=== PATIENT | female | born 1955 | race African-American/Black ===

== ENCOUNTER 2016-07-18 23:40 | Inpatient (IN) | payer MEDICAID, OTHER ==
[~2016-07-18] VITALS: Ht 154.9 cm; Wt 122.0 kg
[~2016-07-18 23:40] MED LIST: ADALAT CC90 MG PO; ALBUTEROL SULF8.5 GM INH; ASPIRIN EC81 MG PO; ATIVAN1 MG ORAL; AUGMENTIN 875-1 EAC1 ORAL; AZITHROMYCIN250 MG ORAL; AZITHROMYCIN250 MG PO; FLOVENT2 PUFF2 INH; FUROSEMIDE40 MG ORAL; GENTAMICIN SUL3.5 GM OP; IBUPROFEN600 MG ORAL; LASIX40 MG PO; LISINOPRIL20 MG ORAL; MECLIZINE HCL25 MG ORAL; METOPROLOL TART25 MG ORAL; NIFEDIPINE ER60 M2 ORAL; NORCO 5-325 TA1 EACH ORAL; OYSTER SHELL C500 MG PO; PERCOCET 5-3251 EACH ORAL; POTASSIUM CHLO20 ME1 PO; POTASSIUM99 M2 PO; PREDNISONE20 MG ORAL; PRILOSEC40 MG PO; ROBAXIN500 MG PO; SIMVASTATIN20 MG ORAL; SIMVASTATIN20 MG PO; SUCRALFATE1 GM ORAL; TYLENOL/CODEI12.5 ML PO; TYLENOL325 MG ORAL; UNKNOWN MEDS; VALIUM2 MG ORAL; VICODIN 5-5001 EACH PO; ZESTRIL20 MG PO
[2016-07-19] VITALS (8 sets, daily range): BP systolic 121–144; BP diastolic 65–78
[2016-07-19] MEDS ORDERED: Enoxaparin 120 mg inj SUBQ ONE (00:30)
[2016-07-19] MEDS ORDERED: Aspirin Baby 81mg ORAL ONE (00:30)
[2016-07-19 01:07] LABS: APPEARANCE,URINE CLEAR; BASOPHILS % (AUTO) 1.3 % (0.0-2.0); EOSINOPHILS % (AUTO) 3.4 % (0.0-3.0); KETONES,URINE NEGATIVE (NEGATIVE); LYMPHOCYTES % (AUTO) 49.6 % (20.0-45.0); MEAN CORPUSCULAR HGB CONC 31.6 G/DL (32.0-36.0); MEAN CORPUSCULAR VOLUME 92 FL (80-99); MEAN PLATELET VOLUME 12.9 FL (6.5-10.1); MONOCYTES % (AUTO) 7.9 % (1.0-10.0); NEUTROPHILS % (AUTO) 37.7 % (45.0-75.0); NITRITE,URINE NEGATIVE (NEGATIVE); PH,URINE 8 (4.5-8.0); PLATELET COUNT 154 K/UL (150-450); PROTEIN,URINE NEGATIVE (NEGATIVE); RED BLOOD COUNT 4.07 M/UL (4.20-5.40); RED CELL DISTRIBUTION WIDTH 13.2 % (11.6-14.8); UROBILINOGEN,URINE 4 MG/DL (0.0-1.0)
[2016-07-19 01:09] LABS: LEUKOCYTE ESTERASE ,URINE NEGATIVE (NEGATIVE)
[2016-07-19 01:22] LABS: TROPONIN I < 0.30 ng/mL (<=0.30)
[2016-07-19 01:35] LABS: CKMB < 1.5 ng/mL (< 3.8)
--- NOTE | 2016-07-19 02:07 | Emergency Room Report ---
History of Present Illness General Chief Complaint: Chest Pain Source: Patient Present Illness HPI Is a 60-year-old obese female with history hypertension, CHF, and psych history. She is occasionally noncompliant with her medication. She presents with chest pain. She said that she has chronic reflux problem. Reason she came in because her pain is radiating to her neck and arm. She has apheresis. Also exertional pain. Onset was 4-5 hours prior to arrival. Denies any other complaint. Has not take anything for this. Allergies: Coded Allergies: No Known Allergies (Unverified , 01/19/12) Patient History Past Medical History: see triage record, old chart reviewed, HTN, psych hx Past Surgical History: other Pertinent Family History: none Social History: Denies: drug use Now: No Immunizations: other Reviewed Nursing Documentation: PMH: Agreed, PSxH: Agreed Nursing Documentation-PMH Hx Hypertension: Yes - High cholesterol Hx COPD: Yes Hx Cancer: No Hx Neurological Problems: No Review of Systems Eye: Denies: blurred vision, eye pain ENT: Denies: ear pain, nose congestion, throat swelling Respiratory: Denies: cough, shortness of breath Cardiovascular: Reports: chest pain, Denies: palpitations Gastrointestinal: Denies: abdominal pain, diarrhea, nausea, vomiting Musculoskeletal: Denies: back pain, joint pain Skin: Denies: rash Neurological: Denies: headache, numbness Endocrine: Denies: increased thirst, increased urine Hematologic/Lymphatic: Denies: easy bruising All Other Systems: negative except mentioned in HPI Physical Exam Vital Signs Date Time Temp Pulse Resp B/P Pulse Ox O2 Delivery O2 Flow Rate FiO2 07/18/16 23:42 98.2 96 16 136/80 98 Room Air vitals normal Sp02 EP Interpretation: reviewed, normal General Appearance: well appearing, no apparent distress, alert, obese Head: normocephalic, atraumatic Eyes: bilateral eye EOMI, bilateral eye PERRL ENT: hearing grossly normal, normal pharynx Neck: full range of motion, supple, no meningismus Respiratory: chest non-tender, lungs clear, normal breath sounds Cardiovascular #1: regular rate, rhythm, no murmur Gastrointestinal: normal bowel sounds, non tender, no mass, no organomegaly, no bruit, non-distended Musculoskeletal: back normal, gait/station normal, normal range of motion Psychiatric: mood/affect normal Skin: warm/dry Medical Decision Making Diagnostic Impression: Primary Impression: Unstable angina Additional Impressions: Morbid obesity with BMI of 50.0-59.9, adult ACS (acute coronary syndrome) CHF exacerbation Qualified Codes: I50.9 - Heart failure, unspecified Anemia, chronic disease ER Course Patient presents with chest pain concerning for unstable angina. She is pain- free now. Aspirin and Lovenox given. Patient will be initiated versus transfer. insurance approved patient for admission here. She will be admitted to Dr. Boateng. Lab Results Impression labs unremarkable EKG Diagnostic Results Rate: normal Rhythm: NSR ST Segments: no acute changes Rhythm Strip Diag. Results EP Interpretation: yes Rate: 85 Rhythm: NSR, no PVC's, no ectopy Chest X-Ray Diagnostic Results EP Interpretation: Yes Findings: no consolidation, no effusion, no pneumothorax, no acute cardiopulmonary disease, other - CM Number of Views: 1 Last Vital Signs Date Time Temp Pulse Resp B/P Pulse Ox O2 Delivery O2 Flow Rate FiO2 07/18/16 23:42 98.2 96 16 136/80 98 Room Air Status: improved Disposition: ADMITTED INPATIENT Condition: Serious Referrals: EMPLOYEE [facility] MANE FERMIN (PCP) KEL ALFORD M.D. Jul 19, 2016 02:07
[2016-07-19 02:15] LABS: ALANINE AMINOTRANSFERASE 12 U/L (3-33); ANION GAP 12 (5-15); CALCIUM 8.9 mg/dL (8.6-10.2); CARBON DIOXIDE 27 mEQ/L (20-30); CHLORIDE 104 mEQ/L (98-107); CREATININE 0.8 mg/dL (0.5-0.9); GLOMERULAR FILTRATION RATE > 60 mL/min (>60); SODIUM 143 mEQ/L (135-145); TOTAL PROTEIN 6.5 g/dL (6.6-8.7)
[2016-07-19 02:17] LABS: POTASSIUM 3.9 mEQ/L (3.4-4.9)
[2016-07-19 02:35] LABS: ALBUMIN/GLOBULIN RATIO 1.2 (1.0-2.7); ASPARTATE AMINO TRANSFERASE 14 U/L (5-40)
[2016-07-19] MEDS ORDERED: NEURONTIN300 MG ORAL (05:11)
[2016-07-19] MEDS ORDERED: LORazepam Inj 2mg/ml 1ml IV ONE (05:45)
[2016-07-19] MEDS ORDERED: DuoNeb 0.5-3(2.5)mg/3ml neb HHN PRN (07:00)
[2016-07-19] MEDS ORDERED: Ketorolac 30mg Inj IV PRN (07:00)
[2016-07-19] MEDS ORDERED: Nitroglycerin Subl 0.4mg tab (Bottle Of 25) SL PRN (07:00)
[2016-07-19] MEDS ORDERED: Diltiazem 25mg/5ml IV PRN (07:00)
[2016-07-19] MEDS ORDERED: Enalaprilat 2.5mg/2ml Inj IV PRN (07:00)
[2016-07-19] MEDS ORDERED: Miralax 17gm pkt ORAL PRN (07:00)
[2016-07-19] MEDS ORDERED: Morphine Sulfate 2mg/ml Inj IVP PRN (07:00)
[2016-07-19] MEDS: Aspirin Baby 81mg ORAL SCH (09:00)
[2016-07-19] MEDS: Furosemide 40mg tab ORAL SCH (09:00)
[2016-07-19] MEDS: Lisinopril 20mg tab ORAL SCH (09:05)
[2016-07-19] MEDS: Metoprolol 25mg tab ORAL SCH ×2 (09:05→17:28)
[2016-07-19] MEDS: Heparin 5000 units/ml inj SUBQ SCH ×2 (09:07→20:30)
[2016-07-19 09:28] LABS: TROPONIN I < 0.30 ng/mL (<=0.30)
--- NOTE | 2016-07-19 11:36 | Diagnostic Imaging Report ---
Indication: Chest pain Technique: One view of the chest Comparison: 12/01/2015 Findings: The heart is borderline enlarged. The lungs and pleural spaces are clear. No significant change Impression: Borderline cardiomegaly. No acute process
--- NOTE | 2016-07-19 13:21 | Cardiology Progress Note ---
Assessment/Plan Assessment/Plan chest pain htn poor med compliance obesity "hear failrue" hx per pt neck and left amr pain trop neg awiat echo if no wll motion abn on echo woudl not prusuit her has had apparently severl astress test as out [facility] if no wall moption abn would recommned fu with her funeral attendant to see if she needs one if nto doen recently [id number] Objective Last 24 Hour Vital Signs Date Time Temp Pulse Resp B/P Pulse Ox O2 Delivery O2 Flow Rate FiO2 07/19/16 12:00 96.4 71 18 121/67 97 Room Air 07/19/16 09:05 74 135/65 07/19/16 09:05 74 135/65 07/19/16 09:05 135/65 07/19/16 08:00 97.3 80 18 130/77 99 Room Air 07/19/16 08:00 78 07/19/16 07:17 97.1 74 16 135/65 97 Room Air 07/19/16 07:09 92 16 Room Air 07/19/16 06:55 97.1 74 16 135/65 97 Room Air 07/19/16 04:41 73 20 143/70 99 Room Air 07/19/16 02:48 98.2 84 16 144/72 99 Room Air 07/19/16 00:30 98.2 87 19 143/69 98 Room Air 07/19/16 00:00 91 16 Room Air 07/18/16 23:42 98.2 96 16 136/80 98 Room Air Intake and Output 07/18/16 07/19/16 19:00 07:00 Output Total 1300 ml Balance -1300 ml Output Urine Total 1300 ml # Voids 4 Laboratory Tests Test 07/19/16 00:57 07/19/16 01:30 07/19/16 08:50 White Blood Count 6.0 K/UL (4.8-10.8) Red Blood Count 4.07 M/UL (4.20-5.40) L Hemoglobin 11.8 G/DL (12.0-16.0) L Hematocrit 37.3 % (37.0-47.0) Mean Corpuscular Volume 92 FL (80-99) Mean Corpuscular Hemoglobin 29.0 PG (27.0-31.0) Mean Corpuscular Hemoglobin Concent 31.6 G/DL (32.0-36.0) L Red Cell Distribution Width 13.2 % (11.6-14.8) Platelet Count 154 K/UL (150-450) Mean Platelet Volume 12.9 FL (6.5-10.1) H Neutrophils (%) (Auto) 37.7 % (45.0-75.0) L Lymphocytes (%) (Auto) 49.6 % (20.0-45.0) H Monocytes (%) (Auto) 7.9 % (1.0-10.0) Eosinophils (%) (Auto) 3.4 % (0.0-3.0) H Basophils (%) (Auto) 1.3 % (0.0-2.0) Urine Color Yellow Urine Appearance Clear Urine pH 8 (4.5-8.0) Urine Specific [place] 1.015 (1.005-1.035) Urine Protein Negative (NEGATIVE) Urine Glucose (UA) Negative (NEGATIVE) Urine Ketones Negative (NEGATIVE) Urine Occult Blood Negative (NEGATIVE) Urine Nitrite Negative (NEGATIVE) Urine Bilirubin Negative (NEGATIVE) Urine Urobilinogen 4 MG/DL (0.0-1.0) H Urine Leukocyte Esterase Negative (NEGATIVE) Troponin I < 0.30 ng/mL (<=0.30) < 0.30 ng/mL (<=0.30) Sodium Level 143 mEQ/L (135-145) Potassium Level 3.9 mEQ/L (3.4-4.9) Chloride Level 104 mEQ/L (98-107) Carbon Dioxide Level 27 mEQ/L (20-30) Anion Gap 12 (5-15) Blood Urea Nitrogen 17 mg/dL (7-23) Creatinine 0.8 mg/dL (0.5-0.9) Estimat Glomerular Filtration Rate > 60 mL/min (>60) Glucose Level 110 mg/dL (74-106) H Calcium Level 8.9 mg/dL (8.6-10.2) Total Bilirubin 0.6 mg/dL (0.0-1.2) Aspartate Amino Transf (AST/SGOT) 14 U/L (5-40) Alanine Aminotransferase (ALT/SGPT) 12 U/L (3-33) Alkaline Phosphatase 78 U/L (35-104) Total Creatine Kinase 97 U/L (26-140) Creatine Kinase MB < 1.5 ng/mL (< 3.8) Creatine Kinase MB Relative Index 1.5 Pro-B-Type Natriuretic Peptide 852 pg/mL (0-125) H Total Protein 6.5 g/dL (6.6-8.7) L Albumin 3.6 g/dL (3.5-5.2) Globulin 2.9 g/dL Albumin/Globulin Ratio 1.2 (1.0-2.7) NURIS PAULINO Jul 19, 2016 13:21
--- NOTE | 2016-07-19 14:58 | History and Physical ---
History of Present Illness General Date patient seen: Jul 19, 2016 Reason for Hospitalization: Chest Pain Present Illness HPI 60-year-old obese female with history hypertension, CHF, and COPD presented with chest pain. Reason she came in because her pain is radiating to her neck and arm. She has apheresis. Also exertional pain. Onset was 4-5 hours prior to arrival. Denies any other complaint. Has not take anything for this. she claims that she had some wheezing as well Allergies: Coded Allergies: No Known Allergies (Unverified , 01/19/12) Medication History Scheduled Amoxicillin/Potassium Clav 875-125* (Augmentin 875-125 Tablet*), 1 TAB ORAL TWICE A DAY Aspirin Ec* (Aspirin Ec*), 81 MG PO DAILY, (Reported) Fluticasone Propionate (Flovent Hfa), 2 PUFFS INH TWICE A DAY, (Reported) Furosemide* (Lasix*), 40 MG ORAL DAILY, (Reported) Gabapentin (Neurontin), 300 MG ORAL BEDTIME, (Reported) Gentamicin Sulfate* (Gentamicin Sulfate*), 3.5 GM OP TID Lisinopril (Lisinopril*), 40 MG ORAL DAILY, (Reported) Metoprolol Tartrate* (Metoprolol Tartrate*), 25 MG ORAL BID, (Reported) Nifedipine* (Nifedipine Er*), 90 MG ORAL DAILY, (Reported) Simvastatin (Zocor), 20 MG ORAL DAILY, (Reported) Sucralfate* (Carafate*), 1 GM ORAL FOUR TIMES A DAY, (Reported) Miscellaneous Medications Potassium (Potassium), 99 MG PO, (Reported) Patient History Healthcare decision maker Resuscitation status Advanced Directive on File Past Medical/Surgical History Past Medical/Surgical History: (1) CHF (congestive heart failure) (2) COPD (chronic obstructive pulmonary disease) (3) Morbid obesity with BMI of 50.0-59.9, adult Review of Systems All Other Systems: negative except mentioned in HPI Physical Exam General Appearance: WD/WN Lines, tubes and drains: peripheral, PICC Neck: non-tender, normal alignment Respiratory/Chest: chest wall non-tender, normal breath sounds Cardiovascular/Chest: normal peripheral pulses, normal rate Genitourinary/Rectal: normal genital exam Extremities: normal range of motion Last 24 Hour Vital Signs Date Time Temp Pulse Resp B/P Pulse Ox O2 Delivery O2 Flow Rate FiO2 2/9/17 12:00 96.4 71 18 121/67 97 Room Air 07/19/16 09:05 74 135/65 07/19/16 09:05 74 135/65 07/19/16 09:05 135/65 07/19/16 08:00 97.3 80 18 130/77 99 Room Air 07/19/16 08:00 78 07/19/16 07:17 97.1 74 16 135/65 97 Room Air 07/19/16 07:09 92 16 Room Air 07/19/16 06:55 97.1 74 16 135/65 97 Room Air 07/19/16 04:41 73 20 143/70 99 Room Air 07/19/16 02:48 98.2 84 16 144/72 99 Room Air 07/19/16 00:30 98.2 87 19 143/69 98 Room Air 07/19/16 00:00 91 16 Room Air 07/18/16 23:42 98.2 96 16 136/80 98 Room Air Intake and Output 07/18/16 07/19/16 19:00 07:00 Output Total 1300 ml Balance -1300 ml Output Urine Total 1300 ml # Voids 4 Laboratory Tests Test 07/19/16 00:57 07/19/16 01:30 07/19/16 08:50 White Blood Count 6.0 K/UL (4.8-10.8) Red Blood Count 4.07 M/UL (4.20-5.40) L Hemoglobin 11.8 G/DL (12.0-16.0) L Hematocrit 37.3 % (37.0-47.0) Mean Corpuscular Volume 92 FL (80-99) Mean Corpuscular Hemoglobin 29.0 PG (27.0-31.0) Mean Corpuscular Hemoglobin Concent 31.6 G/DL (32.0-36.0) L Red Cell Distribution Width 13.2 % (11.6-14.8) Platelet Count 154 K/UL (150-450) Mean Platelet Volume 12.9 FL (6.5-10.1) H Neutrophils (%) (Auto) 37.7 % (45.0-75.0) L Lymphocytes (%) (Auto) 49.6 % (20.0-45.0) H Monocytes (%) (Auto) 7.9 % (1.0-10.0) Eosinophils (%) (Auto) 3.4 % (0.0-3.0) H Basophils (%) (Auto) 1.3 % (0.0-2.0) Urine Color Yellow Urine Appearance Clear Urine pH 8 (4.5-8.0) Urine Specific [place] 1.015 (1.005-1.035) Urine Protein Negative (NEGATIVE) Urine Glucose (UA) Negative (NEGATIVE) Urine Ketones Negative (NEGATIVE) Urine Occult Blood Negative (NEGATIVE) Urine Nitrite Negative (NEGATIVE) Urine Bilirubin Negative (NEGATIVE) Urine Urobilinogen 4 MG/DL (0.0-1.0) H Urine Leukocyte Esterase Negative (NEGATIVE) Troponin I < 0.30 ng/mL (<=0.30) < 0.30 ng/mL (<=0.30) Sodium Level 143 mEQ/L (135-145) Potassium Level 3.9 mEQ/L (3.4-4.9) Chloride Level 104 mEQ/L (98-107) Carbon Dioxide Level 27 mEQ/L (20-30) Anion Gap 12 (5-15) Blood Urea Nitrogen 17 mg/dL (7-23) Creatinine 0.8 mg/dL (0.5-0.9) Estimat Glomerular Filtration Rate > 60 mL/min (>60) Glucose Level 110 mg/dL (74-106) H Calcium Level 8.9 mg/dL (8.6-10.2) Total Bilirubin 0.6 mg/dL (0.0-1.2) Aspartate Amino Transf (AST/SGOT) 14 U/L (5-40) Alanine Aminotransferase (ALT/SGPT) 12 U/L (3-33) Alkaline Phosphatase 78 U/L (35-104) Total Creatine Kinase 97 U/L (26-140) Creatine Kinase MB < 1.5 ng/mL (< 3.8) Creatine Kinase MB Relative Index 1.5 Pro-B-Type Natriuretic Peptide 852 pg/mL (0-125) H Total Protein 6.5 g/dL (6.6-8.7) L Albumin 3.6 g/dL (3.5-5.2) Globulin 2.9 g/dL Albumin/Globulin Ratio 1.2 (1.0-2.7) Height (Feet): 5 Height (Inches): 1.00 Weight (Pounds): 269 Medications Current Medications Medications (Trade) Dose Ordered Sig/Gus Route PRN Reason Start Time Stop Time Status Last Admin Dose Admin Acetaminophen (Tylenol) 650 mg Q4H PRN ORAL FEVER 07/19/16 07:00 08/18/16 06:59 Albuterol/ Ipratropium (DuoNeb 0.5-3(2.5)mg/3ml) 3 ml EVERY 4 HOURS PRN HHN Shortness of Breath 07/19/16 07:00 07/24/16 06:59 Aspirin (ASA) 162 mg DAILY ORAL 07/19/16 09:00 08/18/16 08:59 Diltiazem HCl (Cardizem) 10 mg EVERY HOUR PRN IV heart rate more than 120, 07/19/16 07:00 08/18/16 06:59 Enalaprilat (Vasotec) 2.5 mg EVERY 6 HOURS PRN IV sbp more than 160 07/19/16 07:00 08/18/16 06:59 Furosemide (Lasix) 40 mg DAILY ORAL 07/19/16 09:00 08/18/16 08:59 Gabapentin (Neurontin) 300 mg BEDTIME ORAL 07/19/16 21:00 08/18/16 20:59 Heparin Sodium (Porcine) (Heparin 5000 units/ml) 5,000 units EVERY 12 HOURS SUBQ 07/19/16 09:00 08/18/16 08:59 07/19/16 09:07 Ketorolac Tromethamine (Toradol 30mg) 30 mg Q6HR PRN IV moderate pain ( 4-6) 07/19/16 07:00 07/24/16 06:59 Lisinopril (Prinivil) 40 mg DAILY ORAL 07/19/16 09:00 08/18/16 08:59 07/19/16 09:05 Metoprolol Tartrate (Lopressor) 25 mg BID ORAL 07/19/16 09:00 08/18/16 08:59 07/19/16 09:05 Morphine Sulfate (Morphine Sulfate) 2 mg EVERY 4 HOURS PRN IVP severe Pain (Pain Scale 7-10) 07/19/16 07:00 07/26/16 06:59 Nifedipine (Procardia XL) 90 mg DAILY ORAL 07/19/16 09:00 08/18/16 08:59 07/19/16 09:05 Nitroglycerin (Ntg) 0.4 mg PRN PRN SL Prn Chest Pain 07/19/16 07:00 08/18/16 06:59 Ondansetron HCl (Zofran) 4 mg Q6H PRN IVP Nausea & Vomiting 07/19/16 07:00 08/18/16 06:59 Pantoprazole (Protonix) 40 mg DAILY ORAL 07/19/16 09:00 08/18/16 08:59 07/19/16 09:05 Polyethylene Glycol (Miralax) 17 gm DAILYPRN PRN ORAL Constipation 07/19/16 07:00 08/18/16 06:59 Temazepam (Restoril) 15 mg HSPRN PRN ORAL Insomnia 07/19/16 07:00 07/26/16 06:59 Assessment/Plan Problem List: (1) ACS (acute coronary syndrome) ICD Codes: I24.9 - Acute ischemic heart disease, unspecified SNOMED: 052754530 (2) CHF (congestive heart failure) ICD Codes: I50.9 - Heart failure, unspecified SNOMED: 30687403 (3) COPD (chronic obstructive pulmonary disease) ICD Codes: J44.9 - Chronic obstructive pulmonary disease, unspecified SNOMED: 31102358 (4) Morbid obesity with BMI of 50.0-59.9, adult ICD Codes: E66.01 - Morbid (severe) obesity due to excess calories; Z68.43 - Body mass index (BMI) 50-59.9 , adult SNOMED: 020588545, 772225255 Assessment/Plan serial ekg, troponing echo diuretics H2 blockers cardiology to see ERICA BEE Jul 19, 2016 14:58
--- NOTE | 2016-07-19 20:18 | Consultation ---
DATE OF CONSULTATION: 07/19/2016 CARDIOLOGY CONSULTATION CONSULTING PHYSICIAN: Christ Rosario M.D. REFERRING PHYSICIAN: Merari Boateng M.D. REASON FOR CONSULTATION: Chest pain and shortness of breath. HISTORY OF PRESENT ILLNESS: This is a middle-aged female, who has history of hypertension. Apparently, she has a history of congestive heart failure and previously is followed by a sports coordinator in addition to primary care physician. Apparently, she has been intermittently noncompliant with her medications for blood pressure, but has promised then and she seems to indicate that she has been taking her blood pressure medications on a regular basis for the past month or two. Nevertheless, she had started having some fluctuations in her blood pressure reading and has been having some pain in the left side of the neck and down the left arm and last night started having some pain in her chest as well. So, she finally presented to the emergency room at [facility]. She has had chest pains on prior occasions that has been related to her reflux she says, but the pain that she experienced last night was a bit different. She cannot really tell the difference and how this difference was. She is not able to describe it very well. It is in the center of the chest. She took some anti-acid she took some other remedies to help her pain last night was more extensive. The patient does have shortness of breath and certainly has dyspnea on exertion. She does get up at night because of shortness of breath. She has dizziness on standing. She has palpitations as well as dyspnea on exertion. She has had several prior stress testings, she does not recall when her stress tests have been performed. Just, she has been at [facility] before and the information that I have at [facility] indicate that her stress tests were negative, but this at [facility] was in 2008. She tells me she has had hospitalizations here at [facility] as well as at the [facility] and the rest of them, she does not remember. PAST MEDICAL HISTORY: Positive for history of hypertension, esophagitis, morbid obesity, and congestive heart failure. No heart attack. No cancer. No stroke. No hepatitis or tuberculosis. No asthma. She does indicate she has chronic obstructive pulmonary disease. No kidney problems, liver problems, or thyroid problems at this time, although she previously had utilized the Synthroid. No gynecological problems. No blood clots anywhere either. ALLERGIES: She is not allergic to any medications. SOCIAL HISTORY: She quit smoking 15 years ago. Does not drink alcoholic beverages. No drug history. REVIEW OF SYSTEMS: Gastrointestinal: She has had constipation and diarrhea. Genitourinary: Negative. Pulmonary: Occasional coughing. No wheezing. Constitutional: Negative. PHYSICAL EXAMINATION: GENERAL: Shows a morbidly obese middle-aged female, in no apparent respiratory distress. VITAL SIGNS: Her blood pressure is anywhere between 135/65 to 121/67. NECK: Supple. No jugular venous distention. No abdominojugular reflux noted. LUNGS: Appear to be clear to auscultation and percussion. CARDIAC: S1 is normal. S2 is normal. Regular rate and rhythm. There is a systolic ejection murmur. There is no heaves or thrills or gallops noted. ABDOMEN: Soft and nontender. Positive bowel sounds. EXTREMITIES: There is no clubbing or cyanosis. There is about 1+ to 2+ edema of the lower extremities. DIAGNOSTIC DATA: Her last echocardiogram here showed a hyperdynamic systolic function in November 2015 and there was LVOT obstruction related to cavity obliteration and mild diastolic relaxation abnormality. Her electrocardiogram at this time shows sinus rhythm and left ventricular hypertrophy with repolarization abnormalities, although direct comparison with old EKG, cannot be made. The interpretation of the older EKGs have indicated that repolarization abnormality as well. She had an x-ray of her chest performed that showed borderline cardiomegaly and no acute processes. LABORATORY DATA: Blood tests show white count 6, hemoglobin 11.8, and platelet count 154,000. Sodium 142, potassium 3.9, chloride 104, bicarbonate 27, BUN of 17, creatinine 0.8, and glucose of 110. Her proBNP is only 892. Liver function tests are otherwise normal. Coags, INR is 1.3 and a PTT of 29. Urinalysis is fairly unremarkable. ASSESSMENT: 1. Atypical chest pain. 2. Gastroesophageal reflux disease. 3. Hypertension. 4. Poor compliance with medications including antihypertensive medications with a reported history of diastolic heart failure. 5. Abnormal electrocardiogram secondary left ventricular hypertrophy with repolarization abnormalities. PLAN: Dr. Boateng, this patient was seen in cardiac consultation. The patient has no cardiac enzyme abnormalities. She has had apparently several stress tests before, some that I have been able to find at [facility] were negative. Her pain appears to be atypical in nature. Since she does not have any cardiac enzymes abnormality, we will be checking an echocardiogram to assure there is no wall motion abnormalities in which case, I would probably leave her to see her usual sports coordinator to see if she needs further testing in the future. Christ Rosario M.D. DR: CINDY JOB#: [id number] CC:
[2016-07-20] VITALS: BP 123/61
[2016-07-20 04:00] VITALS: BP 125/71
[2016-07-20 07:05] LABS: EOSINOPHILS % (AUTO) 4.6 % (0.0-3.0); LYMPHOCYTES % (AUTO) 49.4 % (20.0-45.0); MEAN CORPUSCULAR HEMOGLOBIN 28.7 PG (27.0-31.0); MEAN CORPUSCULAR HGB CONC 30.7 G/DL (32.0-36.0); MEAN CORPUSCULAR VOLUME 93 FL (80-99); MEAN PLATELET VOLUME 10.9 FL (6.5-10.1); MONOCYTES % (AUTO) 9.2 % (1.0-10.0); NEUTROPHILS % (AUTO) 35.7 % (45.0-75.0); PLATELET COUNT 160 K/UL (150-450); RED BLOOD COUNT 3.89 M/UL (4.20-5.40); RED CELL DISTRIBUTION WIDTH 13.3 % (11.6-14.8); WHITE BLOOD COUNT 5.9 K/UL (4.8-10.8)
[2016-07-20 07:47] LABS: TROPONIN I < 0.30 ng/mL (<=0.30)
[2016-07-20 07:54] LABS: CHOLESTEROL/HDL RATIO 3.5 (3.3-4.4); CRP QUANT 1.6 mg/dL (< 0.5)
[2016-07-20 07:55] LABS: THYROID STIMULATING HORMONE 1.95 uIU/mL (0.300-4.500)
[2016-07-20 08:00] VITALS: BP 118/71
[2016-07-20] MEDS: Aspirin Baby 81mg ORAL SCH (08:57)
[2016-07-20 08:58] VITALS: BP 118/71
[2016-07-20] MEDS: Metoprolol 25mg tab ORAL SCH (08:58)
[2016-07-20] MEDS: Lisinopril 20mg tab ORAL SCH (08:58)
[2016-07-20] MEDS: Furosemide 40mg tab ORAL SCH (08:58)
[2016-07-20] MEDS: Heparin 5000 units/ml inj SUBQ SCH (08:59)
--- NOTE | 2016-07-22 20:13 | Cardiology Report ---
APPROVED REPORT EXAM: Two-dimensional and M-mode echocardiogram with Doppler and color Doppler. INDICATION Left Ventricular Function M-Mode DIMENSIONS IVSd1.4 (0.7-1.1cm)Left Atrium (MM)4.3 (1.6-4.0cm) LVDd4.4 (3.5-5.6cm)Aortic Root2.9 (2.0-3.7cm) PWd1.3 (0.7-1.1cm)Aortic Cusp Exc.1.6 (1.5-2.0cm) LVDs2.4 (2.5-4.0cm) PWs1.9 cm Normal left ventricular chamber size, hypredynamic systolic function and wall motion. Left ventricular ejection fraction estimated to be 70-75 %. Mild left ventricular hypertrophy. Anterior Echo-free space, may be due to pericardial fat or effusion. No evidence of pericardial effusion. All other cardiac chamber sizes are within normal limits. Mild focal aortic valve sclerosis with adequate cusp excursion. Mildly thickened mitral valve leaflets with normal excursion. Mild mitral annulus and aortic root calcification. Pulmonic valve not well visualized. Normal tricuspid valve structure. IVC at normal size with physiologic collapse. A color flow and spectral Doppler study was performed and revealed: No aortic regurgitation. Moderate mitral regurgitation. Mitral diastolic velocities suggest reduced left ventricular relaxation (Grade I). Trace tricuspid regurgitation. Tricuspid systolic velocities suggests peak right ventricular systolic pressure of 16 mmHg. No pulmonic regurgitation present. Cavity obliteration with about 64 mmhg gtadient with in the LVcavity
--- NOTE | 2016-07-23 13:18 | Discharge Summary ---
Discharge Summary Hospital Course Date of Admission Jul 19, 2016 at 02:11 Date of Discharge Jul 20, 2016 at 10:20 Admitting Diagnosis acute coronary syndrome ALYSA Vallejo is a 60 year old female who was admitted on Jul 19, 2016 at 02: 11 for Acute Coronary Syndrome Hospital Course dc summary dictated # [id number] Discharge Medications Continued Medications: Aspirin Ec* (Aspirin Ec*) 81 Mg Tablet.dr 81 MG PO DAILY Fluticasone Propionate (Flovent Hfa) 12 Gm Aer.w.adap 2 PUFFS INH TWICE A DAY, #1 EA 0 Refills Furosemide* (Lasix*) 40 Mg Tablet 40 MG ORAL DAILY, TAB Gabapentin (Neurontin) 300 Mg Capsule 300 MG ORAL BEDTIME, #7 CAP 0 Refills Gentamicin Sulfate* (Gentamicin Sulfate*) 3.5 Gm Oint...g. 3.5 GM OP TID for 7 Days, GM Lisinopril (Lisinopril*) 20 Mg Tablet 40 MG ORAL DAILY, TAB Metoprolol Tartrate* (Metoprolol Tartrate*) 25 Mg Tablet 25 MG ORAL BID, TAB Nifedipine* (Nifedipine Er*) 60 Mg Tablet.er 90 MG ORAL DAILY, TAB Potassium (Potassium) 99 Mg Tablet 99 MG PO, TAB Simvastatin (Zocor) 20 Mg Tablet 20 MG ORAL DAILY, TAB Sucralfate* (Carafate*) 1 Gm Tablet 1 GM ORAL FOUR TIMES A DAY, TAB Discharge Condition Upon Discharge: stable Discharge Disposition Patient was discharged to Home (01) Discharge Diagnoses: Discharge Instructions Discharge Instructions Special Instructions I have been assigned to complete a D/C Summary on this account. I was not involved in the patient management Juhi Castañeda NP ([place]anchtein) Jul 23, 2016 13:18
--- NOTE | 2016-07-24 01:09 | Discharge Summary 2 SIG ---
DATE OF ADMISSION: 07/19/2016 DATE OF DISCHARGE: 07/20/2016 REASON FOR ADMISSION: 60-year-old morbidly obese female with history of hypertension, congestive heart failure, and psychiatric history, occasionally noncompliant with her medications, presented with chest pain. The pain was radiating to the neck and arm. Pain was exertional. Onset occurred four to five hours prior to arrival to the emergency room. She also complained of shortness of breath. No cough. No wheezing. Denied fever. Denied chills. The patient also admitted to chronic reflux problem. In the emergency department, the first troponin was negative. Chest x-ray revealed cardiomegaly, but otherwise no acute cardiopulmonary disease. EKG demonstrated normal sinus rhythm. No premature ventricular contraction. No ectopy. No ischemic changes. Pro BNP was elevated at 852. The patient was admitted for possible unstable angina. Aspirin and Lovenox given in ED. The patient was transferred to telemetry for further management. ADMITTING DIAGNOSES: 1. Chest pain, rule out acute coronary syndrome. 2. Possible unstable angina. 3. Hypertension. 4. Poor compliance. 5. Possible diastolic congestive heart failure exacerbation. 6. Morbid obesity. 7. Anemia of chronic disease. HOSPITAL STAY: The patient was admitted to telemetry floor. Troponin x3 were negative. Lipid panel revealed elevated LDL, otherwise stable. Continue statin. Cardiology consult was requested. Per special agent group insurance, the patient had few stress tests done. Discovery Manager reviewed the ones done in [facility] and found them all negative. Per Cardiology, pain appears to be atypical. He ordered echocardiogram to assess for any possible wall motion abnormality. Echocardiogram revealed preserved ejection fraction of 70% to 75%, mild LVH, right ventricular systolic pressure of 60, and no evidence of wall motion abnormality. Moderate mitral regurgitation noted as well. Supplemental oxygen and pulmonary toilet provided as needed. Pulse oximetry was stable on the room air. No evidence of congestive heart failure exacerbation. No evidence of COPD exacerbation. Hemoglobin and hematocrit at the baseline. No trend down. Blood pressure was managed with the current regimen of MARIA E inhibitor and beta-elba as well as a calcium channel elba, stable. Continue statin. Continue diuretic. Renal parameters and electrolytes were all stable. Due to the rapid and unexpected improvement in patient condition, the patient was discharged the following day. DISCHARGE DIAGNOSES: 1. Atypical chest pain, likely related to chronic reflux problem. 2. Gastroesophageal reflux disease. 3. Hypertension. 4. Hyperlipidemia 5. Diastolic congestive heart failure, no evidence of exacerbation. 6. Abnormal EKG (left ventricular hypertrophy with repolarization abnormality). 7. Moderate mitral regurgitation. 8. Morbid obesity. 9. Anemia of chronic disease. 10. COPD 11. Poor compliance DISCHARGE MEDICATIONS: See medication reconciliation list. DISCHARGE INSTRUCTIONS: The patient was discharged home. Follow up with the primary medical doctor as well as with the patient's own special agent group insurance for further workup as needed. Merari Boateng M.D. I have been assigned to dictate discharge summary on this account and I was not involved in the patient's management. Juhi SibleyNyu Langone Tisch HospitalMaynor N.PBang DR: JEAN-PAUL JOB#: [id number] CC: MERCEDES
--- NOTE | 2016-07-27 13:36 | Cardiology Report ---
APPROVED REPORT EKG Measurement Heart [id number] FL 150P45 [id number] Normal sinus rhythm Possible Left atrial enlargement Left ventricular hypertrophy with repolarization abnormality Abnormal ECG
== END 2016-07-20 10:20 | disposition home or self-care (01) | DRG 243 ==
LOC: EMR 23:58 → 2E 07-19 02:11 → EDBEDREQ 07-19 03:33
DX: K21.9 Gastro-esophageal reflux disease without esophagitis (principal); I50.30 Unspecified diastolic (congestive) heart failure; I10 Essential (primary) hypertension; Z91.14 Patient's other noncompliance with medication regimen; J44.9 Chronic obstructive pulmonary disease, unspecified; E66.01 Morbid (severe) obesity due to excess calories; Z68.43 Body mass index [BMI] 50.0-59.9, adult; R07.89 Other chest pain; D63.8 Anemia in other chronic diseases classified elsewhere; I34.0 Nonrheumatic mitral (valve) insufficiency; Z87.891 Personal history of nicotine dependence
CPT/HCPCS: 36415; 71010; 80053; 80061; 81003; 82550; 82553; 83880; 84443; 84484; 85025; 85610; 85730; 86140; 93005; 93306; 94664

== ENCOUNTER 2016-07-31 23:22 | Emergency (ER) | payer MEDICAID, OTHER ==
[~2016-07-31] VITALS: Ht 154.9 cm; Wt 122.0 kg
[~2016-07-31 23:22] MED LIST changes: +NEURONTIN300 MG ORAL
[2016-07-31 23:40] VITALS: BP 130/85
[2016-07-31] MEDS ORDERED: Mylanta II UD 30ml ORAL ONE (23:45)
[2016-07-31] MEDS ORDERED: Pantoprazole Inj IVP ONE (23:45)
[2016-07-31] MEDS ORDERED: Lidocaine 2% Visc 15ml soln ORAL ONE (23:45)
[2016-07-31] MEDS ORDERED: TUMS200 M1 PO (23:52)
[2016-07-31] MEDS ORDERED: VITAMIN D400 INTLU ORAL (23:52)
[2016-08-01 00:09] LABS: BASOPHILS % (AUTO) 1.3 % (0.0-2.0); EOSINOPHILS % (AUTO) 5.2 % (0.0-3.0); LYMPHOCYTES % (AUTO) 41.1 % (20.0-45.0); MEAN CORPUSCULAR HEMOGLOBIN 28.3 PG (27.0-31.0); MEAN CORPUSCULAR HGB CONC 30.8 G/DL (32.0-36.0); MEAN CORPUSCULAR VOLUME 92 FL (80-99); MEAN PLATELET VOLUME 9.3 FL (6.5-10.1); MONOCYTES % (AUTO) 10.4 % (1.0-10.0); PLATELET COUNT 194 K/UL (150-450); RED BLOOD COUNT 4.06 M/UL (4.20-5.40); RED CELL DISTRIBUTION WIDTH 13.3 % (11.6-14.8); WHITE BLOOD COUNT 6.3 K/UL (4.8-10.8)
[2016-08-01 00:21] LABS: TROPONIN I < 0.30 ng/mL (<=0.30)
[2016-08-01 00:22] LABS: ALANINE AMINOTRANSFERASE 12 U/L (3-33); ALBUMIN/GLOBULIN RATIO 1.2 (1.0-2.7); ANION GAP 15 (5-15); ASPARTATE AMINO TRANSFERASE 14 U/L (5-40); CALCIUM 9.3 mg/dL (8.6-10.2); CARBON DIOXIDE 27 mEQ/L (20-30); CHLORIDE 98 mEQ/L (98-107); CREATININE 0.9 mg/dL (0.5-0.9); GLOMERULAR FILTRATION RATE > 60 mL/min (>60); HEMOLYSIS 3; LIPASE 31 U/L (< 60); POTASSIUM 3.9 mEQ/L (3.4-4.9); SODIUM 140 mEQ/L (135-145); TOTAL PROTEIN 7.1 g/dL (6.6-8.7)
--- NOTE | 2016-08-01 00:48 | Emergency Room Report ---
History of Present Illness General Chief Complaint: Chest Pain Source: Patient Present Illness HPI Is a 60-year-old female with a history of severe esophagitis and gastritis. She is supposed to be on a proton pump inhibitor her. She's not taking one because of the cost. She presents with epigastric pain/chest pain. This occurred after eating. She did these episodes frequently. She's been admitted for chest pain complaint before. Most recently about a week and half ago. Workup is negative. She has an echo was normal. No wall abnormality. She has several stress tests at [facility] were negative. No radiation. No fever chills but no nausea no vomiting. No diarrhea. She already had a gallbladder removed. Allergies: Coded Allergies: No Known Allergies (Unverified , 07/31/16) Patient History Past Medical History: see triage record, old chart reviewed Past Surgical History: rudy, other Pertinent Family History: none Social History: Denies: smoking Last Menstrual Period: n/a Now: No Immunizations: other Reviewed Nursing Documentation: PMH: Agreed, PSxH: Agreed Nursing Documentation-PMH Hx Cardiac Problems: Yes - enlarged heart, CHF Hx Hypertension: Yes Hx COPD: Yes Hx Cancer: No Hx Gastrointestinal Problems: Yes - hx of cholecystectomy Hx Neurological Problems: No Review of Systems Eye: Denies: blurred vision, eye pain ENT: Denies: ear pain, nose congestion, throat swelling Respiratory: Denies: cough, shortness of breath Cardiovascular: Reports: chest pain, Denies: palpitations Gastrointestinal: Reports: abdominal pain, Denies: diarrhea, nausea, vomiting Musculoskeletal: Denies: back pain, joint pain Skin: Denies: rash Neurological: Denies: headache, numbness Endocrine: Denies: increased thirst, increased urine Hematologic/Lymphatic: Denies: easy bruising All Other Systems: limited Physical Exam Vital Signs Date Time Temp Pulse Resp B/P Pulse Ox O2 Delivery O2 Flow Rate FiO2 07/31/16 23:32 97.9 89 16 147/83 100 Room Air vitals normal Sp02 EP Interpretation: reviewed, normal General Appearance: well appearing, no apparent distress, alert, obese Head: normocephalic, atraumatic Eyes: bilateral eye EOMI, bilateral eye PERRL ENT: hearing grossly normal, normal pharynx Neck: full range of motion, supple, no meningismus Respiratory: chest non-tender, lungs clear, normal breath sounds Cardiovascular #1: regular rate, rhythm, no murmur Gastrointestinal: normal bowel sounds, non tender, no mass, no organomegaly, no bruit, non-distended Musculoskeletal: back normal, gait/station normal, normal range of motion Psychiatric: mood/affect normal Skin: warm/dry Medical Decision Making Diagnostic Impression: Primary Impression: Non-cardiac chest pain Additional Impressions: Esophagitis, acute Morbid obesity with BMI of 50.0-59.9, adult ER Course Patient presents with epigastric and chest pain. This is most likely gastritis and esophagitis. She felt better now. No evidence of ACS, PE, dissection. Lab Results Impression labs normal EKG Diagnostic Results Rate: normal Rhythm: NSR ST Segments: no acute changes Rhythm Strip Diag. Results EP Interpretation: yes Rate: 57 Rhythm: NSR, no PVC's, no ectopy Chest X-Ray Diagnostic Results EP Interpretation: Yes Findings: no consolidation, no effusion, no pneumothorax, no acute cardiopulmonary disease Number of Views: 1 Last Vital Signs Date Time Temp Pulse Resp B/P Pulse Ox O2 Delivery O2 Flow Rate FiO2 07/31/16 23:40 98.0 90 17 130/85 100 Room Air Status: improved Disposition: HOME, SELF-CARE Condition: Stable Scripts Omeprazole (OMEPRAZOLE) 40 Mg Capsule. 40 MG ORAL DAILY, #30 CAP Prov: KEL ALFORD M.D. 08/01/16 Referrals: EMPLOYEE [facility],REFERRIN (PCP) Patient Instructions: Heartburn Additional Instructions: Followup with your DrBang in 2-3 days. Return if symptom worsen. KEL ALFORD M.D. Aug 01, 2016 00:48
[2016-08-01] MEDS ORDERED: OMEPRAZOLE40 M1 ORAL (00:52)
[2016-08-01 01:10] VITALS: BP 132/82
--- NOTE | 2016-08-01 10:08 | Diagnostic Imaging Report ---
Indication: Chest Pain Comparison: 07/19/16 A single view chest radiograph was obtained. Findings: No definite infiltrate or pulmonary vascular congestion identified. The heart is enlarged. The aorta is mildly enlarged consistent with atherosclerotic vascular disease. The bones are osteopenic. Impression: No acute disease
--- NOTE | 2016-08-02 15:13 | Cardiology Report ---
APPROVED REPORT EKG Measurement Heart [id number] [place] 158P36 [id number] Normal sinus rhythm Possible Left atrial enlargement Left ventricular hypertrophy with repolarization abnormality Prolonged QT Abnormal ECG
== END 2016-08-01 01:10 | disposition home or self-care (01) ==
LOC: EMR 23:40
DX: R07.89 Other chest pain (principal); K20.9 Esophagitis, unspecified; E66.01 Morbid (severe) obesity due to excess calories; Z68.43 Body mass index [BMI] 50.0-59.9, adult; I10 Essential (primary) hypertension; I50.9 Heart failure, unspecified; J44.9 Chronic obstructive pulmonary disease, unspecified; Z90.49 Acquired absence of other specified parts of digestive tract
CPT/HCPCS: 36415; 71010; 80053; 83690; 84484; 85025; 93005; 96374; 99283; C9113

== ENCOUNTER 2016-10-29 22:04 | Inpatient (IN) | payer MEDICAID, OTHER ==
[~2016-10-29] VITALS: Ht 154.9 cm; Wt 120.7 kg
[~2016-10-29 22:04] MED LIST changes: +OMEPRAZOLE40 M1 ORAL; +TUMS200 M1 PO; +VITAMIN D400 INTLU ORAL
[2016-10-29] MEDS ORDERED: Levalbuterol Inh UD 1.25mg/0.5ml HHN ONE ×2 (22:45→23:30)
[2016-10-29] MEDS ORDERED: Solu-MEDROL 125mg Inj IVP ONE (22:45)
[2016-10-29] MEDS: Ipratropium 0.02% Inh Soln 2.5ml UD HHN SCH (22:51)
[2016-10-29 23:01] LABS: BASOPHILS % (AUTO) 2.2 % (0.0-2.0); EOSINOPHILS % (AUTO) 1.1 % (0.0-3.0); LYMPHOCYTES % (AUTO) 24.6 % (20.0-45.0); MEAN CORPUSCULAR HEMOGLOBIN 30.3 PG (27.0-31.0); MEAN CORPUSCULAR HGB CONC 32.1 G/DL (32.0-36.0); MEAN CORPUSCULAR VOLUME 94 FL (80-99); MEAN PLATELET VOLUME 9.8 FL (6.5-10.1); MONOCYTES % (AUTO) 12.7 % (1.0-10.0); NEUTROPHILS % (AUTO) 59.4 % (45.0-75.0); PLATELET COUNT 169 K/UL (150-450); RED BLOOD COUNT 4.41 M/UL (4.20-5.40); RED CELL DISTRIBUTION WIDTH 13.1 % (11.6-14.8); WHITE BLOOD COUNT 6.4 K/UL (4.8-10.8)
[2016-10-29 23:21] LABS: TROPONIN I < 0.30 ng/mL (<=0.30)
[2016-10-29 23:24] LABS: ALANINE AMINOTRANSFERASE 20 U/L (3-33); ALBUMIN/GLOBULIN RATIO 1.2 (1.0-2.7); ANION GAP 17 (5-15); ASPARTATE AMINO TRANSFERASE 34 U/L (5-40); CALCIUM 9.4 mg/dL (8.6-10.2); CARBON DIOXIDE 25 mEQ/L (20-30); CHLORIDE 96 mEQ/L (98-107); CREATININE 1.1 mg/dL (0.5-0.9); GLOMERULAR FILTRATION RATE > 60 mL/min (>60); HEMOLYSIS 3; POTASSIUM 4.2 mEQ/L (3.4-4.9); SODIUM 138 mEQ/L (135-145); TOTAL PROTEIN 7.9 g/dL (6.6-8.7)
[2016-10-29 23:36] LABS: CKMB 2.5 ng/mL (< 3.8)
[2016-10-30] VITALS (9 sets, daily range): BP systolic 108–136; BP diastolic 56–83
[2016-10-30] MEDS ORDERED: Ketorolac 30mg Inj IV PRN
[2016-10-30] MEDS ORDERED: Morphine Sulfate 2mg/ml Inj IVP PRN
[2016-10-30] MEDS ORDERED: Nitroglycerin Subl 0.4mg tab (Bottle Of 25) SL PRN
[2016-10-30] MEDS ORDERED: DuoNeb 0.5-3(2.5)mg/3ml neb HHN PRN
[2016-10-30] MEDS ORDERED: LORazepam Inj 2mg/ml 1ml IV PRN
[2016-10-30 00:28] LABS: APPEARANCE,URINE CLEAR; KETONES,URINE NEGATIVE (NEGATIVE); NITRITE,URINE NEGATIVE (NEGATIVE); PH,URINE 5 (4.5-8.0); PROTEIN,URINE NEGATIVE (NEGATIVE); UROBILINOGEN,URINE NORMAL MG/DL (0.0-1.0)
[2016-10-30 00:29] LABS: LEUKOCYTE ESTERASE ,URINE NEGATIVE (NEGATIVE)
[2016-10-30] MEDS ORDERED: LORazepam Inj 2mg/ml 1ml IV ONE (00:30)
[2016-10-30] MEDS ORDERED: Metoprolol 25mg tab ORAL ONE (01:15)
--- NOTE | 2016-10-30 05:30 | Emergency Room Report ---
History of Present Illness General Chief Complaint: Dyspnea/Respdistress Source: Patient Present Illness HPI 60-year-old female presents to ED of shortness of breath x2 days. Notes history of COPD and notes spasms when she coughs. Cough is dry. Denies chest pain. Denies fevers or chills. Denies sick contacts or recent travel. No other aggravating or relieving factors. Denies any other associated symptom Allergies: Coded Allergies: No Known Allergies (Unverified , 10/29/16) Patient History Past Medical History: HTN, CHF, COPD Past Surgical History: rudy Pertinent Family History: none Social History: Denies: alcohol use, drug use, smoking Last Menstrual Period: n/a Now: No Immunizations: UTD Reviewed Nursing Documentation: PMH: Agreed, PSxH: Agreed Nursing Documentation-PMH Hx Cardiac Problems: Yes - enlarged heart, CHF Hx Hypertension: Yes Hx COPD: Yes Hx Cancer: No Hx Gastrointestinal Problems: Yes - hx of cholecystectomy Hx Neurological Problems: No Review of Systems All Other Systems: negative except mentioned in HPI Physical Exam Vital Signs Date Time Temp Pulse Resp B/P Pulse Ox O2 Delivery O2 Flow Rate FiO2 10/29/16 22:18 102.0 117 22 138/81 98 Room Air Sp02 EP Interpretation: reviewed, normal General Appearance: no apparent distress, alert, GCS 15, non-toxic, obese Head: normocephalic Eyes: bilateral eye PERRL, bilateral eye normal inspection ENT: normal ENT inspection Neck: normal inspection Respiratory: decreased breath sounds, wheezing Cardiovascular #1: no edema, tachycardia Gastrointestinal: normal inspection Rectal: deferred Genitourinary: no CVA tenderness Musculoskeletal: normal inspection Neurologic: alert, oriented x3, responsive, motor strength/tone normal, sensory intact, speech normal Psychiatric: normal inspection Skin: normal inspection Lymphatic: normal inspection Medical Decision Making Diagnostic Impression: Primary Impression: COPD (chronic obstructive pulmonary disease) Qualified Codes: J44.9 - Chronic obstructive pulmonary disease, unspecified Additional Impression: CHF (congestive heart failure) Qualified Codes: I50.9 - Heart failure, unspecified ER Course Hospital Course 60-year-old F presenting to ED with SOB. h/o COPD Differential diagnoses include: Pneumonia, CHF exacerbation, pneumothorax, fluid overload Clinical course Patient placed on stretcher. On ekg monitor tech with stable vitals. After initial history and physical, I ordered nebulizer treatments. I ordered labs, IV fluids, EKG, chest x-ray, blood cultures, UA. Patient states she is very sensitive to breathing treatments becomes very tachycardic. I ordered Xopenex Labs - no leukocytosis noted, hemoglobi/hematocrit stable, electrolytes okay, lactate okay, troponins negative, BNP > 2000 CXR - cardiomegaly. atelectasis. effusion EKG - sinus tachycardia Patient became tachycardic after receiving breathing treatments. Patient feels very anxious and in distress. Patient has not received her evening dose of metoprolol. Patient was given by PO metoprolol. Patient feels anxious given Ativan and gabapentin for anxiety. Patient is also febrile. Given Tylenol On reassessment tachycardia has improved. Given antibiotics. Case discussed with Dr. Boateng and he agreed to the patient to his service for further care and support I feel this is a highly complex case requiring extensive working including EKG/ Rhythm strip, Xray/CT/US, Blood/urine lab work, repeat exams while in ED, and administration of strong opiates/narcotics for pain control, admission to hospital or close patient follow up. Diagnosis - COPD exacerbation, CHF Patient admitted to telemetry in serious condition Labs Test 10/29/16 22:35 10/30/16 00:07 White Blood Count 6.4 K/UL (4.8-10.8) Red Blood Count 4.41 M/UL (4.20-5.40) Hemoglobin 13.4 G/DL (12.0-16.0) Hematocrit 41.6 % (37.0-47.0) Mean Corpuscular Volume 94 FL (80-99) Mean Corpuscular Hemoglobin 30.3 PG (27.0-31.0) Mean Corpuscular Hemoglobin Concent 32.1 G/DL (32.0-36.0) Red Cell Distribution Width 13.1 % (11.6-14.8) Platelet Count 169 K/UL (150-450) Mean Platelet Volume 9.8 FL (6.5-10.1) Neutrophils (%) (Auto) 59.4 % (45.0-75.0) Lymphocytes (%) (Auto) 24.6 % (20.0-45.0) Monocytes (%) (Auto) 12.7 % (1.0-10.0) Eosinophils (%) (Auto) 1.1 % (0.0-3.0) Basophils (%) (Auto) 2.2 % (0.0-2.0) Sodium Level 138 mEQ/L (135-145) Potassium Level 4.2 mEQ/L (3.4-4.9) Chloride Level 96 mEQ/L (98-107) Carbon Dioxide Level 25 mEQ/L (20-30) Anion Gap 17 (5-15) Blood Urea Nitrogen 15 mg/dL (7-23) Creatinine 1.1 mg/dL (0.5-0.9) Estimat Glomerular Filtration Rate > 60 mL/min (>60) Glucose Level 102 mg/dL (74-106) Lactic Acid Level 0.80 mmol/L (0.66-2.22) Calcium Level 9.4 mg/dL (8.6-10.2) Total Bilirubin 1.0 mg/dL (0.0-1.2) Aspartate Amino Transf (AST/SGOT) 34 U/L (5-40) Alanine Aminotransferase (ALT/SGPT) 20 U/L (3-33) Alkaline Phosphatase 78 U/L (35-104) Total Creatine Kinase 1063 U/L (26-140) Creatine Kinase MB 2.5 ng/mL (< 3.8) Creatine Kinase MB Relative Index 0.2 Troponin I < 0.30 ng/mL (<=0.30) Pro-B-Type Natriuretic Peptide 2401 pg/mL (0-125) Total Protein 7.9 g/dL (6.6-8.7) Albumin 4.4 g/dL (3.5-5.2) Globulin 3.5 g/dL Albumin/Globulin Ratio 1.2 (1.0-2.7) Urine Color Yellow Urine Appearance Clear Urine pH 5 (4.5-8.0) Urine Specific [place] 1.010 (1.005-1.035) Urine Protein Negative (NEGATIVE) Urine Glucose (UA) Negative (NEGATIVE) Urine Ketones Negative (NEGATIVE) Urine Occult Blood Negative (NEGATIVE) Urine Nitrite Negative (NEGATIVE) Urine Bilirubin Negative (NEGATIVE) Urine Urobilinogen Normal MG/DL (0.0-1.0) Urine Leukocyte Esterase Negative (NEGATIVE) EKG Diagnostic Results Rate: tachycardiac Rhythm: NSR ST Segments: no acute changes ASA given to the pt in ED: No Rhythm Strip Diag. Results EP Interpretation: yes Rhythm: NSR, no PVC's, no ectopy Chest X-Ray Diagnostic Results EP Interpretation: Yes Findings: no pneumothorax, no acute cardiopulmonary disease, other - cardiomegaly. ? atelectasis. effusion Number of Views: 1 Last Vital Signs Date Time Temp Pulse Resp B/P Pulse Ox O2 Delivery O2 Flow Rate FiO2 10/30/16 05:16 100.6 75 25 111/65 94 Room Air Status: improved Disposition: ADMITTED INPATIENT Condition: Serious Referrals: EMPLOYEE [facility],REFERMARISSA (PCP) RUBY GARCÍA M.D. October 30, 2016 05:29
[2016-10-30] MEDS ORDERED: Piperacillin/Tazobactam 2.25 GM in D5W 55 ML IV SCH (06:00)
[2016-10-30] MEDS ORDERED: Zoysn 3.37gm in D5W 110ml IVPB SCH (06:00)
[2016-10-30] MEDS: Solu-MEDROL 125mg Inj IV SCH ×3 (08:19→17:18)
[2016-10-30] MEDS: Sucralfate 1gm tab ORAL SCH ×4 (09:26→20:21)
[2016-10-30] MEDS: Furosemide 40mg tab ORAL SCH (09:27)
[2016-10-30] MEDS: Theophylline ER 100mg ORAL SCH ×2 (09:27→20:21)
[2016-10-30] MEDS: Metoprolol 25mg tab ORAL SCH ×2 (09:28→20:27)
[2016-10-30] MEDS: Lisinopril 20mg tab ORAL SCH (09:28)
[2016-10-30] MEDS: Heparin 5000 units/ml inj SUBQ SCH ×2 (09:30→20:24)
[2016-10-30] MEDS: Zoysn 3.37gm in D5W 110ml IVPB SCH ×2 (09:57→17:21)
[2016-10-30] MEDS: Promethazine/Codeine 5ml UD ORAL PRN (10:09)
[2016-10-30] MEDS ORDERED: Norco 10mg/325mg tab ORAL PRN (10:45)
--- NOTE | 2016-10-30 12:14 | History and Physical ---
History of Present Illness General Date patient seen: October 30, 2016 Reason for Hospitalization: Dyspnea/Respdistress Present Illness HPI 60-year-old female with hx of COPD, CHF, obesity presents to ED of shortness of breath x2 days. Denies chest pain. Denies fevers or chills. Denies sick contacts or recent travel. No other aggravating or relieving factors. Denies any other associated symptom. she was admitted to have acute exacerbation of COPD and admitted for further evaluation. Allergies: Coded Allergies: No Known Allergies (Unverified , 10/29/16) Medication History Scheduled Aspirin Ec* (Aspirin Ec*), 81 MG PO DAILY, (Reported) Fluticasone Propionate (Flovent Hfa), 2 PUFFS INH TWICE A DAY, (Reported) Furosemide* (Lasix*), 40 MG ORAL DAILY, (Reported) Gabapentin (Neurontin), 300 MG ORAL BEDTIME, (Reported) Gentamicin Sulfate* (Gentamicin Sulfate*), 3.5 GM OP TID Lisinopril (Lisinopril*), 40 MG ORAL DAILY, (Reported) Metoprolol Tartrate* (Metoprolol Tartrate*), 25 MG ORAL BID, (Reported) Nifedipine* (Nifedipine Er*), 90 MG ORAL DAILY, (Reported) Omeprazole (Omeprazole), 40 MG ORAL DAILY Simvastatin (Zocor), 20 MG ORAL DAILY, (Reported) Sucralfate* (Carafate*), 1 GM ORAL FOUR TIMES A DAY, (Reported) Vitamin D (Vitamin D3), 400 UNITS ORAL DAILY, (Reported) Miscellaneous Medications Calcium Carbonate (Tums), 200 MG PO, (Reported) Potassium (Potassium), 99 MG PO, (Reported) Patient History Healthcare decision maker Resuscitation status Full Code Advanced Directive on File No Past Medical/Surgical History Past Medical/Surgical History: (1) CHF (congestive heart failure) (2) COPD (chronic obstructive pulmonary disease) Review of Systems All Other Systems: negative except mentioned in HPI Physical Exam General Appearance: WD/WN Lines, tubes and drains: peripheral HEENT: normocephalic Neck: non-tender, normal alignment Respiratory/Chest: chest wall non-tender, lungs clear Cardiovascular/Chest: normal peripheral pulses, normal rate Abdomen: normal bowel sounds Genitourinary/Rectal: normal genital exam Skin Exam: normal pigmentation Last 24 Hour Vital Signs Date Time Temp Pulse Resp B/P Pulse Ox O2 Delivery O2 Flow Rate FiO2 10/30/16 11:45 98.0 79 20 135/75 92 Room Air 10/30/16 09:28 74 124/61 10/30/16 09:28 124/61 10/30/16 09:27 74 124/61 10/30/16 07:56 97.6 74 20 124/61 92 Room Air 10/30/16 06:15 97.7 79 22 120/62 98 Room Air 10/30/16 05:43 98.1 25 111/65 94 Room Air 10/30/16 05:40 98.1 10/30/16 05:16 100.6 75 25 111/65 94 Room Air 10/30/16 03:07 100.6 83 31 118/59 94 Room Air 10/30/16 01:58 101.5 105 35 136/70 95 Room Air 10/30/16 01:23 125 120/83 10/30/16 00:00 102.0 125 27 120/83 97 Room Air 10/29/16 23:30 85 18 Nasal Cannula 10/29/16 22:52 85 18 94 Nasal Cannula 10/29/16 22:52 85 18 Room Air 10/29/16 22:18 102.0 117 22 138/81 98 Room Air Laboratory Tests Test 10/29/16 22:35 10/30/16 00:07 White Blood Count 6.4 K/UL (4.8-10.8) Red Blood Count 4.41 M/UL (4.20-5.40) Hemoglobin 13.4 G/DL (12.0-16.0) Hematocrit 41.6 % (37.0-47.0) Mean Corpuscular Volume 94 FL (80-99) Mean Corpuscular Hemoglobin 30.3 PG (27.0-31.0) Mean Corpuscular Hemoglobin Concent 32.1 G/DL (32.0-36.0) Red Cell Distribution Width 13.1 % (11.6-14.8) Platelet Count 169 K/UL (150-450) Mean Platelet Volume 9.8 FL (6.5-10.1) Neutrophils (%) (Auto) 59.4 % (45.0-75.0) Lymphocytes (%) (Auto) 24.6 % (20.0-45.0) Monocytes (%) (Auto) 12.7 % (1.0-10.0) H Eosinophils (%) (Auto) 1.1 % (0.0-3.0) Basophils (%) (Auto) 2.2 % (0.0-2.0) H Sodium Level 138 mEQ/L (135-145) Potassium Level 4.2 mEQ/L (3.4-4.9) Chloride Level 96 mEQ/L (98-107) L Carbon Dioxide Level 25 mEQ/L (20-30) Anion Gap 17 (5-15) H Blood Urea Nitrogen 15 mg/dL (7-23) Creatinine 1.1 mg/dL (0.5-0.9) H Estimat Glomerular Filtration Rate > 60 mL/min (>60) Glucose Level 102 mg/dL (74-106) Lactic Acid Level 0.80 mmol/L (0.66-2.22) Calcium Level 9.4 mg/dL (8.6-10.2) Total Bilirubin 1.0 mg/dL (0.0-1.2) Aspartate Amino Transf (AST/SGOT) 34 U/L (5-40) Alanine Aminotransferase (ALT/SGPT) 20 U/L (3-33) Alkaline Phosphatase 78 U/L (35-104) Total Creatine Kinase 1063 U/L (26-140) H Creatine Kinase MB 2.5 ng/mL (< 3.8) Creatine Kinase MB Relative Index 0.2 Troponin I < 0.30 ng/mL (<=0.30) Pro-B-Type Natriuretic Peptide 2401 pg/mL (0-125) H Total Protein 7.9 g/dL (6.6-8.7) Albumin 4.4 g/dL (3.5-5.2) Globulin 3.5 g/dL Albumin/Globulin Ratio 1.2 (1.0-2.7) Urine Color Yellow Urine Appearance Clear Urine pH 5 (4.5-8.0) Urine Specific [place] 1.010 (1.005-1.035) Urine Protein Negative (NEGATIVE) Urine Glucose (UA) Negative (NEGATIVE) Urine Ketones Negative (NEGATIVE) Urine Occult Blood Negative (NEGATIVE) Urine Nitrite Negative (NEGATIVE) Urine Bilirubin Negative (NEGATIVE) Urine Urobilinogen Normal MG/DL (0.0-1.0) Urine Leukocyte Esterase Negative (NEGATIVE) Height (Feet): 5 Height (Inches): 1.00 Weight (Pounds): 266 Medications Current Medications Medications (Trade) Dose Ordered Sig/Gus Route PRN Reason Start Time Stop Time Status Last Admin Dose Admin Acetaminophen/ Hydrocodone Bitart (Hansen 10/325) 1 ea Q4H PRN ORAL Moderate Pain (Pain Scale 4-6) 10/30/16 10:45 11/06/16 10:44 Albuterol/ Ipratropium (DuoNeb 0.5-3(2.5)mg/3ml) 3 ml Q4H PRN HHN dyspnea 10/30/16 00:00 11/04/16 00:00 Dextrose STAT PRN IV Hypoglycemia 10/30/16 00:00 11/29/16 00:00 Furosemide (Lasix) 40 mg DAILY ORAL 10/30/16 09:00 11/29/16 08:59 10/30/16 09:27 Gabapentin (Neurontin) 300 mg BEDTIME ORAL 10/30/16 21:00 11/29/16 20:59 Heparin Sodium (Porcine) (Heparin 5000 units/ml) 5,000 units EVERY 12 HOURS SUBQ 10/30/16 09:00 11/29/16 08:59 10/30/16 09:30 Ketorolac Tromethamine (Toradol 30mg) 30 mg Q8H PRN IV moderate pain 4-6 10/30/16 00:00 11/04/16 00:00 Lisinopril (Prinivil) 40 mg DAILY ORAL 10/30/16 09:00 11/29/16 08:59 10/30/16 09:28 Lorazepam (Ativan 2mg/ml 1ml) 0.5 mg Q4H PRN IV For Anxiety 10/30/16 00:00 11/06/16 00:00 Methylprednisolone Sodium Succinate (Solu-MEDROL) 60 mg EVERY 6 HOURS IV 10/30/16 06:00 11/29/16 05:59 10/30/16 08:19 Metoprolol Tartrate (Lopressor) 25 mg BID@0900,2100 ORAL 10/30/16 09:00 11/29/16 08:59 10/30/16 09:28 Morphine Sulfate (Morphine Sulfate) 2 mg Q4H PRN IVP Severe Pain (Pain Scale 7-10) 10/30/16 11:09 11/06/16 00:00 Nifedipine (Procardia XL) 90 mg DAILY ORAL 10/30/16 09:00 11/29/16 08:59 10/30/16 09:27 Nitroglycerin (Ntg) 0.4 mg Q5M X 3 DOSES PRN SL Prn Chest Pain 10/30/16 00:00 11/29/16 00:00 Ondansetron HCl (Zofran) 4 mg Q6H PRN IVP Nausea & Vomiting 10/30/16 00:00 11/29/16 00:00 Piperacillin Sod/ Tazobactam Sod/ Dextrose (Zosyn/D5W) 110 ml @ 27.5 mls/hr Q8H IVPB 10/30/16 09:00 11/06/16 08:59 10/30/16 09:57 Promethazine HCl/ Codeine (Phenergan with Codeine) 5 ml Q6H PRN ORAL cough 10/30/16 00:00 11/29/16 00:00 10/30/16 10:09 Sucralfate (Carafate) 1 gm FOUR TIMES A DAY ORAL 10/30/16 09:00 11/29/16 08:59 10/30/16 09:26 Temazepam (Restoril) 15 mg HSPRN PRN ORAL Insomnia 10/30/16 00:00 11/06/16 00:00 Theophylline (Magno-Dur) 100 mg EVERY 12 HOURS ORAL 10/30/16 09:00 11/29/16 08:59 10/30/16 09:27 Assessment/Plan Problem List: (1) COPD exacerbation ICD Codes: J44.1 - Chronic obstructive pulmonary disease with (acute) exacerbation SNOMED: 229258060, [id number] (2) CHF (congestive heart failure) ICD Codes: I50.9 - Heart failure, unspecified SNOMED: 48460642 Qualifiers: Qualified Codes: I50.9 - Heart failure, unspecified (3) Morbid obesity ICD Codes: E66.01 - Morbid (severe) obesity due to excess calories SNOMED: 725542070, [id number] Assessment/Plan check sputum IV steroids iv antibioitcs respiratory treatment cardio evaluation, ERICA BEE October 30, 2016 12:14
--- NOTE | 2016-10-30 12:14 | Diagnostic Imaging Report ---
Indication: SOB Technique: One view of the chest Comparison: 2 31/07/16 Findings: Body habitus limits evaluation. Lungs and pleural spaces are clear. Heart size is normal. No significant change Impression: No acute process
[2016-10-30] MEDS: Morphine Sulfate 2mg/ml Inj IVP PRN ×2 (15:14→20:27)
--- NOTE | 2016-10-30 18:34 | Cardiology Report ---
APPROVED REPORT EKG Measurement Heart [id number] [place] 138P52 [id number] [id number] Sinus tachycardia Possible Left atrial enlargement Abnormal ECG
--- NOTE | 2016-10-30 19:11 | Cardiology Progress Note ---
Assessment/Plan Assessment/Plan full note dictated [id number] Objective Last 24 Hour Vital Signs Date Time Temp Pulse Resp B/P Pulse Ox O2 Delivery O2 Flow Rate FiO2 10/30/16 15:48 97.8 66 20 108/62 96 Room Air 10/30/16 15:47 63 10/30/16 11:58 75 10/30/16 11:45 98.0 79 20 135/75 92 Room Air 10/30/16 09:28 74 124/61 10/30/16 09:28 124/61 10/30/16 09:27 74 124/61 10/30/16 07:57 70 10/30/16 07:56 97.6 74 20 124/61 92 Room Air 10/30/16 06:15 97.7 79 22 120/62 98 Room Air 10/30/16 05:43 98.1 25 111/65 94 Room Air 10/30/16 05:40 98.1 10/30/16 05:16 100.6 75 25 111/65 94 Room Air 10/30/16 03:07 100.6 83 31 118/59 94 Room Air 10/30/16 01:58 101.5 105 35 136/70 95 Room Air 10/30/16 01:23 125 120/83 10/30/16 00:00 102.0 125 27 120/83 97 Room Air 10/29/16 23:30 85 18 Nasal Cannula 10/29/16 22:52 85 18 94 Nasal Cannula 10/29/16 22:52 85 18 Room Air 10/29/16 22:18 102.0 117 22 138/81 98 Room Air Intake and Output 10/29/16 10/30/16 19:00 07:00 # Voids 2 Laboratory Tests Test 10/29/16 22:35 10/30/16 00:07 White Blood Count 6.4 K/UL (4.8-10.8) Red Blood Count 4.41 M/UL (4.20-5.40) Hemoglobin 13.4 G/DL (12.0-16.0) Hematocrit 41.6 % (37.0-47.0) Mean Corpuscular Volume 94 FL (80-99) Mean Corpuscular Hemoglobin 30.3 PG (27.0-31.0) Mean Corpuscular Hemoglobin Concent 32.1 G/DL (32.0-36.0) Red Cell Distribution Width 13.1 % (11.6-14.8) Platelet Count 169 K/UL (150-450) Mean Platelet Volume 9.8 FL (6.5-10.1) Neutrophils (%) (Auto) 59.4 % (45.0-75.0) Lymphocytes (%) (Auto) 24.6 % (20.0-45.0) Monocytes (%) (Auto) 12.7 % (1.0-10.0) H Eosinophils (%) (Auto) 1.1 % (0.0-3.0) Basophils (%) (Auto) 2.2 % (0.0-2.0) H Sodium Level 138 mEQ/L (135-145) Potassium Level 4.2 mEQ/L (3.4-4.9) Chloride Level 96 mEQ/L (98-107) L Carbon Dioxide Level 25 mEQ/L (20-30) Anion Gap 17 (5-15) H Blood Urea Nitrogen 15 mg/dL (7-23) Creatinine 1.1 mg/dL (0.5-0.9) H Estimat Glomerular Filtration Rate > 60 mL/min (>60) Glucose Level 102 mg/dL (74-106) Lactic Acid Level 0.80 mmol/L (0.66-2.22) Calcium Level 9.4 mg/dL (8.6-10.2) Total Bilirubin 1.0 mg/dL (0.0-1.2) Aspartate Amino Transf (AST/SGOT) 34 U/L (5-40) Alanine Aminotransferase (ALT/SGPT) 20 U/L (3-33) Alkaline Phosphatase 78 U/L (35-104) Total Creatine Kinase 1063 U/L (26-140) H Creatine Kinase MB 2.5 ng/mL (< 3.8) Creatine Kinase MB Relative Index 0.2 Troponin I < 0.30 ng/mL (<=0.30) Pro-B-Type Natriuretic Peptide 2401 pg/mL (0-125) H Total Protein 7.9 g/dL (6.6-8.7) Albumin 4.4 g/dL (3.5-5.2) Globulin 3.5 g/dL Albumin/Globulin Ratio 1.2 (1.0-2.7) Urine Color Yellow Urine Appearance Clear Urine pH 5 (4.5-8.0) Urine Specific [place] 1.010 (1.005-1.035) Urine Protein Negative (NEGATIVE) Urine Glucose (UA) Negative (NEGATIVE) Urine Ketones Negative (NEGATIVE) Urine Occult Blood Negative (NEGATIVE) Urine Nitrite Negative (NEGATIVE) Urine Bilirubin Negative (NEGATIVE) Urine Urobilinogen Normal MG/DL (0.0-1.0) Urine Leukocyte Esterase Negative (NEGATIVE) NURIS PAULINO October 30, 2016 19:11
--- NOTE | 2016-10-30 22:32 | Consultation ---
DATE OF CONSULTATION: 10/30/2016 CARDIOLOGY CONSULTATION REASON FOR REFERRAL: Tachycardia and shortness of breath. HISTORY OF PRESENT ILLNESS: This is a 60-year-old female with history of bronchospasm and asthma, who presented to the hospital because of shortness of breath for two days, coughing, wheezing, sputum production, initially white and now yellow, and fever of 102 degrees, comes into the hospital. She does receive albuterol treatment. She does indicate that she has a history of having rapid heart rate and had the same thing happened at this time when she came in to the hospital. Eventually, got some steroids and she had responded to the steroids and she is now much better. She has not had a bronchospastic episode for approximately three to five years she says. She has pain now in her chest because of all the coughing and deep breathing that she had to do. She has no dizziness or lightheadedness on standing. She has very difficulty doing her activities because of the shortness of breath and because of osteoarthritis and obesity. PAST MEDICAL HISTORY: Positive for history of congestive heart failure and chronic obstructive pulmonary disease/asthma. No diabetes. No high blood pressure. No heart attack. No cancer. No stroke. No hepatitis or tuberculosis. She does have a history of gastroesophageal reflux disease. No kidney problems or liver problems. She does have thyroid problems as well. MEDICATIONS: Her medications at home includes aspirin, Lasix, lisinopril, metoprolol, nifedipine, omeprazole, simvastatin, Carafate, vitamin D, and calcium. SOCIAL HISTORY: She used to smoke, but she quit that 15 years ago. She does not drink alcoholic beverages. She lives at home. REVIEW OF SYSTEMS: Gastrointestinal: She had bouts of diarrhea and some nausea and vomiting. Genitourinary: Negative. Pulmonary: Positive for as mentioned in the history of present illness. Constitutional: Negative. Neurologic: Negative. PHYSICAL EXAMINATION: GENERAL: Shows to be obese, middle aged female, in no apparent respiratory distress. NECK: Supple. No jugular venous distention. She has expiratory and inspiratory wheezes. CARDIAC: Regular rate and rhythm. No heaves, thrills, gallops, or rubs are noted. ABDOMEN: Soft and nontender. Positive bowel sounds. Obese. EXTREMITIES: There is no clubbing, cyanosis, or edema. NEUROLOGIC: She is awake, alert, responsive, and in no apparent distress. LABORATORY VALUES: White count of 6.4, hemoglobin 13.4, and platelet count of 169,000. Sodium is 138, potassium 4.2, chloride 96, bicarbonate of 25, BUN of 15, creatinine 1.1, and glucose of 102. Troponin is negative. ProBNP 2400. Total CK of 1063. Troponin less than 0.03. Urinalysis is fairly unremarkable. Chest x-ray performed in the emergency room shows no acute processes. EKG shows sinus tachycardia, rates up 122, and nonspecific T-wave changes are noted on the EKGs. ASSESSMENT: 1. Bronchospasm. 2. Chronic obstructive pulmonary disease. 3. Hypertension. 4. Obesity. 5. Tachycardia secondary to beta-agonist inhalers. PLAN: Dr. Boateng, this patient was seen in cardiac consultation. A set of cardiac enzymes will be ordered. EKG will be repeated. Echocardiogram will be ordered. She appears quite comfortable, although she still has some wheezes, but they are not severe. I will follow the patient along with you. She got some nonspecific ST-segment changes and her pains are atypical, therefore warrants further evaluation. Christ Rosario M.D. DR: CINDY JOB#: [id number] CC:
[2016-10-31] VITALS: BP 115/71
[2016-10-31] MEDS: Solu-MEDROL 125mg Inj IV SCH ×3 (00:26→11:58)
[2016-10-31] MEDS: Zoysn 3.37gm in D5W 110ml IVPB SCH ×3 (00:27→17:27)
[2016-10-31 04:00] VITALS: BP 133/72
[2016-10-31] MEDS: Metoprolol 25mg tab ORAL SCH ×2 (07:56→20:24)
[2016-10-31] MEDS: Theophylline ER 100mg ORAL SCH ×2 (07:56→20:24)
[2016-10-31] MEDS: Sucralfate 1gm tab ORAL SCH ×4 (07:56→20:24)
[2016-10-31] MEDS: Furosemide 40mg tab ORAL SCH (07:56)
[2016-10-31] MEDS: Heparin 5000 units/ml inj SUBQ SCH ×2 (08:01→20:24)
[2016-10-31 08:22] VITALS: BP 114/67
[2016-10-31] MEDS: Lisinopril 20mg tab ORAL SCH (08:58)
[2016-10-31] MEDS: Promethazine/Codeine 5ml UD ORAL PRN (10:02)
[2016-10-31] MEDS ORDERED: NS 275ml ONE (10:49)
[2016-10-31] MEDS ORDERED: Tubing IV Secondary IV ONE (10:49)
[2016-10-31 11:47] VITALS: BP 117/84
[2016-10-31] MEDS: Morphine Sulfate 2mg/ml Inj IVP PRN (11:57)
[2016-10-31 16:00] VITALS: BP 111/57
[2016-10-31 20:22] VITALS: BP 102/60
--- NOTE | 2016-10-31 20:29 | Cardiology Progress Note ---
Assessment/Plan Assessment/Plan 1. Bronchospasm. 2. Chronic obstructive pulmonary disease. 3. Hypertension. 4. Obesity. 5. Tachycardia secondary to beta-agonist inhalers. 6. hypotension bp low will decrease acei in light of bronchospasm will dc metoprolol (explained to pt ) on Procardia xl echo orthostatic Vital d/w enamel burner sinus Objective Last 24 Hour Vital Signs Date Time Temp Pulse Resp B/P Pulse Ox O2 Delivery O2 Flow Rate FiO2 10/31/16 20:24 76 102/60 10/31/16 20:22 97.5 76 18 102/60 94 Nasal Cannula 10/31/16 16:00 97.7 71 20 111/57 95 Nasal Cannula 2.0 10/31/16 16:00 76 10/31/16 12:00 72 10/31/16 11:47 97.5 68 20 117/84 95 Nasal Cannula 2.0 10/31/16 08:58 114/67 10/31/16 08:22 97.5 79 22 114/67 96 Nasal Cannula 2.0 10/31/16 08:03 79 114/67 10/31/16 08:00 75 10/31/16 07:56 79 114/67 10/31/16 04:00 97.7 68 20 133/72 65 Room Air 10/31/16 04:00 65 10/31/16 00:00 97.7 72 20 115/71 65 Room Air 10/31/16 00:00 84 10/30/16 20:57 97.8 Intake and Output 10/30/16 10/31/16 19:00 07:00 Intake Total 720.0 ml Balance 720.0 ml Intake Oral 600 ml IV Total 120.0 ml # Voids 3 2 Microbiology Date/Time Source Procedure Growth Status 10/29/16 22:35 Blood Blood Culture - Preliminary NO GROWTH AFTER 24 HOURS Resulted 10/29/16 22:10 Blood Blood Culture - Preliminary NO GROWTH AFTER 24 HOURS Resulted 10/30/16 10:15 Sputum Gram Stain - Final Resulted 10/30/16 10:15 Sputum Sputum Culture Pending Resulted NURIS PAULINO October 31, 2016 20:29
[2016-11-01 00:07] VITALS: BP 115/70
[2016-11-01] MEDS: Zoysn 3.37gm in D5W 110ml IVPB SCH ×2 (00:30→09:51)
[2016-11-01 03:52] VITALS: BP 117/69
[2016-11-01 08:00] VITALS: BP 140/72
[2016-11-01 08:33] LABS: BASOPHILS % (AUTO) 0.4 % (0.0-2.0); LYMPHOCYTES % (AUTO) 20.2 % (20.0-45.0); MEAN CORPUSCULAR HGB CONC 31.6 G/DL (32.0-36.0); MEAN CORPUSCULAR VOLUME 92 FL (80-99); MEAN PLATELET VOLUME 10.8 FL (6.5-10.1); MONOCYTES % (AUTO) 6.1 % (1.0-10.0); NEUTROPHILS % (AUTO) 73.2 % (45.0-75.0); PLATELET COUNT 174 K/UL (150-450); RED BLOOD COUNT 4.17 M/UL (4.20-5.40); RED CELL DISTRIBUTION WIDTH 12.6 % (11.6-14.8); WHITE BLOOD COUNT 13.9 K/UL (4.8-10.8)
[2016-11-01 08:52] LABS: ALANINE AMINOTRANSFERASE 40 U/L (3-33); ANION GAP 12 (5-15); ASPARTATE AMINO TRANSFERASE 74 U/L (5-40); CALCIUM 9.1 mg/dL (8.6-10.2); CARBON DIOXIDE 28 mEQ/L (20-30); CHLORIDE 102 mEQ/L (98-107); GLOMERULAR FILTRATION RATE > 60 mL/min (>60); HEMOLYSIS 2; POTASSIUM 3.9 mEQ/L (3.4-4.9); SODIUM 142 mEQ/L (135-145); TOTAL PROTEIN 6.8 g/dL (6.6-8.7)
[2016-11-01] MEDS ORDERED: Solu-MEDROL 125mg Inj IV SCH (09:00)
[2016-11-01] MEDS ORDERED: Lisinopril 20mg tab ORAL SCH (09:00)
[2016-11-01] MEDS: Theophylline ER 100mg ORAL SCH ×2 (09:41→20:41)
[2016-11-01] MEDS: Heparin 5000 units/ml inj SUBQ SCH ×2 (09:48→20:42)
[2016-11-01] MEDS: Sucralfate 1gm tab ORAL SCH ×4 (09:51→20:41)
[2016-11-01 12:01] VITALS: BP 128/69
--- NOTE | 2016-11-01 12:16 | Pulmonology Progress Note ---
Assessment/Plan Problems: (1) COPD exacerbation (2) CHF (congestive heart failure) (3) Morbid obesity Assessment/Plan improving slowly continue steroids continue abx cardiology evaluation Subjective ROS Limited/Unobtainable: No Interval Events: 10/31 late note, still short of breath Allergies: Coded Allergies: No Known Allergies (Unverified , 10/29/16) Objective Last 24 Hour Vital Signs Date Time Temp Pulse Resp B/P Pulse Ox O2 Delivery O2 Flow Rate FiO2 11/01/16 12:01 97.2 74 20 128/69 98 Nasal Cannula 2.0 11/01/16 09:43 60 140/72 11/01/16 09:42 140/72 11/01/16 09:10 100 11/01/16 09:05 83 11/01/16 09:00 77 11/01/16 08:00 97.7 60 20 140/72 96 Nasal Cannula 2.0 11/01/16 04:00 69 11/01/16 03:52 97.5 60 24 117/69 93 Room Air 11/01/16 03:50 60 78 87 11/01/16 00:07 97.6 61 19 115/70 95 Nasal Cannula 11/01/16 00:00 61 10/31/16 20:24 76 102/60 10/31/16 20:22 97.5 76 18 102/60 94 Nasal Cannula 10/31/16 20:00 86 10/31/16 16:00 97.7 71 20 111/57 95 Nasal Cannula 2.0 10/31/16 16:00 76 Intake and Output 10/31/16 11/01/16 19:00 07:00 Intake Total 497.5 ml 322.5 ml Balance 497.5 ml 322.5 ml Intake Oral 360 ml 240 ml IV Total 137.5 ml 82.5 ml # Voids 3 1 General Appearance: WD/WN HEENT: normocephalic, atraumatic Respiratory/Chest: chest wall non-tender, lungs clear Cardiovascular: normal peripheral pulses, normal rate Abdomen: normal bowel sounds, soft, non tender Extremities: no cyanosis, no clubbing 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, no motor/sensory deficits Microbiology Date/Time Source Procedure Growth Status 10/29/16 22:35 Blood Blood Culture - Preliminary NO GROWTH AFTER 48 HOURS Resulted 10/29/16 22:10 Blood Blood Culture - Preliminary NO GROWTH AFTER 48 HOURS Resulted 10/30/16 10:15 Sputum Gram Stain - Final Complete 10/30/16 10:15 Sputum Sputum Culture - Final NORMAL UPPER RESPIRATORY RUSSELL PRESENT Complete Laboratory Tests 11/01/16 08:10: White Blood Count 13.9H, Red Blood Count 4.17L, Hemoglobin 12.1, Hematocrit 38.3 , Mean Corpuscular Volume 92, Mean Corpuscular Hemoglobin 29.0, Mean Corpuscular Hemoglobin Concent 31.6L, Red Cell Distribution Width 12.6, Platelet Count 174, Mean Platelet Volume 10.8H, Neutrophils (%) (Auto) 73.2, Lymphocytes (%) (Auto) 20.2, Monocytes (%) (Auto) 6.1, Eosinophils (%) (Auto) 0.0, Basophils (%) (Auto) 0.4, Sodium Level 142, Potassium Level 3.9, Chloride Level 102, Carbon Dioxide Level 28, Anion Gap 12, Blood Urea Nitrogen 23, Creatinine 1.0H, Estimat Glomerular Filtration Rate > 60, Glucose Level 105, Calcium Level 9.1, Total Bilirubin 0.5, Aspartate Amino Transf (AST/SGOT) 74H, Alanine Aminotransferase (ALT/SGPT) 40H, Alkaline Phosphatase 60, Pro-B-Type Natriuretic Peptide 1235H, Total Protein 6.8, Albumin 3.5, Globulin 3.3, Albumin /Globulin Ratio 1.0 Current Medications Medications (Trade) Dose Ordered Sig/Gus Route PRN Reason Start Time Stop Time Status Last Admin Dose Admin Acetaminophen/ Hydrocodone Bitart ([place] 10/325) 1 ea Q4H PRN ORAL Moderate Pain (Pain Scale 4-6) 10/30/16 10:45 11/06/16 10:44 10/30/16 12:28 Albuterol/ Ipratropium (DuoNeb 0.5-3(2.5)mg/3ml) 3 ml Q4H PRN HHN dyspnea 10/30/16 00:00 11/04/16 00:00 Dextrose STAT PRN IV Hypoglycemia 10/30/16 00:00 11/29/16 00:00 Gabapentin (Neurontin) 300 mg BEDTIME ORAL 10/30/16 21:00 11/29/16 20:59 10/31/16 20:24 Heparin Sodium (Porcine) (Heparin 5000 units/ml) 5,000 units EVERY 12 HOURS SUBQ 10/30/16 09:00 11/29/16 08:59 11/01/16 09:48 Ketorolac Tromethamine (Toradol 30mg) 30 mg Q8H PRN IV moderate pain 4-6 10/30/16 00:00 11/04/16 00:00 Lisinopril (Prinivil) 20 mg DAILY ORAL 11/01/16 09:00 12/01/16 08:59 11/01/16 09:42 Lorazepam (Ativan 2mg/ml 1ml) 0.5 mg Q4H PRN IV For Anxiety 10/30/16 00:00 11/06/16 00:00 Methylprednisolone Sodium Succinate (Solu-MEDROL) 60 mg DAILY IV 11/01/16 09:00 12/01/16 08:59 11/01/16 09:41 Morphine Sulfate (Morphine Sulfate) 2 mg Q4H PRN IVP Severe Pain (Pain Scale 7-10) 10/30/16 11:09 11/06/16 00:00 10/31/16 11:57 Nifedipine (Procardia XL) 90 mg DAILY ORAL 10/30/16 09:00 11/29/16 08:59 11/01/16 09:43 Nitroglycerin (Ntg) 0.4 mg Q5M X 3 DOSES PRN SL Prn Chest Pain 10/30/16 00:00 11/29/16 00:00 Ondansetron HCl (Zofran) 4 mg Q6H PRN IVP Nausea & Vomiting 10/30/16 00:00 11/29/16 00:00 Piperacillin Sod/ Tazobactam Sod/ Dextrose (Zosyn/D5W) 110 ml @ 27.5 mls/hr Q8H IVPB 10/30/16 09:00 11/06/16 08:59 11/01/16 09:51 Promethazine HCl/ Codeine (Phenergan with Codeine) 5 ml Q6H PRN ORAL cough 10/30/16 00:00 11/29/16 00:00 10/31/16 10:02 Sucralfate (Carafate) 1 gm FOUR TIMES A DAY ORAL 10/30/16 09:00 11/29/16 08:59 11/01/16 09:51 Temazepam (Restoril) 15 mg HSPRN PRN ORAL Insomnia 10/30/16 00:00 11/06/16 00:00 Theophylline (Magno-Dur) 100 mg EVERY 12 HOURS ORAL 10/30/16 09:00 11/29/16 08:59 11/01/16 09:41 ERICA BEE November 01, 2016 12:16
--- NOTE | 2016-11-01 12:17 | Pulmonology Progress Note ---
Assessment/Plan Problems: (1) COPD exacerbation (2) CHF (congestive heart failure) (3) Morbid obesity Assessment/Plan improving slowly continue steroids continue abx cardiology evaluation appreciated no sputum yet dc home in am Subjective ROS Limited/Unobtainable: No Interval Events: still coughing Constitutional: Reports: no symptoms HEENT: Repors: no symptoms Respiratory: Reports: no symptoms Allergies: Coded Allergies: No Known Allergies (Unverified , 10/29/16) Objective Last 24 Hour Vital Signs Date Time Temp Pulse Resp B/P Pulse Ox O2 Delivery O2 Flow Rate FiO2 11/01/16 12:01 97.2 74 20 128/69 98 Nasal Cannula 2.0 11/01/16 09:43 60 140/72 11/01/16 09:42 140/72 11/01/16 09:10 100 11/01/16 09:05 83 11/01/16 09:00 77 11/01/16 08:00 97.7 60 20 140/72 96 Nasal Cannula 2.0 11/01/16 04:00 69 11/01/16 03:52 97.5 60 24 117/69 93 Room Air 11/01/16 03:50 60 78 87 11/01/16 00:07 97.6 61 19 115/70 95 Nasal Cannula 11/01/16 00:00 61 10/31/16 20:24 76 102/60 10/31/16 20:22 97.5 76 18 102/60 94 Nasal Cannula 10/31/16 20:00 86 10/31/16 16:00 97.7 71 20 111/57 95 Nasal Cannula 2.0 10/31/16 16:00 76 Intake and Output 10/31/16 11/01/16 19:00 07:00 Intake Total 497.5 ml 322.5 ml Balance 497.5 ml 322.5 ml Intake Oral 360 ml 240 ml IV Total 137.5 ml 82.5 ml # Voids 3 1 HEENT: normocephalic, atraumatic Respiratory/Chest: lungs clear Cardiovascular: normal peripheral pulses Abdomen: normal bowel sounds, soft, non tender Microbiology Date/Time Source Procedure Growth Status 10/29/16 22:35 Blood Blood Culture - Preliminary NO GROWTH AFTER 48 HOURS Resulted 10/29/16 22:10 Blood Blood Culture - Preliminary NO GROWTH AFTER 48 HOURS Resulted 10/30/16 10:15 Sputum Gram Stain - Final Complete 10/30/16 10:15 Sputum Sputum Culture - Final NORMAL UPPER RESPIRATORY RUSSELL PRESENT Complete Laboratory Tests 11/01/16 08:10: White Blood Count 13.9H, Red Blood Count 4.17L, Hemoglobin 12.1, Hematocrit 38.3 , Mean Corpuscular Volume 92, Mean Corpuscular Hemoglobin 29.0, Mean Corpuscular Hemoglobin Concent 31.6L, Red Cell Distribution Width 12.6, Platelet Count 174, Mean Platelet Volume 10.8H, Neutrophils (%) (Auto) 73.2, Lymphocytes (%) (Auto) 20.2, Monocytes (%) (Auto) 6.1, Eosinophils (%) (Auto) 0.0, Basophils (%) (Auto) 0.4, Sodium Level 142, Potassium Level 3.9, Chloride Level 102, Carbon Dioxide Level 28, Anion Gap 12, Blood Urea Nitrogen 23, Creatinine 1.0H, Estimat Glomerular Filtration Rate > 60, Glucose Level 105, Calcium Level 9.1, Total Bilirubin 0.5, Aspartate Amino Transf (AST/SGOT) 74H, Alanine Aminotransferase (ALT/SGPT) 40H, Alkaline Phosphatase 60, Pro-B-Type Natriuretic Peptide 1235H, Total Protein 6.8, Albumin 3.5, Globulin 3.3, Albumin /Globulin Ratio 1.0 Current Medications Medications (Trade) Dose Ordered Sig/Gus Route PRN Reason Start Time Stop Time Status Last Admin Dose Admin Acetaminophen/ Hydrocodone Bitart ([place] 10/325) 1 ea Q4H PRN ORAL Moderate Pain (Pain Scale 4-6) 10/30/16 10:45 11/06/16 10:44 10/30/16 12:28 Albuterol/ Ipratropium (DuoNeb 0.5-3(2.5)mg/3ml) 3 ml Q4H PRN HHN dyspnea 10/30/16 00:00 11/04/16 00:00 Dextrose STAT PRN IV Hypoglycemia 10/30/16 00:00 11/29/16 00:00 Gabapentin (Neurontin) 300 mg BEDTIME ORAL 10/30/16 21:00 11/29/16 20:59 10/31/16 20:24 Heparin Sodium (Porcine) (Heparin 5000 units/ml) 5,000 units EVERY 12 HOURS SUBQ 10/30/16 09:00 11/29/16 08:59 11/01/16 09:48 Ketorolac Tromethamine (Toradol 30mg) 30 mg Q8H PRN IV moderate pain 4-6 10/30/16 00:00 11/04/16 00:00 Lisinopril (Prinivil) 20 mg DAILY ORAL 11/01/16 09:00 12/01/16 08:59 11/01/16 09:42 Lorazepam (Ativan 2mg/ml 1ml) 0.5 mg Q4H PRN IV For Anxiety 10/30/16 00:00 11/06/16 00:00 Methylprednisolone Sodium Succinate (Solu-MEDROL) 60 mg DAILY IV 11/01/16 09:00 12/01/16 08:59 11/01/16 09:41 Morphine Sulfate (Morphine Sulfate) 2 mg Q4H PRN IVP Severe Pain (Pain Scale 7-10) 10/30/16 11:09 11/06/16 00:00 10/31/16 11:57 Nifedipine (Procardia XL) 90 mg DAILY ORAL 10/30/16 09:00 11/29/16 08:59 11/01/16 09:43 Nitroglycerin (Ntg) 0.4 mg Q5M X 3 DOSES PRN SL Prn Chest Pain 10/30/16 00:00 11/29/16 00:00 Ondansetron HCl (Zofran) 4 mg Q6H PRN IVP Nausea & Vomiting 10/30/16 00:00 11/29/16 00:00 Piperacillin Sod/ Tazobactam Sod/ Dextrose (Zosyn/D5W) 110 ml @ 27.5 mls/hr Q8H IVPB 10/30/16 09:00 11/06/16 08:59 11/01/16 09:51 Promethazine HCl/ Codeine (Phenergan with Codeine) 5 ml Q6H PRN ORAL cough 10/30/16 00:00 11/29/16 00:00 10/31/16 10:02 Sucralfate (Carafate) 1 gm FOUR TIMES A DAY ORAL 10/30/16 09:00 11/29/16 08:59 11/01/16 09:51 Temazepam (Restoril) 15 mg HSPRN PRN ORAL Insomnia 10/30/16 00:00 11/06/16 00:00 Theophylline (Magno-Dur) 100 mg EVERY 12 HOURS ORAL 10/30/16 09:00 11/29/16 08:59 11/01/16 09:41 ERICA BEE November 01, 2016 12:17
[2016-11-01] MEDS ORDERED: LORazepam Inj 2mg/ml 1ml IV PRN (16:00)
[2016-11-01] MEDS ORDERED: Norco 10mg/325mg tab ORAL PRN (16:00)
[2016-11-01] MEDS ORDERED: Morphine Sulfate 2mg/ml Inj IVP PRN (16:00)
[2016-11-01] MEDS ORDERED: DuoNeb 0.5-3(2.5)mg/3ml neb HHN PRN (16:00)
[2016-11-01] MEDS ORDERED: Nitroglycerin Subl 0.4mg tab (Bottle Of 25) SL PRN (16:00)
[2016-11-01] MEDS ORDERED: Ketorolac 30mg Inj IV PRN (16:00)
[2016-11-01 16:15] VITALS: BP 124/65
[2016-11-01] MEDS: Piperacillin/Tazobactam 3.375 GM in D5W 110 ML IVPB SCH (17:04)
[2016-11-01 19:44] VITALS: BP 109/45
[2016-11-02] VITALS: BP 138/79
[2016-11-02] MEDS: Piperacillin/Tazobactam 3.375 GM in D5W 110 ML IVPB SCH ×3 (00:03→17:23)
[2016-11-02 04:00] VITALS: BP 122/57
[2016-11-02] MEDS: Promethazine/Codeine 5ml UD ORAL PRN ×2 (06:32→14:39)
[2016-11-02 07:35] VITALS: BP 123/77
[2016-11-02] MEDS: Lisinopril 20mg tab ORAL SCH (08:02)
[2016-11-02] MEDS: Sucralfate 1gm tab ORAL SCH ×4 (08:02→21:18)
[2016-11-02] MEDS: Theophylline ER 100mg ORAL SCH ×2 (08:02→21:18)
[2016-11-02] MEDS: Solu-MEDROL 125mg Inj IV SCH (08:03)
[2016-11-02] MEDS: Heparin 5000 units/ml inj SUBQ SCH ×2 (08:04→21:22)
[2016-11-02 11:55] VITALS: BP 135/82
[2016-11-02] MEDS ORDERED: AUGMENTIN 875-1 EAC1 ORAL (15:59)
[2016-11-02] MEDS ORDERED: PREDNISONE20 M1 PO (15:59)
[2016-11-02 16:06] VITALS: BP 111/67
[2016-11-02] MEDS ORDERED: Levalbuterol Inh UD 1.25mg/0.5ml HHN PRN (16:30)
[2016-11-02 20:00] VITALS: BP 110/69
--- NOTE | 2016-11-02 22:30 | Pulmonology Progress Note ---
Assessment/Plan Problems: (1) COPD exacerbation (2) CHF (congestive heart failure) (3) Morbid obesity Assessment/Plan improving slowly continue steroids continue abx cardiology evaluation appreciated no sputum yet wants to go to a short term rehab Subjective ROS Limited/Unobtainable: No Allergies: Coded Allergies: No Known Allergies (Unverified , 10/29/16) Objective Last 24 Hour Vital Signs Date Time Temp Pulse Resp B/P Pulse Ox O2 Delivery O2 Flow Rate FiO2 11/02/16 20:00 97.9 75 18 110/69 93 Room Air 11/02/16 16:06 97.7 94 20 111/67 97 Room Air 11/02/16 11:55 97.7 93 19 135/82 92 Room Air 11/02/16 08:02 84 123/77 11/02/16 08:02 123/77 11/02/16 07:35 97.3 84 15 123/77 99 Room Air 11/02/16 04:00 98.2 62 19 122/57 97 Nasal Cannula 2.0 11/02/16 00:00 97.7 76 20 138/79 97 Nasal Cannula 2.0 11/01/16 22:43 97.7 Intake and Output 11/01/16 11/02/16 19:00 07:00 Intake Total 777.5 ml 192.5 ml Balance 777.5 ml 192.5 ml Intake Oral 640 ml IV Total 137.5 ml 192.5 ml # Voids 3 2 # Bowel Movements 1 Objective General Appearance: WD/WN HEENT: normocephalic, atraumatic Respiratory/Chest: lungs clear Breasts: no masses Cardiovascular: normal peripheral pulses, normal rate, regular rhythm Abdomen: normal bowel sounds, soft, non tender Extremities: no cyanosis, no clubbing Skin: no lesions 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, abnormal gait Lymphatic: no neck adenopathy, no groin adenopathy Musculoskeletal: normal muscle bulk Current Medications Medications (Trade) Dose Ordered Sig/Gus Route PRN Reason Start Time Stop Time Status Last Admin Dose Admin Acetaminophen/ Hydrocodone Bitart ([place] 10/325) 1 ea Q4H PRN ORAL Moderate Pain (Pain Scale 4-6) 11/01/16 16:00 11/08/16 15:59 Dextrose (Dextrose 50%) STAT PRN IV Hypoglycemia 11/01/16 16:00 12/01/16 15:59 Gabapentin (Neurontin) 300 mg BEDTIME ORAL 11/01/16 21:00 12/01/16 20:59 11/02/16 21:18 Heparin Sodium (Porcine) (Heparin 5000 units/ml) 5,000 units EVERY 12 HOURS SUBQ 11/01/16 21:00 12/01/16 20:59 11/02/16 21:22 Ketorolac Tromethamine (Toradol 30mg) 30 mg Q8H PRN IV BREAKTHROUGH PAIN 11/01/16 16:00 11/06/16 15:59 Levalbuterol HCl (Xopenex) 1.25 mg TIDPRN PRN HHN Shortness of breath 11/02/16 16:30 11/07/16 16:29 Lisinopril (Prinivil) 20 mg DAILY ORAL 11/02/16 09:00 12/02/16 08:59 11/02/16 08:02 Lorazepam (Ativan 2mg/ml 1ml) 0.5 mg Q4H PRN IV For Anxiety 11/01/16 16:00 11/08/16 15:59 Methylprednisolone Sodium Succinate (Solu-MEDROL) 60 mg DAILY IV 11/02/16 09:00 12/02/16 08:59 11/02/16 08:03 Morphine Sulfate (Morphine Sulfate) 2 mg Q4H PRN IVP Severe Pain (Pain Scale 7-10) 11/01/16 16:00 11/08/16 15:59 11/01/16 22:13 Nifedipine (Procardia XL) 90 mg DAILY ORAL 11/02/16 09:00 12/02/16 08:59 11/02/16 08:02 Nitroglycerin (Ntg) 0.4 mg Q5M X 3 DOSES PRN SL Prn Chest Pain 11/01/16 16:00 12/01/16 15:59 Ondansetron HCl (Zofran) 4 mg Q6H PRN IVP Nausea & Vomiting 11/01/16 16:00 12/01/16 15:59 Piperacillin Sod/ Tazobactam Sod/ Dextrose (Zosyn/D5W) 110 ml @ 27.5 mls/hr Q8H IVPB 11/01/16 17:00 11/08/16 16:59 11/02/16 17:23 Promethazine HCl/ Codeine (Phenergan with Codeine) 5 ml Q6H PRN ORAL cough 11/01/16 16:00 12/01/16 15:59 11/02/16 14:39 Sucralfate (Carafate) 1 gm FOUR TIMES A DAY ORAL 11/01/16 18:00 12/01/16 17:59 11/02/16 21:18 Temazepam (Restoril) 15 mg HSPRN PRN ORAL Insomnia 11/01/16 21:00 11/08/16 20:59 Theophylline (Magno-Dur) 100 mg EVERY 12 HOURS ORAL 11/01/16 21:00 12/01/16 20:59 11/02/16 21:18 ERICA BEE November 02, 2016 22:30
[2016-11-03] VITALS: BP 122/68
[2016-11-03] MEDS: Piperacillin/Tazobactam 3.375 GM in D5W 110 ML IVPB SCH ×3 (00:30→17:18)
[2016-11-03 04:00] VITALS: BP 127/78
[2016-11-03 08:20] VITALS: BP 110/65
[2016-11-03] MEDS: Theophylline ER 100mg ORAL SCH ×2 (08:25→21:06)
[2016-11-03] MEDS: Sucralfate 1gm tab ORAL SCH ×4 (08:25→21:06)
[2016-11-03] MEDS: Solu-MEDROL 125mg Inj IV SCH (08:25)
[2016-11-03] MEDS: Heparin 5000 units/ml inj SUBQ SCH ×2 (08:26→21:08)
[2016-11-03] MEDS: Lisinopril 20mg tab ORAL SCH (09:00)
--- NOTE | 2016-11-03 11:57 | Pulmonology Progress Note ---
Assessment/Plan Problems: (1) COPD exacerbation (2) CHF (congestive heart failure) (3) Morbid obesity Assessment/Plan improving slowly continue steroids continue abx cardiology evaluation appreciated she wants to home tomorrow will dc with oral abx and steroids Subjective ROS Limited/Unobtainable: No Constitutional: Reports: no symptoms HEENT: Repors: no symptoms Respiratory: Reports: no symptoms Allergies: Coded Allergies: No Known Allergies (Unverified , 10/29/16) Objective Last 24 Hour Vital Signs Date Time Temp Pulse Resp B/P Pulse Ox O2 Delivery O2 Flow Rate FiO2 11/03/16 09:00 93 110/65 11/03/16 09:00 110/65 11/03/16 08:20 97.3 93 15 110/65 95 Room Air 11/03/16 04:00 97.5 74 20 127/78 100 Nasal Cannula 20.2 11/03/16 00:00 97.5 58 18 122/68 98 Room Air 11/02/16 20:00 97.9 75 18 110/69 93 Room Air 11/02/16 16:06 97.7 94 20 111/67 97 Room Air Intake and Output 11/02/16 11/03/16 19:00 07:00 Intake Total 982.5 ml 420.0 ml Balance 982.5 ml 420.0 ml Intake Oral 900 ml 200 ml IV Total 82.5 ml 220.0 ml # Voids 3 3 # Bowel Movements 1 Objective General Appearance: WD/WN HEENT: normocephalic, atraumatic Respiratory/Chest: lungs clear Breasts: no masses Cardiovascular: normal peripheral pulses, normal rate, regular rhythm Abdomen: normal bowel sounds, soft, non tender Extremities: no cyanosis, no clubbing Skin: no lesions Neurologic/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: 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 grossly normal, abnormal gait Lymphatic: no neck adenopathy, no groin adenopathy Musculoskeletal: normal muscle bulk Current Medications Medications (Trade) Dose Ordered Sig/Gus Route PRN Reason Start Time Stop Time Status Last Admin Dose Admin Acetaminophen/ Hydrocodone Bitart ([place] 10/325) 1 ea Q4H PRN ORAL Moderate Pain (Pain Scale 4-6) 11/01/16 16:00 11/08/16 15:59 Dextrose (Dextrose 50%) STAT PRN IV Hypoglycemia 11/01/16 16:00 12/01/16 15:59 Gabapentin (Neurontin) 300 mg BEDTIME ORAL 11/01/16 21:00 12/01/16 20:59 11/02/16 21:18 Heparin Sodium (Porcine) (Heparin 5000 units/ml) 5,000 units EVERY 12 HOURS SUBQ 11/01/16 21:00 12/01/16 20:59 11/03/16 08:26 Ketorolac Tromethamine (Toradol 30mg) 30 mg Q8H PRN IV BREAKTHROUGH PAIN 11/01/16 16:00 11/06/16 15:59 Levalbuterol HCl (Xopenex) 1.25 mg TIDPRN PRN HHN Shortness of breath 11/02/16 16:30 11/07/16 16:29 Lisinopril (Prinivil) 20 mg DAILY ORAL 11/02/16 09:00 12/02/16 08:59 11/02/16 08:02 Lorazepam (Ativan 2mg/ml 1ml) 0.5 mg Q4H PRN IV For Anxiety 11/01/16 16:00 11/08/16 15:59 Methylprednisolone Sodium Succinate (Solu-MEDROL) 60 mg DAILY IV 11/02/16 09:00 12/02/16 08:59 11/03/16 08:25 Morphine Sulfate (Morphine Sulfate) 2 mg Q4H PRN IVP Severe Pain (Pain Scale 7-10) 11/01/16 16:00 11/08/16 15:59 11/01/16 22:13 Nifedipine (Procardia XL) 90 mg DAILY ORAL 11/02/16 09:00 12/02/16 08:59 11/02/16 08:02 Nitroglycerin (Ntg) 0.4 mg Q5M X 3 DOSES PRN SL Prn Chest Pain 11/01/16 16:00 12/01/16 15:59 Ondansetron HCl (Zofran) 4 mg Q6H PRN IVP Nausea & Vomiting 11/01/16 16:00 12/01/16 15:59 Piperacillin Sod/ Tazobactam Sod/ Dextrose (Zosyn/D5W) 110 ml @ 27.5 mls/hr Q8H IVPB 11/01/16 17:00 11/08/16 16:59 11/03/16 08:24 Promethazine HCl/ Codeine (Phenergan with Codeine) 5 ml Q6H PRN ORAL cough 11/01/16 16:00 12/01/16 15:59 11/02/16 14:39 Sucralfate (Carafate) 1 gm FOUR TIMES A DAY ORAL 11/01/16 18:00 12/01/16 17:59 11/03/16 08:25 Temazepam (Restoril) 15 mg HSPRN PRN ORAL Insomnia 11/01/16 21:00 11/08/16 20:59 Theophylline (Magno-Dur) 100 mg EVERY 12 HOURS ORAL 11/01/16 21:00 12/01/16 20:59 11/03/16 08:25 ERICA BEE November 03, 2016 11:57
[2016-11-03 12:19] VITALS: BP 118/63
[2016-11-03] MEDS ORDERED: NS 550ML IV ONE (14:16)
[2016-11-03] MEDS ORDERED: Tubing IV Secondary IV ONE (14:16)
[2016-11-03 16:13] VITALS: BP 108/69
[2016-11-03 20:00] VITALS: BP 134/66
[2016-11-04] VITALS: BP 122/62
[2016-11-04] MEDS: Piperacillin/Tazobactam 3.375 GM in D5W 110 ML IVPB SCH ×2 (01:54→09:08)
[2016-11-04 04:00] VITALS: BP 106/66
[2016-11-04 07:46] LABS: BASOPHILS % (AUTO) 0.7 % (0.0-2.0); LYMPHOCYTES % (AUTO) 41.9 % (20.0-45.0); MEAN CORPUSCULAR HEMOGLOBIN 29.5 PG (27.0-31.0); MEAN CORPUSCULAR HGB CONC 31.8 G/DL (32.0-36.0); MEAN CORPUSCULAR VOLUME 93 FL (80-99); MEAN PLATELET VOLUME 10.3 FL (6.5-10.1); MONOCYTES % (AUTO) 8.2 % (1.0-10.0); NEUTROPHILS % (AUTO) 48.3 % (45.0-75.0); PLATELET COUNT 170 K/UL (150-450); PROTHROMBIN TIME 10.5 SEC (9.30-11.50); RED BLOOD COUNT 3.99 M/UL (4.20-5.40); RED CELL DISTRIBUTION WIDTH 12.9 % (11.6-14.8); WHITE BLOOD COUNT 10.9 K/UL (4.8-10.8)
[2016-11-04 07:51] LABS: ALANINE AMINOTRANSFERASE 36 U/L (3-33); ANION GAP 10 (5-15); ASPARTATE AMINO TRANSFERASE 35 U/L (5-40); CALCIUM 9.2 mg/dL (8.6-10.2); CARBON DIOXIDE 32 mEQ/L (20-30); CHLORIDE 100 mEQ/L (98-107); CREATININE 1.1 mg/dL (0.5-0.9); GLOMERULAR FILTRATION RATE > 60 mL/min (>60); HEMOLYSIS 4; PHOSPHORUS 3.7 mg/dL (2.5-4.8); POTASSIUM 4.5 mEQ/L (3.4-4.9); SODIUM 142 mEQ/L (135-145); TOTAL PROTEIN 6.2 g/dL (6.6-8.7)
[2016-11-04] MEDS: Sucralfate 1gm tab ORAL SCH ×2 (08:01→13:35)
[2016-11-04 08:15] VITALS: BP 118/72
[2016-11-04] MEDS ORDERED: Solu-MEDROL 40mg Inj IVP SCH (09:00)
[2016-11-04] MEDS: Lisinopril 20mg tab ORAL SCH (09:00)
[2016-11-04] MEDS: Theophylline ER 100mg ORAL SCH (09:08)
[2016-11-04] MEDS: Heparin 5000 units/ml inj SUBQ SCH (09:10)
--- NOTE | 2016-11-04 10:38 | Diagnostic Imaging Report ---
Indication: Dyspnea Comparison: 10/29/16 A single view chest radiograph was obtained. Findings: Mild interstitial edema may be present. The heart is enlarged. Mild platelike atelectasis noted at the left lung base. Impression: No significant change. Mild platelike atelectasis left lung base. Possible mild interstitial edema. Please correlate clinically
[2016-11-04 12:15] VITALS: BP 107/67
--- NOTE | 2016-11-04 18:46 | Pulmonology Progress Note ---
Assessment/Plan Problems: (1) COPD exacerbation (2) CHF (congestive heart failure) (3) Morbid obesity Assessment/Plan improving slowly taper steroids continue abx cardiology evaluation appreciated she wants to home tomorrow will dc with oral abx and steroids today Subjective ROS Limited/Unobtainable: No Constitutional: Reports: no symptoms HEENT: Repors: no symptoms Respiratory: Reports: no symptoms Allergies: Coded Allergies: No Known Allergies (Unverified , 10/29/16) Objective Last 24 Hour Vital Signs Date Time Temp Pulse Resp B/P Pulse Ox O2 Delivery O2 Flow Rate FiO2 11/04/16 12:15 97.6 87 24 107/67 96 Room Air 11/04/16 09:00 62 118/72 11/04/16 09:00 118/72 11/04/16 08:15 97.7 62 22 118/72 96 Room Air 11/04/16 07:41 63 18 Room Air 11/04/16 07:41 Nasal Cannula 2.0 28 11/04/16 07:41 97 Nasal Cannula 2.0 28 11/04/16 04:00 97.2 65 20 106/66 97 Nasal Cannula 2.0 11/04/16 00:00 98.4 72 20 122/62 96 Nasal Cannula 11/03/16 20:00 97.3 95 20 134/66 99 Nasal Cannula 11/03/16 19:15 76 11/03/16 19:10 77 Intake and Output 11/03/16 11/04/16 19:00 07:00 Intake Total 1937.5 ml 192.5 ml Output Total 1000 ml Balance 937.5 ml 192.5 ml Intake Oral 1800 ml IV Total 137.5 ml 192.5 ml Output Urine Total 1000 ml # Voids 3 # Bowel Movements 1 Objective General Appearance: WD/WN HEENT: normocephalic, atraumatic Respiratory/Chest: lungs clear Breasts: no masses Cardiovascular: normal peripheral pulses, normal rate, regular rhythm Abdomen: normal bowel sounds, soft, non tender Extremities: no cyanosis, no clubbing Skin: no lesions 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/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 grossly normal, abnormal gait Lymphatic: no neck adenopathy, no groin adenopathy Musculoskeletal: normal muscle bulk Laboratory Tests 11/04/16 06:45: White Blood Count 10.9H, Red Blood Count 3.99L, Hemoglobin 11.8L, Hematocrit 36.9L, Mean Corpuscular Volume 93, Mean Corpuscular Hemoglobin 29.5, Mean Corpuscular Hemoglobin Concent 31.8L, Red Cell Distribution Width 12.9, Platelet Count 170, Mean Platelet Volume 10.3H, Neutrophils (%) (Auto) 48.3, Lymphocytes (%) (Auto) 41.9, Monocytes (%) (Auto) 8.2, Eosinophils (%) (Auto) 1.0, Basophils (%) (Auto) 0.7, Prothrombin Time 10.5, Prothromb Time International Ratio 1.0, Activated Partial Thromboplast Time 29, Sodium Level 142, Potassium Level 4.5, Chloride Level 100, Carbon Dioxide Level 32H, Anion Gap 10, Blood Urea Nitrogen 18, Creatinine 1.1H, Estimat Glomerular Filtration Rate > 60, Glucose Level 93, Calcium Level 9.2, Phosphorus Level 3.7, Magnesium Level 2.0, Total Bilirubin 0.5, Aspartate Amino Transf (AST/SGOT) 35, Alanine Aminotransferase (ALT/SGPT) 36H, Alkaline Phosphatase 52, Total Protein 6.2L, Albumin 3.2L, Globulin 3.0, Albumin/Globulin Ratio 1.0 ERICA BEE November 04, 2016 18:46
== END 2016-11-04 14:30 | disposition home or self-care (01) | DRG 140 ==
LOC: EMR 22:15 → 2E 10-30 03:58 → EDBEDREQ 10-30 05:07 → 4E 11-01 15:58
DX: J44.1 Chronic obstructive pulmonary disease with (acute) exacerbation (principal); I50.9 Heart failure, unspecified; E66.01 Morbid (severe) obesity due to excess calories; Z68.43 Body mass index [BMI] 50.0-59.9, adult; Z87.891 Personal history of nicotine dependence; Z79.82 Long term (current) use of aspirin; I10 Essential (primary) hypertension; R00.0 Tachycardia, unspecified; T50.995A Adverse effect of other drugs, medicaments and biological substances, initial encounter; Y92.89 Other specified places as the place of occurrence of the external cause
CPT/HCPCS: 36415; 71010; 80053; 81003; 82550; 82553; 83605; 83735; 83880; 84100; 84484; 85025; 85610; 85730; 87040; 87070; 87205; 93005; 93306; 94640; 94664; 94760; J2405; J7620

== ENCOUNTER 2017-06-16 23:51 | Inpatient (IN) | payer MEDICAID ==
[~2017-06-16] VITALS: Ht 154.9 cm; Wt 118.8 kg
[~2017-06-16 23:51] MED LIST changes: +PREDNISONE20 M1 PO
[2017-06-17] VITALS (14 sets, daily range): BP systolic 115–176; BP diastolic 59–82
[2017-06-17] MEDS ORDERED: Nitroglycerin Subl 0.4mg tab SL PRN ×2 (00:30→06:15)
[2017-06-17 00:51] LABS: BASOPHILS % (AUTO) 0.8 % (0.0-2.0); EOSINOPHILS % (AUTO) 2.5 % (0.0-3.0); HEMATOCRIT 34.7 % (37.0-47.0); HEMOGLOBIN 10.8 G/DL (12.0-16.0); LYMPHOCYTES % (AUTO) 31.1 % (20.0-45.0); MEAN CORPUSCULAR VOLUME 94 FL (80-99); MONOCYTES % (AUTO) 8.8 % (1.0-10.0); NEUTROPHILS % (AUTO) 56.7 % (45.0-75.0); PLATELET COUNT 183 K/UL (150-450); RED BLOOD COUNT 3.68 M/UL (4.20-5.40); RED CELL DISTRIBUTION WIDTH 12.8 % (11.6-14.8)
[2017-06-17 01:02] LABS: INR 0.9 (0.9-1.1)
[2017-06-17 01:14] LABS: ANION GAP 5 mmol/L (5-15); BLOOD UREA NITROGEN 18 mg/dL (7-18); CALCIUM 7.6 MG/DL (8.5-10.1); CARBON DIOXIDE 31 MMOL/L (21-32); CHLORIDE 106 MMOL/L (98-107); POTASSIUM 3.2 MMOL/L (3.5-5.1); SODIUM 142 MMOL/L (136-145)
[2017-06-17 01:25] LABS: ALANINE AMINOTRANSFERASE 16 U/L (12-78); ALBUMIN 3.2 G/DL (3.4-5.0); ALBUMIN/GLOBULIN RATIO 0.9 (1.0-2.7); ALKALINE PHOSPHATASE 85 U/L (46-116); ASPARTATE AMINO TRANSFERASE 13 U/L (15-37); BILIRUBIN,TOTAL 0.6 MG/DL (0.2-1.0); CKMB 0.7 NG/ML (0.0-3.6); CREATINE KINASE 91 U/L (26-308)
[2017-06-17] MEDS ORDERED: Aspirin Baby 81mg ORAL ONE (01:30)
--- NOTE | 2017-06-17 03:30 | Emergency Room Report ---
History of Present Illness General Chief Complaint: Abdominal Pain Source: Patient Present Illness HPI Patient is a 61-year-old female presented after increased chest pain. The patient was noted to have prior history of cardiac disease. She had prior history of GERD. She stated that she been having increased numbness to her left arm associated with the chest pain. She denied any fever. She denied cough. Pain was worsened by supine position but was unrelieved by her medication Allergies: Coded Allergies: No Known Allergies (Unverified , 10/29/16) Patient History Now: No Reviewed Nursing Documentation: PMH: Agreed, PSxH: Agreed Nursing Documentation-PMH Past Medical History: No History, Except For Hx Cardiac Problems: Yes - Enlarged heart, CHF, High Chlosterol Hx Hypertension: Yes Hx COPD: Yes Hx Cancer: No Hx Gastrointestinal Problems: Yes - Cholecystectomy, GERD Hx Neurological Problems: No Review of Systems All Other Systems: negative except mentioned in HPI Physical Exam Vital Signs Date Time Temp Pulse Resp B/P (MAP) Pulse Ox O2 Delivery O2 Flow Rate FiO2 06/16/17 23:59 98.1 101 16 139/82 98 Room Air Sp02 EP Interpretation: reviewed, normal General Appearance: normal inspection, well appearing, no apparent distress, alert, GCS 15, obese Head: atraumatic ENT: normal ENT inspection, hearing grossly normal, normal voice Neck: normal inspection, full range of motion, supple, no bony tend Respiratory: normal inspection, no respiratory distress, no retraction, no wheezing Cardiovascular #1: regular rate, rhythm, no edema, edema Gastrointestinal: normal inspection, normal bowel sounds, non tender, soft, no guarding, no hernia Genitourinary: no CVA tenderness Musculoskeletal: normal inspection, back normal, normal range of motion Neurologic: normal inspection, alert, oriented x3, responsive, speech normal Psychiatric: normal inspection, judgement/insight normal, mood/affect normal Skin: normal inspection, normal color, no rash Medical Decision Making Diagnostic Impression: Primary Impression: CHF (congestive heart failure) Additional Impression: Morbid obesity ER Course Patient presented for chest pain. Differential diagnosis included but was not limited to acute coronary syndrome, pulmonary embolism, pneumonia, aortic dissection, shingles, pneumothorax, aortic dissection, esophageal rupture, pericarditis. Because of complexity of patient's case laboratory testing and imaging studies were ordered. I EKG interpreted by me showed normal sinus rhythm with a rate of 78 with nonspecific T wave changes in left ventricular hypertrophy. The patient was given aspirin as well as Lasix . The patient pain free after nitroglycerin x1 . Dr. Boateng was contacted for inpatient management due to complexity of medical condition. Labs Test 06/17/17 00:30 White Blood Count 8.0 K/UL (4.8-10.8) Red Blood Count 3.68 M/UL (4.20-5.40) Hemoglobin 10.8 G/DL (12.0-16.0) Hematocrit 34.7 % (37.0-47.0) Mean Corpuscular Volume 94 FL (80-99) Mean Corpuscular Hemoglobin 29.3 PG (27.0-31.0) Mean Corpuscular Hemoglobin Concent 31.1 G/DL (32.0-36.0) Red Cell Distribution Width 12.8 % (11.6-14.8) Platelet Count 183 K/UL (150-450) Mean Platelet Volume 8.9 FL (6.5-10.1) Neutrophils (%) (Auto) 56.7 % (45.0-75.0) Lymphocytes (%) (Auto) 31.1 % (20.0-45.0) Monocytes (%) (Auto) 8.8 % (1.0-10.0) Eosinophils (%) (Auto) 2.5 % (0.0-3.0) Basophils (%) (Auto) 0.8 % (0.0-2.0) Prothrombin Time 9.9 SEC (9.30-11.50) Prothromb Time International Ratio 0.9 (0.9-1.1) Activated Partial Thromboplast Time 30 SEC (23-33) Sodium Level 142 MMOL/L (136-145) Potassium Level 3.2 MMOL/L (3.5-5.1) Chloride Level 106 MMOL/L (98-107) Carbon Dioxide Level 31 MMOL/L (21-32) Anion Gap 5 mmol/L (5-15) Blood Urea Nitrogen 18 mg/dL (7-18) Creatinine 1.0 MG/DL (0.55-1.30) Estimat Glomerular Filtration Rate > 60 mL/min (>60) Glucose Level 118 MG/DL (74-106) Calcium Level 7.6 MG/DL (8.5-10.1) Total Bilirubin 0.6 MG/DL (0.2-1.0) Aspartate Amino Transf (AST/SGOT) 13 U/L (15-37) Alanine Aminotransferase (ALT/SGPT) 16 U/L (12-78) Alkaline Phosphatase 85 U/L (46-116) Total Creatine Kinase 91 U/L (26-308) Creatine Kinase MB 0.7 NG/ML (0.0-3.6) Creatine Kinase MB Relative Index 0.7 Troponin I 0.025 ng/mL (0.000-0.056) Pro-B-Type Natriuretic Peptide 2544 pg/mL (0-125) Total Protein 6.7 G/DL (6.4-8.2) Albumin 3.2 G/DL (3.4-5.0) Globulin 3.5 g/dL Albumin/Globulin Ratio 0.9 (1.0-2.7) Lipase 97 U/L (73-393) EKG Diagnostic Results Rate: normal Rhythm: NSR ST Segments: no acute changes Rhythm Strip Diag. Results EP Interpretation: yes Rhythm: NSR, no PVC's, no ectopy Last Vital Signs Date Time Temp Pulse Resp B/P (MAP) Pulse Ox O2 Delivery O2 Flow Rate FiO2 06/17/17 01:20 147/82 06/17/17 01:15 98.2 62 16 97 Room Air Status: unchanged Disposition: ADMITTED INPATIENT Condition: Serious Referrals: [employer] [facility],REFERRIN (PCP) Aroldo Moreland Jun 17, 2017 03:30
[2017-06-17] MEDS ORDERED: Enalaprilat 2.5mg/2ml Inj IV PRN (06:15)
[2017-06-17] MEDS ORDERED: Ketorolac 30mg Inj IV PRN (06:15)
[2017-06-17] MEDS ORDERED: Albuterol/Ipratropium 3ml neb HHN PRN (06:15)
[2017-06-17] MEDS ORDERED: dilTIAZem HCl 25mg/5ml Inj IV PRN (06:15)
[2017-06-17] MEDS ORDERED: Miralax 17gm pkt ORAL PRN (06:15)
[2017-06-17 09:39] LABS: BASOPHILS % (AUTO) 1.4 % (0.0-2.0); EOSINOPHILS % (AUTO) 3.6 % (0.0-3.0); HEMATOCRIT 35.5 % (37.0-47.0); HEMOGLOBIN 10.9 G/DL (12.0-16.0); LYMPHOCYTES % (AUTO) 40.5 % (20.0-45.0); MEAN CORPUSCULAR VOLUME 96 FL (80-99); NEUTROPHILS % (AUTO) 47.5 % (45.0-75.0); PLATELET COUNT 139 K/UL (150-450); RED BLOOD COUNT 3.72 M/UL (4.20-5.40); RED CELL DISTRIBUTION WIDTH 13.1 % (11.6-14.8); WHITE BLOOD COUNT 6.1 K/UL (4.8-10.8)
[2017-06-17 10:00] LABS: CHOLESTEROL 177 MG/DL (< 200); HDL CHOLESTEROL 57 MG/DL (40-60); TRIGLYCERIDES 94 MG/DL (30-150)
[2017-06-17] MEDS: Aspirin Baby 81mg ORAL SCH (10:45)
[2017-06-17] MEDS: Sucralfate 1gm tab ORAL SCH ×4 (10:47→21:40)
[2017-06-17] MEDS: Lisinopril 20mg tab ORAL SCH (10:47)
[2017-06-17] MEDS: Heparin 5000 units/ml inj SUBQ SCH ×2 (10:49→21:00)
[2017-06-17] MEDS: Metoprolol 25mg tab ORAL SCH ×2 (11:06→17:59)
--- NOTE | 2017-06-17 15:54 | History and Physical ---
History of Present Illness General Date patient seen: Jun 17, 2017 Reason for Hospitalization: Abdominal Pain Present Illness HPI 61-year-old females with prior history of cardiac disease, GERD presented after increased chest pain. She stated that she been having increased numbness to her left arm associated with the chest pain. She denied any fever. She denied cough. Pain was worsened by supine position but was unrelieved by her medication. Pt is admitted to telemetry for further evaluation. Allergies: Coded Allergies: No Known Allergies (Unverified , 10/29/16) Medication History Scheduled Amoxicillin/Potassium Clav 875-125* (Augmentin 875-125 Tablet*), 1 TAB ORAL TWICE A DAY Aspirin Ec* (Aspirin Ec*), 81 MG PO DAILY, (Reported) Fluticasone Propionate (Flovent Hfa), 2 PUFFS INH TWICE A DAY, (Reported) Furosemide* (Lasix*), 40 MG ORAL DAILY, (Reported) Gabapentin (Neurontin), 300 MG ORAL BEDTIME, (Reported) Gentamicin Sulfate* (Gentamicin Sulfate*), 3.5 GM OP TID Lisinopril (Lisinopril*), 40 MG ORAL DAILY, (Reported) Metoprolol Tartrate* (Metoprolol Tartrate*), 25 MG ORAL BID, (Reported) Nifedipine* (Nifedipine Er*), 90 MG ORAL DAILY, (Reported) Omeprazole (Omeprazole), 40 MG ORAL DAILY Prednisone (Prednisone), 20 MG PO EVERY 12 HOURS Simvastatin (Zocor), 20 MG ORAL DAILY, (Reported) Sucralfate* (Carafate*), 1 GM ORAL FOUR TIMES A DAY, (Reported) Vitamin D (Vitamin D3), 400 UNITS ORAL DAILY, (Reported) Miscellaneous Medications Calcium Carbonate (Tums), 200 MG PO, (Reported) Potassium (Potassium), 99 MG PO, (Reported) Patient History Healthcare decision maker Resuscitation status Advanced Directive on File Past Medical/Surgical History Past Medical/Surgical History: (1) Morbid obesity (2) COPD (chronic obstructive pulmonary disease) Review of Systems Cardiovascular: Reports: chest pain All Other Systems: negative except mentioned in HPI Physical Exam General Appearance: WD/WN, no apparent distress Lines, tubes and drains: peripheral, central line HEENT: normocephalic, atraumatic Neck: non-tender, normal alignment Respiratory/Chest: chest wall non-tender, lungs clear Breasts: no masses Cardiovascular/Chest: normal peripheral pulses Abdomen: normal bowel sounds Genitourinary/Rectal: normal genital exam Extremities: normal range of motion 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: 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 grossly normal Last 24 Hour Vital Signs Date Time Temp Pulse Resp B/P (MAP) Pulse Ox O2 Delivery O2 Flow Rate FiO2 06/17/17 14:35 72 20 129/48 94 Bi-pap 06/17/17 11:06 64 164/74 06/17/17 11:05 66 164/74 06/17/17 10:47 144/74 06/17/17 08:54 97.5 19 Room Air 06/17/17 06:30 98.0 60 17 176/62 98 Room Air 06/17/17 04:15 98.2 63 20 161/77 97 Room Air 06/17/17 03:00 98.7 64 16 162/82 96 Room Air 06/17/17 01:20 147/82 06/17/17 01:15 98.2 62 16 142/80 97 Room Air 06/17/17 00:15 98.1 68 16 133/82 98 Room Air 06/16/17 23:59 98.1 101 16 139/82 98 Room Air Intake and Output 06/16/17 06/17/17 19:00 07:00 # Voids 2 Laboratory Tests Test 06/17/17 00:30 06/17/17 09:20 White Blood Count 8.0 K/UL (4.8-10.8) 6.1 K/UL (4.8-10.8) Red Blood Count 3.68 M/UL (4.20-5.40) L 3.72 M/UL (4.20-5.40) L Hemoglobin 10.8 G/DL (12.0-16.0) L 10.9 G/DL (12.0-16.0) L Hematocrit 34.7 % (37.0-47.0) L 35.5 % (37.0-47.0) L Mean Corpuscular Volume 94 FL (80-99) 96 FL (80-99) Mean Corpuscular Hemoglobin 29.3 PG (27.0-31.0) 29.3 PG (27.0-31.0) Mean Corpuscular Hemoglobin Concent 31.1 G/DL (32.0-36.0) L 30.7 G/DL (32.0-36.0) L Red Cell Distribution Width 12.8 % (11.6-14.8) 13.1 % (11.6-14.8) Platelet Count 183 K/UL (150-450) 139 K/UL (150-450) L Mean Platelet Volume 8.9 FL (6.5-10.1) 8.9 FL (6.5-10.1) Neutrophils (%) (Auto) 56.7 % (45.0-75.0) 47.5 % (45.0-75.0) Lymphocytes (%) (Auto) 31.1 % (20.0-45.0) 40.5 % (20.0-45.0) Monocytes (%) (Auto) 8.8 % (1.0-10.0) 7.0 % (1.0-10.0) Eosinophils (%) (Auto) 2.5 % (0.0-3.0) 3.6 % (0.0-3.0) H Basophils (%) (Auto) 0.8 % (0.0-2.0) 1.4 % (0.0-2.0) Prothrombin Time 9.9 SEC (9.30-11.50) 10.0 SEC (9.30-11.50) Prothromb Time International Ratio 0.9 (0.9-1.1) 1.0 (0.9-1.1) Activated Partial Thromboplast Time 30 SEC (23-33) 28 SEC (23-33) Sodium Level 142 MMOL/L (136-145) Potassium Level 3.2 MMOL/L (3.5-5.1) L Chloride Level 106 MMOL/L (98-107) Carbon Dioxide Level 31 MMOL/L (21-32) Anion Gap 5 mmol/L (5-15) Blood Urea Nitrogen 18 mg/dL (7-18) Creatinine 1.0 MG/DL (0.55-1.30) Estimat Glomerular Filtration Rate > 60 mL/min (>60) Glucose Level 118 MG/DL (74-106) H Calcium Level 7.6 MG/DL (8.5-10.1) L Total Bilirubin 0.6 MG/DL (0.2-1.0) Aspartate Amino Transf (AST/SGOT) 13 U/L (15-37) L Alanine Aminotransferase (ALT/SGPT) 16 U/L (12-78) Alkaline Phosphatase 85 U/L (46-116) Total Creatine Kinase 91 U/L (26-308) Creatine Kinase MB 0.7 NG/ML (0.0-3.6) Creatine Kinase MB Relative Index 0.7 Troponin I 0.025 ng/mL (0.000-0.056) 0.009 ng/mL (0.000-0.056) Pro-B-Type Natriuretic Peptide 2544 pg/mL (0-125) H Total Protein 6.7 G/DL (6.4-8.2) Albumin 3.2 G/DL (3.4-5.0) L Globulin 3.5 g/dL Albumin/Globulin Ratio 0.9 (1.0-2.7) L Lipase 97 U/L (73-393) C-Reactive Protein, Quantitative 5.7 mg/dL (0.00-0.90) H Triglycerides Level 94 MG/DL (30-150) Cholesterol Level 177 MG/DL (< 200) LDL Cholesterol 106 mg/dL (<100) H HDL Cholesterol 57 MG/DL (40-60) Cholesterol/HDL Ratio 3.1 (3.3-4.4) L Thyroid Stimulating Hormone (TSH) 2.182 uiU/mL (0.358-3.740) Height (Feet): 5 Height (Inches): 1.00 Weight (Pounds): 262 Medications Current Medications Medications (Trade) Dose Ordered Sig/Gus Route PRN Reason Start Time Stop Time Status Last Admin Dose Admin Acetaminophen (Tylenol) 650 mg Q4H PRN ORAL FEVER 06/17/17 06:15 07/17/17 06:14 Albuterol/ Ipratropium (Albuterol/ Ipratropium) 3 ml EVERY 4 HOURS PRN HHN Shortness of Breath 06/17/17 06:15 06/22/17 06:14 Aspirin (ASA) 162 mg DAILY ORAL 06/17/17 09:00 07/17/17 08:59 06/17/17 10:45 Diltiazem HCl (Cardizem) 10 mg EVERY HOUR PRN IV heart rate more than 120, 06/17/17 06:15 07/17/17 06:14 Enalaprilat (Vasotec) 2.5 mg EVERY 6 HOURS PRN IV sbp more than 160 06/17/17 06:15 07/17/17 06:14 Gabapentin (Neurontin) 300 mg BEDTIME ORAL 06/17/17 21:00 07/17/17 20:59 Heparin Sodium (Porcine) (Heparin 5000 units/ml) 5,000 units EVERY 12 HOURS SUBQ 06/17/17 09:00 07/17/17 08:59 06/17/17 10:49 Ketorolac Tromethamine (Toradol 30mg) 30 mg Q6H PRN IV moderate pain ( 4-6) 06/17/17 06:15 06/22/17 06:14 Lisinopril (Prinivil) 40 mg DAILY ORAL 06/17/17 09:00 07/17/17 08:59 06/17/17 10:47 Metoprolol Tartrate (Lopressor) 25 mg BID ORAL 06/17/17 09:00 07/17/17 08:59 06/17/17 11:06 Morphine Sulfate (Morphine Sulfate) 2 mg EVERY 4 HOURS PRN IVP severe Pain (Pain Scale 7-10) 06/17/17 06:15 06/24/17 06:14 Nifedipine (Procardia XL) 90 mg DAILY ORAL 06/17/17 09:00 07/17/17 08:59 06/17/17 11:05 Nitroglycerin (Ntg) 0.4 mg Every 5 Minutes PRN SL Prn Chest Pain 06/17/17 06:15 07/17/17 06:14 Nitroglycerin (Ntg) 0.4 mg Q5M PRN SL Prn Chest Pain 06/17/17 00:30 07/17/17 00:29 06/17/17 01:20 Ondansetron HCl (Zofran) 4 mg Q6H PRN IVP Nausea & Vomiting 06/17/17 06:15 07/17/17 06:14 Polyethylene Glycol (Miralax) 17 gm DAILYPRN PRN ORAL Constipation 06/17/17 06:15 07/17/17 06:14 Sucralfate (Carafate) 1 gm FOUR TIMES A DAY ORAL 06/17/17 09:00 07/17/17 08:59 06/17/17 10:47 Temazepam (Restoril) 15 mg HSPRN PRN ORAL Insomnia 06/17/17 06:15 06/24/17 06:14 Assessment/Plan Problem List: (1) ACS (acute coronary syndrome) ICD Codes: I24.9 - Acute ischemic heart disease, unspecified SNOMED: 778254997 (2) COPD (chronic obstructive pulmonary disease) ICD Codes: J44.9 - Chronic obstructive pulmonary disease, unspecified SNOMED: 39467771 (3) Morbid obesity ICD Codes: E66.01 - Morbid (severe) obesity due to excess calories SNOMED: 077716809, [id number] Assessment/Plan telemetry monitoring serial ekg, troponin symptomatic treatment echo cardiology to see respiratory treatment ERICA BEE Jun 17, 2017 15:54
--- NOTE | 2017-06-17 20:03 | Cardiology Progress Note ---
Assessment/Plan Assessment/Plan [id number] atypic cp trop neg sig MR sig pulm htn may be related to progressive mr gerd sx all trop neg dirutic may need ischemia evalution seh feel better pos diuretics venoud duplex Objective Last 24 Hour Vital Signs Date Time Temp Pulse Resp B/P (MAP) Pulse Ox O2 Delivery O2 Flow Rate FiO2 06/17/17 18:54 97.5 84 18 130/82 99 06/17/17 18:24 72 16 150/76 97 Room Air 06/17/17 17:59 79 136/63 06/17/17 17:00 73 19 138/71 98 Room Air 06/17/17 16:00 72 16 150/76 98 Room Air 06/17/17 14:35 72 20 129/48 94 Bi-pap 06/17/17 14:00 68 21 154/74 97 Room Air 06/17/17 12:00 71 20 164/74 97 Room Air 06/17/17 11:06 64 164/74 06/17/17 11:05 66 164/74 06/17/17 10:47 144/74 06/17/17 10:00 65 21 144/74 97 Room Air 06/17/17 09:00 64 21 156/76 95 Room Air 06/17/17 08:54 97.5 19 Room Air 06/17/17 07:00 69 21 141/81 95 Room Air 06/17/17 06:30 98.0 60 17 176/62 98 Room Air 06/17/17 04:15 98.2 63 20 161/77 97 Room Air 06/17/17 03:00 98.7 64 16 162/82 96 Room Air 06/17/17 01:20 147/82 06/17/17 01:15 98.2 62 16 142/80 97 Room Air 06/17/17 00:15 98.1 68 16 133/82 98 Room Air 06/16/17 23:59 98.1 101 16 139/82 98 Room Air Intake and Output 06/16/17 06/17/17 19:00 07:00 # Voids 2 Laboratory Tests Test 06/17/17 00:30 06/17/17 09:20 06/17/17 16:50 White Blood Count 8.0 K/UL (4.8-10.8) 6.1 K/UL (4.8-10.8) Red Blood Count 3.68 M/UL (4.20-5.40) L 3.72 M/UL (4.20-5.40) L Hemoglobin 10.8 G/DL (12.0-16.0) L 10.9 G/DL (12.0-16.0) L Hematocrit 34.7 % (37.0-47.0) L 35.5 % (37.0-47.0) L Mean Corpuscular Volume 94 FL (80-99) 96 FL (80-99) Mean Corpuscular Hemoglobin 29.3 PG (27.0-31.0) 29.3 PG (27.0-31.0) Mean Corpuscular Hemoglobin Concent 31.1 G/DL (32.0-36.0) L 30.7 G/DL (32.0-36.0) L Red Cell Distribution Width 12.8 % (11.6-14.8) 13.1 % (11.6-14.8) Platelet Count 183 K/UL (150-450) 139 K/UL (150-450) L Mean Platelet Volume 8.9 FL (6.5-10.1) 8.9 FL (6.5-10.1) Neutrophils (%) (Auto) 56.7 % (45.0-75.0) 47.5 % (45.0-75.0) Lymphocytes (%) (Auto) 31.1 % (20.0-45.0) 40.5 % (20.0-45.0) Monocytes (%) (Auto) 8.8 % (1.0-10.0) 7.0 % (1.0-10.0) Eosinophils (%) (Auto) 2.5 % (0.0-3.0) 3.6 % (0.0-3.0) H Basophils (%) (Auto) 0.8 % (0.0-2.0) 1.4 % (0.0-2.0) Prothrombin Time 9.9 SEC (9.30-11.50) 10.0 SEC (9.30-11.50) Prothromb Time International Ratio 0.9 (0.9-1.1) 1.0 (0.9-1.1) Activated Partial Thromboplast Time 30 SEC (23-33) 28 SEC (23-33) Sodium Level 142 MMOL/L (136-145) Potassium Level 3.2 MMOL/L (3.5-5.1) L Chloride Level 106 MMOL/L (98-107) Carbon Dioxide Level 31 MMOL/L (21-32) Anion Gap 5 mmol/L (5-15) Blood Urea Nitrogen 18 mg/dL (7-18) Creatinine 1.0 MG/DL (0.55-1.30) Estimat Glomerular Filtration Rate > 60 mL/min (>60) Glucose Level 118 MG/DL (74-106) H Calcium Level 7.6 MG/DL (8.5-10.1) L Total Bilirubin 0.6 MG/DL (0.2-1.0) Aspartate Amino Transf (AST/SGOT) 13 U/L (15-37) L Alanine Aminotransferase (ALT/SGPT) 16 U/L (12-78) Alkaline Phosphatase 85 U/L (46-116) Total Creatine Kinase 91 U/L (26-308) Creatine Kinase MB 0.7 NG/ML (0.0-3.6) Creatine Kinase MB Relative Index 0.7 Troponin I 0.025 ng/mL (0.000-0.056) 0.009 ng/mL (0.000-0.056) 0.008 ng/mL (0.000-0.056) Pro-B-Type Natriuretic Peptide 2544 pg/mL (0-125) H Total Protein 6.7 G/DL (6.4-8.2) Albumin 3.2 G/DL (3.4-5.0) L Globulin 3.5 g/dL Albumin/Globulin Ratio 0.9 (1.0-2.7) L Lipase 97 U/L (73-393) C-Reactive Protein, Quantitative 5.7 mg/dL (0.00-0.90) H Triglycerides Level 94 MG/DL (30-150) Cholesterol Level 177 MG/DL (< 200) LDL Cholesterol 106 mg/dL (<100) H HDL Cholesterol 57 MG/DL (40-60) Cholesterol/HDL Ratio 3.1 (3.3-4.4) L Thyroid Stimulating Hormone (TSH) 2.182 uiU/mL (0.358-3.740) NURIS PAULINO Jun 17, 2017 20:03
[2017-06-17] MEDS: Morphine Sulfate 2mg/ml Inj IVP PRN (20:15)
--- NOTE | 2017-06-17 21:47 | Diagnostic Imaging Report ---
Indication: Dyspnea Comparison: 11/04/2016 A single view chest radiograph was obtained. Findings: Cardiomediastinal appearance is within normal limits for age. Pulmonary vascularity is appropriate. The diaphragmatic contour is smooth and costophrenic angles are sharp. No pleural effusions are identified. The bones are unremarkable. Impression: No acute findings
--- NOTE | 2017-06-17 21:49 | Cardiology Report ---
APPROVED REPORT EKG Measurement Heart [id number] Normal sinus rhythm Left ventricular hypertrophy with repolarization abnormality Cannot rule out Septal infarct, age undetermined Abnormal ECG
--- NOTE | 2017-06-17 21:49 | Cardiology Report ---
APPROVED REPORT EXAM: Two-dimensional and M-mode echocardiogram with Doppler and color Doppler. INDICATION [id number] M-Mode DIMENSIONS IVSd1.8 (0.7-1.1cm)Left Atrium (MM)5.2 (1.6-4.0cm) LVDd4.2 (3.5-5.6cm)Aortic Root2.6 (2.0-3.7cm) PWd1.2 (0.7-1.1cm)Aortic Cusp Exc.1.5 (1.5-2.0cm) LVDs1.0 (2.5-4.0cm) PWs2.5 cm Normal left ventricular chamber size, systolic function and wall motion. Left ventricular ejection fraction estimated to be 60-65 %. Moderate left ventricular hypertrophy. Anterior Echo-free space, may be due to pericardial fat or effusion. All other cardiac chamber sizes are within normal limits. Focal aortic valve sclerosis with adequate cusp excursion. Thickened mitral valve leaflets with normal excursion. Mild mitral annulus and aortic root calcification. Normal pulmonic valve structure. Normal tricuspid valve structure. IVC dilated at 2.3 cm with physiologic collapse suggestive of increased RA pressure. A color flow and spectral Doppler study was performed and revealed: Mild aortic regurgitation. Mild mitral regurgitation. Mitral diastolic velocities suggest mild left ventricular dysfunction (Grade I ). Mild tricuspid regurgitation. Tricuspid systolic velocities suggests peak right ventricular systolic pressure of 72 mmHg, consistent with severe pulmonary hypertension. No pulmonic regurgitation present.
[2017-06-18] VITALS (7 sets, daily range): BP systolic 84–122; BP diastolic 41–73
[2017-06-18] MEDS: Aspirin Baby 81mg ORAL SCH (08:20)
[2017-06-18] MEDS: Metoprolol 25mg tab ORAL SCH ×2 (08:22→18:15)
[2017-06-18] MEDS: Lisinopril 20mg tab ORAL SCH (08:22)
[2017-06-18] MEDS: Sucralfate 1gm tab ORAL SCH ×4 (08:22→21:25)
[2017-06-18 08:25] LABS: BASOPHILS % (AUTO) 1.7 % (0.0-2.0); EOSINOPHILS % (AUTO) 4.9 % (0.0-3.0); HEMATOCRIT 36.7 % (37.0-47.0); HEMOGLOBIN 11.5 G/DL (12.0-16.0); LYMPHOCYTES % (AUTO) 43.7 % (20.0-45.0); MEAN CORPUSCULAR VOLUME 96 FL (80-99); MONOCYTES % (AUTO) 7.4 % (1.0-10.0); NEUTROPHILS % (AUTO) 42.4 % (45.0-75.0); PLATELET COUNT 206 K/UL (150-450); RED BLOOD COUNT 3.84 M/UL (4.20-5.40); RED CELL DISTRIBUTION WIDTH 12.9 % (11.6-14.8); WHITE BLOOD COUNT 6.8 K/UL (4.8-10.8)
[2017-06-18] MEDS: Heparin 5000 units/ml inj SUBQ SCH ×2 (08:28→21:27)
[2017-06-18 08:45] LABS: CHOLESTEROL 169 MG/DL (< 200); HDL CHOLESTEROL 51 MG/DL (40-60); TRIGLYCERIDES 129 MG/DL (30-150)
--- NOTE | 2017-06-18 12:14 | Pulmonology Progress Note ---
Assessment/Plan Problems: (1) ACS (acute coronary syndrome) (2) COPD (chronic obstructive pulmonary disease) (3) Morbid obesity Assessment/Plan improving echo noted cardio note appreciated awaiting further cardio recommendation respiratory treatment. Subjective ROS Limited/Unobtainable: No Constitutional: Reports: no symptoms HEENT: Repors: no symptoms Allergies: Coded Allergies: No Known Allergies (Unverified , 10/29/16) Objective Last 24 Hour Vital Signs Date Time Temp Pulse Resp B/P (MAP) Pulse Ox O2 Delivery O2 Flow Rate FiO2 06/18/17 08:22 69 111/68 06/18/17 08:22 111/68 06/18/17 08:20 69 111/68 06/18/17 08:00 97.9 69 18 111/68 95 Room Air 06/18/17 08:00 69 06/18/17 07:22 69 20 Room Air 21 06/18/17 04:48 97.5 63 20 113/63 95 Room Air 06/18/17 04:00 63 06/18/17 00:00 97.9 64 20 122/73 94 Room Air 06/18/17 00:00 61 06/17/17 20:00 71 06/17/17 20:00 97.9 67 21 115/59 96 Room Air 67 06/17/17 19:30 68 20 Room Air 21 06/17/17 18:54 97.5 84 18 130/82 99 06/17/17 18:24 72 16 150/76 97 Room Air 06/17/17 17:59 79 136/63 06/17/17 17:00 73 19 138/71 98 Room Air 06/17/17 16:00 72 16 150/76 98 Room Air 06/17/17 14:35 72 20 129/48 94 Bi-pap 06/17/17 14:00 68 21 154/74 97 Room Air Intake and Output 06/17/17 06/18/17 19:00 07:00 Output Total 500 ml Balance -500 ml Output Urine Total 500 ml # Voids 2 General Appearance: WD/WN HEENT: normocephalic Respiratory/Chest: chest wall non-tender, lungs clear Cardiovascular: normal peripheral pulses Abdomen: normal bowel sounds, soft, non tender Genitourinary: normal external genitalia Skin: no rash Lymphatic: no neck adenopathy Laboratory Tests 06/17/17 16:50: Troponin I 0.008 06/18/17 08:15: Troponin I 0.012, White Blood Count 6.8, Red Blood Count 3.84L, Hemoglobin 11.5L , Hematocrit 36.7L, Mean Corpuscular Volume 96, Mean Corpuscular Hemoglobin 29.9 , Mean Corpuscular Hemoglobin Concent 31.3L, Red Cell Distribution Width 12.9, Platelet Count 206, Mean Platelet Volume 9.5, Neutrophils (%) (Auto) 42.4L, Lymphocytes (%) (Auto) 43.7, Monocytes (%) (Auto) 7.4, Eosinophils (%) (Auto) 4.9H, Basophils (%) (Auto) 1.7, Prothrombin Time 10.1, Prothromb Time International Ratio 1.0, Activated Partial Thromboplast Time 27, C-Reactive Protein, Quantitative 4.6H, Triglycerides Level 129, Cholesterol Level 169, LDL Cholesterol 105H, HDL Cholesterol 51, Cholesterol/HDL Ratio 3.3, Thyroid Stimulating Hormone (TSH) 3.072 Current Medications Medications (Trade) Dose Ordered Sig/Gus Route PRN Reason Start Time Stop Time Status Last Admin Dose Admin Acetaminophen (Tylenol) 650 mg Q4H PRN ORAL FEVER 06/17/17 06:15 07/17/17 06:14 06/17/17 21:40 Albuterol/ Ipratropium (Albuterol/ Ipratropium) 3 ml EVERY 4 HOURS PRN HHN Shortness of Breath 06/17/17 06:15 06/22/17 06:14 Aspirin (ASA) 162 mg DAILY ORAL 06/17/17 09:00 07/17/17 08:59 06/18/17 08:20 Diltiazem HCl (Cardizem) 10 mg EVERY HOUR PRN IV heart rate more than 120, 06/17/17 06:15 07/17/17 06:14 Enalaprilat (Vasotec) 2.5 mg EVERY 6 HOURS PRN IV sbp more than 160 06/17/17 06:15 07/17/17 06:14 Gabapentin (Neurontin) 300 mg BEDTIME ORAL 06/17/17 21:00 07/17/17 20:59 06/17/17 21:41 Heparin Sodium (Porcine) (Heparin 5000 units/ml) 5,000 units EVERY 12 HOURS SUBQ 06/17/17 09:00 07/17/17 08:59 06/18/17 08:28 Influenza Virus Vaccine Quadrival (Flu Vaccine Quadrivalent) 0.5 ml ONCE ONCE IM 06/18/17 09:00 06/18/17 09:01 UNV Ketorolac Tromethamine (Toradol 30mg) 30 mg Q6H PRN IV moderate pain ( 4-6) 06/17/17 06:15 06/22/17 06:14 Lisinopril (Prinivil) 40 mg DAILY ORAL 06/17/17 09:00 07/17/17 08:59 06/18/17 08:22 Metoprolol Tartrate (Lopressor) 25 mg BID ORAL 06/17/17 09:00 07/17/17 08:59 06/18/17 08:22 Morphine Sulfate (Morphine Sulfate) 2 mg EVERY 4 HOURS PRN IVP severe Pain (Pain Scale 7-10) 06/17/17 06:15 06/24/17 06:14 06/17/17 20:15 Nifedipine (Procardia XL) 90 mg DAILY ORAL 06/17/17 09:00 07/17/17 08:59 06/18/17 08:20 Nitroglycerin (Ntg) 0.4 mg Every 5 Minutes PRN SL Prn Chest Pain 06/17/17 06:15 07/17/17 06:14 Nitroglycerin (Ntg) 0.4 mg Q5M PRN SL Prn Chest Pain 06/17/17 00:30 07/17/17 00:29 06/17/17 01:20 Ondansetron HCl (Zofran) 4 mg Q6H PRN IVP Nausea & Vomiting 06/17/17 06:15 07/17/17 06:14 Pneumococcal Polyvalent Vaccine (Pneumovax) 0.5 ml ONCE ONCE IM 06/18/17 09:00 06/18/17 09:01 UNV Polyethylene Glycol (Miralax) 17 gm DAILYPRN PRN ORAL Constipation 06/17/17 06:15 07/17/17 06:14 Sucralfate (Carafate) 1 gm FOUR TIMES A DAY ORAL 06/17/17 09:00 07/17/17 08:59 06/18/17 08:22 Temazepam (Restoril) 15 mg HSPRN PRN ORAL Insomnia 06/17/17 06:15 06/24/17 06:14 ERICA BEE Jun 18, 2017 12:14
--- NOTE | 2017-06-18 15:53 | Cardiology Progress Note ---
Assessment/Plan Assessment/Plan [id number] atypical cp related to gerd improved with gerd med mild MR pulm htn gerd all trop neg diuretic trop are neg no sx on walkign after starting ofn antireflux meds will not pursuit at this time her echo did not show sig mr apparently venous duplex pedning as par to higuera for pulm htn Subjective Cardiovascular: Denies: chest pain, lightheadedness, palpitations Respiratory: Denies: shortness of breath Gastrointestinal/Abdominal: Reports: other - gerd sx improved on new gerd med , Denies: abdominal pain Genitourinary: Denies: burning Subjective walked inhalls after starting carafate not had any probles with cp any more Objective Last 24 Hour Vital Signs Date Time Temp Pulse Resp B/P (MAP) Pulse Ox O2 Delivery O2 Flow Rate FiO2 06/18/17 12:00 68 06/18/17 12:00 97.5 65 18 106/59 96 Room Air 06/18/17 08:22 69 111/68 06/18/17 08:22 111/68 06/18/17 08:20 69 111/68 06/18/17 08:00 97.9 69 18 111/68 95 Room Air 06/18/17 08:00 69 06/18/17 07:22 69 20 Room Air 21 06/18/17 04:48 97.5 63 20 113/63 95 Room Air 06/18/17 04:00 63 06/18/17 00:00 97.9 64 20 122/73 94 Room Air 06/18/17 00:00 61 06/17/17 20:00 71 06/17/17 20:00 97.9 67 21 115/59 96 Room Air 67 06/17/17 19:30 68 20 Room Air 21 06/17/17 18:54 97.5 84 18 130/82 99 06/17/17 18:24 72 16 150/76 97 Room Air 06/17/17 17:59 79 136/63 06/17/17 17:00 73 19 138/71 98 Room Air 06/17/17 16:00 72 16 150/76 98 Room Air General Appearance: alert Neck: supple Cardiovascular: normal rate, regular rhythm Respiratory/Chest: lungs clear, normal breath sounds Abdomen: normal bowel sounds, non tender, soft Extremities: no swelling Intake and Output 06/17/17 06/18/17 19:00 07:00 Output Total 500 ml Balance -500 ml Output Urine Total 500 ml # Voids 2 Laboratory Tests Test 06/17/17 16:50 06/18/17 08:15 Troponin I 0.008 ng/mL (0.000-0.056) 0.012 ng/mL (0.000-0.056) White Blood Count 6.8 K/UL (4.8-10.8) Red Blood Count 3.84 M/UL (4.20-5.40) L Hemoglobin 11.5 G/DL (12.0-16.0) L Hematocrit 36.7 % (37.0-47.0) L Mean Corpuscular Volume 96 FL (80-99) Mean Corpuscular Hemoglobin 29.9 PG (27.0-31.0) Mean Corpuscular Hemoglobin Concent 31.3 G/DL (32.0-36.0) L Red Cell Distribution Width 12.9 % (11.6-14.8) Platelet Count 206 K/UL (150-450) Mean Platelet Volume 9.5 FL (6.5-10.1) Neutrophils (%) (Auto) 42.4 % (45.0-75.0) L Lymphocytes (%) (Auto) 43.7 % (20.0-45.0) Monocytes (%) (Auto) 7.4 % (1.0-10.0) Eosinophils (%) (Auto) 4.9 % (0.0-3.0) H Basophils (%) (Auto) 1.7 % (0.0-2.0) Prothrombin Time 10.1 SEC (9.30-11.50) Prothromb Time International Ratio 1.0 (0.9-1.1) Activated Partial Thromboplast Time 27 SEC (23-33) C-Reactive Protein, Quantitative 4.6 mg/dL (0.00-0.90) H Triglycerides Level 129 MG/DL (30-150) Cholesterol Level 169 MG/DL (< 200) LDL Cholesterol 105 mg/dL (<100) H HDL Cholesterol 51 MG/DL (40-60) Cholesterol/HDL Ratio 3.3 (3.3-4.4) Thyroid Stimulating Hormone (TSH) 3.072 uiU/mL (0.358-3.740) NURIS PAULINO Jun 18, 2017 15:53
[2017-06-18] MEDS ORDERED: Flu Vaccine Quadrivalent 0.5ml IM ONE (17:00)
[2017-06-18] MEDS: Morphine Sulfate 2mg/ml Inj IVP PRN ×2 (17:09→21:37)
[2017-06-18] MEDS ORDERED: Pneumococcal Vaccine 25mcg/0.5ml IM ONE (18:30)
[2017-06-19 00:51] VITALS: BP 101/55
[2017-06-19 04:29] VITALS: BP 97/59
[2017-06-19 08:00] VITALS: BP 117/63
[2017-06-19] MEDS: Lisinopril 20mg tab ORAL SCH (08:42)
[2017-06-19] MEDS: Sucralfate 1gm tab ORAL SCH ×2 (08:42→12:27)
[2017-06-19] MEDS: Metoprolol 25mg tab ORAL SCH (08:44)
[2017-06-19] MEDS: Aspirin Baby 81mg ORAL SCH (08:44)
[2017-06-19] MEDS: Heparin 5000 units/ml inj SUBQ SCH (08:46)
--- NOTE | 2017-06-19 09:42 | Consultation ---
DATE OF CONSULTATION: 06/17/2017 CARDIOLOGY CONSULTATION REQUESTING PHYSICIAN: Merari Boateng M.D. REASON FOR REFERRAL: Chest pain. HISTORY OF PRESENT ILLNESS: This is a middle-aged female, 61-year-old, who presented to the hospital because of several years of having reflux symptoms, burning sensation in the chest. Apparently, she has had an endoscopy and colonoscopy one month or two ago, but she is not sure what they showed. She indicates that if she eats something and she walks around, she has so much discomfort and she gets short of breath and palpitations. If she eats without walking, she does not have any shortness of breath; only with the combination of the two, in fact that is what limits her activity. There are episodes of shortness of breath lying down. She has had her head of the bed up with two pillows, although she used to use a higher number of pillows for her reflux that improved, so she decreased the number of pillows. She does have palpitations. She does have dizziness on standing position. PAST MEDICAL HISTORY: Positive for history of congestive heart failure, chronic obstructive pulmonary disease, systemic hypertension, and hypercholesterolemia. No heart attack. No cancer. No stroke. No hepatitis or tuberculosis. No ulcers, although she has gastroesophageal reflux disease. No kidney problems or liver problems. She used to have thyroid problems. No anemia, arthritis, HIV, or AIDS. ALLERGIES: She denies any allergies to any medication. SOCIAL HISTORY: She is a smoker, she does not anymore. She used to drink alcoholic beverages, she does not anymore, because when she drinks alcoholic beverages, she has discomfort in her chest and food pipe again. She does have a history of obesity. She quit smoking 15 years ago. REVIEW OF SYSTEMS: GASTROINTESTINAL: She has nausea. No vomiting. No bloody stools or black tarry stools. GENITOURINARY: Negative. PULMONARY: Positive for coughing and wheezing. CONSTITUTIONAL: Negative. NEUROLOGICAL: Negative. PHYSICAL EXAMINATION: GENERAL: Obese and middle-aged female, in no respiratory distress. NECK: Supple. No jugular venous distention. LUNGS: Completely clear to auscultation and percussion. CARDIAC: S1 is normal. S2 is normal. Regular rate and rhythm. There is systolic ejection murmur noted. No RV lifts, heaves, or thrills noted. ABDOMEN: Soft. Positive bowel sounds. Nontender. EXTREMITIES: There is no clubbing, cyanosis, or edema. NEUROLOGIC: She is awake, alert, responsive, in no apparent distress. LABORATORY AND DIAGNOSTIC DATA: White count 6.1, hemoglobin 10.9, and platelet count of 139. Sodium is 142, potassium 3.2, chloride 106, bicarbonate 31, BUN of 18, creatinine 1.0, glucose of 118. Calcium . Three sets of cardiac enzymes are all negative since this admission. ProBNP is 2500. Total cholesterol 177 with a LDL of 106 and HDL of 57. TSH of 2.18. INR is 1.0. The patient's electrocardiogram shows normal sinus rhythm, some voltage criteria for left ventricular hypertrophy with T-wave inversions in I, aVL, and biphasic T-waves in V2 and in direct comparison with her prior EKGs, all of those electrocardiographic changes are old. ASSESSMENT AND PLAN: 1. Atypical chest pain. 2. Gastroesophageal reflux disease. 3. Chronic obstructive pulmonary disease. 4. Hypertension. 5. Hyperlipidemia history. Dr. Boateng, this patient was seen in cardiac consultation. All cardiac enzymes are negative. The patient's electrocardiogram is abnormal, but chronically showed no new changes. She has moderate to severe mitral regurgitation on echocardiogram and ejection fraction is well maintained. She has pulmonary artery systolic pressures in 70s consistent with significant pulmonary hypertension. Prior echocardiography back in July 2016 showed moderate regurgitation and also back in October of 2016 and in 2016, she had cavity obliteration secondary to hyperdynamic left ventricle with only a mild degree of mitral regurgitation. She does certainly have a significant murmur, may be mitral regurgitation has progressed and of course this has led to the pulmonary hypertension, there is no evidence on her echocardiogram. Her prior echocardiography does not mention any significant pulmonary hypertension at all and prior to that she had pulmonary pressures in the 60s. Therefore, this significant increase in regurgitation of mitral valve may contribute to her symptoms at this time. Her cardiac enzymes are negative. She will receive some diuretics as her blood pressure does allow for treatment of possible underlying congestive heart failure. She has never had an ischemia evaluation, she may need to do so, although I do not see her walking, and with her chronic obstructive pulmonary disease, I would be concerned about administering any Lexiscan at least at this time. We will follow along. Christ Rosario M.D. DR: BILLY JOB#: [id number] CC:
[2017-06-19] MEDS: Morphine Sulfate 2mg/ml Inj IVP PRN (10:35)
[2017-06-19 12:00] VITALS: BP 107/60
--- NOTE | 2017-06-19 12:35 | Pulmonology Progress Note ---
Assessment/Plan Problems: (1) ACS (acute coronary syndrome) (2) COPD (chronic obstructive pulmonary disease) (3) Morbid obesity Assessment/Plan improving echo noted cardio note appreciated dc home with outpatient f/u respiratory treatment. Subjective ROS Limited/Unobtainable: No Constitutional: Reports: no symptoms HEENT: Repors: no symptoms Respiratory: Reports: no symptoms Allergies: Coded Allergies: No Known Allergies (Unverified , 10/29/16) Objective Last 24 Hour Vital Signs Date Time Temp Pulse Resp B/P (MAP) Pulse Ox O2 Delivery O2 Flow Rate FiO2 06/19/17 08:45 72 117/68 06/19/17 08:44 72 117/68 06/19/17 08:42 117/68 06/19/17 08:00 98.0 72 18 117/63 99 Room Air 06/19/17 06:33 72 18 Room Air 06/19/17 04:29 97.7 70 20 97/59 97 Room Air 06/19/17 04:00 65 06/19/17 00:51 98.1 69 21 101/55 97 06/19/17 00:00 71 06/18/17 20:47 98.2 76 22 84/41 86 Room Air 06/18/17 20:00 71 06/18/17 19:30 72 20 Room Air 21 06/18/17 18:21 71 120/66 06/18/17 18:15 80 95/64 06/18/17 17:39 97.5 06/18/17 16:00 97.7 80 18 95/64 95 Room Air 06/18/17 16:00 64 Intake and Output 06/18/17 06/19/17 19:00 07:00 Intake Total 730 ml Balance 730 ml Intake Oral 730 ml # Voids 3 3 General Appearance: WD/WN HEENT: normocephalic, atraumatic Respiratory/Chest: chest wall non-tender, lungs clear, normal breath sounds Breasts: no masses Cardiovascular: normal peripheral pulses Abdomen: normal bowel sounds, soft, non tender Genitourinary: normal external genitalia Skin: no rash Neurologic/Psychiatric: no motor/sensory deficits Lymphatic: no neck adenopathy Laboratory Tests 06/19/17 05:25: Troponin I 0.003 Current Medications Medications (Trade) Dose Ordered Sig/Gus Route PRN Reason Start Time Stop Time Status Last Admin Dose Admin Acetaminophen (Tylenol) 650 mg Q4H PRN ORAL FEVER 06/17/17 06:15 07/17/17 06:14 06/17/17 21:40 Albuterol/ Ipratropium (Albuterol/ Ipratropium) 3 ml EVERY 4 HOURS PRN HHN Shortness of Breath 06/17/17 06:15 06/22/17 06:14 Aspirin (ASA) 162 mg DAILY ORAL 06/17/17 09:00 07/17/17 08:59 06/19/17 08:44 Diltiazem HCl (Cardizem) 10 mg EVERY HOUR PRN IV heart rate more than 120, 06/17/17 06:15 07/17/17 06:14 Enalaprilat (Vasotec) 2.5 mg EVERY 6 HOURS PRN IV sbp more than 160 06/17/17 06:15 07/17/17 06:14 Gabapentin (Neurontin) 300 mg BEDTIME ORAL 06/17/17 21:00 07/17/17 20:59 06/18/17 21:25 Heparin Sodium (Porcine) (Heparin 5000 units/ml) 5,000 units EVERY 12 HOURS SUBQ 06/17/17 09:00 07/17/17 08:59 06/19/17 08:46 Ketorolac Tromethamine (Toradol 30mg) 30 mg Q6H PRN IV moderate pain ( 4-6) 06/17/17 06:15 06/22/17 06:14 Lisinopril (Prinivil) 40 mg DAILY ORAL 06/17/17 09:00 07/17/17 08:59 06/19/17 08:42 Metoprolol Tartrate (Lopressor) 25 mg BID ORAL 06/17/17 09:00 07/17/17 08:59 06/19/17 08:44 Morphine Sulfate (Morphine Sulfate) 2 mg EVERY 4 HOURS PRN IVP severe Pain (Pain Scale 7-10) 06/17/17 06:15 06/24/17 06:14 06/19/17 10:35 Nifedipine (Procardia XL) 90 mg DAILY ORAL 06/17/17 09:00 07/17/17 08:59 06/19/17 08:45 Nitroglycerin (Ntg) 0.4 mg Every 5 Minutes PRN SL Prn Chest Pain 06/17/17 06:15 07/17/17 06:14 Nitroglycerin (Ntg) 0.4 mg Q5M PRN SL Prn Chest Pain 06/17/17 00:30 07/17/17 00:29 06/17/17 01:20 Ondansetron HCl (Zofran) 4 mg Q6H PRN IVP Nausea & Vomiting 06/17/17 06:15 07/17/17 06:14 Polyethylene Glycol (Miralax) 17 gm DAILYPRN PRN ORAL Constipation 06/17/17 06:15 07/17/17 06:14 Sucralfate (Carafate) 1 gm FOUR TIMES A DAY ORAL 06/17/17 09:00 07/17/17 08:59 06/19/17 12:27 Temazepam (Restoril) 15 mg HSPRN PRN ORAL Insomnia 06/17/17 06:15 06/24/17 06:14 ERICA BEE Jun 19, 2017 12:35
--- NOTE | 2017-06-20 12:07 | Discharge Summary ---
Discharge Summary Hospital Course Date of Admission Jun 17, 2017 at 02:30 Date of Discharge Jun 19, 2017 at 15:30 Admitting Diagnosis ACUTE CORONARY SYNDROME ALYSA Vallejo is a 61 year old female who was admitted on Jun 17, 2017 at 02: 30 for Acute Coronary Syndrome Hospital Course [id number] Discharge Discharge Disposition Patient was discharged to Home (01) Discharge Diagnoses: Joy Gaines NP Jun 20, 2017 12:07
--- NOTE | 2017-06-21 01:15 | Discharge Summary 2 SIG ---
DATE OF ADMISSION: 06/17/2017 DATE OF DISCHARGE: 06/19/2017 CLINICAL STAFF EDUCATOR: Christ Rosario M.D. BRIEF HOSPITAL COURSE: The patient is a 61-year-old female with prior history of cardiac disease and GERD presented after increased chest pain. She was complaining of numbness to the left arm. Denied fever and cough. Pain was worsened by supine position. On evaluation at ED, EKG showed normal sinus rhythm with nonspecific T-wave changes. She was given aspirin and nitroglycerin. Initial troponin was negative. She was admitted to telemetry for cardiac evaluation. She was seen by Dr. Rosario. Cardiac troponins were monitored and was negative. TSH was 2.18. ProBNP was 2500. She was given one dose of Lasix. Cholesterol panel was checked. All cardiac enzymes have been negative. Echocardiogram done showed moderate to severe mitral regurgitation, ejection fraction was well maintained. She has pulmonary artery systolic pressure of 70 consistent with significant pulmonary hypertension. She has significant murmur may be secondary to mitral regurgitation that has progressed and has led to pulmonary hypertension. She was continued on lisinopril and metoprolol and nifedipine. She had improvement of chest pain after starting anti-reflux medications. She had venous duplex of lower extremity that was negative for DVT. No further workup needed at this time. She was advised to follow up with PMD. FINAL DIAGNOSES: 1. Chest pain related to gastroesophageal reflux disease improved with gastroesophageal reflux disease medications. 2. Mild mitral regurgitation. 3. Pulmonary hypertension. 4. Morbid obesity. 5. Chronic obstructive pulmonary disease. DISPOSITION: The patient was discharged home. DISCHARGE MEDICATIONS: Refer to medication list. DISCHARGE INSTRUCTIONS: Follow up with PMD in a week. Merari Boateng M.D. I have been assigned to dictate discharge summary on this account and I was not involved in the patient's management. Joy Gaines N.P. DR: FELICIA JOB#: [id number] CC:
--- NOTE | 2017-07-05 11:42 | Diagnostic Imaging Report ---
APPROVED REPORT CPT Code: 74437 Present Symptoms Shortness of breath BILATERAL LOWER EXTREMITY VENOUS DUPLEX: Imaging reveals a patent deep venous system bilaterally. There is no evidence of thrombus within the femoral, popliteal or tibial segments. The greater saphenous veins are also within normal limits. Doppler indicates normal spontaneous flow within these segments.
== END 2017-06-19 15:30 | disposition home or self-care (01) | DRG 243 ==
LOC: EMR 06-17 00:10 → 2E 06-17 02:30 → EDBEDREQ 06-17 15:00 → 2E 06-17 18:54
DX: K21.9 Gastro-esophageal reflux disease without esophagitis (principal); I50.9 Heart failure, unspecified; I27.20 Pulmonary hypertension, unspecified; Z68.42 Body mass index [BMI] 45.0-49.9, adult; E66.01 Morbid (severe) obesity due to excess calories; I34.0 Nonrheumatic mitral (valve) insufficiency; J44.9 Chronic obstructive pulmonary disease, unspecified; E78.00 Pure hypercholesterolemia, unspecified; Z87.891 Personal history of nicotine dependence; Z23 Encounter for immunization
CPT/HCPCS: 36415; 71045; 80053; 80061; 82550; 82553; 83690; 83880; 84443; 84484; 85025; 85610; 85730; 86140; 90630; 90732; 93005; 93306; 93970; 94664; 99285; J8499

== ENCOUNTER 2017-08-03 19:21 | Inpatient (IN) | payer MEDICAID ==
[~2017-08-03] VITALS: Ht 154.9 cm; Wt 118.8 kg
[2017-08-03] MEDS ORDERED: DiphenhydrAMINE 50mg/ml Inj IVP ONE (20:15)
[2017-08-03 20:34] LABS: BASOPHILS % (AUTO) 0.7 % (0.0-2.0); EOSINOPHILS % (AUTO) 1.3 % (0.0-3.0); HEMATOCRIT 40.6 % (37.0-47.0); HEMOGLOBIN 12.8 G/DL (12.0-16.0); LYMPHOCYTES % (AUTO) 14.1 % (20.0-45.0); MEAN CORPUSCULAR VOLUME 91 FL (80-99); MONOCYTES % (AUTO) 7.6 % (1.0-10.0); NEUTROPHILS % (AUTO) 76.4 % (45.0-75.0); PLATELET COUNT 190 K/UL (150-450); RED BLOOD COUNT 4.44 M/UL (4.20-5.40); RED CELL DISTRIBUTION WIDTH 12.8 % (11.6-14.8); WHITE BLOOD COUNT 6.1 K/UL (4.8-10.8)
[2017-08-03 20:43] LABS: ANION GAP 7 mmol/L (5-15); BLOOD UREA NITROGEN 14 mg/dL (7-18); CALCIUM 9.1 MG/DL (8.5-10.1); CARBON DIOXIDE 30 MMOL/L (21-32); CHLORIDE 103 MMOL/L (98-107); CREATININE 1.1 MG/DL (0.55-1.30); POTASSIUM 3.6 MMOL/L (3.5-5.1); SODIUM 139 MMOL/L (136-145)
[2017-08-03] MEDS ORDERED: Albuterol/Ipratropium 3ml neb HHN ONE (20:45)
[2017-08-03 20:56] LABS: ALANINE AMINOTRANSFERASE 29 U/L (12-78); ALBUMIN 3.5 G/DL (3.4-5.0); ALBUMIN/GLOBULIN RATIO 0.9 (1.0-2.7); ALKALINE PHOSPHATASE 91 U/L (46-116); ASPARTATE AMINO TRANSFERASE 20 U/L (15-37); BILIRUBIN,TOTAL 1.1 MG/DL (0.2-1.0)
[2017-08-03 20:58] LABS: BILIRUBIN,DIRECT 0.2 MG/DL (0.0-0.3)
[2017-08-03 21:43] VITALS: BP 187/82
--- NOTE | 2017-08-03 22:56 | Emergency Room Report ---
History of Present Illness General Chief Complaint: Generalized Weakness Source: Patient Present Illness HPI Patient is a 61-year-old female who presented after increased generalized weakness headache and shortness of breath. Patient prior history of COPD. She states that she's had previous diagnosis of CHF however one of her loan service officer had said previously she did not have CHF. Patient was noted to have increased difficulty breathing. She reports having generalized weakness. She denies any productive cough however she been having some increased nonproductive cough. The patient normally takes inhalers. Allergies: Coded Allergies: No Known Allergies (Unverified , 10/29/16) Patient History Past Medical History: see triage record Reviewed Nursing Documentation: PMH: Agreed, PSxH: Agreed Nursing Documentation-PMH Hx Cardiac Problems: Yes - Enlarged heart, CHF, High Chlosterol Hx Hypertension: Yes Hx Asthma: Yes Hx COPD: Yes Hx Cancer: No Hx Gastrointestinal Problems: Yes - Cholecystectomy, GERD Hx Neurological Problems: No Hx Peripheral Neuropathy: Yes Review of Systems All Other Systems: negative except mentioned in HPI Physical Exam Vital Signs Date Time Temp Pulse Resp B/P (MAP) Pulse Ox O2 Delivery O2 Flow Rate FiO2 08/03/17 19:31 99.8 100 20 147/78 95 Room Air 99.9 08/03/17 20:46 21 Sp02 EP Interpretation: reviewed, normal General Appearance: normal inspection, no apparent distress, alert, GCS 15, obese, Chronically Ill Head: atraumatic ENT: normal ENT inspection, hearing grossly normal, normal voice Neck: normal inspection, full range of motion, supple, no bony tend Respiratory: normal inspection, no respiratory distress, no retraction, wheezing Cardiovascular #1: regular rate, rhythm, edema Gastrointestinal: normal inspection, normal bowel sounds, non tender, soft, no guarding, no hernia Genitourinary: no CVA tenderness Musculoskeletal: normal inspection, back normal, normal range of motion Neurologic: normal inspection, alert, oriented x3, responsive, butter melter III-XII nml as tested, speech normal Psychiatric: normal inspection, judgement/insight normal, mood/affect normal Skin: normal inspection, normal color, no rash Medical Decision Making Diagnostic Impression: Primary Impression: COPD exacerbation Additional Impression: Morbid obesity ER Course Patient presented for shortness of breath. Differential included but was not limited to anemia, pneumonia, pneumothorax, myocardial infarction, pericardial effusion, congestive heart failure, acidosis. Because of complexity of patient' s case laboratory testing and imaging studies were ordered. Patient noted have normal laboratory testing. Patient was given Compazine with improvement in her headache. Patient was given breathing treatment she was noted to have a concerning chest discomfort. Dr. Boateng was contacted for inpatient management due to complexity of medical condition. [facility]. Labs Test 08/03/17 20:10 White Blood Count 6.1 K/UL (4.8-10.8) Red Blood Count 4.44 M/UL (4.20-5.40) Hemoglobin 12.8 G/DL (12.0-16.0) Hematocrit 40.6 % (37.0-47.0) Mean Corpuscular Volume 91 FL (80-99) Mean Corpuscular Hemoglobin 28.8 PG (27.0-31.0) Mean Corpuscular Hemoglobin Concent 31.4 G/DL (32.0-36.0) Red Cell Distribution Width 12.8 % (11.6-14.8) Platelet Count 190 K/UL (150-450) Mean Platelet Volume 9.1 FL (6.5-10.1) Neutrophils (%) (Auto) 76.4 % (45.0-75.0) Lymphocytes (%) (Auto) 14.1 % (20.0-45.0) Monocytes (%) (Auto) 7.6 % (1.0-10.0) Eosinophils (%) (Auto) 1.3 % (0.0-3.0) Basophils (%) (Auto) 0.7 % (0.0-2.0) Sodium Level 139 MMOL/L (136-145) Potassium Level 3.6 MMOL/L (3.5-5.1) Chloride Level 103 MMOL/L (98-107) Carbon Dioxide Level 30 MMOL/L (21-32) Anion Gap 7 mmol/L (5-15) Blood Urea Nitrogen 14 mg/dL (7-18) Creatinine 1.1 MG/DL (0.55-1.30) Estimat Glomerular Filtration Rate > 60 mL/min (>60) Glucose Level 101 MG/DL (74-106) Calcium Level 9.1 MG/DL (8.5-10.1) Total Bilirubin 1.1 MG/DL (0.2-1.0) Direct Bilirubin 0.2 MG/DL (0.0-0.3) Aspartate Amino Transf (AST/SGOT) 20 U/L (15-37) Alanine Aminotransferase (ALT/SGPT) 29 U/L (12-78) Alkaline Phosphatase 91 U/L (46-116) Troponin I 0.008 ng/mL (0.000-0.056) Total Protein 7.6 G/DL (6.4-8.2) Albumin 3.5 G/DL (3.4-5.0) Globulin 4.1 g/dL Albumin/Globulin Ratio 0.9 (1.0-2.7) Lipase 59 U/L (73-393) Last Vital Signs Date Time Temp Pulse Resp B/P (MAP) Pulse Ox O2 Delivery O2 Flow Rate FiO2 08/03/17 21:43 99.9 94 22 187/82 100 Room Air 21 99.9 Status: improved Disposition: ADMITTED INPATIENT Condition: Serious Referrals: [facility],REFERRING (PCP) Aroldo Moreland Aug 03, 2017 22:56
[2017-08-03] MEDS ORDERED: Nitroglycerin Subl 0.4mg tab SL PRN (23:45)
[2017-08-03] MEDS ORDERED: Morphine Sulfate 2mg/ml Inj IVP PRN (23:45)
[2017-08-03] MEDS ORDERED: Ketorolac 30mg Inj IV PRN (23:45)
[2017-08-03] MEDS ORDERED: LORazepam Inj 2mg/ml 1ml IV PRN (23:45)
[2017-08-03] MEDS ORDERED: Promethazine/Codeine 5ml UD ORAL PRN (23:45)
[2017-08-03] MEDS ORDERED: Albuterol/Ipratropium 3ml neb HHN PRN (23:45)
[2017-08-04] VITALS (8 sets, daily range): BP systolic 99–162; BP diastolic 63–90
[2017-08-04] MEDS ORDERED: Zosyn 3.375gm inj ONE (05:13)
[2017-08-04] MEDS: Zoysn 3.37gm in NS 100ML IVPB SCH ×2 (05:18→09:54)
[2017-08-04] MEDS: Solu-MEDROL 125mg Inj IV SCH ×2 (05:29)
[2017-08-04] MEDS ORDERED: Piperacillin/Tazobactam 2.25 GM in D5W 55 ML IV SCH (06:00)
[2017-08-04] MEDS ORDERED: Metoprolol 25mg tab ORAL SCH (09:00)
[2017-08-04] MEDS ORDERED: Theophylline ER 100mg ORAL SCH (09:00)
[2017-08-04] MEDS ORDERED: Lisinopril 20mg tab ORAL SCH (09:00)
[2017-08-04] MEDS ORDERED: Furosemide 40mg tab ORAL SCH (09:00)
[2017-08-04] MEDS ORDERED: Heparin 5000 units/ml inj SUBQ SCH (09:00)
--- NOTE | 2017-08-04 09:31 | Diagnostic Imaging Report ---
Indication: Reason For Exam: SOB Technique: XRAY Chest 1v Comparison:06/17/2017 Findings: The heart is enlarged. Pulmonary vascular distribution is present. No pleural fluid. Osseous structures are unremarkable. There are no alveolar infiltrates. Impression: Cardiomegaly with mild congestive heart failure.
[2017-08-04] MEDS ORDERED: Morphine Sulfate 4mg/ml Inj IVP PRN ×3 (09:45→18:00)
--- NOTE | 2017-08-04 13:14 | History and Physical ---
History of Present Illness General Date patient seen: Aug 04, 2017 Reason for Hospitalization: Generalized Weakness Present Illness HPI 61-year-old female with history of COPD, morbid obesity, CHF presented to Er with increased generalized weakness headache and shortness of breath. Patient was noted to have increased difficulty breathing. She reports having generalized weakness and productive cough. She was febrile and admitted to telemetry for possible pneumonia and exacerbation of COPD. Allergies: Coded Allergies: NO KNOWN ALLERGIES (Verified Allergy, Unknown, 08/04/17) Medication History Scheduled Amoxicillin/Potassium Clav 875-125* (Augmentin 875-125 Tablet*), 1 TAB ORAL TWICE A DAY Aspirin Ec* (Aspirin Ec*), 81 MG PO DAILY, (Reported) Fluticasone Propionate (Flovent Hfa), 2 PUFFS INH TWICE A DAY, (Reported) Furosemide* (Lasix*), 40 MG ORAL DAILY, (Reported) Gabapentin (Neurontin), 300 MG ORAL BEDTIME, (Reported) Gentamicin Sulfate* (Gentamicin Sulfate*), 3.5 GM OP TID Lisinopril (Lisinopril*), 40 MG ORAL DAILY, (Reported) Metoprolol Tartrate* (Metoprolol Tartrate*), 25 MG ORAL BID, (Reported) Nifedipine* (Nifedipine Er*), 90 MG ORAL DAILY, (Reported) Omeprazole (Omeprazole), 40 MG ORAL DAILY Prednisone (Prednisone), 20 MG PO EVERY 12 HOURS Simvastatin (Zocor), 20 MG ORAL DAILY, (Reported) Sucralfate* (Carafate*), 1 GM ORAL FOUR TIMES A DAY, (Reported) Vitamin D (Vitamin D3), 400 UNITS ORAL DAILY, (Reported) Miscellaneous Medications Calcium Carbonate (Tums), 200 MG PO, (Reported) Potassium (Potassium), 99 MG PO, (Reported) Patient History Healthcare decision maker Resuscitation status Full Code Advanced Directive on File Past Medical/Surgical History Past Medical/Surgical History: (1) COPD (chronic obstructive pulmonary disease) (2) Morbid obesity (3) CHF (congestive heart failure) Review of Systems All Other Systems: negative except mentioned in HPI Physical Exam General Appearance: WD/WN Lines, tubes and drains: peripheral HEENT: normocephalic Neck: non-tender, normal alignment Respiratory/Chest: chest wall non-tender, rhonchi - left, rhonchi - right Breasts: no masses Cardiovascular/Chest: normal peripheral pulses, normal rate Abdomen: normal bowel sounds, soft Genitourinary/Rectal: normal genital exam, normal rectal exam Extremities: normal range of motion, non-tender 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 Lymphatic: anterior cervical Last 24 Hour Vital Signs Date Time Temp Pulse Resp B/P (MAP) Pulse Ox O2 Delivery O2 Flow Rate FiO2 08/04/17 09:56 92 158/88 08/04/17 09:55 158/88 08/04/17 08:00 99.7 99.7 08/04/17 07:37 92 20 Room Air 21 08/04/17 04:00 100.0 100.0 08/04/17 04:00 97.5 62 19 111/73 92 Room Air 21 97.5 08/04/17 04:00 96 08/04/17 03:10 100 08/04/17 03:10 101.8 103 20 133/85 95 Room Air 21 101.8 08/04/17 03:00 98.9 96 18 157/90 100 Room Air 21 98.9 08/04/17 02:37 98.9 96 18 157/90 100 Room Air 21 98.9 08/04/17 02:24 98.9 94 22 162/82 100 Room Air 21 98.9 08/03/17 21:43 99.9 94 22 187/82 100 Room Air 21 99.9 08/03/17 21:02 86 22 100 Room Air 21 08/03/17 20:47 21 08/03/17 20:46 100 20 97 Room Air 21 08/03/17 20:46 100 20 Room Air 21 08/03/17 19:31 99.8 100 20 147/78 95 Room Air 99.9 Intake and Output 08/03/17 08/04/17 19:00 07:00 Intake Total 367.5 ml Output Total 200 ml Balance 167.5 ml Intake Oral 340 ml IV Total 27.5 ml Output Urine Total 200 ml # Voids 1 Laboratory Tests Test 08/03/17 20:10 White Blood Count 6.1 K/UL (4.8-10.8) Red Blood Count 4.44 M/UL (4.20-5.40) Hemoglobin 12.8 G/DL (12.0-16.0) Hematocrit 40.6 % (37.0-47.0) Mean Corpuscular Volume 91 FL (80-99) Mean Corpuscular Hemoglobin 28.8 PG (27.0-31.0) Mean Corpuscular Hemoglobin Concent 31.4 G/DL (32.0-36.0) L Red Cell Distribution Width 12.8 % (11.6-14.8) Platelet Count 190 K/UL (150-450) Mean Platelet Volume 9.1 FL (6.5-10.1) Neutrophils (%) (Auto) 76.4 % (45.0-75.0) H Lymphocytes (%) (Auto) 14.1 % (20.0-45.0) L Monocytes (%) (Auto) 7.6 % (1.0-10.0) Eosinophils (%) (Auto) 1.3 % (0.0-3.0) Basophils (%) (Auto) 0.7 % (0.0-2.0) Sodium Level 139 MMOL/L (136-145) Potassium Level 3.6 MMOL/L (3.5-5.1) Chloride Level 103 MMOL/L (98-107) Carbon Dioxide Level 30 MMOL/L (21-32) Anion Gap 7 mmol/L (5-15) Blood Urea Nitrogen 14 mg/dL (7-18) Creatinine 1.1 MG/DL (0.55-1.30) Estimat Glomerular Filtration Rate > 60 mL/min (>60) Glucose Level 101 MG/DL (74-106) Calcium Level 9.1 MG/DL (8.5-10.1) Total Bilirubin 1.1 MG/DL (0.2-1.0) H Direct Bilirubin 0.2 MG/DL (0.0-0.3) Aspartate Amino Transf (AST/SGOT) 20 U/L (15-37) Alanine Aminotransferase (ALT/SGPT) 29 U/L (12-78) Alkaline Phosphatase 91 U/L (46-116) Troponin I 0.008 ng/mL (0.000-0.056) Total Protein 7.6 G/DL (6.4-8.2) Albumin 3.5 G/DL (3.4-5.0) Globulin 4.1 g/dL Albumin/Globulin Ratio 0.9 (1.0-2.7) L Lipase 59 U/L (73-393) L Microbiology Date/Time Source Procedure Growth Status 08/04/17 04:00 Sputum Gram Stain - Final Resulted 08/04/17 04:00 Sputum Sputum Culture Pending Resulted Height (Feet): 5 Height (Inches): 1.00 Weight (Pounds): 262 Medications Current Medications Medications (Trade) Dose Ordered Sig/Gus Route PRN Reason Start Time Stop Time Status Last Admin Dose Admin Albuterol/ Ipratropium (Albuterol/ Ipratropium) 3 ml Q4H PRN HHN dyspnea 08/03/17 23:45 08/08/17 23:44 Dextrose (Dextrose 50%) STAT PRN IV Hypoglycemia 08/03/17 23:45 09/02/17 23:44 Furosemide (Lasix) 40 mg DAILY ORAL 08/04/17 09:00 09/03/17 08:59 08/04/17 09:55 Gabapentin (Neurontin) 300 mg BEDTIME ORAL 08/04/17 21:00 09/03/17 20:59 Heparin Sodium (Porcine) (Heparin 5000 units/ml) 5,000 units EVERY 12 HOURS SUBQ 08/04/17 09:00 09/03/17 08:59 08/04/17 10:15 Ketorolac Tromethamine (Toradol 30mg) 30 mg Q8H PRN IV moderate pain 4-6 08/03/17 23:45 08/08/17 23:44 Lisinopril (Prinivil) 40 mg DAILY ORAL 08/04/17 09:00 09/03/17 08:59 08/04/17 09:55 Lorazepam (Ativan 2mg/ml 1ml) 0.5 mg Q4H PRN IV For Anxiety 08/03/17 23:45 08/10/17 23:44 Methylprednisolone Sodium Succinate (Solu-MEDROL) 60 mg EVERY 6 HOURS IV 08/04/17 00:00 09/03/17 00:00 08/04/17 05:29 Metoprolol Tartrate (Lopressor) 25 mg BID ORAL 08/04/17 09:00 09/03/17 08:59 08/04/17 09:56 Morphine Sulfate (Morphine Sulfate) 2 mg Q4H PRN IVP Severe Pain (Pain Scale 7-10) 08/04/17 10:00 08/11/17 09:59 08/04/17 09:57 Nitroglycerin (Ntg) 0.4 mg Q5M X 3 DOSES PRN SL Prn Chest Pain 08/03/17 23:45 09/02/17 23:44 Ondansetron HCl (Zofran) 4 mg Q6H PRN IVP Nausea & Vomiting 08/03/17 23:45 09/02/17 23:44 Piperacillin Sod/ Tazobactam Sod 3.375 gm/Sodium Chloride 110 ml @ 27.5 mls/hr Q8H IVPB 08/04/17 01:00 08/11/17 00:59 08/04/17 09:54 Promethazine HCl/ Codeine (Phenergan with Codeine) 5 ml Q6H PRN ORAL cough 08/03/17 23:45 09/02/17 23:44 Temazepam (Restoril) 15 mg HSPRN PRN ORAL Insomnia 08/03/17 23:45 08/10/17 23:44 Theophylline (Magno-Dur) 100 mg EVERY 12 HOURS ORAL 08/04/17 09:00 09/03/17 08:59 08/04/17 09:54 Assessment/Plan Problem List: (1) Acute respiratory failure ICD Codes: J96.00 - Acute respiratory failure, unspecified whether with hypoxia or hypercapnia SNOMED: 12303931 (2) COPD exacerbation ICD Codes: J44.1 - Chronic obstructive pulmonary disease with (acute) exacerbation SNOMED: 150701413, 586629226 (3) CHF (congestive heart failure) ICD Codes: I50.9 - Heart failure, unspecified SNOMED: 83304917 (4) Morbid obesity ICD Codes: E66.01 - Morbid (severe) obesity due to excess calories SNOMED: 803935438, [id number] Assessment/Plan respiratory treatment iv abx check cultures titrate fio2 to sat of 92% dvt prophylaxis cardio to see naylor cultures. ERICA BEE Aug 04, 2017 13:14
[2017-08-04] MEDS ORDERED: Nitroglycerin Subl 0.4mg tab SL PRN (15:45)
[2017-08-04] MEDS ORDERED: Albuterol/Ipratropium 3ml neb HHN PRN (15:45)
--- NOTE | 2017-08-04 16:11 | Cardiology Report ---
APPROVED REPORT EKG Measurement Heart [id number] Normal sinus rhythm Left ventricular hypertrophy with repolarization abnormality Prolonged QT Abnormal ECG
[2017-08-04] MEDS ORDERED: Tubing IV Secondary IV ONE (16:33)
[2017-08-04] MEDS ORDERED: NS 275ml ONE (16:33)
[2017-08-04] MEDS: Metoprolol 25mg tab ORAL SCH (17:32)
[2017-08-04] MEDS: Piperacillin/Tazobactam 3.375 GM in NS 110 ML IVPB SCH (17:33)
[2017-08-04] MEDS ORDERED: Promethazine/Codeine 5ml UD ORAL PRN (17:45)
[2017-08-04] MEDS: Theophylline ER 100mg ORAL SCH (20:15)
[2017-08-04] MEDS: Heparin 5000 units/ml inj SUBQ SCH (20:27)
[2017-08-05] VITALS: BP 140/70
[2017-08-05] MEDS: Piperacillin/Tazobactam 3.375 GM in NS 110 ML IVPB SCH ×2 (01:17→09:09)
[2017-08-05 04:00] VITALS: BP 131/66
[2017-08-05] MEDS: LORazepam Inj 2mg/ml 1ml IV PRN ×2 (06:57→07:24)
[2017-08-05 08:00] VITALS: BP 108/63
[2017-08-05] MEDS ORDERED: Furosemide 40mg tab ORAL SCH (09:00)
[2017-08-05] MEDS ORDERED: Solu-MEDROL 125mg Inj IV SCH ×2 (09:00)
[2017-08-05] MEDS: Metoprolol 25mg tab ORAL SCH (09:00)
[2017-08-05] MEDS ORDERED: Lisinopril 20mg tab ORAL SCH (09:00)
[2017-08-05] MEDS: Theophylline ER 100mg ORAL SCH (09:10)
[2017-08-05] MEDS: Heparin 5000 units/ml inj SUBQ SCH (09:12)
--- NOTE | 2017-08-05 11:22 | Consultation ---
Consult Note Consult Note ID DIC # [id number] MADHURI CHRISTIAN M.D. Aug 05, 2017 11:22
[2017-08-05 12:00] VITALS: BP 135/80
[2017-08-05] MEDS ORDERED: Azithromycin 500 MG in D5W 275 ML IV SCH (12:00)
[2017-08-05] MEDS ORDERED: ZITHROMAX1 GM ORAL (15:33)
--- NOTE | 2017-08-05 15:38 | Pulmonology Progress Note ---
Assessment/Plan Problems: (1) Acute respiratory failure (2) COPD exacerbation (3) CHF (congestive heart failure) (4) Morbid obesity Assessment/Plan improving respiratory treatment check sputum check cultures Subjective ROS Limited/Unobtainable: No Constitutional: Reports: no symptoms HEENT: Repors: no symptoms Respiratory: Reports: no symptoms Cardiovascular: Reports: no symptoms Gastrointestinal/Abdominal: Reports: no symptoms Allergies: Coded Allergies: NO KNOWN ALLERGIES (Verified Allergy, Unknown, 08/04/17) Objective Last 24 Hour Vital Signs Date Time Temp Pulse Resp B/P (MAP) Pulse Ox O2 Delivery O2 Flow Rate FiO2 08/05/17 12:00 97.6 72 20 135/80 98 Room Air 97.6 08/05/17 09:00 71 108/63 08/05/17 09:00 108/63 08/05/17 08:50 71 20 Room Air 21 08/05/17 08:00 97.8 80 20 108/63 96 Room Air 97.8 08/05/17 07:04 98.0 08/05/17 04:00 98.0 60 18 131/66 96 Room Air 98.0 08/05/17 00:00 98.5 72 20 140/70 97 Room Air 98.5 08/04/17 20:00 98.8 72 18 134/70 98 Room Air 98.8 08/04/17 19:20 87 20 Room Air 21 08/04/17 17:32 95 117/63 08/04/17 16:00 98.4 77 20 117/63 95 Room Air 98.4 95 Intake and Output 08/04/17 08/05/17 19:00 07:00 Intake Total 480 ml 240 ml Balance 480 ml 240 ml Intake Oral 480 ml 240 ml # Voids 4 3 General Appearance: WD/WN HEENT: normocephalic, atraumatic Respiratory/Chest: chest wall non-tender, lungs clear Breasts: no masses Cardiovascular: normal rate Abdomen: normal bowel sounds Genitourinary: normal external genitalia Skin: no lesions, no ulcers 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 Resulted Current Medications Medications (Trade) Dose Ordered Sig/Gus Route PRN Reason Start Time Stop Time Status Last Admin Dose Admin Albuterol/ Ipratropium (Albuterol/ Ipratropium) 3 ml Q4H PRN HHN dyspnea 08/04/17 15:45 08/08/17 23:44 Azithromycin 500 mg/Dextrose 275 ml @ 275 mls/hr Q24HRS IV 08/05/17 12:00 08/11/17 12:59 08/05/17 13:19 Dextrose (Dextrose 50%) STAT PRN IV Hypoglycemia 08/04/17 23:45 09/02/17 23:44 Furosemide (Lasix) 40 mg DAILY ORAL 08/05/17 09:00 09/03/17 08:59 08/05/17 09:09 Gabapentin (Neurontin) 300 mg BEDTIME ORAL 08/04/17 21:00 09/03/17 20:59 08/04/17 20:16 Heparin Sodium (Porcine) (Heparin 5000 units/ml) 5,000 units EVERY 12 HOURS SUBQ 08/04/17 21:00 09/03/17 08:59 08/05/17 09:12 Lisinopril (Prinivil) 40 mg DAILY ORAL 08/05/17 09:00 09/03/17 08:59 Lorazepam (Ativan 2mg/ml 1ml) 0.5 mg Q4H PRN IV For Anxiety 08/04/17 15:45 08/10/17 23:44 08/05/17 07:24 Methylprednisolone Sodium Succinate (Solu-MEDROL) 60 mg DAILY IV 08/05/17 09:00 09/03/17 00:00 08/05/17 09:09 Metoprolol Tartrate (Lopressor) 25 mg BID ORAL 08/04/17 18:00 09/03/17 08:59 08/04/17 17:32 Morphine Sulfate (Morphine Sulfate) 2 mg Q4H PRN IVP Severe Pain (Pain Scale 7-10) 08/04/17 18:00 08/11/17 09:59 08/05/17 06:16 Nitroglycerin (Ntg) 0.4 mg Q5M X 3 DOSES PRN SL Prn Chest Pain 08/04/17 15:45 09/02/17 23:44 Ondansetron HCl (Zofran) 4 mg Q6H PRN IVP Nausea & Vomiting 08/04/17 17:45 09/02/17 23:44 Piperacillin Sod/ Tazobactam Sod 3.375 gm/Sodium Chloride 110 ml @ 27.5 mls/hr Q8H IVPB 08/04/17 17:00 08/11/17 00:59 08/05/17 09:09 Promethazine HCl/ Codeine (Phenergan with Codeine) 5 ml Q6H PRN ORAL cough 08/04/17 17:45 09/02/17 23:44 Temazepam (Restoril) 15 mg HSPRN PRN ORAL Insomnia 08/04/17 23:45 08/10/17 23:44 Theophylline (Magno-Dur) 100 mg EVERY 12 HOURS ORAL 08/04/17 21:00 09/03/17 08:59 08/05/17 09:10 ERICA BEE Aug 05, 2017 15:38
[2017-08-05] MEDS ORDERED: Tubing IV Secondary IV ONE (15:59)
--- NOTE | 2017-08-05 16:15 | Consultation ---
DATE OF CONSULTATION: 08/05/2017 INFECTIOUS DISEASES CONSULTATION CONSULTING PHYSICIAN: Axel Stanford M.D. REQUESTING PHYSICIAN: Merari Boateng M.D. REASON FOR CONSULTATION: Evaluation of the of the patient for pneumonia, bronchitis, antibiotic management. HISTORY OF PRESENT ILLNESS: The patient is a 61-year-old female with multiple medical problems as listed below, who came to the hospital with chief complaint of shortness of breath, cough and wheezing. The patient has sputum production, started on IV antibiotics, and Infectious Disease consultation has been requested for further evaluation of the patient and antibiotic management. PAST MEDICAL HISTORY: 1. CHF. 2. Hyperlipidemia. 3. Hypertension. 4. COPD/asthma. 5. History of hysterectomy. 6. History of cholecystectomy. 7. Obesity. 8. GERD. 9. Osteoarthritis. 10. Hypothyroidism. MEDICATIONS: Solu-Medrol and Zosyn. ALLERGIES: No known drug allergies. SOCIAL HISTORY: The patient is a smoker. FAMILY HISTORY: Noncontributory. REVIEW OF SYSTEMS: HEENT: No recent change in vision or hearing. PULMONARY: As mentioned above. CARDIOVASCULAR: No chest pain at the time of my exam. GENITOURINARY: No dysuria. GASTROINTESTINAL/ABDOMEN: The patient has mild discomfort in the lower abdomen. NEUROLOGIC: No seizure. PHYSICAL EXAMINATION: VITAL SIGNS: Temperature 97.8 degrees, blood pressure 108/63, pulse 86, respiratory rate 18, and T-max 101.8 degrees. HEENT: No pale conjunctivae. No icterus. NECK: No lymphadenopathy. CHEST: Bilateral wheezes at bases of both lungs. HEART: S1 and S2. ABDOMEN: Soft and nontender. EXTREMITIES: No cyanosis at this time. NEUROLOGIC: Awake. LABORATORY AND DIAGNOSTIC DATA: WBC 6, hemoglobin 12, and platelets 190. UA unremarkable. BUN 14 and creatinine 1.1. ALT, AST, and alkaline phosphatase unremarkable. CRP 4.6. Sputum culture is pending. Chest x-ray, cardiomegaly with mild congestive heart failure. ASSESSMENT: The patient is a 61-year-old female with 1. Fever, improving. 2. Rule out influenza. 3. Community-acquired pneumonia/bronchitis. 4. Rule out bacteremia. PLAN: 1. We will continue the patient on IV Zosyn, add Zithromax for atypical coverage. 2. Monitor CBC. 3. Monitor BMP. 4. Monitor cultures (blood, sputum). 5. Influenza screening test. 6. May switch to antibiotics in a day or so to Levaquin. Thank you, Dr. Boateng, for allowing me to participate in the care of this patient. I will follow the patient with you during this hospitalization. Axel Stanford M.D. DR: ANDRES JOB#: [id number] CC:
--- NOTE | 2017-08-06 12:15 | Discharge Summary ---
Discharge Summary Hospital Course Date of Admission Aug 03, 2017 at 22:27 Date of Discharge Aug 05, 2017 at 16:00 Admitting Diagnosis COPD exacerbation HPI Carolina Vallejo is a 61 year old female who was admitted on Aug 03, 2017 at 22: 27 for Chronic Obstructive Pulmonary Disease Exacerbation Hospital Course dc summary #[id number] Discharge Medications New Medications: Azithromycin (Zithromax) 1 Gm Packet 1 GM ORAL DAILY for 5 Days, PACKET Continued Medications: Fluticasone Propionate (Flovent Hfa) 12 Gm Aer.w.adap 2 PUFFS INH TWICE A DAY, #1 EA 0 Refills Furosemide* (Lasix*) 40 Mg Tablet 40 MG ORAL DAILY, TAB Gabapentin (Neurontin) 300 Mg Capsule 300 MG ORAL BEDTIME, #7 CAP 0 Refills Lisinopril (Lisinopril*) 20 Mg Tablet 40 MG ORAL DAILY, TAB Metoprolol Tartrate* (Metoprolol Tartrate*) 25 Mg Tablet 25 MG ORAL BID, TAB Prednisone (Prednisone) 20 Mg Tablet 20 MG PO EVERY 12 HOURS for 5 Days, TAB Discharge Condition Upon Discharge: stable Discharge Disposition Patient was discharged to Home (01) Discharge Diagnoses: Discharge Instructions Discharge Instructions Special Instructions I have been assigned to complete a D/C Summary on this account. I was not involved in the patient management Juhi Castañeda NP (Vanchtein) Aug 06, 2017 12:15
--- NOTE | 2017-08-07 02:45 | Discharge Summary ---
DATE OF ADMISSION: 08/03/2017 DATE OF DISCHARGE: 08/05/2017 REASON FOR ADMISSION: 61-year-old female with past medical history significant for COPD, asthma, hypertension, CHF, high cholesterol, morbid obesity, and gastroesophageal reflux disease, presented with shortness of breath and generalized weakness. Chest x-ray revealed no acute cardiopulmonary pathology. Vital signs were stable. No leukocytosis. The patient was admitted for further management with diagnoses of chronic obstructive pulmonary disease exacerbation, congestive heart failure, morbid obesity, and possible bronchitis. HOSPITAL COURSE: The patient was admitted. Supplemental oxygen provided and titrated as needed to keep pulse oximetry above 92%. Prior to discharge, pulse oximetry was stable on room air. Pulmonary toilet provided via handheld nebulizer with bronchodilators around the clock and as needed. The patient was started on empiric antibiotics. Sputum culture negative. Blood culture negative. ID followed. Chest x-ray negative. Pneumonia was ruled out. DVT prophylaxis provided. Antitussives provided as needed. The patient probably had acute bronchitis in addition to chronic obstructive pulmonary disease exacerbation. The patient to complete the course of antibiotics as recommended by ID upon discharge. Chest x-ray also revealed cardiomegaly and evidence of congestive heart failure. No evidence of congestive heart failure exacerbation. Blood pressure was managed with beta-elba and MARIA E inhibitor. Lasix was continued. Cardiorenal parameters and volumes were closely monitored. Electrolytes were corrected as needed. The patient was on DVT and GI prophylaxis. The patient had an echocardiogram done last month, which revealed preserved ejection fraction of 60% to 65% and right ventricular systolic pressure of 72 consistent with severe pulmonary hypertension likely due to the chronic obstructive pulmonary disease. The patient was clinically improving. The patient was stable for discharge on oral antibiotics and oral steroids to taper. FINAL DIAGNOSES: 1. Acute chronic obstructive pulmonary disease exacerbation. 2. Congestive heart failure. 3. Morbid obesity. 4. Possible bronchitis. 5. Hypertension. DISCHARGE MEDICATIONS: See medication reconciliation list. DISCHARGE INSTRUCTIONS: The patient was discharged home. Follow up with the primary care provider next week. Merari Boateng M.D. I have been assigned to dictate discharge summary on this account and I was not involved in the patient's management. Juhi ParkerJair alberto DR: JEAN-PAUL JOB#: [id number] CC: MERCEDES
== END 2017-08-05 16:00 | disposition home or self-care (01) | DRG 140 ==
LOC: EMR 19:50 → 2E 22:27 → EDBEDREQ 23:28 → 3E 08-04 15:15
DX: J44.1 Chronic obstructive pulmonary disease with (acute) exacerbation (principal); J96.00 Acute respiratory failure, unspecified whether with hypoxia or hypercapnia; I27.20 Pulmonary hypertension, unspecified; Z68.42 Body mass index [BMI] 45.0-49.9, adult; I50.9 Heart failure, unspecified; E66.01 Morbid (severe) obesity due to excess calories; I11.0 Hypertensive heart disease with heart failure; J20.9 Acute bronchitis, unspecified; J44.0 Chronic obstructive pulmonary disease with (acute) lower respiratory infection; E78.5 Hyperlipidemia, unspecified; E03.9 Hypothyroidism, unspecified; F17.200 Nicotine dependence, unspecified, uncomplicated
CPT/HCPCS: 36415; 71045; 80053; 82248; 83690; 84484; 85025; 87040; 87070; 87205; 93005; 94640; 94664; 99285; J7620

== ENCOUNTER 2017-09-24 21:18 | Inpatient (IN) | payer MEDICAID ==
[~2017-09-24] VITALS: Ht 154.9 cm; Wt 122.9 kg
[~2017-09-24 21:18] MED LIST changes: +ZITHROMAX1 GM ORAL
--- NOTE | 2017-09-24 21:40 | Emergency Room Report ---
History of Present Illness General Chief Complaint: Dyspnea/Respdistress Source: Patient Present Illness HPI This is a morbidly obese female with history hypertension, COPD and CHF. She also has a history of noncompliance. She has not been taking her blood pressure medication for the last week or so. Also complaining of blood pressure being high and now being short of breath. Worse with exertion. Worse with laying flat. [place] tightness in her chest because of breathing problem. Did take her blood pressure medication tonight. Denies any fever or chills. Denies any chest pain. Allergies: Coded Allergies: NO KNOWN ALLERGIES (Verified Allergy, Unknown, 08/04/17) Patient History Past Medical History: see triage record, old chart reviewed, HTN, CHF, COPD Past Surgical History: other Pertinent Family History: none Social History: Denies: smoking Now: No Immunizations: other Reviewed Nursing Documentation: PMH: Agreed; PSxH: Agreed Nursing Documentation-PMH Hx Cardiac Problems: Yes - Enlarged heart, CHF, High Chlosterol Hx Hypertension: Yes Hx Asthma: Yes Hx COPD: Yes Hx Cancer: No Hx Gastrointestinal Problems: Yes - Cholecystectomy, GERD History Of Psychiatric Problem: Yes - depression Hx Neurological Problems: No Hx Peripheral Neuropathy: Yes Hx Headaches: Yes Hx Weakness: Yes Review of Systems Eye: Denies: eye pain, blurred vision ENT: Denies: ear pain, nose congestion, throat swelling Respiratory: Reports: shortness of breath, MALIK; Denies: cough Cardiovascular: Denies: chest pain, palpitations Gastrointestinal: Denies: abdominal pain, diarrhea, nausea, vomiting Musculoskeletal: Denies: back pain, joint pain Skin: Denies: rash Neurological: Denies: headache, numbness Endocrine: Denies: increased thirst, increased urine Hematologic/Lymphatic: Denies: easy bruising All Other Systems: negative except mentioned in HPI Physical Exam Vital Signs Date Time Temp Pulse Resp B/P (MAP) Pulse Ox O2 Delivery O2 Flow Rate FiO2 09/24/17 21:20 98.2 73 20 136/83 95 Room Air 98.2 vitals unremarkable Sp02 EP Interpretation: reviewed, normal General Appearance: well appearing, alert, mild distress, obese Head: normocephalic, atraumatic Eyes: bilateral eye PERRL, bilateral eye EOMI ENT: hearing grossly normal, normal pharynx Neck: full range of motion, supple, no meningismus Respiratory: chest non-tender, decreased breath sounds, accessory muscle use, rales Cardiovascular #1: regular rate, rhythm, no murmur Gastrointestinal: normal bowel sounds, non tender, no mass, no organomegaly, no bruit, non-distended Musculoskeletal: back normal, gait/station normal, normal range of motion Neurologic: alert, oriented x3 Psychiatric: mood/affect normal Skin: warm/dry Medical Decision Making Diagnostic Impression: Primary Impression: COPD exacerbation Additional Impressions: Acute exacerbation of CHF (congestive heart failure) Qualified Codes: I50.9 - Heart failure, unspecified Noncompliance Morbid obesity ER Course Patient presents with shortness of breath. This is probably a combination of COPD exacerbation and CHF exacerbation. She does have pulmonary hypertension from her COPD and probably obstructive sleep apnea. Patient's blood pressure have been normal here. She gave me a sheet of paper of the blood pressures at home for the last week. It were ranging from systolic 180-220. This is because she was not taking her blood pressure medication. She did take them today. Initially no Jean was placed because patient wanted to use the commode. Because of her size, she had a hard time and urinated in the bed. After this, she said she wanted a Jean. Patient will be admitted here or transfer based on her insurance. patient will be admitted here. Because of insurance, patient will be admitted to Dr. Boateng. Lab Results Impression labs with elevated bnp EKG Diagnostic Results Rate: normal Rhythm: NSR ST Segments: other - LVH. NSST changes Rhythm Strip Diag. Results Rhythm Strip Time: 21:41 EP Interpretation: yes Rate: 70 Rhythm: NSR, no PVC's, no ectopy Chest X-Ray Diagnostic Results Chest X-Ray Diagnostic Results : Chest X-Ray Ordered: Yes # of Views/Limited/Complete: 1 View Indication: Shortness of Breath EP Interpretation: Yes Interpretation: no consolidation, no effusion, no pneumothorax, other - CM Impression: No acute disease Electronically Signed by: Morales Alford MD Last Vital Signs Date Time Temp Pulse Resp B/P (MAP) Pulse Ox O2 Delivery O2 Flow Rate FiO2 09/24/17 21:20 98.2 73 20 136/83 95 Room Air 98.2 Status: improved Disposition: ADMITTED INPATIENT Condition: Serious MORALES ALFORD M.D. Sep 24, 2017 21:40
[2017-09-24] MEDS ORDERED: Albuterol ud Inhalation HHN ONE (21:45)
[2017-09-24] MEDS ORDERED: Ipratropium 0.02% Inh Soln 2.5ml UD HHN ONE (21:45)
[2017-09-24] MEDS ORDERED: Solu-MEDROL 125mg Inj IVP ONE (21:45)
[2017-09-24 22:14] LABS: BASOPHILS % (AUTO) 1.2 % (0.0-2.0); EOSINOPHILS % (AUTO) 0.2 % (0.0-3.0); HEMATOCRIT 43.1 % (37.0-47.0); HEMOGLOBIN 13.4 G/DL (12.0-16.0); LYMPHOCYTES % (AUTO) 24.4 % (20.0-45.0); MEAN CORPUSCULAR VOLUME 90 FL (80-99); MONOCYTES % (AUTO) 12.3 % (1.0-10.0); NEUTROPHILS % (AUTO) 61.9 % (45.0-75.0); PLATELET COUNT 228 K/UL (150-450); RED CELL DISTRIBUTION WIDTH 12.9 % (11.6-14.8); WHITE BLOOD COUNT 10.8 K/UL (4.8-10.8)
[2017-09-24 22:15] LABS: ANION GAP 5 mmol/L (5-15); BLOOD UREA NITROGEN 20 mg/dL (7-18); CALCIUM 9.2 MG/DL (8.5-10.1); CARBON DIOXIDE 32 MMOL/L (21-32); CHLORIDE 102 MMOL/L (98-107); CREATININE 0.9 MG/DL (0.55-1.30); POTASSIUM 4.1 MMOL/L (3.5-5.1); SODIUM 139 MMOL/L (136-145)
[2017-09-24 22:25] LABS: APPEARANCE,URINE CLEAR; BILIRUBIN, URINE NEGATIVE (NEGATIVE); COLOR,URINE PALE YELLOW; GLUCOSE, URINE (UA) NEGATIVE (NEGATIVE); KETONES,URINE NEGATIVE (NEGATIVE); LEUKOCYTE ESTERASE ,URINE NEGATIVE (NEGATIVE); NITRITE,URINE NEGATIVE (NEGATIVE); PH,URINE 7 (4.5-8.0); PROTEIN,URINE NEGATIVE (NEGATIVE); UROBILINOGEN,URINE NORMAL MG/DL (0.0-1.0)
[2017-09-24 22:30] LABS: ALANINE AMINOTRANSFERASE 20 U/L (12-78); ALBUMIN 3.7 G/DL (3.4-5.0); ALBUMIN/GLOBULIN RATIO 0.9 (1.0-2.7); ALKALINE PHOSPHATASE 97 U/L (46-116); ASPARTATE AMINO TRANSFERASE 13 U/L (15-37); BILIRUBIN,TOTAL 0.6 MG/DL (0.2-1.0); CREATINE KINASE 107 U/L (26-308)
[2017-09-24 23:15] VITALS: BP 125/69
[2017-09-25 00:38] VITALS: BP 122/64
[2017-09-25 04:00] VITALS: BP 117/60
[2017-09-25] MEDS ORDERED: Albuterol/Ipratropium 3ml neb HHN PRN (06:00)
[2017-09-25] MEDS ORDERED: Promethazine/Codeine 5ml UD ORAL PRN (06:00)
[2017-09-25] MEDS ORDERED: Nitroglycerin Subl 0.4mg tab SL PRN (06:00)
[2017-09-25] MEDS ORDERED: LORazepam Inj 2mg/ml 1ml IV PRN (06:00)
[2017-09-25] MEDS: Solu-MEDROL 125mg Inj IV SCH ×3 (06:34→18:20)
[2017-09-25 08:00] VITALS: BP 112/60
[2017-09-25] MEDS: Heparin 5000 units/ml inj SUBQ SCH ×2 (08:54→20:11)
[2017-09-25] MEDS: Furosemide 40mg tab ORAL SCH (08:55)
[2017-09-25] MEDS: Aspirin EC 81mg tab ORAL SCH (08:55)
[2017-09-25] MEDS: Theophylline ER 100mg ORAL SCH ×2 (08:55→20:10)
[2017-09-25] MEDS: Lisinopril 20mg tab ORAL SCH (08:55)
[2017-09-25] MEDS: Piperacillin/Tazobactam 3.375 GM in NS 110 ML IVPB SCH ×2 (08:56→15:52)
--- NOTE | 2017-09-25 09:05 | Diagnostic Imaging Report ---
Indication: Shortness of breath Technique: One view of the chest Comparison: 08/03/2017 Findings: Atelectatic changes are seen at both lung bases. The heart is borderline enlarged. Previously demonstrated interstitial congestion is no longer evident. The pleural spaces are clear Impression: Borderline cardiomegaly No acute process
[2017-09-25] MEDS ORDERED: HYDROcodone/Acetamin 10/325 tab ORAL PRN (09:15)
--- NOTE | 2017-09-25 11:30 | History and Physical ---
History of Present Illness General Date patient seen: Sep 25, 2017 Reason for Hospitalization: Dyspnea/Respdistress Present Illness HPI 61 year old female with hx of morbid obesity, hypertension, COPD and CHF, noncompliance. not been taking her blood pressure medication for the last week or so. Also complaining of blood pressure being high and now being short of breath. Worse with exertion. Worse with laying flat. She took her BP meds prior coming to ER. Her BP was 130 in ER. she is admitted to telemetry for ACS , acute dyspnea and possibly acute exacerbation of asthma ans bronchitis. Allergies: Coded Allergies: NO KNOWN ALLERGIES (Verified Allergy, Unknown, 08/04/17) Medication History Scheduled Amoxicillin/Potassium Clav 875-125* (Augmentin 875-125 Tablet*), 1 TAB ORAL TWICE A DAY Aspirin Ec* (Aspirin Ec*), 81 MG PO DAILY, (Reported) Azithromycin (Zithromax), 1 GM ORAL DAILY Fluticasone Propionate (Flovent Hfa), 2 PUFFS INH TWICE A DAY, (Reported) Furosemide* (Lasix*), 40 MG ORAL DAILY, (Reported) Gabapentin (Neurontin), 300 MG ORAL BEDTIME, (Reported) Gentamicin Sulfate* (Gentamicin Sulfate*), 3.5 GM OP TID Lisinopril (Lisinopril*), 40 MG ORAL DAILY, (Reported) Metoprolol Tartrate* (Metoprolol Tartrate*), 25 MG ORAL BID, (Reported) Nifedipine* (Nifedipine Er*), 90 MG ORAL DAILY, (Reported) Omeprazole (Omeprazole), 40 MG ORAL DAILY Prednisone (Prednisone), 20 MG PO EVERY 12 HOURS Simvastatin (Zocor), 20 MG ORAL DAILY, (Reported) Sucralfate* (Carafate*), 1 GM ORAL FOUR TIMES A DAY, (Reported) Vitamin D (Vitamin D3), 400 UNITS ORAL DAILY, (Reported) Miscellaneous Medications Calcium Carbonate (Tums), 200 MG PO, (Reported) Potassium (Potassium), 99 MG PO, (Reported) Patient History Healthcare decision maker Resuscitation status Full Code Advanced Directive on File Review of Systems Psychiatric: Reports: no symptoms Neurological: Reports: no symptoms All Other Systems: negative except mentioned in HPI Physical Exam General Appearance: WD/WN, alert Lines, tubes and drains: peripheral HEENT: normocephalic, atraumatic Neck: non-tender, normal alignment Respiratory/Chest: chest wall non-tender, lungs clear Breasts: no masses Cardiovascular/Chest: normal peripheral pulses, normal rate Abdomen: normal bowel sounds, non tender, soft Genitourinary/Rectal: normal genital exam Extremities: normal range of motion Skin Exam: normal pigmentation Lymphatic: anterior cervical Last 24 Hour Vital Signs Date Time Temp Pulse Resp B/P (MAP) Pulse Ox O2 Delivery O2 Flow Rate FiO2 09/25/17 08:55 112/60 09/25/17 08:00 97.0 73 18 112/60 95 Room Air 97.0 09/25/17 08:00 78 09/25/17 04:00 97.7 66 18 117/60 95 Room Air 97.7 09/25/17 04:00 71 09/25/17 01:25 98.2 72 18 122/64 95 Room Air 21 98.2 09/25/17 00:38 72 18 122/64 95 Room Air 09/24/17 23:15 98.2 72 19 125/69 97 Room Air 98.2 09/24/17 21:59 73 22 98 Room Air 21 09/24/17 21:59 21 09/24/17 21:49 70 22 96 Room Air 21 09/24/17 21:25 73 20 Room Air 09/24/17 21:20 98.2 73 20 136/83 95 Room Air 98.2 Intake and Output 09/24/17 09/25/17 19:00 07:00 Intake Total 120 ml Output Total 240 ml Balance -120 ml Intake Oral 120 ml Output Urine Total 240 ml # Voids 5 # Bowel Movements 2 Laboratory Tests Test 09/24/17 21:45 09/24/17 22:10 White Blood Count 10.8 K/UL (4.8-10.8) Red Blood Count 4.80 M/UL (4.20-5.40) Hemoglobin 13.4 G/DL (12.0-16.0) Hematocrit 43.1 % (37.0-47.0) Mean Corpuscular Volume 90 FL (80-99) Mean Corpuscular Hemoglobin 27.9 PG (27.0-31.0) Mean Corpuscular Hemoglobin Concent 31.1 G/DL (32.0-36.0) L Red Cell Distribution Width 12.9 % (11.6-14.8) Platelet Count 228 K/UL (150-450) Mean Platelet Volume 9.5 FL (6.5-10.1) Neutrophils (%) (Auto) 61.9 % (45.0-75.0) Lymphocytes (%) (Auto) 24.4 % (20.0-45.0) Monocytes (%) (Auto) 12.3 % (1.0-10.0) H Eosinophils (%) (Auto) 0.2 % (0.0-3.0) Basophils (%) (Auto) 1.2 % (0.0-2.0) Sodium Level 139 MMOL/L (136-145) Potassium Level 4.1 MMOL/L (3.5-5.1) Chloride Level 102 MMOL/L (98-107) Carbon Dioxide Level 32 MMOL/L (21-32) Anion Gap 5 mmol/L (5-15) Blood Urea Nitrogen 20 mg/dL (7-18) H Creatinine 0.9 MG/DL (0.55-1.30) Estimat Glomerular Filtration Rate > 60 mL/min (>60) Glucose Level 99 MG/DL (74-106) Calcium Level 9.2 MG/DL (8.5-10.1) Total Bilirubin 0.6 MG/DL (0.2-1.0) Aspartate Amino Transf (AST/SGOT) 13 U/L (15-37) L Alanine Aminotransferase (ALT/SGPT) 20 U/L (12-78) Alkaline Phosphatase 97 U/L (46-116) Total Creatine Kinase 107 U/L (26-308) Creatine Kinase MB 2.0 NG/ML (0.0-3.6) Creatine Kinase MB Relative Index 1.8 Troponin I 0.020 ng/mL (0.000-0.056) Pro-B-Type Natriuretic Peptide 2432 pg/mL (0-125) H Total Protein 7.9 G/DL (6.4-8.2) Albumin 3.7 G/DL (3.4-5.0) Globulin 4.2 g/dL Albumin/Globulin Ratio 0.9 (1.0-2.7) L Urine Color Pale yellow Urine Appearance Clear Urine pH 7 (4.5-8.0) Urine Specific [place] 1.005 (1.005-1.035) Urine Protein Negative (NEGATIVE) Urine Glucose (UA) Negative (NEGATIVE) Urine Ketones Negative (NEGATIVE) Urine Occult Blood Negative (NEGATIVE) Urine Nitrite Negative (NEGATIVE) Urine Bilirubin Negative (NEGATIVE) Urine Urobilinogen Normal MG/DL (0.0-1.0) Urine Leukocyte Esterase Negative (NEGATIVE) Urine Opiates Screen Negative (NEGATIVE) Urine Barbiturates Screen Negative (NEGATIVE) Phencyclidine (PCP) Screen Negative (NEGATIVE) Urine Amphetamines Screen Negative (NEGATIVE) Urine Benzodiazepines Screen Negative (NEGATIVE) Urine Cocaine Screen Negative (NEGATIVE) Urine Marijuana (THC) Screen Negative (NEGATIVE) Height (Feet): 5 Height (Inches): 1.00 Weight (Pounds): 271 Medications Current Medications Medications (Trade) Dose Ordered Sig/Gus Route PRN Reason Start Time Stop Time Status Last Admin Dose Admin Acetaminophen/ Hydrocodone Bitart ([place] 10/325) 1 tab Q6HR PRN ORAL For Severe Osteoarthritis Pain 09/25/17 09:15 10/02/17 09:14 Albuterol/ Ipratropium (Albuterol/ Ipratropium) 3 ml Q4H PRN HHN dyspnea 09/25/17 06:00 09/30/17 05:59 Aspirin (Ecotrin) 81 mg DAILY ORAL 09/25/17 09:00 10/25/17 08:59 09/25/17 08:55 Dextrose (Dextrose 50%) 25 ml STAT PRN IV Hypoglycemia 09/25/17 09:30 10/25/17 05:59 Dextrose (Dextrose 50%) 50 ml STAT PRN IV Hypoglycemia 09/25/17 09:30 10/25/17 09:29 Furosemide (Lasix) 40 mg DAILY ORAL 09/25/17 09:00 10/25/17 08:59 09/25/17 08:55 Gabapentin (Neurontin) 300 mg BEDTIME ORAL 09/25/17 21:00 10/25/17 20:59 Heparin Sodium (Porcine) (Heparin 5000 units/ml) 5,000 units EVERY 12 HOURS SUBQ 09/25/17 09:00 10/25/17 08:59 09/25/17 08:54 Lisinopril (Prinivil) 40 mg DAILY ORAL 09/25/17 09:00 10/25/17 08:59 09/25/17 08:55 Lorazepam (Ativan 2mg/ml 1ml) 0.5 mg Q4H PRN IV For Anxiety 09/25/17 06:00 10/02/17 05:59 Methylprednisolone Sodium Succinate (Solu-MEDROL) 60 mg EVERY 6 HOURS IV 09/25/17 06:30 10/25/17 06:29 09/25/17 06:34 Morphine Sulfate (Morphine Sulfate) 2 mg Q4H PRN IVP severe pain 7-10 09/25/17 06:00 10/02/17 05:59 Nitroglycerin (Ntg) 0.4 mg Q5M X 3 DOSES PRN SL Prn Chest Pain 09/25/17 06:00 10/25/17 05:59 Ondansetron HCl (Zofran) 4 mg Q6H PRN IVP Nausea & Vomiting 09/25/17 06:00 10/25/17 05:59 Piperacillin Sod/ Tazobactam Sod 3.375 gm/Sodium Chloride 110 ml @ 27.5 mls/hr Q8H IVPB 09/25/17 08:00 10/02/17 07:59 09/25/17 08:56 Promethazine HCl/ Codeine (Phenergan with Codeine) 5 ml Q6H PRN ORAL cough 09/25/17 06:00 10/25/17 05:59 Temazepam (Restoril) 15 mg HSPRN PRN ORAL Insomnia 09/25/17 06:00 10/02/17 05:59 Theophylline (Magno-Dur) 100 mg EVERY 12 HOURS ORAL 09/25/17 09:00 10/25/17 08:59 09/25/17 08:55 Assessment/Plan Problem List: (1) Acute respiratory failure ICD Codes: J96.00 - Acute respiratory failure, unspecified whether with hypoxia or hypercapnia SNOMED: 80203813 (2) COPD exacerbation ICD Codes: J44.1 - Chronic obstructive pulmonary disease with (acute) exacerbation SNOMED: 026943412, 207583097 (3) ACS (acute coronary syndrome) ICD Codes: I24.9 - Acute ischemic heart disease, unspecified SNOMED: 280139413 (4) Noncompliance ICD Codes: Z91.19 - Patient's noncompliance with other medical treatment and regimen SNOMED: 8688276 (5) Morbid obesity ICD Codes: E66.01 - Morbid (severe) obesity due to excess calories SNOMED: 074517261, [id number] Assessment/Plan respiratory treatment titrate fio2 IV steroids check sputum check troponin cardiology evaluation monitor BP Merari Boateng MD Sep 25, 2017 11:30
[2017-09-25 11:40] VITALS: BP 100/62
[2017-09-25] MEDS ORDERED: Sucralfate 1gm tab ORAL ONE (13:55)
[2017-09-25 16:00] VITALS: BP 105/62
--- NOTE | 2017-09-25 16:46 | Cardiology Report ---
APPROVED REPORT EKG Measurement Heart [id number] Normal sinus rhythm Possible Left atrial enlargement Left ventricular hypertrophy with repolarization abnormality Abnormal ECG
[2017-09-25] MEDS: Sucralfate 1gm tab ORAL SCH (18:20)
[2017-09-25 19:56] VITALS: BP 117/71
[2017-09-26] VITALS: BP 100/58
[2017-09-26] MEDS: Piperacillin/Tazobactam 3.375 GM in NS 110 ML IVPB SCH ×4 (00:13→23:47)
[2017-09-26] MEDS: Solu-MEDROL 125mg Inj IV SCH ×5 (00:13→23:46)
[2017-09-26] MEDS: Morphine Sulfate 4mg/ml Inj IVP PRN ×4 (00:48→23:48)
[2017-09-26 08:00] VITALS: BP 121/68
[2017-09-26] MEDS: Sucralfate 1gm tab ORAL SCH ×3 (08:14→17:27)
[2017-09-26] MEDS: Theophylline ER 100mg ORAL SCH ×2 (08:19→20:35)
[2017-09-26] MEDS: Lisinopril 20mg tab ORAL SCH (08:19)
[2017-09-26] MEDS: Aspirin EC 81mg tab ORAL SCH (08:19)
[2017-09-26] MEDS: Furosemide 40mg tab ORAL SCH (08:20)
[2017-09-26] MEDS: Heparin 5000 units/ml inj SUBQ SCH ×2 (08:22→20:37)
--- NOTE | 2017-09-26 11:15 | Consultation ---
Consult Note Consult Note ID DIC # [id number] Axel Stanford MD Sep 26, 2017 11:15
[2017-09-26 12:00] VITALS: BP 120/67
--- NOTE | 2017-09-26 13:30 | Pulmonology Progress Note ---
Assessment/Plan Problems: (1) Acute respiratory failure (2) COPD exacerbation (3) ACS (acute coronary syndrome) (4) Noncompliance (5) Morbid obesity Assessment/Plan still short of breath respiratory treatment check sputum check echo cardiology consult dvt prophylaxis. Subjective ROS Limited/Unobtainable: No Constitutional: Reports: no symptoms HEENT: Repors: no symptoms Respiratory: Reports: no symptoms Allergies: Coded Allergies: NO KNOWN ALLERGIES (Verified Allergy, Unknown, 08/04/17) Objective Last 24 Hour Vital Signs Date Time Temp Pulse Resp B/P (MAP) Pulse Ox O2 Delivery O2 Flow Rate FiO2 09/26/17 08:44 96.8 09/26/17 08:19 123/72 09/26/17 08:14 96.8 09/26/17 08:00 97.7 94 20 121/68 95 Nasal Cannula 2.0 97.7 09/26/17 08:00 80 09/26/17 07:52 Room Air 09/26/17 07:50 Room Air 09/26/17 04:00 76 09/26/17 00:48 96.8 09/26/17 00:33 90 20 98 Room Air 09/26/17 00:18 88 20 96 Room Air 09/26/17 00:00 97.9 80 20 100/58 96 Room Air 97.9 09/26/17 00:00 81 09/25/17 23:58 88 20 97 Room Air 21 09/25/17 23:50 88 20 97 Room Air 21 09/25/17 20:00 91 09/25/17 19:56 96.8 86 18 117/71 98 Room Air 96.8 09/25/17 16:00 77 09/25/17 16:00 97.7 74 18 105/62 96 Room Air 97.7 09/25/17 15:19 97.7 09/25/17 14:20 97.7 Intake and Output 09/25/17 09/26/17 19:00 07:00 Intake Total 415.0 ml Output Total 700 ml 200 ml Balance -285.0 ml -200 ml Intake Oral 360 ml IV Total 55.0 ml Output Urine Total 700 ml 200 ml General Appearance: WD/WN HEENT: normocephalic, atraumatic Respiratory/Chest: chest wall non-tender, lungs clear Breasts: no masses Cardiovascular: normal peripheral pulses Abdomen: normal bowel sounds, soft, non tender Genitourinary: normal external genitalia Skin: no rash 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 Lymphatic: no neck adenopathy Current Medications Medications (Trade) Dose Ordered Sig/Gus Route PRN Reason Start Time Stop Time Status Last Admin Dose Admin Acetaminophen/ Hydrocodone Bitart ([place] 10/325) 1 tab Q6HR PRN ORAL For Severe Osteoarthritis Pain 09/25/17 09:15 10/02/17 09:14 09/25/17 14:20 Albuterol/ Ipratropium (Albuterol/ Ipratropium) 3 ml Q4H PRN HHN dyspnea 09/25/17 06:00 09/30/17 05:59 09/26/17 00:18 Aspirin (Ecotrin) 81 mg DAILY ORAL 09/25/17 09:00 10/25/17 08:59 09/26/17 08:19 Dextrose (Dextrose 50%) 25 ml STAT PRN IV Hypoglycemia 09/25/17 09:30 10/25/17 05:59 Dextrose (Dextrose 50%) 50 ml STAT PRN IV Hypoglycemia 09/25/17 09:30 10/25/17 09:29 Furosemide (Lasix) 40 mg DAILY ORAL 09/25/17 09:00 10/25/17 08:59 09/26/17 08:20 Gabapentin (Neurontin) 300 mg BEDTIME ORAL 09/25/17 21:00 10/25/17 20:59 09/25/17 20:10 Heparin Sodium (Porcine) (Heparin 5000 units/ml) 5,000 units EVERY 12 HOURS SUBQ 09/25/17 09:00 10/25/17 08:59 09/26/17 08:22 Lisinopril (Prinivil) 40 mg DAILY ORAL 09/25/17 09:00 10/25/17 08:59 09/26/17 08:19 Lorazepam (Ativan 2mg/ml 1ml) 0.5 mg Q4H PRN IV For Anxiety 09/25/17 06:00 10/02/17 05:59 Methylprednisolone Sodium Succinate (Solu-MEDROL) 60 mg EVERY 6 HOURS IV 09/25/17 06:30 10/25/17 06:29 09/26/17 12:19 Morphine Sulfate (Morphine Sulfate) 2 mg Q4H PRN IVP severe pain 7-10 09/25/17 06:00 10/02/17 05:59 09/26/17 08:14 Nitroglycerin (Ntg) 0.4 mg Q5M X 3 DOSES PRN SL Prn Chest Pain 09/25/17 06:00 10/25/17 05:59 Ondansetron HCl (Zofran) 4 mg Q6H PRN IVP Nausea & Vomiting 09/25/17 06:00 10/25/17 05:59 09/26/17 08:24 Pantoprazole (Protonix) 40 mg DAILY@0630 ORAL 09/27/17 06:30 10/27/17 06:29 Piperacillin Sod/ Tazobactam Sod 3.375 gm/Sodium Chloride 110 ml @ 27.5 mls/hr Q8H IVPB 09/25/17 08:00 10/02/17 07:59 09/26/17 08:19 Promethazine HCl/ Codeine (Phenergan with Codeine) 5 ml Q6H PRN ORAL cough 09/25/17 06:00 10/25/17 05:59 Sucralfate (Carafate) 1 gm TID ORAL 09/25/17 18:00 10/25/17 17:59 09/26/17 12:19 Temazepam (Restoril) 15 mg HSPRN PRN ORAL Insomnia 09/25/17 06:00 10/02/17 05:59 Theophylline (Magno-Dur) 100 mg EVERY 12 HOURS ORAL 09/25/17 09:00 10/25/17 08:59 09/26/17 08:19 Merari Boateng MD Sep 26, 2017 13:30
[2017-09-26 16:00] VITALS: BP 150/75
--- NOTE | 2017-09-26 18:30 | Consultation ---
DATE OF CONSULTATION: 09/26/2017 INFECTIOUS DISEASE CONSULTATION CONSULTING PHYSICIAN: Axel Stanford M.D. REQUESTING PHYSICIAN: Merari Boateng M.D. REASON FOR CONSULTATION: Evaluation of the patient for pneumonia and antibiotic management. HISTORY OF PRESENT ILLNESS: The patient is a 61-year-old female with multiple medical problems, who was admitted to this facility because of chest congestion and cough. The patient took few days of oral antibiotics prior to admission, however, did not note significant relief. The patient overall feels still short of breath and has dry cough. Infectious Disease consultation has been requested for further evaluation of the patient and antibiotic management. PAST MEDICAL HISTORY: 1. CHF. 2. Hyperlipidemia. 3. Hypertension. 4. COPD. 5. Hysterectomy. 6. Cholecystectomy. 7. Obesity. 8. GERD. 9. Osteoarthritis. 10. Hypothyroidism. MEDICATIONS: IV Zosyn and Solu-Medrol. ALLERGIES: No known drug allergies. SOCIAL HISTORY: The patient is an ex-smoker. FAMILY HISTORY: Not contributing. REVIEW OF SYSTEMS: HEENT: No recent change in vision or hearing. PULMONARY: As mentioned above. CARDIOVASCULAR: No chest pain. GENITOURINARY: No dysuria, however, the patient has increase of urinary frequency. GASTROINTESTINAL: No tenderness. NEUROLOGIC: No seizure. PHYSICAL EXAMINATION: VITAL SIGNS: Temperature 96.8, pulse 86, respiratory rate 18, and blood pressure 121/68. HEENT: No pale conjunctivae. No icterus. NECK: No lymphadenopathy. CHEST: bl wheezes HEART: S1 and S2. ABDOMEN: Soft and nontender. EXTREMITIES: No cyanosis. NEUROLOGIC: Awake. LABORATORY DATA: White blood cells 10, hemoglobin 13, and platelets 228,000. UA unremarkable. BUN 20 and creatinine 0.9. ALT, AST, and alkaline phosphatase are unremarkable. Chest x-ray, no acute process, borderline cardiomegaly. ASSESSMENT: The patient a 61-year-old female with, 1. Chronic obstructive pulmonary disease exacerbation. 2. ? pneumonia (less likely), chest x-ray, no acute pulmonary disease. 3. The patient has dry cough. 4. Ex-smoker. PLAN: 1. We will continue the patient on IV Zosyn, add Zithromax for atypical coverage. 2. Monitor CBC. 3. Monitor BMP. 4. Monitor sputum culture. 5. Check a CRP. 6. Based on the patient's clinical course and labs, we will do further recommendation. Thank you, Dr. Boateng, for allowing me to participate in the care of this patient. I will follow the patient with you during this hospitalization. Axel Stanford M.D. DR: ANDREW JOB#: [id number] CC: MERCEDES
[2017-09-26 20:00] VITALS: BP 116/66
--- NOTE | 2017-09-26 20:23 | Cardiology Progress Note ---
Assessment/Plan Assessment/Plan [id number] decrease acei to allo room for diuretic diuressis echo to see if mr any change Objective Last 24 Hour Vital Signs Date Time Temp Pulse Resp B/P (MAP) Pulse Ox O2 Delivery O2 Flow Rate FiO2 09/26/17 20:00 96.4 22 116/66 93 Nasal Cannula 2.0 96.4 09/26/17 16:00 93 09/26/17 16:00 97.5 86 18 150/75 98 Nasal Cannula 2.0 97.5 09/26/17 15:34 Room Air 09/26/17 15:34 Room Air 09/26/17 14:24 96.8 09/26/17 13:54 96.8 09/26/17 12:00 81 09/26/17 12:00 97.7 94 18 120/67 98 Room Air 97.7 09/26/17 08:19 123/72 09/26/17 08:14 96.8 09/26/17 08:00 97.7 94 20 121/68 95 Nasal Cannula 2.0 97.7 09/26/17 08:00 80 09/26/17 07:52 Room Air 09/26/17 07:50 Room Air 09/26/17 04:00 76 09/26/17 00:48 96.8 09/26/17 00:33 90 20 98 Room Air 09/26/17 00:18 88 20 96 Room Air 09/26/17 00:00 97.9 80 20 100/58 96 Room Air 97.9 09/26/17 00:00 81 09/25/17 23:58 88 20 97 Room Air 21 09/25/17 23:50 88 20 97 Room Air 21 Intake and Output 09/25/17 09/26/17 19:00 07:00 Intake Total 415.0 ml Output Total 700 ml 200 ml Balance -285.0 ml -200 ml Intake Oral 360 ml IV Total 55.0 ml Output Urine Total 700 ml 200 ml Laboratory Tests Test 09/26/17 15:20 C-Reactive Protein, Quantitative < 0.4 mg/dL (0.00-0.90) NURIS PAULINO Sep 26, 2017 20:23
[2017-09-27] VITALS: BP 118/62
--- NOTE | 2017-09-27 01:15 | Consultation ---
DATE OF CONSULTATION: 09/26/2017 CARDIOLOGY CONSULTATION REFERRING PHYSICIAN: Merari Boateng M.D. REASON FOR REFERRAL: Shortness of breath. HISTORY OF PRESENT ILLNESS: This is a middle-aged female who is known to me from prior evaluation and hospitalization. The patient was last seen by me in June 2017. She has not seen a doctor apparently since then. She has had some hospitalizations subsequent to that and tells me that she has been at home and has been concerned about her blood pressure. She has stopped taking her medications and trying to get a hold get to see a doctor of business and was having hard time getting to the doctor and finally because of the increasing shortness of breath, presented to the hospital emergency room. She had blood pressure significantly elevated apparently at home according to herself. At some point, she had a blood pressure of 200s. Anyway, she presented to the hospital. She has not taken her medication for some time. She is not able to lay down because of shortness of breath. She is a three pillow user, sometimes had to sit up to be able to breath. 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 Apparently, she has had some stress test previously. It has been negative according to herself. She has occasional palpitation and occasional dizziness. PAST MEDICAL HISTORY: Positive for history of congestive heart failure, chronic obstructive pulmonary disease, systemic hypertension, and hyperlipidemia. She has had atypical chest pain and gastroesophageal reflux disease. She has had significant pulmonary hypertension and significant mitral regurgitation on her prior echocardiograms that were performed back in June 2016. Also, has significant morbid obesity. ALLERGIES: None. SOCIAL HISTORY: She used to be a smoker. She is not smoking at this time. No alcoholic beverages anymore. REVIEW OF SYSTEMS: GASTROINTESTINAL: She has been doing relatively well, although she had a lot of heartburn symptoms. GENITOURINARY: Negative. PULMONARY: Positive for coughing and some wheezing. CONSTITUTIONAL: Negative. PHYSICAL EXAMINATION: GENERAL: Shows a morbidly obese female, in no respiratory distress. NECK: Supple. No jugular venous distention. LUNGS: Appear to show some crackles bilaterally. CARDIAC: Examination regular rate and rhythm. Holosystolic regurgitant murmur is noted. ABDOMEN: Soft and obese. Positive bowel sounds. EXTREMITIES: 1+ edema. NEUROLOGICAL: She is awake, alert, and responsive, no apparent distress. LABORATORY AND DIAGNOSTIC DATA: A chest x-ray shows borderline cardiomegaly. Her blood tests show a white count of 10.8, hemoglobin 13.4, and platelet count of 228,000. Sodium 139, potassium 4.1, chloride 102, bicarbonate 32, BUN 20, creatinine 0.9, and glucose of 99. AST of 13. Troponin 0.020. ProBNP of 2400. She has had levels as high as 2500 previously and as low as 510 back in 2009. Urine drug screen was negative. Urinalysis was unremarkable. Her last echocardiogram again was done in June 2015, showed ejection fraction of 60% to 65%. Mild mitral regurgitation, mild aortic regurgitation, and pulmonary artery systolic pressure in the 70s. Previously, she has had significant mitral regurgitation on her last echocardiography reports. In fact, in July 2016, she had moderate regurgitation of the mitral valve at that time. ASSESSMENT AND PLAN: 1. Congestive heart failure. 2. Mitral regurgitation. 3. Pulmonary hypertension. 4. Morbid obesity. 5. Chronic obstructive pulmonary disease. 6. History of gastroesophageal reflux disease. Dr. Boateng, this patient was seen in cardiac consultation. The patient should be continued on her diuretics to which she appears to have responded. Her MARIA E inhibitors will be lowered to allow room for diureses and an echocardiogram should be repeated to see if truly there are any other causes for the pulmonary hypertension that she had experienced previously, although that may be because of underlying chronic obstructive pulmonary disease. Pulmonary treatment as per yourself. The patient indicates initially when she went home last time, her blood pressure was low and she was dizzy and that is the reason why she discontinued the medication, although not sure how much of that is accurate. Nevertheless, I will follow the patient along with you. Christ Rosario M.D. DR: Bon JOB#: [id number] CC:
[2017-09-27 04:00] VITALS: BP 109/65
[2017-09-27] MEDS: Solu-MEDROL 125mg Inj IV SCH ×2 (06:17→12:33)
[2017-09-27 08:00] VITALS: BP 121/61
[2017-09-27] MEDS: Morphine Sulfate 4mg/ml Inj IVP PRN (08:49)
[2017-09-27] MEDS: Piperacillin/Tazobactam 3.375 GM in NS 110 ML IVPB SCH (08:50)
[2017-09-27] MEDS: Aspirin EC 81mg tab ORAL SCH (08:51)
[2017-09-27] MEDS: Furosemide 40mg tab ORAL SCH (08:52)
[2017-09-27] MEDS: Theophylline ER 100mg ORAL SCH ×2 (08:52→20:30)
[2017-09-27] MEDS: Sucralfate 1gm tab ORAL SCH ×3 (08:52→17:09)
[2017-09-27] MEDS: Heparin 5000 units/ml inj SUBQ SCH ×2 (08:53→20:32)
[2017-09-27] MEDS ORDERED: Lisinopril 10mg tab ORAL SCH (09:00)
[2017-09-27 09:32] LABS: HEMATOCRIT 42.4 % (37.0-47.0); HEMOGLOBIN 13.5 G/DL (12.0-16.0); MEAN CORPUSCULAR VOLUME 91 FL (80-99); PLATELET COUNT 259 K/UL (150-450); RED BLOOD COUNT 4.66 M/UL (4.20-5.40); RED CELL DISTRIBUTION WIDTH 13.1 % (11.6-14.8); WHITE BLOOD COUNT 14.5 K/UL (4.8-10.8)
[2017-09-27 10:22] LABS: ALANINE AMINOTRANSFERASE 38 U/L (12-78); ALBUMIN 2.8 G/DL (3.4-5.0); ALBUMIN/GLOBULIN RATIO 0.7 (1.0-2.7); ALKALINE PHOSPHATASE 86 U/L (46-116); ANION GAP 3 mmol/L (5-15); ASPARTATE AMINO TRANSFERASE 19 U/L (15-37); BILIRUBIN,TOTAL 0.6 MG/DL (0.2-1.0); BLOOD UREA NITROGEN 41 mg/dL (7-18); CALCIUM 8.7 MG/DL (8.5-10.1); CARBON DIOXIDE 30 MMOL/L (21-32); CHLORIDE 100 MMOL/L (98-107); CREATININE 1.5 MG/DL (0.55-1.30); POTASSIUM 3.9 MMOL/L (3.5-5.1); SODIUM 133 MMOL/L (136-145)
--- NOTE | 2017-09-27 11:44 | Infectious Diseases Prog Note ---
Assessment/Plan Assessment/Plan ASSESSMENT: The patient a 61-year-old female with, Chronic obstructive pulmonary disease exacerbation. ? pneumonia (less likely), chest x-ray, no acute pulmonary disease. Ex-smoker CRP: 0.4 ( => doubt sig bacterial infection ) Leukocytosis ( on steroids ) CHF. Hyperlipidemia. Hypertension. COPD. Hysterectomy. Cholecystectomy. Obesity. GERD. Osteoarthritis. Hypothyroidism. PLAN: DC IV Zosyn d # 2 and , add Zithromax d# 1/ 5 for atypical coverage. Monitor CBC. Monitor BMP. Monitor sputum culture. Subjective Allergies: Coded Allergies: NO KNOWN ALLERGIES (Verified Allergy, Unknown, 08/04/17) Subjective cough is better Objective Vital Signs Last 24 Hour Vital Signs Date Time Temp Pulse Resp B/P (MAP) Pulse Ox O2 Delivery O2 Flow Rate FiO2 09/27/17 09:15 97.3 09/27/17 08:52 121/61 09/27/17 08:49 97.3 09/27/17 08:38 86 18 96 Nasal Cannula 2.0 28 09/27/17 08:29 85 18 97 Nasal Cannula 2.0 28 09/27/17 08:00 97.3 80 19 121/61 97 Nasal Cannula 2.0 97.3 09/27/17 08:00 79 09/27/17 04:00 66 09/27/17 04:00 97.0 62 19 109/65 95 Nasal Cannula 2.0 97.0 09/27/17 00:00 97.7 74 18 118/62 94 Nasal Cannula 2.0 97.7 09/27/17 00:00 72 09/26/17 23:38 84 18 97 Nasal Cannula 2.0 28 09/26/17 23:28 81 18 96 Nasal Cannula 2.0 28 09/26/17 20:00 96.4 22 116/66 93 Nasal Cannula 2.0 96.4 09/26/17 20:00 82 09/26/17 16:00 93 09/26/17 16:00 97.5 86 18 150/75 98 Nasal Cannula 2.0 97.5 09/26/17 15:34 Room Air 09/26/17 15:34 Room Air 09/26/17 13:54 96.8 09/26/17 12:00 81 09/26/17 12:00 97.7 94 18 120/67 98 Room Air 97.7 Height (Feet): 5 Height (Inches): 1.00 Weight (Pounds): 276 HEENT: anicteric Respiratory/Chest: no respiratory distress Cardiovascular: no gallop/murmur Abdomen: no organomegaly Microbiology Date/Time Source Procedure Growth Status 09/25/17 18:00 Sputum Gram Stain - Final Resulted 09/25/17 18:00 Sputum Sputum Culture - Preliminary Resulted Laboratory Tests Test 09/26/17 15:20 09/27/17 08:45 C-Reactive Protein, Quantitative < 0.4 mg/dL (0.00-0.90) White Blood Count 14.5 K/UL (4.8-10.8) H Red Blood Count 4.66 M/UL (4.20-5.40) Hemoglobin 13.5 G/DL (12.0-16.0) Hematocrit 42.4 % (37.0-47.0) Mean Corpuscular Volume 91 FL (80-99) Mean Corpuscular Hemoglobin 28.9 PG (27.0-31.0) Mean Corpuscular Hemoglobin Concent 31.8 G/DL (32.0-36.0) L Red Cell Distribution Width 13.1 % (11.6-14.8) Platelet Count 259 K/UL (150-450) Mean Platelet Volume 10.0 FL (6.5-10.1) Neutrophils (%) (Auto) % (45.0-75.0) Lymphocytes (%) (Auto) % (20.0-45.0) Monocytes (%) (Auto) % (1.0-10.0) Eosinophils (%) (Auto) % (0.0-3.0) Basophils (%) (Auto) % (0.0-2.0) Differential Total Cells Counted 100 Neutrophils % (Manual) 90 % (45-75) H Lymphocytes % (Manual) 6 % (20-45) L Monocytes % (Manual) 4 % (1-10) Eosinophils % (Manual) 0 % (0-3) Basophils % (Manual) 0 % (0-2) Band Neutrophils 0 % (0-8) Platelet Estimate Adequate Platelet Morphology Normal Red Blood Cell Morphology Normal Sodium Level 133 MMOL/L (136-145) L Potassium Level 3.9 MMOL/L (3.5-5.1) Chloride Level 100 MMOL/L (98-107) Carbon Dioxide Level 30 MMOL/L (21-32) Anion Gap 3 mmol/L (5-15) L Blood Urea Nitrogen 41 mg/dL (7-18) H Creatinine 1.5 MG/DL (0.55-1.30) H Estimat Glomerular Filtration Rate 42.8 mL/min (>60) Glucose Level 188 MG/DL (74-106) H Calcium Level 8.7 MG/DL (8.5-10.1) Total Bilirubin 0.6 MG/DL (0.2-1.0) Aspartate Amino Transf (AST/SGOT) 19 U/L (15-37) Alanine Aminotransferase (ALT/SGPT) 38 U/L (12-78) Alkaline Phosphatase 86 U/L (46-116) Pro-B-Type Natriuretic Peptide 4118 pg/mL (0-125) H Total Protein 6.8 G/DL (6.4-8.2) Albumin 2.8 G/DL (3.4-5.0) L Globulin 4.0 g/dL Albumin/Globulin Ratio 0.7 (1.0-2.7) L Current Medications Medications (Trade) Dose Ordered Sig/Gus Route PRN Reason Start Time Stop Time Status Last Admin Dose Admin Acetaminophen/ Hydrocodone Bitart ([place] 10/325) 1 tab Q6HR PRN ORAL For Severe Osteoarthritis Pain 09/25/17 09:15 10/02/17 09:14 09/25/17 14:20 Albuterol/ Ipratropium (Albuterol/ Ipratropium) 3 ml Q4H PRN HHN dyspnea 09/25/17 06:00 09/30/17 05:59 09/26/17 00:18 Aspirin (Ecotrin) 81 mg DAILY ORAL 09/25/17 09:00 10/25/17 08:59 09/27/17 08:51 Dextrose (Dextrose 50%) 25 ml STAT PRN IV Hypoglycemia 09/25/17 09:30 10/25/17 05:59 Dextrose (Dextrose 50%) 50 ml STAT PRN IV Hypoglycemia 09/25/17 09:30 10/25/17 09:29 Furosemide (Lasix) 40 mg DAILY ORAL 09/25/17 09:00 10/25/17 08:59 09/27/17 08:52 Gabapentin (Neurontin) 300 mg BEDTIME ORAL 09/25/17 21:00 10/25/17 20:59 09/26/17 20:35 Heparin Sodium (Porcine) (Heparin 5000 units/ml) 5,000 units EVERY 12 HOURS SUBQ 09/25/17 09:00 10/25/17 08:59 09/27/17 08:53 Lisinopril (Zestril) 10 mg DAILY ORAL 09/27/17 09:00 10/27/17 08:59 09/27/17 08:52 Lorazepam (Ativan 2mg/ml 1ml) 0.5 mg Q4H PRN IV For Anxiety 09/25/17 06:00 10/02/17 05:59 Methylprednisolone Sodium Succinate (Solu-MEDROL) 60 mg EVERY 6 HOURS IV 09/25/17 06:30 10/25/17 06:29 09/27/17 06:17 Morphine Sulfate (Morphine Sulfate) 2 mg Q4H PRN IVP severe pain 7-10 09/25/17 06:00 10/02/17 05:59 09/27/17 08:49 Nitroglycerin (Ntg) 0.4 mg Q5M X 3 DOSES PRN SL Prn Chest Pain 09/25/17 06:00 10/25/17 05:59 Ondansetron HCl (Zofran) 4 mg Q6H PRN IVP Nausea & Vomiting 09/25/17 06:00 10/25/17 05:59 09/26/17 13:54 Pantoprazole (Protonix) 40 mg DAILY@0630 ORAL 09/27/17 06:30 10/27/17 06:29 09/27/17 06:17 Piperacillin Sod/ Tazobactam Sod 3.375 gm/Sodium Chloride 110 ml @ 27.5 mls/hr Q8H IVPB 09/25/17 08:00 10/02/17 07:59 09/27/17 08:50 Promethazine HCl/ Codeine (Phenergan with Codeine) 5 ml Q6H PRN ORAL cough 09/25/17 06:00 10/25/17 05:59 Sucralfate (Carafate) 1 gm TID ORAL 09/25/17 18:00 10/25/17 17:59 09/27/17 08:52 Temazepam (Restoril) 15 mg HSPRN PRN ORAL Insomnia 4/18/18 06:00 10/02/17 05:59 Theophylline (Magno-Dur) 100 mg EVERY 12 HOURS ORAL 09/25/17 09:00 10/25/17 08:59 09/27/17 08:52 Axel Stanford MD Sep 27, 2017 11:44
[2017-09-27 12:00] VITALS: BP 107/58
--- NOTE | 2017-09-27 12:45 | Pulmonology Progress Note ---
Assessment/Plan Problems: (1) Acute respiratory failure (2) COPD exacerbation (3) ACS (acute coronary syndrome) (4) Noncompliance (5) Morbid obesity Assessment/Plan getting better taper steroids respiratory treatment check sputum hold lasix ( bun/creatinine rising) dvt prophylaxis. Subjective ROS Limited/Unobtainable: No Constitutional: Reports: no symptoms HEENT: Repors: no symptoms Respiratory: Reports: no symptoms Allergies: Coded Allergies: NO KNOWN ALLERGIES (Verified Allergy, Unknown, 08/04/17) Objective Last 24 Hour Vital Signs Date Time Temp Pulse Resp B/P (MAP) Pulse Ox O2 Delivery O2 Flow Rate FiO2 09/27/17 12:00 97.7 81 20 107/58 97 Nasal Cannula 2.0 97.7 09/27/17 09:15 97.3 09/27/17 08:52 121/61 09/27/17 08:49 97.3 09/27/17 08:38 86 18 96 Nasal Cannula 2.0 28 09/27/17 08:29 85 18 97 Nasal Cannula 2.0 28 09/27/17 08:00 97.3 80 19 121/61 97 Nasal Cannula 2.0 97.3 09/27/17 08:00 79 09/27/17 04:00 66 09/27/17 04:00 97.0 62 19 109/65 95 Nasal Cannula 2.0 97.0 09/27/17 00:00 97.7 74 18 118/62 94 Nasal Cannula 2.0 97.7 09/27/17 00:00 72 09/26/17 23:38 84 18 97 Nasal Cannula 2.0 28 09/26/17 23:28 81 18 96 Nasal Cannula 2.0 28 09/26/17 20:00 96.4 22 116/66 93 Nasal Cannula 2.0 96.4 09/26/17 20:00 82 09/26/17 16:00 93 09/26/17 16:00 97.5 86 18 150/75 98 Nasal Cannula 2.0 97.5 09/26/17 15:34 Room Air 09/26/17 15:34 Room Air 09/26/17 13:54 96.8 Intake and Output 09/26/17 09/27/17 19:00 07:00 Intake Total 800 ml Output Total 800 ml 700 ml Balance 0 ml -700 ml Other 800 ml Output Urine Total 800 ml 700 ml Stool Total 0 ml General Appearance: WD/WN HEENT: normocephalic Respiratory/Chest: chest wall non-tender, lungs clear Breasts: no masses Cardiovascular: normal peripheral pulses Abdomen: normal bowel sounds, soft, non tender Genitourinary: normal external genitalia Skin: no rash Microbiology Date/Time Source Procedure Growth Status 09/25/17 18:00 Sputum Gram Stain - Final Resulted 09/25/17 18:00 Sputum Sputum Culture - Preliminary Resulted Laboratory Tests 09/26/17 15:20: C-Reactive Protein, Quantitative < 0.4 09/27/17 08:45: White Blood Count 14.5H, Red Blood Count 4.66, Hemoglobin 13.5, Hematocrit 42.4 , Mean Corpuscular Volume 91, Mean Corpuscular Hemoglobin 28.9, Mean Corpuscular Hemoglobin Concent 31.8L, Red Cell Distribution Width 13.1, Platelet Count 259, Mean Platelet Volume 10.0, Neutrophils (%) (Auto) , Lymphocytes (%) (Auto) , Monocytes (%) (Auto) , Eosinophils (%) (Auto) , Basophils (%) (Auto) , Differential Total Cells Counted 100, Neutrophils % ( Manual) 90H, Lymphocytes % (Manual) 6L, Monocytes % (Manual) 4, Eosinophils % ( Manual) 0, Basophils % (Manual) 0, Band Neutrophils 0, Platelet Estimate Adequate, Platelet Morphology Normal, Red Blood Cell Morphology Normal, Sodium Level 133L, Potassium Level 3.9, Chloride Level 100, Carbon Dioxide Level 30, Anion Gap 3L, Blood Urea Nitrogen 41H, Creatinine 1.5H, Estimat Glomerular Filtration Rate 42.8, Glucose Level 188H, Calcium Level 8.7, Total Bilirubin 0.6 , Aspartate Amino Transf (AST/SGOT) 19, Alanine Aminotransferase (ALT/SGPT) 38, Alkaline Phosphatase 86, Pro-B-Type Natriuretic Peptide 4118H, Total Protein 6.8 , Albumin 2.8L, Globulin 4.0, Albumin/Globulin Ratio 0.7L Current Medications Medications (Trade) Dose Ordered Sig/Gus Route PRN Reason Start Time Stop Time Status Last Admin Dose Admin Acetaminophen/ Hydrocodone Bitart ([place] 10/325) 1 tab Q6HR PRN ORAL For Severe Osteoarthritis Pain 09/25/17 09:15 10/02/17 09:14 09/25/17 14:20 Albuterol/ Ipratropium (Albuterol/ Ipratropium) 3 ml Q4H PRN HHN dyspnea 09/25/17 06:00 09/30/17 05:59 09/26/17 00:18 Aspirin (Ecotrin) 81 mg DAILY ORAL 09/25/17 09:00 10/25/17 08:59 09/27/17 08:51 Azithromycin 500 mg/Dextrose 275 ml @ 275 mls/hr Q24HRS IV 09/27/17 13:00 10/03/17 13:59 09/27/17 12:34 Dextrose (Dextrose 50%) 25 ml STAT PRN IV Hypoglycemia 09/25/17 09:30 10/25/17 05:59 Dextrose (Dextrose 50%) 50 ml STAT PRN IV Hypoglycemia 09/25/17 09:30 10/25/17 09:29 Furosemide (Lasix) 40 mg DAILY ORAL 09/25/17 09:00 10/25/17 08:59 09/27/17 08:52 Gabapentin (Neurontin) 300 mg BEDTIME ORAL 09/25/17 21:00 10/25/17 20:59 09/26/17 20:35 Heparin Sodium (Porcine) (Heparin 5000 units/ml) 5,000 units EVERY 12 HOURS SUBQ 09/25/17 09:00 10/25/17 08:59 09/27/17 08:53 Lisinopril (Zestril) 10 mg DAILY ORAL 09/27/17 09:00 10/27/17 08:59 09/27/17 08:52 Lorazepam (Ativan 2mg/ml 1ml) 0.5 mg Q4H PRN IV For Anxiety 09/25/17 06:00 10/02/17 05:59 Methylprednisolone Sodium Succinate (Solu-MEDROL) 60 mg EVERY 6 HOURS IV 09/25/17 06:30 10/25/17 06:29 09/27/17 12:33 Morphine Sulfate (Morphine Sulfate) 2 mg Q4H PRN IVP severe pain 7-10 09/25/17 06:00 10/02/17 05:59 09/27/17 08:49 Nitroglycerin (Ntg) 0.4 mg Q5M X 3 DOSES PRN SL Prn Chest Pain 09/25/17 06:00 10/25/17 05:59 Ondansetron HCl (Zofran) 4 mg Q6H PRN IVP Nausea & Vomiting 09/25/17 06:00 10/25/17 05:59 09/26/17 13:54 Pantoprazole (Protonix) 40 mg DAILY@0630 ORAL 09/27/17 06:30 10/27/17 06:29 09/27/17 06:17 Promethazine HCl/ Codeine (Phenergan with Codeine) 5 ml Q6H PRN ORAL cough 09/25/17 06:00 10/25/17 05:59 Sucralfate (Carafate) 1 gm TID ORAL 09/25/17 18:00 10/25/17 17:59 09/27/17 12:33 Temazepam (Restoril) 15 mg HSPRN PRN ORAL Insomnia 09/25/17 06:00 10/02/17 05:59 Theophylline (Magno-Dur) 100 mg EVERY 12 HOURS ORAL 09/25/17 09:00 10/25/17 08:59 09/27/17 08:52 Merari Boateng MD Sep 27, 2017 12:45
[2017-09-27] MEDS ORDERED: Azithromycin 500 MG in D5W 275 ML IV SCH (13:00)
[2017-09-27] MEDS ORDERED: Nitroglycerin Subl 0.4mg tab SL PRN (14:30)
[2017-09-27 16:00] VITALS: BP 106/61
[2017-09-27] MEDS ORDERED: Albuterol/Ipratropium 3ml neb HHN PRN (16:00)
[2017-09-27] MEDS ORDERED: Promethazine/Codeine 5ml UD ORAL PRN (18:00)
[2017-09-27] MEDS ORDERED: Morphine Sulfate 4mg/ml Inj IVP PRN (18:00)
[2017-09-27] MEDS ORDERED: LORazepam Inj 2mg/ml 1ml IV PRN (18:00)
--- NOTE | 2017-09-27 18:43 | Diagnostic Imaging Report ---
Indication: Dyspnea Technique: XRAY Chest 1v Comparison: 09/24/2017 Findings: Heart size and mediastinal contours are stable. There is increasing linear atelectasis at the left base. Otherwise, focal consolidation. There is mild central pulmonary vascular congestion. No pleural effusion. No pneumothorax. IMPRESSION: Increased linear atelectasis at the left base. Cardiomegaly with very mild central pulmonary vascular congestion.
[2017-09-27 20:00] VITALS: BP 100/62
[2017-09-28] VITALS (7 sets, daily range): BP systolic 100–135; BP diastolic 63–80
[2017-09-28 08:29] LABS: BASOPHILS % (AUTO) 0.4 % (0.0-2.0); HEMATOCRIT 40.1 % (37.0-47.0); HEMOGLOBIN 13.4 G/DL (12.0-16.0); LYMPHOCYTES % (AUTO) 11.8 % (20.0-45.0); MEAN CORPUSCULAR VOLUME 90 FL (80-99); MONOCYTES % (AUTO) 8.1 % (1.0-10.0); NEUTROPHILS % (AUTO) 79.7 % (45.0-75.0); PLATELET COUNT 211 K/UL (150-450); RED BLOOD COUNT 4.44 M/UL (4.20-5.40); RED CELL DISTRIBUTION WIDTH 13.3 % (11.6-14.8); WHITE BLOOD COUNT 12.2 K/UL (4.8-10.8)
[2017-09-28] MEDS: Theophylline ER 100mg ORAL SCH ×2 (08:59→21:58)
[2017-09-28] MEDS: Sucralfate 1gm tab ORAL SCH ×3 (08:59→17:44)
[2017-09-28] MEDS: Aspirin EC 81mg tab ORAL SCH (08:59)
[2017-09-28] MEDS: Lisinopril 10mg tab ORAL SCH (09:00)
[2017-09-28] MEDS ORDERED: Solu-MEDROL 125mg Inj IV SCH ×2 (09:00)
[2017-09-28] MEDS: Heparin 5000 units/ml inj SUBQ SCH ×2 (09:04→21:59)
[2017-09-28 09:08] LABS: ALANINE AMINOTRANSFERASE 28 U/L (12-78); ALBUMIN 2.5 G/DL (3.4-5.0); ALBUMIN/GLOBULIN RATIO 0.7 (1.0-2.7); ALKALINE PHOSPHATASE 65 U/L (46-116); ANION GAP 8 mmol/L (5-15); ASPARTATE AMINO TRANSFERASE 15 U/L (15-37); BILIRUBIN,TOTAL 0.5 MG/DL (0.2-1.0); BLOOD UREA NITROGEN 43 mg/dL (7-18); CALCIUM 8.3 MG/DL (8.5-10.1); CARBON DIOXIDE 29 MMOL/L (21-32); CHLORIDE 101 MMOL/L (98-107); CREATININE 1.1 MG/DL (0.55-1.30); POTASSIUM 3.8 MMOL/L (3.5-5.1); SODIUM 138 MMOL/L (136-145)
[2017-09-28] MEDS ORDERED: Docusate 100mg cap ORAL SCH (09:30)
[2017-09-28] MEDS ORDERED: Tubing IV Secondary IV ONE (09:45)
--- NOTE | 2017-09-28 11:04 | Pulmonology Progress Note ---
Assessment/Plan Problems: (1) Acute respiratory failure (2) COPD exacerbation (3) ACS (acute coronary syndrome) (4) Noncompliance (5) Morbid obesity Assessment/Plan coughing up yellow phlegm now getting better taper steroids to 20 mg qd respiratory treatment check sputum hold lasix ( bun/creatinine rising) dvt prophylaxis. Subjective ROS Limited/Unobtainable: No HEENT: Repors: no symptoms Respiratory: Reports: no symptoms Allergies: Coded Allergies: NO KNOWN ALLERGIES (Verified Allergy, Unknown, 08/04/17) Objective Last 24 Hour Vital Signs Date Time Temp Pulse Resp B/P (MAP) Pulse Ox O2 Delivery O2 Flow Rate FiO2 09/28/17 08:00 Nasal Cannula 2.0 09/28/17 08:00 96.3 78 19 100/70 98 96.3 09/28/17 07:24 80 18 96 Nasal Cannula 2.0 28 09/28/17 07:24 80 18 96 Nasal Cannula 2.0 28 09/28/17 04:00 97.5 75 19 118/69 95 Room Air 97.5 09/28/17 00:00 97.5 66 18 103/63 97 Room Air 97.5 09/27/17 23:15 85 18 97 Nasal Cannula 2.0 28 09/27/17 23:15 82 18 96 Nasal Cannula 2.0 28 09/27/17 20:00 97.3 74 20 100/62 96 97.3 09/27/17 16:00 97.7 79 20 106/61 97 Nasal Cannula 2.0 97.7 09/27/17 15:52 Nasal Cannula 09/27/17 15:51 Nasal Cannula 09/27/17 12:00 97.7 81 20 107/58 97 Nasal Cannula 2.0 97.7 09/27/17 12:00 70 Intake and Output 09/27/17 09/28/17 19:00 07:00 Intake Total 625.0 ml 420 ml Output Total 1400 ml 1100 ml Balance -775.0 ml -680 ml Intake Oral 240 ml 420 ml IV Total 385.0 ml Output Urine Total 1400 ml 1100 ml General Appearance: WD/WN HEENT: normocephalic, atraumatic Respiratory/Chest: chest wall non-tender, lungs clear Breasts: no masses Cardiovascular: normal peripheral pulses Abdomen: normal bowel sounds, soft, non tender Genitourinary: normal external genitalia Extremities: no cyanosis Skin: no lesions Neurologic/Psychiatric: communication center coordinator II-XII grossly normal, no motor/sensory deficits Microbiology Date/Time Source Procedure Growth Status 09/25/17 18:00 Sputum Gram Stain - Final Resulted 09/25/17 18:00 Sputum Culture - Preliminary Staphylococcus Aureus Usual Respiratory Ashli Resulted Laboratory Tests 09/28/17 06:37: White Blood Count 12.2H, Red Blood Count 4.44, Hemoglobin 13.4, Hematocrit 40.1 , Mean Corpuscular Volume 90, Mean Corpuscular Hemoglobin 30.2, Mean Corpuscular Hemoglobin Concent 33.4, Red Cell Distribution Width 13.3, Platelet Count 211, Mean Platelet Volume 9.8, Neutrophils (%) (Auto) 79.7H, Lymphocytes ( %) (Auto) 11.8L, Monocytes (%) (Auto) 8.1, Eosinophils (%) (Auto) 0.0, Basophils (%) (Auto) 0.4, Sodium Level 138, Potassium Level 3.8, Chloride Level 101, Carbon Dioxide Level 29, Anion Gap 8, Blood Urea Nitrogen 43H, Creatinine 1.1, Estimat Glomerular Filtration Rate > 60, Glucose Level 125H, Calcium Level 8.3L, Total Bilirubin 0.5, Aspartate Amino Transf (AST/SGOT) 15, Alanine Aminotransferase (ALT/SGPT) 28, Alkaline Phosphatase 65, Pro-B-Type Natriuretic Peptide 3410H, Total Protein 6.1L, Albumin 2.5L, Globulin 3.6, Albumin/Globulin Ratio 0.7L Current Medications Medications (Trade) Dose Ordered Sig/Gus Route PRN Reason Start Time Stop Time Status Last Admin Dose Admin Acetaminophen/ Hydrocodone Bitart ([place] 10/325) 1 tab Q6H PRN ORAL For Severe Osteoarthritis Pain 09/27/17 18:00 10/04/17 17:59 Albuterol/ Ipratropium (Albuterol/ Ipratropium) 3 ml Q4H PRN HHN dyspnea 09/27/17 16:00 09/30/17 15:59 Aspirin (Ecotrin) 81 mg DAILY ORAL 09/28/17 09:00 10/25/17 08:59 09/28/17 08:59 Azithromycin 500 mg/Dextrose 275 ml @ 275 mls/hr Q24HRS IV 09/28/17 13:00 10/03/17 13:59 Dextrose (Dextrose 50%) 25 ml STAT PRN IV Hypoglycemia 09/27/17 15:00 10/27/17 14:59 Dextrose (Dextrose 50%) 50 ml STAT PRN IV Hypoglycemia 09/27/17 15:00 10/27/17 14:59 Docusate Sodium (Colace) 100 mg THREE TIMES A DAY ORAL 09/28/17 13:00 10/28/17 12:59 Gabapentin (Neurontin) 300 mg BEDTIME ORAL 09/27/17 21:00 10/25/17 20:59 09/27/17 20:30 Heparin Sodium (Porcine) (Heparin 5000 units/ml) 5,000 units EVERY 12 HOURS SUBQ 09/27/17 21:00 10/25/17 08:59 09/28/17 09:04 Lisinopril (Zestril) 10 mg DAILY ORAL 09/28/17 09:00 10/27/17 08:59 Lorazepam (Ativan 2mg/ml 1ml) 0.5 mg Q4H PRN IV For Anxiety 09/27/17 18:00 10/02/17 05:59 Methylprednisolone Sodium Succinate (Solu-MEDROL) 60 mg DAILY IV 09/28/17 09:00 10/25/17 06:29 09/28/17 08:26 Morphine Sulfate (Morphine Sulfate) 2 mg Q4H PRN IVP severe pain 7-10 09/27/17 18:00 10/02/17 05:59 Nitroglycerin (Ntg) 0.4 mg Q5M X 3 DOSES PRN SL Prn Chest Pain 09/27/17 14:30 10/25/17 05:59 Ondansetron HCl (Zofran) 4 mg Q6H PRN IVP Nausea & Vomiting 09/27/17 18:00 10/25/17 05:59 Pantoprazole (Protonix) 40 mg DAILY@0630 ORAL 09/28/17 06:30 10/27/17 06:29 09/28/17 06:16 Promethazine HCl/ Codeine (Phenergan with Codeine) 5 ml Q6H PRN ORAL cough 09/27/17 18:00 10/25/17 05:59 Sucralfate (Carafate) 1 gm TID ORAL 09/27/17 18:00 10/25/17 17:59 09/28/17 08:59 Temazepam (Restoril) 15 mg HSPRN PRN ORAL Insomnia 09/27/17 16:00 10/04/17 15:59 Theophylline (Magno-Dur) 100 mg EVERY 12 HOURS ORAL 09/27/17 21:00 10/25/17 08:59 09/28/17 08:59 Merari Boateng MD Sep 28, 2017 11:04
[2017-09-28] MEDS: Azithromycin 500 MG in D5W 275 ML IV SCH (12:42)
[2017-09-28] MEDS: Docusate 100mg cap ORAL SCH ×2 (13:00→17:45)
--- NOTE | 2017-09-28 13:10 | Infectious Diseases Prog Note ---
Assessment/Plan Assessment/Plan ASSESSMENT: The patient a 61-year-old female with, Chronic obstructive pulmonary disease exacerbation. improving ? pneumonia (less likely), Scx: NL fl and Staph A ( Colonizer at this time ) CXR: 09/27 Increased linear atelectasis at the left base. Cardiomegaly with very mild central pulmonary vascular congestion CXR: chest x-ray, no acute pulmonary disease Ex-smoker CRP: 0.4 ( => doubt sig bacterial infection ) Leukocytosis ( on steroids ) improving CHF. Hyperlipidemia. Hypertension. COPD. Hysterectomy. Cholecystectomy. Obesity. GERD. Osteoarthritis. Hypothyroidism. PLAN: Zithromax d# 2 / 5 for atypical coverage. 09/27 SP DC IV Zosyn d # 2 Monitor CBC. Monitor BMP. Monitor sputum culture. Subjective Allergies: Coded Allergies: NO KNOWN ALLERGIES (Verified Allergy, Unknown, 08/04/17) Subjective cough is better Objective Vital Signs Last 24 Hour Vital Signs Date Time Temp Pulse Resp B/P (MAP) Pulse Ox O2 Delivery O2 Flow Rate FiO2 09/28/17 12:00 98.1 75 18 116/68 95 98.1 09/28/17 08:00 Nasal Cannula 2.0 09/28/17 08:00 96.3 78 19 100/70 98 96.3 09/28/17 07:24 80 18 96 Nasal Cannula 2.0 28 09/28/17 07:24 80 18 96 Nasal Cannula 2.0 28 09/28/17 04:00 97.5 75 19 118/69 95 Room Air 97.5 09/28/17 00:00 97.5 66 18 103/63 97 Room Air 97.5 09/27/17 23:15 85 18 97 Nasal Cannula 2.0 28 09/27/17 23:15 82 18 96 Nasal Cannula 2.0 28 09/27/17 20:00 97.3 74 20 100/62 96 97.3 09/27/17 16:00 97.7 79 20 106/61 97 Nasal Cannula 2.0 97.7 09/27/17 15:52 Nasal Cannula 09/27/17 15:51 Nasal Cannula Height (Feet): 5 Height (Inches): 1.00 Weight (Pounds): 277 HEENT: anicteric Respiratory/Chest: no respiratory distress Cardiovascular: regularly irregular Abdomen: no organomegaly Microbiology Date/Time Source Procedure Growth Status 09/25/17 18:00 Sputum Gram Stain - Final Resulted 09/25/17 18:00 Sputum Culture - Preliminary Staphylococcus Aureus Usual Respiratory Ashli Resulted Laboratory Tests Test 09/28/17 06:37 White Blood Count 12.2 K/UL (4.8-10.8) H Red Blood Count 4.44 M/UL (4.20-5.40) Hemoglobin 13.4 G/DL (12.0-16.0) Hematocrit 40.1 % (37.0-47.0) Mean Corpuscular Volume 90 FL (80-99) Mean Corpuscular Hemoglobin 30.2 PG (27.0-31.0) Mean Corpuscular Hemoglobin Concent 33.4 G/DL (32.0-36.0) Red Cell Distribution Width 13.3 % (11.6-14.8) Platelet Count 211 K/UL (150-450) Mean Platelet Volume 9.8 FL (6.5-10.1) Neutrophils (%) (Auto) 79.7 % (45.0-75.0) H Lymphocytes (%) (Auto) 11.8 % (20.0-45.0) L Monocytes (%) (Auto) 8.1 % (1.0-10.0) Eosinophils (%) (Auto) 0.0 % (0.0-3.0) Basophils (%) (Auto) 0.4 % (0.0-2.0) Sodium Level 138 MMOL/L (136-145) Potassium Level 3.8 MMOL/L (3.5-5.1) Chloride Level 101 MMOL/L (98-107) Carbon Dioxide Level 29 MMOL/L (21-32) Anion Gap 8 mmol/L (5-15) Blood Urea Nitrogen 43 mg/dL (7-18) H Creatinine 1.1 MG/DL (0.55-1.30) Estimat Glomerular Filtration Rate > 60 mL/min (>60) Glucose Level 125 MG/DL (74-106) H Calcium Level 8.3 MG/DL (8.5-10.1) L Total Bilirubin 0.5 MG/DL (0.2-1.0) Aspartate Amino Transf (AST/SGOT) 15 U/L (15-37) Alanine Aminotransferase (ALT/SGPT) 28 U/L (12-78) Alkaline Phosphatase 65 U/L (46-116) Pro-B-Type Natriuretic Peptide 3410 pg/mL (0-125) H Total Protein 6.1 G/DL (6.4-8.2) L Albumin 2.5 G/DL (3.4-5.0) L Globulin 3.6 g/dL Albumin/Globulin Ratio 0.7 (1.0-2.7) L Current Medications Medications (Trade) Dose Ordered Sig/Gus Route PRN Reason Start Time Stop Time Status Last Admin Dose Admin Acetaminophen/ Hydrocodone Bitart ([place] 10/325) 1 tab Q6H PRN ORAL For Severe Osteoarthritis Pain 09/27/17 18:00 10/04/17 17:59 Albuterol/ Ipratropium (Albuterol/ Ipratropium) 3 ml Q4H PRN HHN dyspnea 09/27/17 16:00 09/30/17 15:59 Aspirin (Ecotrin) 81 mg DAILY ORAL 09/28/17 09:00 10/25/17 08:59 09/28/17 08:59 Azithromycin 500 mg/Dextrose 275 ml @ 275 mls/hr Q24HRS IV 09/28/17 13:00 10/03/17 13:59 09/28/17 12:42 Dextrose (Dextrose 50%) 25 ml STAT PRN IV Hypoglycemia 09/27/17 15:00 10/27/17 14:59 Dextrose (Dextrose 50%) 50 ml STAT PRN IV Hypoglycemia 09/27/17 15:00 10/27/17 14:59 Docusate Sodium (Colace) 100 mg THREE TIMES A DAY ORAL 09/28/17 13:00 10/28/17 12:59 Gabapentin (Neurontin) 300 mg BEDTIME ORAL 09/27/17 21:00 10/25/17 20:59 09/27/17 20:30 Heparin Sodium (Porcine) (Heparin 5000 units/ml) 5,000 units EVERY 12 HOURS SUBQ 09/27/17 21:00 10/25/17 08:59 09/28/17 09:04 Lisinopril (Zestril) 10 mg DAILY ORAL 09/28/17 09:00 10/27/17 08:59 Lorazepam (Ativan 2mg/ml 1ml) 0.5 mg Q4H PRN IV For Anxiety 09/27/17 18:00 10/02/17 05:59 Methylprednisolone Sodium Succinate (Solu-MEDROL) 20 mg DAILY IVP 09/29/17 09:00 10/25/17 06:29 Morphine Sulfate (Morphine Sulfate) 2 mg Q4H PRN IVP severe pain 7-10 09/27/17 18:00 10/02/17 05:59 Nitroglycerin (Ntg) 0.4 mg Q5M X 3 DOSES PRN SL Prn Chest Pain 09/27/17 14:30 10/25/17 05:59 Ondansetron HCl (Zofran) 4 mg Q6H PRN IVP Nausea & Vomiting 09/27/17 18:00 10/25/17 05:59 Pantoprazole (Protonix) 40 mg DAILY@0630 ORAL 09/28/17 06:30 10/27/17 06:29 09/28/17 06:16 Promethazine HCl/ Codeine (Phenergan with Codeine) 5 ml Q6H PRN ORAL cough 09/27/17 18:00 10/25/17 05:59 Sucralfate (Carafate) 1 gm TID ORAL 09/27/17 18:00 10/25/17 17:59 09/28/17 08:59 Temazepam (Restoril) 15 mg HSPRN PRN ORAL Insomnia 09/27/17 16:00 10/04/17 15:59 Theophylline (Magno-Dur) 100 mg EVERY 12 HOURS ORAL 09/27/17 21:00 10/25/17 08:59 09/28/17 08:59 Axel Stanford MD Sep 28, 2017 13:10
[2017-09-28] MEDS: HYDROcodone/Acetamin 10/325 tab ORAL PRN (18:57)
[2017-09-29 04:00] VITALS: BP 126/81
[2017-09-29] MEDS: HYDROcodone/Acetamin 10/325 tab ORAL PRN ×2 (06:40→16:20)
[2017-09-29 08:00] VITALS: BP 123/72
[2017-09-29] MEDS: Solu-MEDROL 40mg Inj IVP SCH (08:52)
[2017-09-29] MEDS: Theophylline ER 100mg ORAL SCH ×2 (08:56→21:10)
[2017-09-29] MEDS: Sucralfate 1gm tab ORAL SCH ×3 (08:57→17:26)
[2017-09-29] MEDS: Aspirin EC 81mg tab ORAL SCH (08:57)
[2017-09-29] MEDS: Lisinopril 10mg tab ORAL SCH (08:57)
[2017-09-29] MEDS: Docusate 100mg cap ORAL SCH ×3 (09:00→17:26)
[2017-09-29] MEDS: Heparin 5000 units/ml inj SUBQ SCH ×2 (09:00→21:14)
--- NOTE | 2017-09-29 10:57 | Cardiology Progress Note ---
Assessment/Plan Assessment/Plan 1. Congestive heart failure. 2. Mitral regurgitation. 3. Pulmonary hypertension. 4. Morbid obesity. 5. Chronic obstructive pulmonary disease. 6. History of gastroesophageal reflux disease. on aci start coreg 3.125 mg bid will star po lasix cr ok today ambualte Subjective Cardiovascular: Denies: chest pain, lightheadedness, palpitations Respiratory: Denies: shortness of breath Gastrointestinal/Abdominal: Reports: abdominal pain Genitourinary: Denies: burning Objective Last 24 Hour Vital Signs Date Time Temp Pulse Resp B/P (MAP) Pulse Ox O2 Delivery O2 Flow Rate FiO2 09/29/17 08:57 123/72 09/29/17 08:00 96.8 72 18 123/72 97 Room Air 96.8 09/29/17 07:39 96.8 09/29/17 04:00 96.8 62 18 126/81 97 96.8 09/28/17 23:50 97.5 70 18 125/74 98 97.5 09/28/17 23:33 82 18 96 Nasal Cannula 2.0 28 09/28/17 23:33 81 18 97 Nasal Cannula 2.0 28 09/28/17 20:00 97.0 73 18 135/80 99 97.0 09/28/17 18:57 97.9 09/28/17 16:09 97 18 96 Nasal Cannula 2.0 28 09/28/17 16:00 Nasal Cannula 2.0 09/28/17 16:00 73 20 96 Nasal Cannula 2.0 28 09/28/17 15:48 97.9 77 19 109/79 98 97.9 09/28/17 12:00 98.1 75 18 116/68 95 98.1 09/28/17 12:00 Nasal Cannula 2.0 General Appearance: no apparent distress, alert, obese Neck: supple Cardiovascular: regular rhythm Respiratory/Chest: lungs clear Abdomen: normal bowel sounds, non tender, soft Extremities: no swelling Intake and Output 09/28/17 09/29/17 19:00 07:00 Intake Total 635 ml 600 ml Output Total 800 ml Balance -165 ml 600 ml Intake Oral 360 ml 600 ml IV Total 275 ml Output Urine Total 800 ml # Voids 1 3 # Bowel Movements 1 NURIS PAULINO Sep 29, 2017 10:57
[2017-09-29 12:00] VITALS: BP 117/67
[2017-09-29] MEDS: Azithromycin 500 MG in D5W 275 ML IV SCH (13:33)
[2017-09-29] MEDS: Furosemide 40mg tab ORAL SCH (13:36)
[2017-09-29 16:00] VITALS: BP 117/73
[2017-09-29 20:00] VITALS: BP 110/65
--- NOTE | 2017-09-29 21:43 | Pulmonology Progress Note ---
Assessment/Plan Problems: (1) Acute respiratory failure (2) COPD exacerbation (3) ACS (acute coronary syndrome) (4) Noncompliance (5) Morbid obesity Assessment/Plan getting better taper steroids to 20 mg qd respiratory treatment check sputum dvt prophylaxis. Subjective ROS Limited/Unobtainable: No Constitutional: Reports: no symptoms HEENT: Repors: no symptoms Respiratory: Reports: no symptoms Allergies: Coded Allergies: NO KNOWN ALLERGIES (Verified Allergy, Unknown, 08/04/17) Objective Last 24 Hour Vital Signs Date Time Temp Pulse Resp B/P (MAP) Pulse Ox O2 Delivery O2 Flow Rate FiO2 09/29/17 21:10 79 110/65 09/29/17 20:00 97.2 79 20 110/65 100 97.2 09/29/17 17:19 96.6 09/29/17 16:20 96.6 09/29/17 16:00 98.1 73 18 117/73 98 Room Air 98.1 09/29/17 13:37 65 117/67 09/29/17 12:00 96.6 65 18 117/67 93 Room Air 96.6 09/29/17 08:57 123/72 09/29/17 08:00 96.8 72 18 123/72 97 Room Air 96.8 09/29/17 04:00 96.8 62 18 126/81 97 96.8 09/28/17 23:50 97.5 70 18 125/74 98 97.5 09/28/17 23:33 82 18 96 Nasal Cannula 2.0 28 09/28/17 23:33 81 18 97 Nasal Cannula 2.0 28 Intake and Output 09/28/17 09/29/17 19:00 07:00 Intake Total 635 ml 600 ml Output Total 800 ml Balance -165 ml 600 ml Intake Oral 360 ml 600 ml IV Total 275 ml Output Urine Total 800 ml # Voids 1 3 # Bowel Movements 1 General Appearance: WD/WN HEENT: normocephalic, atraumatic Respiratory/Chest: chest wall non-tender, lungs clear Breasts: no masses Cardiovascular: normal peripheral pulses Abdomen: normal bowel sounds, soft, non tender Genitourinary: normal external genitalia Skin: no ulcers Neurologic/Psychiatric: no motor/sensory deficits Lymphatic: no neck adenopathy Current Medications Medications (Trade) Dose Ordered Sig/Gus Route PRN Reason Start Time Stop Time Status Last Admin Dose Admin Acetaminophen/ Hydrocodone Bitart ([place] 10/325) 1 tab Q6H PRN ORAL For Severe Osteoarthritis Pain 09/27/17 18:00 10/04/17 17:59 09/29/17 16:20 Albuterol/ Ipratropium (Albuterol/ Ipratropium) 3 ml Q4H PRN HHN dyspnea 09/27/17 16:00 09/30/17 15:59 Aspirin (Ecotrin) 81 mg DAILY ORAL 09/28/17 09:00 10/25/17 08:59 09/29/17 08:57 Azithromycin (Zithromax) 250 mg DAILY ORAL 09/30/17 09:00 10/02/17 09:01 Carvedilol (Coreg) 3.125 mg EVERY 12 HOURS ORAL 09/29/17 12:00 10/29/17 11:59 09/29/17 21:10 Dextrose (Dextrose 50%) 25 ml STAT PRN IV Hypoglycemia 09/27/17 15:00 10/27/17 14:59 Dextrose (Dextrose 50%) 50 ml STAT PRN IV Hypoglycemia 09/27/17 15:00 10/27/17 14:59 Docusate Sodium (Colace) 100 mg THREE TIMES A DAY ORAL 09/29/17 13:00 10/29/17 12:59 09/29/17 17:26 Furosemide (Lasix) 40 mg DAILY ORAL 09/29/17 12:00 10/29/17 11:59 09/29/17 13:36 Gabapentin (Neurontin) 300 mg BEDTIME ORAL 09/27/17 21:00 10/25/17 20:59 09/29/17 21:10 Heparin Sodium (Porcine) (Heparin 5000 units/ml) 5,000 units EVERY 12 HOURS SUBQ 09/27/17 21:00 10/25/17 08:59 09/29/17 21:14 Lisinopril (Zestril) 10 mg DAILY ORAL 09/28/17 09:00 10/27/17 08:59 09/29/17 08:57 Lorazepam (Ativan 2mg/ml 1ml) 0.5 mg Q4H PRN IV For Anxiety 09/27/17 18:00 10/02/17 05:59 Methylprednisolone Sodium Succinate (Solu-MEDROL) 20 mg DAILY IVP 09/29/17 09:00 10/25/17 06:29 09/29/17 08:52 Morphine Sulfate (Morphine Sulfate) 2 mg Q4H PRN IVP severe pain 7-10 09/27/17 18:00 10/02/17 05:59 Nitroglycerin (Ntg) 0.4 mg Q5M X 3 DOSES PRN SL Prn Chest Pain 09/27/17 14:30 10/25/17 05:59 Ondansetron HCl (Zofran) 4 mg Q6H PRN IVP Nausea & Vomiting 09/27/17 18:00 10/25/17 05:59 09/29/17 06:38 Pantoprazole (Protonix) 40 mg DAILY@0630 ORAL 09/28/17 06:30 10/27/17 06:29 09/29/17 05:47 Promethazine HCl/ Codeine (Phenergan with Codeine) 5 ml Q6H PRN ORAL cough 09/27/17 18:00 10/25/17 05:59 Sucralfate (Carafate) 1 gm TID ORAL 09/27/17 18:00 10/25/17 17:59 09/29/17 17:26 Temazepam (Restoril) 15 mg HSPRN PRN ORAL Insomnia 09/27/17 16:00 10/04/17 15:59 Theophylline (Magno-Dur) 100 mg EVERY 12 HOURS ORAL 09/27/17 21:00 10/25/17 08:59 09/29/17 21:10 Merari Boateng MD Sep 29, 2017 21:43
[2017-09-30] VITALS: BP 117/69
[2017-09-30] MEDS: HYDROcodone/Acetamin 10/325 tab ORAL PRN (02:52)
[2017-09-30 04:00] VITALS: BP 107/65
[2017-09-30 08:00] VITALS: BP 115/64
[2017-09-30] MEDS ORDERED: Azithromycin 250mg tab ORAL SCH (09:00)
[2017-09-30] MEDS: Aspirin EC 81mg tab ORAL SCH (09:47)
[2017-09-30] MEDS: Theophylline ER 100mg ORAL SCH (09:48)
[2017-09-30] MEDS: Docusate 100mg cap ORAL SCH ×2 (09:48→13:14)
[2017-09-30] MEDS: Sucralfate 1gm tab ORAL SCH ×2 (09:49→13:14)
[2017-09-30] MEDS: Furosemide 40mg tab ORAL SCH (09:49)
[2017-09-30] MEDS: Lisinopril 10mg tab ORAL SCH (09:49)
[2017-09-30] MEDS: Solu-MEDROL 40mg Inj IVP SCH (09:50)
[2017-09-30] MEDS: Heparin 5000 units/ml inj SUBQ SCH (09:51)
--- NOTE | 2017-09-30 10:49 | Infectious Diseases Prog Note ---
Assessment/Plan Assessment/Plan ASSESSMENT: The patient a 61-year-old female with, Chronic obstructive pulmonary disease exacerbation. improving ? pneumonia (less likely), Scx: NL fl and MSSA ( Colonizer at this time ) CXR: 09/27 Increased linear atelectasis at the left base. Cardiomegaly with very mild central pulmonary vascular congestion CXR: chest x-ray, no acute pulmonary disease Ex-smoker CRP: 0.4 ( => doubt sig bacterial infection ) Leukocytosis ( on steroids ) improving CHF. Hyperlipidemia. Hypertension. COPD. Hysterectomy. Cholecystectomy. Obesity. GERD. Osteoarthritis. Hypothyroidism. PLAN: Zithromax d# 4 / 5 for atypical coverage. 09/27 SP IV Zosyn d # 2 Monitor CBC. Monitor BMP. Monitor sputum culture. CBC, CXR am Subjective Allergies: Coded Allergies: NO KNOWN ALLERGIES (Verified Allergy, Unknown, 08/04/17) Subjective afebrile leukocytosis improvng, no cbc today at Objective Vital Signs Last 24 Hour Vital Signs Date Time Temp Pulse Resp B/P (MAP) Pulse Ox O2 Delivery O2 Flow Rate FiO2 09/30/17 09:49 115/64 09/30/17 09:48 66 129/59 09/30/17 04:00 97.5 61 19 107/65 98 97.5 09/30/17 03:51 97.3 09/30/17 02:52 97.3 09/30/17 00:00 Nasal Cannula 2.0 09/30/17 00:00 97.3 62 18 117/69 100 97.3 09/29/17 21:10 79 110/65 09/29/17 20:00 Nasal Cannula 2.0 09/29/17 20:00 97.2 79 20 110/65 100 97.2 09/29/17 16:20 96.6 09/29/17 16:00 98.1 73 18 117/73 98 Room Air 98.1 09/29/17 13:37 65 117/67 09/29/17 12:00 96.6 65 18 117/67 93 Room Air 96.6 Height (Feet): 5 Height (Inches): 1.00 Weight (Pounds): 271 Objective HEENT: anicteric Respiratory/Chest: no respiratory distress Cardiovascular: regularly irregular Abdomen: no organomegaly Current Medications Medications (Trade) Dose Ordered Sig/Gus Route PRN Reason Start Time Stop Time Status Last Admin Dose Admin Acetaminophen/ Hydrocodone Bitart ([place] 10/325) 1 tab Q6H PRN ORAL For Severe Osteoarthritis Pain 09/27/17 18:00 10/04/17 17:59 09/30/17 02:52 Albuterol/ Ipratropium (Albuterol/ Ipratropium) 3 ml Q4H PRN HHN dyspnea 09/27/17 16:00 09/30/17 15:59 Aspirin (Ecotrin) 81 mg DAILY ORAL 09/28/17 09:00 10/25/17 08:59 09/30/17 09:47 Azithromycin (Zithromax) 250 mg DAILY ORAL 09/30/17 09:00 10/02/17 09:01 09/30/17 09:48 Carvedilol (Coreg) 3.125 mg EVERY 12 HOURS ORAL 09/29/17 12:00 10/29/17 11:59 09/30/17 09:48 Dextrose (Dextrose 50%) 25 ml STAT PRN IV Hypoglycemia 09/27/17 15:00 10/27/17 14:59 Dextrose (Dextrose 50%) 50 ml STAT PRN IV Hypoglycemia 09/27/17 15:00 10/27/17 14:59 Docusate Sodium (Colace) 100 mg THREE TIMES A DAY ORAL 09/29/17 13:00 10/29/17 12:59 09/30/17 09:48 Furosemide (Lasix) 40 mg DAILY ORAL 09/29/17 12:00 10/29/17 11:59 09/30/17 09:49 Gabapentin (Neurontin) 300 mg BEDTIME ORAL 09/27/17 21:00 10/25/17 20:59 09/29/17 21:10 Heparin Sodium (Porcine) (Heparin 5000 units/ml) 5,000 units EVERY 12 HOURS SUBQ 09/27/17 21:00 10/25/17 08:59 09/30/17 09:51 Lisinopril (Zestril) 10 mg DAILY ORAL 09/28/17 09:00 10/27/17 08:59 09/30/17 09:49 Lorazepam (Ativan 2mg/ml 1ml) 0.5 mg Q4H PRN IV For Anxiety 09/27/17 18:00 10/02/17 05:59 Methylprednisolone Sodium Succinate (Solu-MEDROL) 20 mg DAILY IVP 09/29/17 09:00 10/25/17 06:29 09/30/17 09:50 Morphine Sulfate (Morphine Sulfate) 2 mg Q4H PRN IVP severe pain 7-10 09/27/17 18:00 10/02/17 05:59 Nitroglycerin (Ntg) 0.4 mg Q5M X 3 DOSES PRN SL Prn Chest Pain 09/27/17 14:30 10/25/17 05:59 Ondansetron HCl (Zofran) 4 mg Q6H PRN IVP Nausea & Vomiting 09/27/17 18:00 10/25/17 05:59 09/30/17 10:10 Pantoprazole (Protonix) 40 mg DAILY@0630 ORAL 09/28/17 06:30 10/27/17 06:29 09/30/17 06:36 Promethazine HCl/ Codeine (Phenergan with Codeine) 5 ml Q6H PRN ORAL cough 09/27/17 18:00 10/25/17 05:59 Sucralfate (Carafate) 1 gm TID ORAL 09/27/17 18:00 10/25/17 17:59 09/30/17 09:49 Temazepam (Restoril) 15 mg HSPRN PRN ORAL Insomnia 09/27/17 16:00 10/04/17 15:59 Theophylline (Magno-Dur) 100 mg EVERY 12 HOURS ORAL 09/27/17 21:00 10/25/17 08:59 09/30/17 09:48 Vidya Land M.D. Sep 30, 2017 10:49
[2017-09-30 12:00] VITALS: BP 104/67
[2017-09-30] MEDS ORDERED: LISINOPRIL10 MG ORAL (14:18)
--- NOTE | 2017-09-30 14:21 | Pulmonology Progress Note ---
Assessment/Plan Problems: (1) Acute respiratory failure (2) COPD exacerbation (3) ACS (acute coronary syndrome) (4) Noncompliance (5) Morbid obesity Assessment/Plan less cough getting better respiratory treatment check sputum dvt prophylaxis. Subjective ROS Limited/Unobtainable: No Constitutional: Reports: no symptoms Respiratory: Reports: no symptoms Allergies: Coded Allergies: NO KNOWN ALLERGIES (Verified Allergy, Unknown, 08/04/17) Objective Last 24 Hour Vital Signs Date Time Temp Pulse Resp B/P (MAP) Pulse Ox O2 Delivery O2 Flow Rate FiO2 09/30/17 09:49 115/64 09/30/17 09:48 66 129/59 09/30/17 04:00 97.5 61 19 107/65 98 97.5 09/30/17 03:51 97.3 09/30/17 02:52 97.3 09/30/17 00:00 Nasal Cannula 2.0 09/30/17 00:00 97.3 62 18 117/69 100 97.3 09/29/17 21:10 79 110/65 09/29/17 20:00 Nasal Cannula 2.0 09/29/17 20:00 97.2 79 20 110/65 100 97.2 09/29/17 16:20 96.6 09/29/17 16:00 98.1 73 18 117/73 98 Room Air 98.1 Intake and Output 09/29/17 09/30/17 19:00 07:00 Intake Total 840 ml 180 ml Balance 840 ml 180 ml Intake Oral 840 ml 180 ml # Voids 3 4 General Appearance: WD/WN HEENT: normocephalic, atraumatic Respiratory/Chest: chest wall non-tender Cardiovascular: normal peripheral pulses, normal rate Abdomen: normal bowel sounds, soft, non tender Extremities: no cyanosis Neurologic/Psychiatric: manager insurance II-XII grossly normal Current Medications Medications (Trade) Dose Ordered Sig/Gus Route PRN Reason Start Time Stop Time Status Last Admin Dose Admin Acetaminophen/ Hydrocodone Bitart ([place] 10/325) 1 tab Q6H PRN ORAL For Severe Osteoarthritis Pain 09/27/17 18:00 10/04/17 17:59 09/30/17 02:52 Albuterol/ Ipratropium (Albuterol/ Ipratropium) 3 ml Q4H PRN HHN dyspnea 09/27/17 16:00 4/23/18 15:59 Aspirin (Ecotrin) 81 mg DAILY ORAL 09/28/17 09:00 10/25/17 08:59 09/30/17 09:47 Azithromycin (Zithromax) 250 mg DAILY ORAL 09/30/17 09:00 10/02/17 09:01 09/30/17 09:48 Carvedilol (Coreg) 3.125 mg EVERY 12 HOURS ORAL 09/29/17 12:00 10/29/17 11:59 09/30/17 09:48 Dextrose (Dextrose 50%) 25 ml STAT PRN IV Hypoglycemia 09/27/17 15:00 10/27/17 14:59 Dextrose (Dextrose 50%) 50 ml STAT PRN IV Hypoglycemia 09/27/17 15:00 10/27/17 14:59 Docusate Sodium (Colace) 100 mg THREE TIMES A DAY ORAL 09/29/17 13:00 10/29/17 12:59 09/30/17 13:14 Furosemide (Lasix) 40 mg DAILY ORAL 09/29/17 12:00 10/29/17 11:59 09/30/17 09:49 Gabapentin (Neurontin) 300 mg BEDTIME ORAL 09/27/17 21:00 10/25/17 20:59 09/29/17 21:10 Heparin Sodium (Porcine) (Heparin 5000 units/ml) 5,000 units EVERY 12 HOURS SUBQ 09/27/17 21:00 10/25/17 08:59 09/30/17 09:51 Lisinopril (Zestril) 10 mg DAILY ORAL 09/28/17 09:00 10/27/17 08:59 09/30/17 09:49 Lorazepam (Ativan 2mg/ml 1ml) 0.5 mg Q4H PRN IV For Anxiety 09/27/17 18:00 10/02/17 05:59 Methylprednisolone Sodium Succinate (Solu-MEDROL) 20 mg DAILY IVP 09/29/17 09:00 10/25/17 06:29 09/30/17 09:50 Morphine Sulfate (Morphine Sulfate) 2 mg Q4H PRN IVP severe pain 7-10 09/27/17 18:00 10/02/17 05:59 Nitroglycerin (Ntg) 0.4 mg Q5M X 3 DOSES PRN SL Prn Chest Pain 4/20/18 14:30 10/25/17 05:59 Ondansetron HCl (Zofran) 4 mg Q6H PRN IVP Nausea & Vomiting 09/27/17 18:00 10/25/17 05:59 09/30/17 10:10 Pantoprazole (Protonix) 40 mg DAILY@0630 ORAL 09/28/17 06:30 10/27/17 06:29 09/30/17 06:36 Promethazine HCl/ Codeine (Phenergan with Codeine) 5 ml Q6H PRN ORAL cough 09/27/17 18:00 10/25/17 05:59 Sucralfate (Carafate) 1 gm TID ORAL 09/27/17 18:00 10/25/17 17:59 09/30/17 13:14 Temazepam (Restoril) 15 mg HSPRN PRN ORAL Insomnia 09/27/17 16:00 10/04/17 15:59 Theophylline (Magno-Dur) 100 mg EVERY 12 HOURS ORAL 09/27/17 21:00 10/25/17 08:59 09/30/17 09:48 Merari Boateng MD Sep 30, 2017 14:21
[2017-09-30 16:00] VITALS: BP 110/68
--- NOTE | 2017-10-01 18:23 | Discharge Summary ---
Discharge Summary Hospital Course Date of Admission Sep 24, 2017 at 23:40 Date of Discharge Sep 30, 2017 at 16:50 Admitting Diagnosis chf HPI Carolina Vallejo is a 61 year old female who was admitted on Sep 24, 2017 at 23: 40 for Congestive Heart Failure Hospital Course [id number] Discharge Discharge Disposition Patient was discharged to Home (01) Joy Gaines NP Oct 01, 2017 18:23
--- NOTE | 2017-10-01 21:00 | Discharge Summary 2 SIG ---
DATE OF ADMISSION: 09/24/2017 DATE OF DISCHARGE: 09/30/2017 CONSULTANTS: 1. Axel Stanford M.D. 2. Christ Rosario M.D. BRIEF HOSPITAL COURSE: The patient is a 61-year-old female with history of morbid obesity, hypertension, COPD, CHF, and noncompliance, has not been taking her blood pressure medications for the past week. She came in to ED complaining of high blood pressure and short of breath, which was worse on exertion, worse with laying flat. She took her blood pressure medications prior to coming to the ER. On evaluation at ED, blood pressure was 130 systolic. EKG done showed normal sinus rhythm with left ventricular hypertrophy, no ST or T-wave changes. Chest x-ray showed cardiomegaly with no acute disease. She was admitted for exacerbation of asthma and bronchitis and was given respiratory treatments. She was started on IV Zosyn and Zithromax for atypical coverage. Cardiac evaluation was done. Troponin was 0.020 and proBNP was 2400. Her last echocardiogram showed EF of 60% to 65% with mild mitral regurgitation, mild aortic regurgitation, and pulmonary artery systolic pressure in the 70s. She also had moderate mitral regurgitation in July 2016. She was given diuretics. The patient stated that her blood pressure was low and felt dizzy, that is why she discontinued to take her medications. She was stressed need to comply with medications. She was eventually started on Coreg 3.125 mg b.i.d. She was also given Magno-Dur and was continued on Zestril 10 mg daily. Sputum culture with MSSA and normal cynthia. Zosyn was discontinued. She had less cough and was encouraged ambulation. She was eventually discharged home. FINAL DIAGNOSES: 1. Acute COPD exacerbation. 2. Morbid obesity. 3. Noncompliance with medications. 4. Acute on chronic diastolic congestive heart failure. 5. Mitral regurgitation. 6. Pulmonary hypertension. 7. History of gastroesophageal reflux. 8. Hyperlipidemia. 9. Osteoarthritis. 10. Hypothyroidism. 11. Cholecystectomy. 12. Hysterectomy. DISPOSITION: The patient was discharged home. DISCHARGE MEDICATIONS: Refer to medication list. DISCHARGE INSTRUCTIONS: Follow up with PCP in a week. Mirali Zarrabi, M.D. I have been assigned to dictate discharge summary on this account and I was not involved in the patient's management. Joy Gaines N.P. DR: PAM JOB#: [id number] CC:
[2017-10-01] MEDS ORDERED: PROZAC20 MG ORAL (23:21)
== END 2017-09-30 16:50 | disposition home or self-care (01) | DRG 140 ==
LOC: EMR 22:29 → 2E 23:40 → EDBEDREQ 09-25 00:19 → 2E 09-25 10:42 → 4W 09-27 14:18
DX: J44.1 Chronic obstructive pulmonary disease with (acute) exacerbation (principal); J96.00 Acute respiratory failure, unspecified whether with hypoxia or hypercapnia; I50.33 Acute on chronic diastolic (congestive) heart failure; I27.20 Pulmonary hypertension, unspecified; Z68.43 Body mass index [BMI] 50.0-59.9, adult; E66.01 Morbid (severe) obesity due to excess calories; I11.0 Hypertensive heart disease with heart failure; E78.5 Hyperlipidemia, unspecified; K21.9 Gastro-esophageal reflux disease without esophagitis; M19.90 Unspecified osteoarthritis, unspecified site; E03.9 Hypothyroidism, unspecified; Z87.891 Personal history of nicotine dependence; I34.0 Nonrheumatic mitral (valve) insufficiency; Z91.14 Patient's other noncompliance with medication regimen; Z79.82 Long term (current) use of aspirin
CPT/HCPCS: 36415; 71045; 80053; 80307; 81003; 82550; 82553; 83880; 84484; 85007; 85025; 86140; 87070; 87181; 87205; 93005; 94640; 99285; J2405; J7620

== ENCOUNTER 2017-10-01 19:39 | Inpatient (IN) | payer MEDICAID ==
[~2017-10-01] VITALS: Ht 154.9 cm; Wt 120.2 kg
[~2017-10-01 19:39] MED LIST changes: +LISINOPRIL10 MG ORAL
[2017-10-01] MEDS ORDERED: Morphine Sulfate 4mg/ml Inj IVP ONE (20:15)
[2017-10-01 20:35] VITALS: BP 143/88
[2017-10-01 20:43] LABS: APPEARANCE,URINE CLEAR; BILIRUBIN, URINE NEGATIVE (NEGATIVE); GLUCOSE, URINE (UA) NEGATIVE (NEGATIVE); KETONES,URINE NEGATIVE (NEGATIVE); LEUKOCYTE ESTERASE ,URINE 1+ (NEGATIVE); NITRITE,URINE NEGATIVE (NEGATIVE); PH,URINE 6 (4.5-8.0); PROTEIN,URINE 1+ (NEGATIVE); UROBILINOGEN,URINE 4 MG/DL (0.0-1.0)
[2017-10-01 20:43] LABS: BASOPHILS % (AUTO) 1.9 % (0.0-2.0); EOSINOPHILS % (AUTO) 2.2 % (0.0-3.0); HEMATOCRIT 42.7 % (37.0-47.0); HEMOGLOBIN 13.2 G/DL (12.0-16.0); LYMPHOCYTES % (AUTO) 20.2 % (20.0-45.0); MEAN CORPUSCULAR VOLUME 90 FL (80-99); MONOCYTES % (AUTO) 11.2 % (1.0-10.0); NEUTROPHILS % (AUTO) 64.6 % (45.0-75.0); PLATELET COUNT 159 K/UL (150-450); RED BLOOD COUNT 4.75 M/UL (4.20-5.40); WHITE BLOOD COUNT 11.3 K/UL (4.8-10.8)
[2017-10-01 20:46] LABS: ANION GAP 3 mmol/L (5-15); BLOOD UREA NITROGEN 17 mg/dL (7-18); CARBON DIOXIDE 34 MMOL/L (21-32); CHLORIDE 101 MMOL/L (98-107); CREATININE 1.2 MG/DL (0.55-1.30); POTASSIUM 3.8 MMOL/L (3.5-5.1); SODIUM 138 MMOL/L (136-145)
[2017-10-01 20:48] LABS: COLOR,URINE YELLOW
[2017-10-01 20:59] LABS: ALANINE AMINOTRANSFERASE 23 U/L (12-78); ALBUMIN 2.9 G/DL (3.4-5.0); ALBUMIN/GLOBULIN RATIO 0.7 (1.0-2.7); ALKALINE PHOSPHATASE 64 U/L (46-116); ASPARTATE AMINO TRANSFERASE 18 U/L (15-37)
--- NOTE | 2017-10-01 21:15 | Emergency Room Report ---
History of Present Illness General Chief Complaint: Pain Source: Patient, Medical Record (Henrry Perez MD) Present Illness HPI 61-year-old female presents ED for evaluation. Patient complaining of abdominal pain. Patient states she was discharged yesterday from [facility] for treatment of COPD and CHF. States that abdominal pain develop shortly prior to discharge. Not resolving. Pain is sharp, 8 out of 10, nonradiating. Denies chest pain or shortness of breath. Denies fevers or chills. Denies nausea or vomiting. No other aggravating relieving factors. Denies any other associated symptoms (Henrry Perez MD) Allergies: Coded Allergies: NO KNOWN ALLERGIES (Verified Allergy, Unknown, 08/04/17) Patient History Past Medical History: CHF, COPD, GERD, psych hx Past Surgical History: rudy Pertinent Family History: none Social History: Denies: smoking, alcohol use, drug use Last Menstrual Period: 1981 Now: No Immunizations: UTD Reviewed Nursing Documentation: PMH: Agreed; PSxH: Agreed (Henrry Perez MD) Nursing Documentation-PMH Past Medical History: No History, Except For Hx Cardiac Problems: Yes - Enlarged heart, CHF, High Chlosterol Hx Hypertension: Yes Hx Asthma: Yes Hx COPD: Yes Hx Cancer: No Hx Gastrointestinal Problems: Yes - Cholecystectomy, GERD History Of Psychiatric Problem: Yes - Major Depression Hx Neurological Problems: Yes Hx Peripheral Neuropathy: Yes Hx Headaches: Yes Hx Weakness: Yes (Henrry Perez MD) Review of Systems All Other Systems: negative except mentioned in HPI (Henrry Perez MD) Physical Exam Vital Signs Date Time Temp Pulse Resp B/P (MAP) Pulse Ox O2 Delivery O2 Flow Rate FiO2 10/01/17 19:42 98.2 100 18 118/80 95 Room Air 98.2 Sp02 EP Interpretation: reviewed, normal General Appearance: no apparent distress, alert, GCS 15, non-toxic, obese Head: normocephalic, atraumatic Eyes: bilateral eye normal inspection, bilateral eye PERRL ENT: normal ENT inspection Neck: normal inspection Respiratory: chest non-tender, lungs clear, normal breath sounds, speaking full sentences Cardiovascular #1: regular rate, rhythm, no edema Gastrointestinal: normal bowel sounds, soft, non-distended, no guarding, no rebound, tenderness Rectal: deferred Genitourinary: no CVA tenderness Musculoskeletal: normal inspection Neurologic: alert, oriented x3, responsive, motor strength/tone normal, sensory intact, speech normal Psychiatric: normal inspection Skin: normal inspection Lymphatic: normal inspection (Henrry Perez MD) Medical Decision Making Diagnostic Impression: Primary Impression: Acute pancreatitis ER Course Please refer to the initial note for the history exam and presentation Patient's blood work at this time does show elevated lipase level CT also shows some inflammation around the pancreas Patient given further pain medication and hydration And requires admission for acute pancreatitis Labs Test 10/01/17 19:49 10/01/17 20:10 Urine Color Yellow Urine Appearance Clear Urine pH 6 (4.5-8.0) Urine Specific [place] 1.015 (1.005-1.035) Urine Protein 1+ (NEGATIVE) Urine Glucose (UA) Negative (NEGATIVE) Urine Ketones Negative (NEGATIVE) Urine Occult Blood Negative (NEGATIVE) Urine Nitrite Negative (NEGATIVE) Urine Bilirubin Negative (NEGATIVE) Urine Urobilinogen 4 MG/DL (0.0-1.0) Urine Leukocyte Esterase 1+ (NEGATIVE) Urine RBC 0-2 /HPF (0 - 2) Urine WBC 2-4 /HPF (0 - 2) Urine Squamous Epithelial Cells Many /LPF (NONE/OCC) Urine Bacteria Occasional /HPF (NONE) White Blood Count 11.3 K/UL (4.8-10.8) Red Blood Count 4.75 M/UL (4.20-5.40) Hemoglobin 13.2 G/DL (12.0-16.0) Hematocrit 42.7 % (37.0-47.0) Mean Corpuscular Volume 90 FL (80-99) Mean Corpuscular Hemoglobin 27.8 PG (27.0-31.0) Mean Corpuscular Hemoglobin Concent 30.9 G/DL (32.0-36.0) Red Cell Distribution Width 13.0 % (11.6-14.8) Platelet Count 159 K/UL (150-450) Mean Platelet Volume 9.6 FL (6.5-10.1) Neutrophils (%) (Auto) 64.6 % (45.0-75.0) Lymphocytes (%) (Auto) 20.2 % (20.0-45.0) Monocytes (%) (Auto) 11.2 % (1.0-10.0) Eosinophils (%) (Auto) 2.2 % (0.0-3.0) Basophils (%) (Auto) 1.9 % (0.0-2.0) Sodium Level 138 MMOL/L (136-145) Potassium Level 3.8 MMOL/L (3.5-5.1) Chloride Level 101 MMOL/L (98-107) Carbon Dioxide Level 34 MMOL/L (21-32) Anion Gap 3 mmol/L (5-15) Blood Urea Nitrogen 17 mg/dL (7-18) Creatinine 1.2 MG/DL (0.55-1.30) Estimat Glomerular Filtration Rate 55.4 mL/min (>60) Glucose Level 156 MG/DL (74-106) Calcium Level 9.0 MG/DL (8.5-10.1) Total Bilirubin 1.0 MG/DL (0.2-1.0) Aspartate Amino Transf (AST/SGOT) 18 U/L (15-37) Alanine Aminotransferase (ALT/SGPT) 23 U/L (12-78) Alkaline Phosphatase 64 U/L (46-116) Troponin I 0.030 ng/mL (0.000-0.056) Pro-B-Type Natriuretic Peptide 4729 pg/mL (0-125) Total Protein 6.8 G/DL (6.4-8.2) Albumin 2.9 G/DL (3.4-5.0) Globulin 3.9 g/dL Albumin/Globulin Ratio 0.7 (1.0-2.7) Lipase 947 U/L (73-393) (Zandra Thomas DO) Rhythm Strip Diag. Results EP Interpretation: yes Rate: 66 Rhythm: NSR, no PVC's, no ectopy (Zandra Thomas DO) CT/MRI/US Diagnostic Results CT/MRI/US Diagnostic Results : Impression CT abdomen pelvis: And inflammation around the pancreas refer to report for full specific (Zandra Thomas DO) Last Vital Signs Date Time Temp Pulse Resp B/P (MAP) Pulse Ox O2 Delivery O2 Flow Rate FiO2 10/01/17 20:35 98.2 100 23 143/88 99 Room Air 98.2 (Henrry Perez MD) Status: improved (Zandra Thomas DO) Disposition: ADMITTED INPATIENT Condition: Serious Referrals: [facility],REFERRING (PCP) Henrry Perez MD Oct 01, 2017 21:15 Zandra Thomas DO Oct 02, 2017 01:46
[2017-10-01 22:58] VITALS: BP 121/76
[2017-10-01] MEDS ORDERED: PROZAC20 MG ORAL (23:21)
[2017-10-02] VITALS (7 sets, daily range): BP systolic 104–126; BP diastolic 58–76
[2017-10-02] MEDS ORDERED: Promethazine HCl 25 MG in NS 55 ML IV PRN (00:15)
[2017-10-02] MEDS ORDERED: Promethazine HCl 12.5 MG in NS 55 ML IV PRN (00:15)
[2017-10-02] MEDS ORDERED: Miralax 17gm pkt ORAL PRN (00:15)
[2017-10-02] MEDS ORDERED: Mylanta II UD 30ml ORAL PRN (00:15)
[2017-10-02] MEDS ORDERED: Metoclopramide 10mg/2ml Inj IVP PRN (00:15)
[2017-10-02] MEDS ORDERED: LORazepam Inj 2mg/ml 1ml IV PRN (00:15)
[2017-10-02] MEDS ORDERED: Nitroglycerin Subl 0.4mg tab SL PRN (00:15)
[2017-10-02] MEDS: D5 1/2NS 1,000 ML IV SCH ×2 (01:21→12:39)
[2017-10-02] MEDS: Morphine Sulfate 4mg/ml Inj IVP PRN ×5 (01:21→21:50)
--- NOTE | 2017-10-02 08:38 | Diagnostic Imaging Report ---
Indication: Pain Technique: XRAY Chest 1v Comparison: 09/27/2017, 09/24/2017 Findings: Stable cardiomegaly. Linear atelectasis or scarring in the left midlung is decreased compared to prior exam. No new focal consolidation. No pleural effusion. No pneumothorax. No acute osseous appreciated. IMPRESSION: Persistent but slightly decreased linear atelectasis or scarring in the left midlung. Stable cardiomegaly.
[2017-10-02] MEDS: Lisinopril 20mg tab ORAL SCH (09:00)
[2017-10-02] MEDS: Metoprolol 25mg tab ORAL SCH ×2 (09:00→17:33)
[2017-10-02] MEDS: Pantoprazole Inj IV SCH (09:15)
[2017-10-02] MEDS: Sucralfate 1gm tab ORAL SCH ×4 (09:15→21:00)
[2017-10-02] MEDS: Heparin 5000 units/ml inj SUBQ SCH ×2 (09:16→21:14)
--- NOTE | 2017-10-02 11:27 | GI Initial Consult Note ---
History of Present Illness General Date patient seen: Oct 02, 2017 Time patient seen: 14:59 Reason for Hospitalization: Pain Referring physician: ERICA DEY Reason for Consultation: PANCREATITIS Present Illness HPI 61-year-old female presents ED for evaluation. Patient complaining of abdominal pain. Patient states she was discharged yesterday from [facility] for treatment of COPD and CHF. States that abdominal pain develop shortly prior to discharge. Not resolving. Pain is sharp, 8 out of 10, nonradiating. Denies chest pain or shortness of breath. Denies fevers or chills. Denies nausea or vomiting. No other aggravating relieving factors. Denies any other associated symptoms GI consulted for pancreatitis. Patient had recent discharge few days ago, was admitted for CHF now presents with elevated lipase levels. Denies any ETOH, IVDA, or tobacco use. Per patient had one episode of vomiting with alot of dry convulsions. No hematemesis or coffee grounds. CT reviewed shows to have acute pancreatitis. Had EGD/colonoscopy x 6 months ago at [place]. Home Meds Active Scripts Lisinopril* (LISINOPRIL*) 10 Mg Tablet, 10 MG ORAL DAILY for 30 Days, TAB Prov:Erica Boateng MD 09/30/17 Azithromycin (ZITHROMAX) 1 Gm Packet, 1 GM ORAL DAILY for 5 Days, PACKET Prov:Erica Boateng MD 08/05/17 Omeprazole (OMEPRAZOLE) 40 Mg Capsule.dr, 40 MG ORAL DAILY, #30 CAP Prov:KEL ALFORD M.D. 08/01/16 Gentamicin Sulfate* (GENTAMICIN SULFATE*) 3.5 Gm Oint...g., 3.5 GM OP TID for 7 Days, GM Prov:Zandra Thomas DO 03/29/16 Reported Medications Fluoxetine Hcl* (PROZAC*) 20 Mg Capsule, 20 MG ORAL BID, CAP 10/01/17 Vitamin D (Vitamin D3) 400 Unit Tablet, 400 UNITS ORAL DAILY, TAB 07/31/16 Gabapentin (Neurontin) 300 Mg Capsule, 300 MG ORAL BEDTIME, #7 CAP 0 Refills 07/19/16 Fluticasone Propionate (Flovent Hfa) 12 Gm Aer.w.adap, 2 PUFFS INH TWICE A DAY, #1 EA 0 Refills 02/28/16 Furosemide* (LASIX*) 40 Mg Tablet, 40 MG ORAL DAILY, TAB 02/28/16 Potassium (POTASSIUM) 99 Mg Tablet, 99 MG PO, TAB 02/28/16 Sucralfate* (CARAFATE*) 1 Gm Tablet, 1 GM ORAL FOUR TIMES A DAY, TAB 02/28/16 Metoprolol Tartrate* (METOPROLOL TARTRATE*) 25 Mg Tablet, 25 MG ORAL BID, TAB 09/07/15 Nifedipine* (NIFEDIPINE ER*) 60 Mg Tablet.er, 90 MG ORAL DAILY, TAB 09/07/15 Aspirin Ec* (ASPIRIN EC*) 81 Mg Tablet.dr, 81 MG PO DAILY 07/09/12 Discontinued Reported Medications Calcium Carbonate (TUMS) 200 Mg Tab.chew, 200 MG PO, TAB 07/31/16 Lisinopril (LISINOPRIL*) 20 Mg Tablet, 40 MG ORAL DAILY, TAB 09/07/15 Simvastatin (ZOCOR) 20 Mg Tablet, 20 MG ORAL DAILY, TAB 09/07/15 Discontinued Scripts Amoxicillin/Potassium Clav 875-125* (AUGMENTIN 875-125 TABLET*) 1 Each Tablet, 1 TAB ORAL TWICE A DAY for 5 Days, TAB Prov:Erica Boateng MD 11/02/16 Prednisone (Prednisone) 20 Mg Tablet, 20 MG PO EVERY 12 HOURS for 5 Days, TAB Prov:Erica Boateng MD 11/02/16 Med list reviewed/reconciled: Yes Allergies: Coded Allergies: NO KNOWN ALLERGIES (Verified Allergy, Unknown, 08/04/17) Patient History History Provided By: Patient, Medical Record PMH Narrative Past Medical History: CHF, COPD, GERD, psych hx Past Surgical History: rudy Pertinent Family History: none Social History: Denies: smoking, alcohol use, drug use Last Menstrual Period: 1981 Now: No Immunizations: UTD Reviewed Nursing Documentation: PMH: Agreed; PSxH: Agreed Nursing Documentation-PMH Past Medical History: No History, Except For Hx Cardiac Problems: Yes - Enlarged heart, CHF, High Chlosterol Hx Hypertension: Yes Hx Asthma: Yes Hx COPD: Yes Hx Cancer: No Hx Gastrointestinal Problems: Yes - Cholecystectomy, GERD History Of Psychiatric Problem: Yes - Major Depression Hx Neurological Problems: Yes Hx Peripheral Neuropathy: Yes Hx Headaches: Yes Hx Weakness: Yes Social History: Denies: smoking, alcohol use, drug use, other Review of Systems All Other Systems: negative except mentioned in HPI Physical Exam Vital Signs Date Time Temp Pulse Resp B/P (MAP) Pulse Ox O2 Delivery O2 Flow Rate FiO2 10/01/17 19:42 98.2 100 18 118/80 95 Room Air 98.2 Sp02 EP Interpretation: reviewed, normal Labs Laboratory Tests Test 10/01/17 19:49 10/01/17 20:10 10/02/17 10:30 Urine Color Yellow Urine Appearance Clear Urine pH 6 (4.5-8.0) Urine Specific [place] 1.015 (1.005-1.035) Urine Protein 1+ (NEGATIVE) H Urine Glucose (UA) Negative (NEGATIVE) Urine Ketones Negative (NEGATIVE) Urine Occult Blood Negative (NEGATIVE) Urine Nitrite Negative (NEGATIVE) Urine Bilirubin Negative (NEGATIVE) Urine Urobilinogen 4 MG/DL (0.0-1.0) H Urine Leukocyte Esterase 1+ (NEGATIVE) H Urine RBC 0-2 /HPF (0 - 2) Urine WBC 2-4 /HPF (0 - 2) Urine Squamous Epithelial Cells Many /LPF (NONE/OCC) H Urine Bacteria Occasional /HPF (NONE) White Blood Count 11.3 K/UL (4.8-10.8) H Red Blood Count 4.75 M/UL (4.20-5.40) Hemoglobin 13.2 G/DL (12.0-16.0) Hematocrit 42.7 % (37.0-47.0) Mean Corpuscular Volume 90 FL (80-99) Mean Corpuscular Hemoglobin 27.8 PG (27.0-31.0) Mean Corpuscular Hemoglobin Concent 30.9 G/DL (32.0-36.0) L Red Cell Distribution Width 13.0 % (11.6-14.8) Platelet Count 159 K/UL (150-450) Mean Platelet Volume 9.6 FL (6.5-10.1) Neutrophils (%) (Auto) 64.6 % (45.0-75.0) Lymphocytes (%) (Auto) 20.2 % (20.0-45.0) Monocytes (%) (Auto) 11.2 % (1.0-10.0) H Eosinophils (%) (Auto) 2.2 % (0.0-3.0) Basophils (%) (Auto) 1.9 % (0.0-2.0) Sodium Level 138 MMOL/L (136-145) Potassium Level 3.8 MMOL/L (3.5-5.1) Chloride Level 101 MMOL/L (98-107) Carbon Dioxide Level 34 MMOL/L (21-32) H Anion Gap 3 mmol/L (5-15) L Blood Urea Nitrogen 17 mg/dL (7-18) Creatinine 1.2 MG/DL (0.55-1.30) Estimat Glomerular Filtration Rate 55.4 mL/min (>60) Glucose Level 156 MG/DL (74-106) H Calcium Level 9.0 MG/DL (8.5-10.1) Total Bilirubin 1.0 MG/DL (0.2-1.0) Aspartate Amino Transf (AST/SGOT) 18 U/L (15-37) Alanine Aminotransferase (ALT/SGPT) 23 U/L (12-78) Alkaline Phosphatase 64 U/L (46-116) Troponin I 0.030 ng/mL (0.000-0.056) Pro-B-Type Natriuretic Peptide 4729 pg/mL (0-125) H Total Protein 6.8 G/DL (6.4-8.2) Albumin 2.9 G/DL (3.4-5.0) L Globulin 3.9 g/dL Albumin/Globulin Ratio 0.7 (1.0-2.7) L Lipase 947 U/L (73-393) H Urine Opiates Screen Pending Urine Barbiturates Screen Pending Phencyclidine (PCP) Screen Pending Urine Amphetamines Screen Pending Urine Benzodiazepines Screen Pending Urine Cocaine Screen Pending Urine Marijuana (THC) Screen Pending General Appearance: well appearing, no apparent distress, alert, obese Head: normocephalic EENT: PERRL/EOMI, normal ENT inspection Neck: supple Respiratory: normal breath sounds, no respiratory distress Cardiovascular: normal rate Gastrointestinal: normal inspection, non tender, soft, normal bowel sounds, non -distended Rectal: deferred Genitourinary: no CVA tenderness Musculoskeletal: normal inspection, back normal Neurologic: normal inspection, alert, oriented x3, responsive Psychiatric: normal inspection, judgement/insight normal, memory normal Skin: normal inspection, normal color, no rash, warm/dry, palpation normal, well hydrated Lymphatic: normal inspection, no adenopathy Current Medications Current Medications Medications (Trade) Dose Ordered Sig/Gus Route PRN Reason Start Time Stop Time Status Last Admin Dose Admin Acetaminophen (Tylenol) 650 mg Q4H PRN ORAL fever 10/02/17 00:15 11/01/17 00:14 Al Hydroxide/Mg Hydroxide (Mylanta II) 30 ml Q6H PRN ORAL dyspepsia 10/02/17 00:15 11/01/17 00:14 Dextrose (Dextrose 50%) STAT PRN IV Hypoglycemia 10/02/17 00:15 11/01/17 00:14 Dextrose/Sodium Chloride 1,000 ml @ 75 mls/hr [id number] IV 10/02/17 00:06 11/01/17 00:05 10/02/17 01:21 Diphenhydramine HCl (Benadryl) 25 mg Q6H PRN ORAL Itching/Pruritis 10/02/17 00:15 11/01/17 00:14 Fluoxetine HCl (PROzac) 20 mg BID ORAL 10/02/17 09:00 11/01/17 08:59 10/02/17 09:15 Gabapentin (Neurontin) 300 mg BEDTIME ORAL 10/02/17 21:00 11/01/17 20:59 Heparin Sodium (Porcine) (Heparin 5000 units/ml) 5,000 units EVERY 12 HOURS SUBQ 10/02/17 09:00 11/01/17 08:59 10/02/17 09:16 Lisinopril (Prinivil) 10 mg DAILY ORAL 10/02/17 09:00 11/01/17 08:59 Lorazepam (Ativan 2mg/ml 1ml) 1 mg EVERY 4 HOURS PRN IV agitation 10/02/17 00:15 10/09/17 00:14 Metoclopramide HCl (Reglan) 10 mg EVERY 6 HOURS PRN IVP servere [place] 10/02/17 00:15 11/01/17 00:14 Metoprolol Tartrate (Lopressor) 25 mg BID ORAL 10/02/17 09:00 11/01/17 08:59 Morphine Sulfate (Morphine Sulfate) 2 mg Q4H PRN IVP severe pain scale 7-10 10/02/17 00:30 10/09/17 00:29 10/02/17 05:51 Nitroglycerin (Ntg) 0.4 mg Q5M X 3 DOSES PRN SL Prn Chest Pain 10/02/17 00:15 11/01/17 00:14 Ondansetron HCl (Zofran) 4 mg Q6H PRN IVP Nausea & Vomiting 10/02/17 00:15 11/01/17 00:14 Pantoprazole (Protonix) 40 mg DAILY IV 10/02/17 09:00 11/01/17 08:59 10/02/17 09:15 Polyethylene Glycol (Miralax) 17 gm HSPRN PRN ORAL Constipation 10/02/17 00:15 11/01/17 00:14 Promethazine HCl 12.5 mg/Sodium Chloride 55.5 ml @ 110 mls/hr Q6H PRN IV Refractory N/V 10/02/17 00:15 11/01/17 00:14 Promethazine HCl 25 mg/Sodium Chloride 56 ml @ 110 mls/hr Q6H PRN IV Refractory N/V 10/02/17 00:15 11/01/17 00:14 Sucralfate (Carafate) 1 gm FOUR TIMES A DAY ORAL 10/02/17 09:00 11/01/17 08:59 10/02/17 09:15 Temazepam (Restoril) 15 mg HSPRN PRN ORAL Insomnia 10/02/17 00:15 10/09/17 00:14 GI: Plan Problems: (1) Abdominal pain (2) Acute pancreatitis Plan EGD/colonoscopy done 6 months ago at [facility], will obtain records. CT AP reviewed >> acute pancreatitis abdominal U/S reviewed >> s/p cholecystomy with 10mm CBD dilation conservative pancreatitis management CLD, adv as tolerated pain mgmt IV hydration ppi trend lipase fu labs, lipid panel, utox endoscopy if necessary Discussed with Dr. Fuentes. Thank you for this patient referral, we will follow. Cami Alford N.P. Oct 02, 2017 11:27
--- NOTE | 2017-10-02 12:14 | Diagnostic Imaging Report ---
Indication: Elbow pain Technique: CT of the abdomen and pelvis utilizing automated exposure control with intravenous contrast. Venous scanning performed. CT dose: Total DLP 975 mGycm; CTDI vol 19.9 mGy Comparison: 12/12/2014 Findings: Dependent atelectasis noted in the lung bases. Heart is enlarged. Patient is status post cholecystectomy. No focal hepatic mass lesion is appreciated. Hepatic veins and portal veins appear patent. Common bile duct measures 8 mm in diameter. Likely related to postcholecystectomy state. Spleen, adrenal glands and kidneys unremarkable. The pancreas is slightly edematous with mild stranding fat stranding. These findings suggest pancreatitis. No abnormal pancreatic ductal dilatation. No peripancreatic fluid collection. Pancreatic enhancement appears symmetric. The bladder is decompressed, limiting its evaluation. The patient is again noted to be status post hysterectomy. There is trace fluid in the right cul-de-sac. This is nonspecific. There is no free intraperitoneal air. No evidence of intraperitoneal abscess or well-defined abscess or drainable fluid collection. No focal or diffuse appreciable bowel wall thickening however evaluation limited without the use of enteric contrast. Appendix is not definitively identified however there are no focal inflammatory changes in the right lower quadrant to suggest acute appendicitis. A few scattered colonic diverticula. No evidence to suggest acute diverticulitis. Abdominal aorta normal in caliber. No pathologically enlarged lymphadenopathy. A sclerotic focus in the L2 vertebral body likely represents a bone island. No acute osseous abnormality is seen. IMPRESSION: * Findings suggestive of pancreatitis. Correlation with clinical history and laboratory findings recommended. No peripancreatic fluid collection. Pancreatic enhancement is symmetric. * Status post cholecystectomy and hysterectomy. * A few scattered colonic diverticula. No evidence suggest acute diverticulitis. * Trace nonspecific fluid in the right cul-de-sac. * Cardiomegaly Additional findings as above. This corresponds with the statrad preliminary report. The CT scanner at [facility] is accredited by the [employer] and the scans are performed using protocols designed to limit radiation exposure to as low as reasonably achievable to attain images of sufficient resolution adequate for diagnostic evaluation.
--- NOTE | 2017-10-02 13:51 | Diagnostic Imaging Report ---
Indication: Elbow pain Technique: US ABD Complete Comparison: Correlation made to concurrent CT of the abdomen and pelvis Findings: Mildly heterogeneous pancreatic head. Body and tail not well seen. Liver is normal in size and contour. No focal hepatic mass lesion is appreciated sonographically. Hepatic veins are patent. Portal vein is patent with normal direction of flow. The patient status post cholecystectomy. There is dilatation of the common bile ducts to 10 mm, possibly postsurgical in etiology. No appreciable intrahepatic biliary ductal dilatation. Kidneys are symmetric in size. They demonstrate normal parenchymal thickness and echogenicity. No hydronephrosis or sonographically appreciable renal stone is seen. Spleen is normal in size and appearance. Imaged portions of the abdominal aorta normal in caliber. There is no ascites. IMPRESSION: Slight heterogeneity of the pancreatic head likely related to inflammatory peripancreatic findings seen on concurrent CT suggesting acute pancreatitis. Clinical correlation recommended. Status post cholecystectomy. Dilatation of the common bile duct may be postoperative in etiology. No discrete choledocholithiasis seen. No intrahepatic biliary ductal dilatation appreciated.
--- NOTE | 2017-10-02 14:33 | History and Physical ---
History of Present Illness General Date patient seen: Oct 02, 2017 Reason for Hospitalization: Pain Present Illness HPI 61 year old female with hx of morbid obesity, hypertension, COPD and CHF, noncompliance. was just discharged from [facility] for acute exacerbation of CHF one day earlier, presented to ER again with CC of abdominal pain, N/V. A CT of chest showed acute pancreatitis, her Lipase was increased as well. She is admitted for further evaluation. Allergies: Coded Allergies: NO KNOWN ALLERGIES (Verified Allergy, Unknown, 08/04/17) Medication History Scheduled Aspirin Ec* (Aspirin Ec*), 81 MG PO DAILY, (Reported) Azithromycin (Zithromax), 1 GM ORAL DAILY Fluoxetine Hcl* (Prozac*), 20 MG ORAL BID, (Reported) Fluticasone Propionate (Flovent Hfa), 2 PUFFS INH TWICE A DAY, (Reported) Furosemide* (Lasix*), 40 MG ORAL DAILY, (Reported) Gabapentin (Neurontin), 300 MG ORAL BEDTIME, (Reported) Gentamicin Sulfate* (Gentamicin Sulfate*), 3.5 GM OP TID Lisinopril* (Lisinopril*), 10 MG ORAL DAILY Metoprolol Tartrate* (Metoprolol Tartrate*), 25 MG ORAL BID, (Reported) Nifedipine* (Nifedipine Er*), 90 MG ORAL DAILY, (Reported) Omeprazole (Omeprazole), 40 MG ORAL DAILY Sucralfate* (Carafate*), 1 GM ORAL FOUR TIMES A DAY, (Reported) Vitamin D (Vitamin D3), 400 UNITS ORAL DAILY, (Reported) Miscellaneous Medications Potassium (Potassium), 99 MG PO, (Reported) Discontinued Medications Amoxicillin/Potassium Clav 875-125* (Augmentin 875-125 Tablet*), 1 TAB ORAL TWICE A DAY Discontinued Reason: Therapy completed Calcium Carbonate (Tums), 200 MG PO, (Reported) Discontinued Reason: Pt stopped taking med Lisinopril (Lisinopril*), 40 MG ORAL DAILY, (Reported) Discontinued Reason: Medication dose changed Prednisone (Prednisone), 20 MG PO EVERY 12 HOURS Discontinued Reason: Therapy completed Simvastatin (Zocor), 20 MG ORAL DAILY, (Reported) Discontinued Reason: Pt stopped taking med Patient History Healthcare decision maker Resuscitation status Full Code Advanced Directive on File Past Medical/Surgical History Past Medical/Surgical History: (1) COPD (chronic obstructive pulmonary disease) (2) CHF (congestive heart failure) (3) Morbid obesity Review of Systems Gastrointestinal: Reports: abdominal pain, nausea, vomiting All Other Systems: negative except mentioned in HPI Physical Exam General Appearance: WD/WN, mild distress Lines, tubes and drains: peripheral HEENT: normocephalic, atraumatic Neck: non-tender, normal alignment Respiratory/Chest: chest wall non-tender, lungs clear Breasts: no masses Cardiovascular/Chest: normal peripheral pulses Abdomen: normal bowel sounds, non tender Genitourinary/Rectal: normal genital exam, normal rectal exam Extremities: normal range of motion Skin Exam: normal pigmentation 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 normal Last 24 Hour Vital Signs Date Time Temp Pulse Resp B/P (MAP) Pulse Ox O2 Delivery O2 Flow Rate FiO2 10/02/17 12:00 98.1 81 20 105/67 98 98.1 10/02/17 09:00 64 105/66 10/02/17 09:00 105/66 10/02/17 08:00 97.3 77 20 104/58 98 97.3 10/02/17 04:00 98.3 64 20 105/66 94 98.3 10/02/17 01:05 79 21 112/75 95 Room Air 10/02/17 01:00 98.1 81 20 126/76 97 98.1 10/02/17 00:50 99.4 80 16 112/75 97 Room Air 99.4 10/01/17 22:58 99.4 88 14 121/76 97 Room Air 99.4 10/01/17 20:35 98.2 100 23 143/88 99 Room Air 98.2 10/01/17 19:42 98.2 100 18 118/80 95 Room Air 98.2 Intake and Output 10/01/17 10/02/17 19:00 07:00 Intake Total 370 ml Balance 370 ml Intake IV Total 370 ml # Voids 3 # Bowel Movements 1 Laboratory Tests Test 10/01/17 19:49 10/01/17 20:10 10/02/17 10:30 Urine Color Yellow Urine Appearance Clear Urine pH 6 (4.5-8.0) Urine Specific [place] 1.015 (1.005-1.035) Urine Protein 1+ (NEGATIVE) H Urine Glucose (UA) Negative (NEGATIVE) Urine Ketones Negative (NEGATIVE) Urine Occult Blood Negative (NEGATIVE) Urine Nitrite Negative (NEGATIVE) Urine Bilirubin Negative (NEGATIVE) Urine Urobilinogen 4 MG/DL (0.0-1.0) H Urine Leukocyte Esterase 1+ (NEGATIVE) H Urine RBC 0-2 /HPF (0 - 2) Urine WBC 2-4 /HPF (0 - 2) Urine Squamous Epithelial Cells Many /LPF (NONE/OCC) H Urine Bacteria Occasional /HPF (NONE) White Blood Count 11.3 K/UL (4.8-10.8) H Red Blood Count 4.75 M/UL (4.20-5.40) Hemoglobin 13.2 G/DL (12.0-16.0) Hematocrit 42.7 % (37.0-47.0) Mean Corpuscular Volume 90 FL (80-99) Mean Corpuscular Hemoglobin 27.8 PG (27.0-31.0) Mean Corpuscular Hemoglobin Concent 30.9 G/DL (32.0-36.0) L Red Cell Distribution Width 13.0 % (11.6-14.8) Platelet Count 159 K/UL (150-450) Mean Platelet Volume 9.6 FL (6.5-10.1) Neutrophils (%) (Auto) 64.6 % (45.0-75.0) Lymphocytes (%) (Auto) 20.2 % (20.0-45.0) Monocytes (%) (Auto) 11.2 % (1.0-10.0) H Eosinophils (%) (Auto) 2.2 % (0.0-3.0) Basophils (%) (Auto) 1.9 % (0.0-2.0) Sodium Level 138 MMOL/L (136-145) Potassium Level 3.8 MMOL/L (3.5-5.1) Chloride Level 101 MMOL/L (98-107) Carbon Dioxide Level 34 MMOL/L (21-32) H Anion Gap 3 mmol/L (5-15) L Blood Urea Nitrogen 17 mg/dL (7-18) Creatinine 1.2 MG/DL (0.55-1.30) Estimat Glomerular Filtration Rate 55.4 mL/min (>60) Glucose Level 156 MG/DL (74-106) H Calcium Level 9.0 MG/DL (8.5-10.1) Total Bilirubin 1.0 MG/DL (0.2-1.0) Aspartate Amino Transf (AST/SGOT) 18 U/L (15-37) Alanine Aminotransferase (ALT/SGPT) 23 U/L (12-78) Alkaline Phosphatase 64 U/L (46-116) Troponin I 0.030 ng/mL (0.000-0.056) Pro-B-Type Natriuretic Peptide 4729 pg/mL (0-125) H Total Protein 6.8 G/DL (6.4-8.2) Albumin 2.9 G/DL (3.4-5.0) L Globulin 3.9 g/dL Albumin/Globulin Ratio 0.7 (1.0-2.7) L Lipase 947 U/L (73-393) H Urine Opiates Screen Positive (NEGATIVE) H Urine Barbiturates Screen Negative (NEGATIVE) Phencyclidine (PCP) Screen Negative (NEGATIVE) Urine Amphetamines Screen Negative (NEGATIVE) Urine Benzodiazepines Screen Negative (NEGATIVE) Urine Cocaine Screen Negative (NEGATIVE) Urine Marijuana (THC) Screen Negative (NEGATIVE) Height (Feet): 5 Height (Inches): 1.00 Weight (Pounds): 265 Medications Current Medications Medications (Trade) Dose Ordered Sig/Gus Route PRN Reason Start Time Stop Time Status Last Admin Dose Admin Acetaminophen (Tylenol) 650 mg Q4H PRN ORAL fever 10/02/17 00:15 11/01/17 00:14 Al Hydroxide/Mg Hydroxide (Mylanta II) 30 ml Q6H PRN ORAL dyspepsia 10/02/17 00:15 11/01/17 00:14 Dextrose (Dextrose 50%) STAT PRN IV Hypoglycemia 10/02/17 00:15 11/01/17 00:14 Dextrose/Sodium Chloride 1,000 ml @ 75 mls/hr [id number] IV 10/02/17 00:06 11/01/17 00:05 10/02/17 12:39 Diphenhydramine HCl (Benadryl) 25 mg Q6H PRN ORAL Itching/Pruritis 10/02/17 00:15 11/01/17 00:14 Fluoxetine HCl (PROzac) 20 mg DAILY ORAL 10/03/17 09:00 11/02/17 08:59 Gabapentin (Neurontin) 300 mg BEDTIME ORAL 10/02/17 21:00 11/01/17 20:59 Heparin Sodium (Porcine) (Heparin 5000 units/ml) 5,000 units EVERY 12 HOURS SUBQ 10/02/17 09:00 11/01/17 08:59 10/02/17 09:16 Lisinopril (Prinivil) 10 mg DAILY ORAL 10/02/17 09:00 11/01/17 08:59 Lorazepam (Ativan 2mg/ml 1ml) 1 mg EVERY 4 HOURS PRN IV agitation 10/02/17 00:15 10/09/17 00:14 Metoclopramide HCl (Reglan) 10 mg EVERY 6 HOURS PRN IVP servere nauasea 10/02/17 00:15 11/01/17 00:14 Metoprolol Tartrate (Lopressor) 25 mg BID ORAL 10/02/17 09:00 11/01/17 08:59 Morphine Sulfate (Morphine Sulfate) 2 mg Q4H PRN IVP severe pain scale 7-10 10/02/17 00:30 10/09/17 00:29 10/02/17 12:28 Nitroglycerin (Ntg) 0.4 mg Q5M X 3 DOSES PRN SL Prn Chest Pain 10/02/17 00:15 11/01/17 00:14 Ondansetron HCl (Zofran) 4 mg Q6H PRN IVP Nausea & Vomiting 10/02/17 00:15 11/01/17 00:14 Pantoprazole (Protonix) 40 mg DAILY IV 10/02/17 09:00 11/01/17 08:59 10/02/17 09:15 Polyethylene Glycol (Miralax) 17 gm HSPRN PRN ORAL Constipation 10/02/17 00:15 11/01/17 00:14 Promethazine HCl 12.5 mg/Sodium Chloride 55.5 ml @ 110 mls/hr Q6H PRN IV Refractory N/V 10/02/17 00:15 11/01/17 00:14 Promethazine HCl 25 mg/Sodium Chloride 56 ml @ 110 mls/hr Q6H PRN IV Refractory N/V 10/02/17 00:15 11/01/17 00:14 Sucralfate (Carafate) 1 gm FOUR TIMES A DAY ORAL 10/02/17 09:00 11/01/17 08:59 10/02/17 12:28 Temazepam (Restoril) 15 mg HSPRN PRN ORAL Insomnia 10/02/17 00:15 10/09/17 00:14 Assessment/Plan Problem List: (1) Acute pancreatitis ICD Codes: K85.90 - Acute pancreatitis without necrosis or infection, unspecified SNOMED: 560100616 (2) Abdominal pain ICD Codes: R10.9 - Unspecified abdominal pain SNOMED: 97079952 (3) CHF (congestive heart failure) ICD Codes: I50.9 - Heart failure, unspecified SNOMED: 36305974 (4) COPD (chronic obstructive pulmonary disease) ICD Codes: J44.9 - Chronic obstructive pulmonary disease, unspecified SNOMED: 13456807 (5) Morbid obesity ICD Codes: E66.01 - Morbid (severe) obesity due to excess calories SNOMED: 660824599, [id number] Assessment/Plan NPO iv fluids GI evaluation check amylase and lipase Merari Boateng MD Oct 02, 2017 14:33
--- NOTE | 2017-10-02 14:55 | Consultation ---
History of Present Illness General Date patient seen: Oct 02, 2017 Chief Complaint: Pain Present Illness HPI 61 yo F with hx of CHF, HLD, COPD, hysterectomy, HTN, Obesity, non compliance, peripheral neuropathy, s/p cholecystectomy, GERD, psychiatric disease, OA, hypothyroidism presents to ED on 10/01 with abd pain that started shortly after discharge. Pain 8/10, non-radiating. Also nausea and vomiting. CT showed acute pancreatitis and had elevated lipase in the 900s. Denies CP, SOB, f/c, n/v Of note, patient recently admitted here from 09/24-09/30 for COPD and CHF exacerbation ID called for a vesicular rash in buttocks concerning for shingles. Patient first noticed pain/burning followed by rash. This is the 3rd time she has a rash like this in the last year. Allergies: Coded Allergies: NO KNOWN ALLERGIES (Verified Allergy, Unknown, 08/04/17) Medication History Scheduled Aspirin Ec* (Aspirin Ec*), 81 MG PO DAILY, (Reported) Azithromycin (Zithromax), 1 GM ORAL DAILY Fluoxetine Hcl* (Prozac*), 20 MG ORAL BID, (Reported) Fluticasone Propionate (Flovent Hfa), 2 PUFFS INH TWICE A DAY, (Reported) Furosemide* (Lasix*), 40 MG ORAL DAILY, (Reported) Gabapentin (Neurontin), 300 MG ORAL BEDTIME, (Reported) Gentamicin Sulfate* (Gentamicin Sulfate*), 3.5 GM OP TID Lisinopril* (Lisinopril*), 10 MG ORAL DAILY Metoprolol Tartrate* (Metoprolol Tartrate*), 25 MG ORAL BID, (Reported) Nifedipine* (Nifedipine Er*), 90 MG ORAL DAILY, (Reported) Omeprazole (Omeprazole), 40 MG ORAL DAILY Sucralfate* (Carafate*), 1 GM ORAL FOUR TIMES A DAY, (Reported) Vitamin D (Vitamin D3), 400 UNITS ORAL DAILY, (Reported) Miscellaneous Medications Potassium (Potassium), 99 MG PO, (Reported) Discontinued Medications Amoxicillin/Potassium Clav 875-125* (Augmentin 875-125 Tablet*), 1 TAB ORAL TWICE A DAY Discontinued Reason: Therapy completed Calcium Carbonate (Tums), 200 MG PO, (Reported) Discontinued Reason: Pt stopped taking med Lisinopril (Lisinopril*), 40 MG ORAL DAILY, (Reported) Discontinued Reason: Medication dose changed Prednisone (Prednisone), 20 MG PO EVERY 12 HOURS Discontinued Reason: Therapy completed Simvastatin (Zocor), 20 MG ORAL DAILY, (Reported) Discontinued Reason: Pt stopped taking med Patient History Healthcare decision maker Resuscitation status Full Code Advanced Directive on File Patient History Narrative Pmhx: as above Shx: Denies: smoking, alcohol use, drug use Fhx: non contributory Review of Systems All Other Systems: negative except mentioned in HPI Physical Exam Physical Exam Narrative General Appearance: WD/WN, mild distress Lines, tubes and drains: peripheral HEENT: normocephalic, atraumatic Neck: non-tender, normal alignment Respiratory/Chest: chest wall non-tender, lungs clear Breasts: no masses Cardiovascular/Chest: normal peripheral pulses Abdomen: normal bowel sounds, non tender Extremities: normal range of motion Skin Exam: Vesicular rash in gluteal cleft Last 24 Hour Vital Signs Date Time Temp Pulse Resp B/P (MAP) Pulse Ox O2 Delivery O2 Flow Rate FiO2 10/02/17 12:00 98.1 81 20 105/67 98 98.1 10/02/17 09:00 64 105/66 10/02/17 09:00 105/66 10/02/17 08:00 97.3 77 20 104/58 98 97.3 10/02/17 04:00 98.3 64 20 105/66 94 98.3 10/02/17 01:05 79 21 112/75 95 Room Air 10/02/17 01:00 98.1 81 20 126/76 97 98.1 10/02/17 00:50 99.4 80 16 112/75 97 Room Air 99.4 10/01/17 22:58 99.4 88 14 121/76 97 Room Air 99.4 10/01/17 20:35 98.2 100 23 143/88 99 Room Air 98.2 10/01/17 19:42 98.2 100 18 118/80 95 Room Air 98.2 Intake and Output 10/01/17 10/02/17 19:00 07:00 Intake Total 370 ml Balance 370 ml Intake IV Total 370 ml # Voids 3 # Bowel Movements 1 Laboratory Tests Test 10/01/17 19:49 10/01/17 20:10 10/02/17 10:30 Urine Color Yellow Urine Appearance Clear Urine pH 6 (4.5-8.0) Urine Specific [place] 1.015 (1.005-1.035) Urine Protein 1+ (NEGATIVE) H Urine Glucose (UA) Negative (NEGATIVE) Urine Ketones Negative (NEGATIVE) Urine Occult Blood Negative (NEGATIVE) Urine Nitrite Negative (NEGATIVE) Urine Bilirubin Negative (NEGATIVE) Urine Urobilinogen 4 MG/DL (0.0-1.0) H Urine Leukocyte Esterase 1+ (NEGATIVE) H Urine RBC 0-2 /HPF (0 - 2) Urine WBC 2-4 /HPF (0 - 2) Urine Squamous Epithelial Cells Many /LPF (NONE/OCC) H Urine Bacteria Occasional /HPF (NONE) White Blood Count 11.3 K/UL (4.8-10.8) H Red Blood Count 4.75 M/UL (4.20-5.40) Hemoglobin 13.2 G/DL (12.0-16.0) Hematocrit 42.7 % (37.0-47.0) Mean Corpuscular Volume 90 FL (80-99) Mean Corpuscular Hemoglobin 27.8 PG (27.0-31.0) Mean Corpuscular Hemoglobin Concent 30.9 G/DL (32.0-36.0) L Red Cell Distribution Width 13.0 % (11.6-14.8) Platelet Count 159 K/UL (150-450) Mean Platelet Volume 9.6 FL (6.5-10.1) Neutrophils (%) (Auto) 64.6 % (45.0-75.0) Lymphocytes (%) (Auto) 20.2 % (20.0-45.0) Monocytes (%) (Auto) 11.2 % (1.0-10.0) H Eosinophils (%) (Auto) 2.2 % (0.0-3.0) Basophils (%) (Auto) 1.9 % (0.0-2.0) Sodium Level 138 MMOL/L (136-145) Potassium Level 3.8 MMOL/L (3.5-5.1) Chloride Level 101 MMOL/L (98-107) Carbon Dioxide Level 34 MMOL/L (21-32) H Anion Gap 3 mmol/L (5-15) L Blood Urea Nitrogen 17 mg/dL (7-18) Creatinine 1.2 MG/DL (0.55-1.30) Estimat Glomerular Filtration Rate 55.4 mL/min (>60) Glucose Level 156 MG/DL (74-106) H Calcium Level 9.0 MG/DL (8.5-10.1) Total Bilirubin 1.0 MG/DL (0.2-1.0) Aspartate Amino Transf (AST/SGOT) 18 U/L (15-37) Alanine Aminotransferase (ALT/SGPT) 23 U/L (12-78) Alkaline Phosphatase 64 U/L (46-116) Troponin I 0.030 ng/mL (0.000-0.056) Pro-B-Type Natriuretic Peptide 4729 pg/mL (0-125) H Total Protein 6.8 G/DL (6.4-8.2) Albumin 2.9 G/DL (3.4-5.0) L Globulin 3.9 g/dL Albumin/Globulin Ratio 0.7 (1.0-2.7) L Lipase 947 U/L (73-393) H Urine Opiates Screen Positive (NEGATIVE) H Urine Barbiturates Screen Negative (NEGATIVE) Phencyclidine (PCP) Screen Negative (NEGATIVE) Urine Amphetamines Screen Negative (NEGATIVE) Urine Benzodiazepines Screen Negative (NEGATIVE) Urine Cocaine Screen Negative (NEGATIVE) Urine Marijuana (THC) Screen Negative (NEGATIVE) Height (Feet): 5 Height (Inches): 1.00 Weight (Pounds): 265 Medications Current Medications Medications (Trade) Dose Ordered Sig/Gus Route PRN Reason Start Time Stop Time Status Last Admin Dose Admin Acetaminophen (Tylenol) 650 mg Q4H PRN ORAL fever 10/02/17 00:15 11/01/17 00:14 Al Hydroxide/Mg Hydroxide (Mylanta II) 30 ml Q6H PRN ORAL dyspepsia 10/02/17 00:15 11/01/17 00:14 Dextrose (Dextrose 50%) STAT PRN IV Hypoglycemia 10/02/17 00:15 11/01/17 00:14 Dextrose/Sodium Chloride 1,000 ml @ 75 mls/hr [id number] IV 10/02/17 00:06 11/01/17 00:05 10/02/17 12:39 Diphenhydramine HCl (Benadryl) 25 mg Q6H PRN ORAL Itching/Pruritis 10/02/17 00:15 11/01/17 00:14 Fluoxetine HCl (PROzac) 20 mg DAILY ORAL 10/03/17 09:00 11/02/17 08:59 Gabapentin (Neurontin) 300 mg BEDTIME ORAL 10/02/17 21:00 11/01/17 20:59 Heparin Sodium (Porcine) (Heparin 5000 units/ml) 5,000 units EVERY 12 HOURS SUBQ 10/02/17 09:00 11/01/17 08:59 10/02/17 09:16 Lisinopril (Prinivil) 10 mg DAILY ORAL 10/02/17 09:00 11/01/17 08:59 Lorazepam (Ativan 2mg/ml 1ml) 1 mg EVERY 4 HOURS PRN IV agitation 10/02/17 00:15 10/09/17 00:14 Metoclopramide HCl (Reglan) 10 mg EVERY 6 HOURS PRN IVP servere nauasea 10/02/17 00:15 11/01/17 00:14 Metoprolol Tartrate (Lopressor) 25 mg BID ORAL 10/02/17 09:00 11/01/17 08:59 Morphine Sulfate (Morphine Sulfate) 2 mg Q4H PRN IVP severe pain scale 7-10 10/02/17 00:30 10/09/17 00:29 10/02/17 12:28 Nitroglycerin (Ntg) 0.4 mg Q5M X 3 DOSES PRN SL Prn Chest Pain 10/02/17 00:15 11/01/17 00:14 Ondansetron HCl (Zofran) 4 mg Q6H PRN IVP Nausea & Vomiting 10/02/17 00:15 11/01/17 00:14 Pantoprazole (Protonix) 40 mg DAILY IV 10/02/17 09:00 11/01/17 08:59 10/02/17 09:15 Polyethylene Glycol (Miralax) 17 gm HSPRN PRN ORAL Constipation 10/02/17 00:15 11/01/17 00:14 Promethazine HCl 12.5 mg/Sodium Chloride 55.5 ml @ 110 mls/hr Q6H PRN IV Refractory N/V 10/02/17 00:15 11/01/17 00:14 Promethazine HCl 25 mg/Sodium Chloride 56 ml @ 110 mls/hr Q6H PRN IV Refractory N/V 10/02/17 00:15 11/01/17 00:14 Sucralfate (Carafate) 1 gm FOUR TIMES A DAY ORAL 10/02/17 09:00 11/01/17 08:59 10/02/17 12:28 Temazepam (Restoril) 15 mg HSPRN PRN ORAL Insomnia 10/02/17 00:15 10/09/17 00:14 Assessment/Plan Assessment/Plan Abx: None Assessment: Vesicular rash buttocks- likely 2ry to Shingles. HSV-2 is also DDx. Pancreatitis- ?etiology -CT abd/p: Findings suggestive of pancreatitis. No peripancreatic fluid collection. Pancreatic enhancement is symmetric. Status post cholecystectomy and hysterectomy. A few scattered colonic diverticula. No evidence suggest acute diverticulitis.Trace nonspecific fluid in the right cul-de- sac.Cardiomegaly -Abd US: Slight heterogeneity of the pancreatic head likely related to inflammatory peripancreatic findings seen on concurrent CT suggesting acute pancreatitis. Status post cholecystectomy. Dilatation of the common bile duct may be postoperative in etiology. No discrete choledocholithiasis seen. No intrahepatic biliary ductal dilatation appreciated. Mild leukocytosis- likely reactive to above -afebrile -u/a WBC 2-4 -CXR: Persistent but slightly decreased linear atelectasis or scarring in the left midlung. Stable cardiomegaly. Hx of recurrent shingles hx of MSSA in sputum CHF. Hyperlipidemia. Hypertension. COPD. Hysterectomy. Cholecystectomy. Obesity. GERD. Osteoarthritis. Hypothyroidism. Plan: -Start PO Valacyclovir 1g q8hrs for 7 days -upon discharge will give prescriptions of Valacyclovir to patient take as needed at onset of early symptoms of shingles (she is able to recognized when) as this is her 3rd episode of shingles. Alternative she can be placed on suppressive daily PO valtrex dose. Discussed with patient, she prefers the former -10/01 SP azithromycin #5 09/27 SP IV Zosyn d # 2 -f/u cx -Monitor CBC/BMP, temperatures -Contact precautions Thank you for this consultation. Will continue to follow along with you. Discussed with Vidya Mata M.D. Oct 02, 2017 14:55
--- NOTE | 2017-10-02 14:59 | Cardiology Report ---
APPROVED REPORT EKG Measurement Heart [id number] MS [id number] Normal sinus rhythm Possible Left atrial enlargement Left ventricular hypertrophy with repolarization abnormality Cannot rule out Septal infarct, age undetermined Abnormal ECG
[2017-10-02] MEDS: valACYclovir HCL 500mg tab ORAL SCH ×2 (17:57→23:19)
[2017-10-03] VITALS: BP 121/70
[2017-10-03] MEDS: D5 1/2NS 1,000 ML IV SCH ×2 (02:37→17:33)
[2017-10-03 04:00] VITALS: BP 114/58
[2017-10-03] MEDS: valACYclovir HCL 500mg tab ORAL SCH ×3 (06:17→21:11)
[2017-10-03] MEDS: Morphine Sulfate 4mg/ml Inj IVP PRN ×3 (06:25→18:46)
[2017-10-03 08:00] VITALS: BP 123/78
[2017-10-03] MEDS: Pantoprazole Inj IV SCH (08:39)
[2017-10-03] MEDS: Sucralfate 1gm tab ORAL SCH ×2 (08:39→17:28)
[2017-10-03] MEDS: Lisinopril 20mg tab ORAL SCH (08:39)
[2017-10-03] MEDS: Metoprolol 25mg tab ORAL SCH ×2 (08:39→17:33)
[2017-10-03] MEDS: Heparin 5000 units/ml inj SUBQ SCH ×2 (08:42→21:17)
[2017-10-03 09:15] LABS: BASOPHILS % (AUTO) 0.6 % (0.0-2.0); EOSINOPHILS % (AUTO) 5.9 % (0.0-3.0); HEMATOCRIT 34.5 % (37.0-47.0); LYMPHOCYTES % (AUTO) 35.2 % (20.0-45.0); MEAN CORPUSCULAR VOLUME 91 FL (80-99); MONOCYTES % (AUTO) 11.1 % (1.0-10.0); NEUTROPHILS % (AUTO) 47.3 % (45.0-75.0); PLATELET COUNT 129 K/UL (150-450); RED BLOOD COUNT 3.79 M/UL (4.20-5.40); WHITE BLOOD COUNT 6.9 K/UL (4.8-10.8)
[2017-10-03 09:43] LABS: ALANINE AMINOTRANSFERASE 21 U/L (12-78); ALBUMIN 2.5 G/DL (3.4-5.0); ALBUMIN/GLOBULIN RATIO 0.7 (1.0-2.7); ALKALINE PHOSPHATASE 50 U/L (46-116); AMYLASE 103 U/L (25-115); ANION GAP 8 mmol/L (5-15); ASPARTATE AMINO TRANSFERASE 17 U/L (15-37); BILIRUBIN,TOTAL 0.6 MG/DL (0.2-1.0); BLOOD UREA NITROGEN 10 mg/dL (7-18); CALCIUM 8.8 MG/DL (8.5-10.1); CARBON DIOXIDE 29 MMOL/L (21-32); CHLORIDE 103 MMOL/L (98-107); CHOLESTEROL 156 MG/DL (< 200); HDL CHOLESTEROL 48 MG/DL (40-60); SODIUM 140 MMOL/L (136-145); TRIGLYCERIDES 117 MG/DL (30-150)
[2017-10-03 12:00] VITALS: BP 101/64
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
--- NOTE | 2017-10-03 13:13 | General Progress Note ---
Assessment/Plan Status: stable, progressing Assessment/Plan MDD Anxiety -decrease prozac 20mg qam -provide the pt with ro/st Subjective Date patient seen: Oct 03, 2017 Neurologic/Psychiatric: Reports: anxiety, depressed, emotional problems Allergies: Coded Allergies: NO KNOWN ALLERGIES (Verified Allergy, Unknown, 08/04/17) Subjective the pt is stable. No si/hi. Objective Last 24 Hour Vital Signs Date Time Temp Pulse Resp B/P (MAP) Pulse Ox O2 Delivery O2 Flow Rate FiO2 10/03/17 12:00 97.9 101/64 97.9 10/03/17 08:39 91 123/78 10/03/17 08:39 123/78 10/03/17 08:00 98.2 91 20 123/78 99 98.2 10/03/17 04:00 98.6 78 19 114/58 93 Room Air 98.6 10/03/17 00:00 97.9 75 19 121/70 96 Room Air 97.9 10/02/17 20:00 98.2 75 20 123/69 98 Room Air 98.2 10/02/17 17:33 72 116/61 10/02/17 16:00 98.2 70 20 118/63 96 98.2 Intake and Output 10/02/17 10/03/17 19:00 07:00 Intake Total 1500 ml 1150 ml Balance 1500 ml 1150 ml Intake Oral 600 ml 250 ml IV Total 900 ml 900 ml # Voids 3 3 Laboratory Tests 10/03/17 08:30: White Blood Count 6.9, Red Blood Count 3.79L, Hemoglobin 11.0L, Hematocrit 34.5L , Mean Corpuscular Volume 91, Mean Corpuscular Hemoglobin 29.1, Mean Corpuscular Hemoglobin Concent 31.9L, Red Cell Distribution Width 13.0, Platelet Count 129L, Mean Platelet Volume 10.2H, Neutrophils (%) (Auto) 47.3, Lymphocytes (%) (Auto) 35.2, Monocytes (%) (Auto) 11.1H, Eosinophils (%) (Auto) 5.9H, Basophils (%) (Auto) 0.6, Erythrocyte Sedimentation Rate 53H, Activated Partial Thromboplast Time 27, Sodium Level 140, Potassium Level 4.0, Chloride Level 103, Carbon Dioxide Level 29, Anion Gap 8, Blood Urea Nitrogen 10, Creatinine 1.0, Estimat Glomerular Filtration Rate > 60, Glucose Level 170H, Calcium Level 8.8, Phosphorus Level 4.0, Magnesium Level 2.1, Total Bilirubin 0.6, Aspartate Amino Transf (AST/SGOT) 17, Alanine Aminotransferase (ALT/SGPT) 21, Alkaline Phosphatase 50, C-Reactive Protein, Quantitative 12.1H, Total Protein 6.2L, Albumin 2.5L, Globulin 3.7, Albumin/Globulin Ratio 0.7L, Triglycerides Level 117, Cholesterol Level 156, LDL Cholesterol 95, HDL Cholesterol 48, Cholesterol/HDL Ratio 3.3, Amylase Level 103, Lipase 373 Height (Feet): 5 Height (Inches): 1.00 Weight (Pounds): 265 General Appearance: WD/WN, no apparent distress, alert Neurologic: alert, oriented x 3, responsive, depressed affect Jose Miguel Andino M.D. Oct 03, 2017 13:13
--- NOTE | 2017-10-03 13:37 | Pulmonology Progress Note ---
Assessment/Plan Problems: (1) Acute pancreatitis (2) Abdominal pain (3) CHF (congestive heart failure) (4) COPD (chronic obstructive pulmonary disease) (5) Morbid obesity Assessment/Plan still in lot of pain f/u GI recommendations NPO iv fluids check electroltyes check amylase and lipase. Subjective ROS Limited/Unobtainable: No Interval Events: still c/o pain Constitutional: Reports: no symptoms Allergies: Coded Allergies: NO KNOWN ALLERGIES (Verified Allergy, Unknown, 08/04/17) Objective Last 24 Hour Vital Signs Date Time Temp Pulse Resp B/P (MAP) Pulse Ox O2 Delivery O2 Flow Rate FiO2 10/03/17 12:00 97.9 101/64 97.9 10/03/17 08:39 91 123/78 10/03/17 08:39 123/78 10/03/17 08:00 98.2 91 20 123/78 99 98.2 10/03/17 04:00 98.6 78 19 114/58 93 Room Air 98.6 10/03/17 00:00 97.9 75 19 121/70 96 Room Air 97.9 10/02/17 20:00 98.2 75 20 123/69 98 Room Air 98.2 10/02/17 17:33 72 116/61 10/02/17 16:00 98.2 70 20 118/63 96 98.2 Intake and Output 10/02/17 10/03/17 19:00 07:00 Intake Total 1500 ml 1150 ml Balance 1500 ml 1150 ml Intake Oral 600 ml 250 ml IV Total 900 ml 900 ml # Voids 3 3 General Appearance: WD/WN HEENT: normocephalic, atraumatic Respiratory/Chest: chest wall non-tender, lungs clear Extremities: no cyanosis Skin: no rash, no lesions Laboratory Tests 10/03/17 08:30: White Blood Count 6.9, Red Blood Count 3.79L, Hemoglobin 11.0L, Hematocrit 34.5L , Mean Corpuscular Volume 91, Mean Corpuscular Hemoglobin 29.1, Mean Corpuscular Hemoglobin Concent 31.9L, Red Cell Distribution Width 13.0, Platelet Count 129L, Mean Platelet Volume 10.2H, Neutrophils (%) (Auto) 47.3, Lymphocytes (%) (Auto) 35.2, Monocytes (%) (Auto) 11.1H, Eosinophils (%) (Auto) 5.9H, Basophils (%) (Auto) 0.6, Erythrocyte Sedimentation Rate 53H, Activated Partial Thromboplast Time 27, Sodium Level 140, Potassium Level 4.0, Chloride Level 103, Carbon Dioxide Level 29, Anion Gap 8, Blood Urea Nitrogen 10, Creatinine 1.0, Estimat Glomerular Filtration Rate > 60, Glucose Level 170H, Calcium Level 8.8, Phosphorus Level 4.0, Magnesium Level 2.1, Total Bilirubin 0.6, Aspartate Amino Transf (AST/SGOT) 17, Alanine Aminotransferase (ALT/SGPT) 21, Alkaline Phosphatase 50, C-Reactive Protein, Quantitative 12.1H, Total Protein 6.2L, Albumin 2.5L, Globulin 3.7, Albumin/Globulin Ratio 0.7L, Triglycerides Level 117, Cholesterol Level 156, LDL Cholesterol 95, HDL Cholesterol 48, Cholesterol/HDL Ratio 3.3, Amylase Level 103, Lipase 373 Current Medications Medications (Trade) Dose Ordered Sig/Gus Route PRN Reason Start Time Stop Time Status Last Admin Dose Admin Acetaminophen (Tylenol) 650 mg Q4H PRN ORAL fever 10/02/17 00:15 11/01/17 00:14 Al Hydroxide/Mg Hydroxide (Mylanta II) 30 ml Q6H PRN ORAL dyspepsia 10/02/17 00:15 11/01/17 00:14 Dextrose (Dextrose 50%) STAT PRN IV Hypoglycemia 10/02/17 00:15 11/01/17 00:14 Dextrose/Sodium Chloride 1,000 ml @ 75 mls/hr [id number] IV 10/02/17 00:06 11/01/17 00:05 10/03/17 02:37 Diphenhydramine HCl (Benadryl) 25 mg Q6H PRN ORAL Itching/Pruritis 10/02/17 00:15 11/01/17 00:14 Fluoxetine HCl (PROzac) 20 mg DAILY ORAL 10/03/17 09:00 11/02/17 08:59 10/03/17 08:39 Gabapentin (Neurontin) 300 mg BEDTIME ORAL 10/02/17 21:00 11/01/17 20:59 10/02/17 21:08 Heparin Sodium (Porcine) (Heparin 5000 units/ml) 5,000 units EVERY 12 HOURS SUBQ 10/02/17 09:00 11/01/17 08:59 10/03/17 08:42 Lisinopril (Prinivil) 10 mg DAILY ORAL 10/02/17 09:00 11/01/17 08:59 10/03/17 08:39 Lorazepam (Ativan 2mg/ml 1ml) 1 mg EVERY 4 HOURS PRN IV agitation 10/02/17 00:15 10/09/17 00:14 Metoclopramide HCl (Reglan) 10 mg EVERY 6 HOURS PRN IVP servere nauasea 10/02/17 00:15 11/01/17 00:14 Metoprolol Tartrate (Lopressor) 25 mg BID ORAL 10/02/17 09:00 11/01/17 08:59 10/03/17 08:39 Morphine Sulfate (Morphine Sulfate) 2 mg Q4H PRN IVP severe pain scale 7-10 10/02/17 00:30 10/09/17 00:29 10/03/17 13:11 Nitroglycerin (Ntg) 0.4 mg Q5M X 3 DOSES PRN SL Prn Chest Pain 10/02/17 00:15 11/01/17 00:14 Ondansetron HCl (Zofran) 4 mg Q6H PRN IVP Nausea & Vomiting 10/02/17 00:15 11/01/17 00:14 Pantoprazole (Protonix) 40 mg DAILY IV 10/02/17 09:00 11/01/17 08:59 10/03/17 08:39 Polyethylene Glycol (Miralax) 17 gm HSPRN PRN ORAL Constipation 10/02/17 00:15 11/01/17 00:14 Promethazine HCl 12.5 mg/Sodium Chloride 55.5 ml @ 110 mls/hr Q6H PRN IV Refractory N/V 10/02/17 00:15 11/01/17 00:14 Promethazine HCl 25 mg/Sodium Chloride 56 ml @ 110 mls/hr Q6H PRN IV Refractory N/V 10/02/17 00:15 11/01/17 00:14 Sucralfate (Carafate) 1 gm BID ORAL 10/03/17 18:00 11/02/17 17:59 Temazepam (Restoril) 15 mg HSPRN PRN ORAL Insomnia 10/02/17 00:15 10/09/17 00:14 Valacyclovir HCl (Valtrex) 1,000 mg EVERY 8 HOURS ORAL 10/02/17 17:15 11/01/17 17:14 10/03/17 13:11 Merari Boateng MD Oct 03, 2017 13:37
[2017-10-03 16:00] VITALS: BP 149/73
--- NOTE | 2017-10-03 16:28 | Infectious Diseases Prog Note ---
Assessment/Plan Assessment/Plan Assessment: Vesicular rash buttocks- likely 2ry to Shingles. HSV-2 is also DDx. Pancreatitis- ?etiology -CT abd/p: Findings suggestive of pancreatitis. No peripancreatic fluid collection. Pancreatic enhancement is symmetric. Status post cholecystectomy and hysterectomy. A few scattered colonic diverticula. No evidence suggest acute diverticulitis.Trace nonspecific fluid in the right cul-de- sac.Cardiomegaly -Abd US: Slight heterogeneity of the pancreatic head likely related to inflammatory peripancreatic findings seen on concurrent CT suggesting acute pancreatitis. Status post cholecystectomy. Dilatation of the common bile duct may be postoperative in etiology. No discrete choledocholithiasis seen. No intrahepatic biliary ductal dilatation appreciated. Mild leukocytosis- likely reactive to above -afebrile -u/a WBC 2-4 -CXR: Persistent but slightly decreased linear atelectasis or scarring in the left midlung. Stable cardiomegaly. Hx of recurrent shingles hx of MSSA in sputum CHF. Hyperlipidemia. Hypertension. COPD. Hysterectomy. Cholecystectomy. Obesity. GERD. Osteoarthritis. Hypothyroidism. Plan: -Continue PO Valacyclovir 1g q8hrs #2/7 -upon discharge will give prescriptions of Valacyclovir to patient take as needed at onset of early symptoms of shingles (she is able to recognized when) as this is her 3rd episode of shingles. Alternative she can be placed on suppressive daily PO valtrex dose. Discussed with patient, she prefers the former -10/01 SP azithromycin #5 09/27 SP IV Zosyn d # 2 -f/u cx -Monitor CBC/BMP, temperatures -Contact precautions Thank you for this consultation. Will continue to follow along with you. Discussed with RN. Subjective Allergies: Coded Allergies: NO KNOWN ALLERGIES (Verified Allergy, Unknown, 08/04/17) Subjective afebrile no leukocytosis Objective Vital Signs Last 24 Hour Vital Signs Date Time Temp Pulse Resp B/P (MAP) Pulse Ox O2 Delivery O2 Flow Rate FiO2 10/03/17 12:00 97.9 101/64 97.9 10/03/17 08:39 91 123/78 10/03/17 08:39 123/78 10/03/17 08:00 98.2 91 20 123/78 99 98.2 10/03/17 04:00 98.6 78 19 114/58 93 Room Air 98.6 10/03/17 00:00 97.9 75 19 121/70 96 Room Air 97.9 10/02/17 20:00 98.2 75 20 123/69 98 Room Air 98.2 10/02/17 17:33 72 116/61 Height (Feet): 5 Height (Inches): 1.00 Weight (Pounds): 265 Objective General Appearance: WD/WN, mild distress Lines, tubes and drains: peripheral HEENT: normocephalic, atraumatic Neck: non-tender, normal alignment Respiratory/Chest: chest wall non-tender, lungs clear Breasts: no masses Cardiovascular/Chest: normal peripheral pulses Abdomen: normal bowel sounds, non tender Extremities: normal range of motion Skin Exam: Vesicular rash in gluteal cleft Laboratory Tests Test 10/03/17 08:30 White Blood Count 6.9 K/UL (4.8-10.8) Red Blood Count 3.79 M/UL (4.20-5.40) L Hemoglobin 11.0 G/DL (12.0-16.0) L Hematocrit 34.5 % (37.0-47.0) L Mean Corpuscular Volume 91 FL (80-99) Mean Corpuscular Hemoglobin 29.1 PG (27.0-31.0) Mean Corpuscular Hemoglobin Concent 31.9 G/DL (32.0-36.0) L Red Cell Distribution Width 13.0 % (11.6-14.8) Platelet Count 129 K/UL (150-450) L Mean Platelet Volume 10.2 FL (6.5-10.1) H Neutrophils (%) (Auto) 47.3 % (45.0-75.0) Lymphocytes (%) (Auto) 35.2 % (20.0-45.0) Monocytes (%) (Auto) 11.1 % (1.0-10.0) H Eosinophils (%) (Auto) 5.9 % (0.0-3.0) H Basophils (%) (Auto) 0.6 % (0.0-2.0) Erythrocyte Sedimentation Rate 53 MM/HR (0-30) H Activated Partial Thromboplast Time 27 SEC (23-33) Sodium Level 140 MMOL/L (136-145) Potassium Level 4.0 MMOL/L (3.5-5.1) Chloride Level 103 MMOL/L (98-107) Carbon Dioxide Level 29 MMOL/L (21-32) Anion Gap 8 mmol/L (5-15) Blood Urea Nitrogen 10 mg/dL (7-18) Creatinine 1.0 MG/DL (0.55-1.30) Estimat Glomerular Filtration Rate > 60 mL/min (>60) Glucose Level 170 MG/DL (74-106) H Calcium Level 8.8 MG/DL (8.5-10.1) Phosphorus Level 4.0 MG/DL (2.5-4.9) Magnesium Level 2.1 MG/DL (1.8-2.4) Total Bilirubin 0.6 MG/DL (0.2-1.0) Aspartate Amino Transf (AST/SGOT) 17 U/L (15-37) Alanine Aminotransferase (ALT/SGPT) 21 U/L (12-78) Alkaline Phosphatase 50 U/L (46-116) C-Reactive Protein, Quantitative 12.1 mg/dL (0.00-0.90) H Total Protein 6.2 G/DL (6.4-8.2) L Albumin 2.5 G/DL (3.4-5.0) L Globulin 3.7 g/dL Albumin/Globulin Ratio 0.7 (1.0-2.7) L Triglycerides Level 117 MG/DL (30-150) Cholesterol Level 156 MG/DL (< 200) LDL Cholesterol 95 mg/dL (<100) HDL Cholesterol 48 MG/DL (40-60) Cholesterol/HDL Ratio 3.3 (3.3-4.4) Amylase Level 103 U/L (25-115) Lipase 373 U/L (73-393) Current Medications Medications (Trade) Dose Ordered Sig/Gus Route PRN Reason Start Time Stop Time Status Last Admin Dose Admin Acetaminophen (Tylenol) 650 mg Q4H PRN ORAL fever 10/02/17 00:15 11/01/17 00:14 Al Hydroxide/Mg Hydroxide (Mylanta II) 30 ml Q6H PRN ORAL dyspepsia 10/02/17 00:15 11/01/17 00:14 Dextrose (Dextrose 50%) STAT PRN IV Hypoglycemia 10/02/17 00:15 11/01/17 00:14 Dextrose/Sodium Chloride 1,000 ml @ 75 mls/hr [id number] IV 10/02/17 00:06 11/01/17 00:05 10/03/17 02:37 Diphenhydramine HCl (Benadryl) 25 mg Q6H PRN ORAL Itching/Pruritis 10/02/17 00:15 11/01/17 00:14 Famotidine (Pepcid I.v.) 20 mg Q12HR IVP 10/03/17 21:00 11/02/17 20:59 Fluoxetine HCl (PROzac) 20 mg DAILY ORAL 10/03/17 09:00 11/02/17 08:59 10/03/17 08:39 Gabapentin (Neurontin) 300 mg BEDTIME ORAL 10/02/17 21:00 11/01/17 20:59 10/02/17 21:08 Heparin Sodium (Porcine) (Heparin 5000 units/ml) 5,000 units EVERY 12 HOURS SUBQ 10/02/17 09:00 11/01/17 08:59 10/03/17 08:42 Lisinopril (Prinivil) 10 mg DAILY ORAL 10/02/17 09:00 11/01/17 08:59 10/03/17 08:39 Lorazepam (Ativan 2mg/ml 1ml) 1 mg EVERY 4 HOURS PRN IV agitation 10/02/17 00:15 10/09/17 00:14 Metoclopramide HCl (Reglan) 10 mg EVERY 6 HOURS PRN IVP servere nauasea 10/02/17 00:15 11/01/17 00:14 Metoprolol Tartrate (Lopressor) 25 mg BID ORAL 10/02/17 09:00 11/01/17 08:59 10/03/17 08:39 Morphine Sulfate (Morphine Sulfate) 2 mg Q4H PRN IVP severe pain scale 7-10 10/02/17 00:30 10/09/17 00:29 10/03/17 13:11 Nitroglycerin (Ntg) 0.4 mg Q5M X 3 DOSES PRN SL Prn Chest Pain 10/02/17 00:15 11/01/17 00:14 Ondansetron HCl (Zofran) 4 mg Q6H PRN IVP Nausea & Vomiting 10/02/17 00:15 11/01/17 00:14 Polyethylene Glycol (Miralax) 17 gm HSPRN PRN ORAL Constipation 10/02/17 00:15 11/01/17 00:14 Promethazine HCl 12.5 mg/Sodium Chloride 55.5 ml @ 110 mls/hr Q6H PRN IV Refractory N/V 10/02/17 00:15 11/01/17 00:14 Promethazine HCl 25 mg/Sodium Chloride 56 ml @ 110 mls/hr Q6H PRN IV Refractory N/V 10/02/17 00:15 11/01/17 00:14 Sucralfate (Carafate) 1 gm BID ORAL 10/03/17 18:00 11/02/17 17:59 Temazepam (Restoril) 15 mg HSPRN PRN ORAL Insomnia 10/02/17 00:15 10/09/17 00:14 Valacyclovir HCl (Valtrex) 1,000 mg EVERY 8 HOURS ORAL 10/02/17 17:15 11/01/17 17:14 10/03/17 13:11 Vidya Land M.D. Oct 03, 2017 16:28
--- NOTE | 2017-10-03 18:06 | GI Progress Note ---
Assessment/Plan Problems: (1) Acute pancreatitis ICD Codes: K85.90 - Acute pancreatitis without necrosis or infection, unspecified SNOMED: 070453471 (2) Pain ICD Codes: R52 - Pain, unspecified SNOMED: 35790607 (3) Abdominal pain ICD Codes: R10.9 - Unspecified abdominal pain SNOMED: 23002686 Status: progressing Status Narrative Discussed with Dr. Fuentes. Assessment/Plan EGD/colonoscopy done 6 months ago at [facility], will obtain records. CT AP reviewed >> acute pancreatitis abdominal U/S reviewed >> s/p cholecystomy with 10mm CBD dilation lipid panel reviewed unremarkable utox unremarkable conservative pancreatitis management >> unknown etiology adv diet as tolerated pain mgmt IV hydration dc ppi which can cause pancreatitis trend lipase fu labs, NATALIE & IgG4 r/o autoimmune endoscopy if necessary Subjective Gastrointestinal/Abdominal: Reports: abdominal pain Objective Last 24 Hour Vital Signs Date Time Temp Pulse Resp B/P (MAP) Pulse Ox O2 Delivery O2 Flow Rate FiO2 10/03/17 17:33 91 101/64 10/03/17 16:00 97.7 70 20 149/73 100 97.7 10/03/17 12:00 97.9 101/64 97.9 10/03/17 08:39 91 123/78 10/03/17 08:39 123/78 10/03/17 08:00 98.2 91 20 123/78 99 98.2 10/03/17 04:00 98.6 78 19 114/58 93 Room Air 98.6 10/03/17 00:00 97.9 75 19 121/70 96 Room Air 97.9 10/02/17 20:00 98.2 75 20 123/69 98 Room Air 98.2 Intake and Output 10/02/17 10/03/17 19:00 07:00 Intake Total 1500 ml 1150 ml Balance 1500 ml 1150 ml Intake Oral 600 ml 250 ml IV Total 900 ml 900 ml # Voids 3 3 Laboratory Tests Test 10/03/17 08:30 White Blood Count 6.9 K/UL (4.8-10.8) Red Blood Count 3.79 M/UL (4.20-5.40) L Hemoglobin 11.0 G/DL (12.0-16.0) L Hematocrit 34.5 % (37.0-47.0) L Mean Corpuscular Volume 91 FL (80-99) Mean Corpuscular Hemoglobin 29.1 PG (27.0-31.0) Mean Corpuscular Hemoglobin Concent 31.9 G/DL (32.0-36.0) L Red Cell Distribution Width 13.0 % (11.6-14.8) Platelet Count 129 K/UL (150-450) L Mean Platelet Volume 10.2 FL (6.5-10.1) H Neutrophils (%) (Auto) 47.3 % (45.0-75.0) Lymphocytes (%) (Auto) 35.2 % (20.0-45.0) Monocytes (%) (Auto) 11.1 % (1.0-10.0) H Eosinophils (%) (Auto) 5.9 % (0.0-3.0) H Basophils (%) (Auto) 0.6 % (0.0-2.0) Erythrocyte Sedimentation Rate 53 MM/HR (0-30) H Activated Partial Thromboplast Time 27 SEC (23-33) Sodium Level 140 MMOL/L (136-145) Potassium Level 4.0 MMOL/L (3.5-5.1) Chloride Level 103 MMOL/L (98-107) Carbon Dioxide Level 29 MMOL/L (21-32) Anion Gap 8 mmol/L (5-15) Blood Urea Nitrogen 10 mg/dL (7-18) Creatinine 1.0 MG/DL (0.55-1.30) Estimat Glomerular Filtration Rate > 60 mL/min (>60) Glucose Level 170 MG/DL (74-106) H Calcium Level 8.8 MG/DL (8.5-10.1) Phosphorus Level 4.0 MG/DL (2.5-4.9) Magnesium Level 2.1 MG/DL (1.8-2.4) Total Bilirubin 0.6 MG/DL (0.2-1.0) Aspartate Amino Transf (AST/SGOT) 17 U/L (15-37) Alanine Aminotransferase (ALT/SGPT) 21 U/L (12-78) Alkaline Phosphatase 50 U/L (46-116) C-Reactive Protein, Quantitative 12.1 mg/dL (0.00-0.90) H Total Protein 6.2 G/DL (6.4-8.2) L Albumin 2.5 G/DL (3.4-5.0) L Globulin 3.7 g/dL Albumin/Globulin Ratio 0.7 (1.0-2.7) L Triglycerides Level 117 MG/DL (30-150) Cholesterol Level 156 MG/DL (< 200) LDL Cholesterol 95 mg/dL (<100) HDL Cholesterol 48 MG/DL (40-60) Cholesterol/HDL Ratio 3.3 (3.3-4.4) Amylase Level 103 U/L (25-115) Lipase 373 U/L (73-393) Height (Feet): 5 Height (Inches): 1.00 Weight (Pounds): 265 General Appearance: WD/WN, no apparent distress, alert Cardiovascular: normal rate Respiratory/Chest: normal breath sounds, no respiratory distress Abdominal Exam: normal bowel sounds, non tender, soft Extremities: normal range of motion, non-tender Cami Huertas N.P. Oct 03, 2017 18:06
[2017-10-03 20:00] VITALS: BP 112/53
[2017-10-04] VITALS: BP 113/66
[2017-10-04] MEDS: Morphine Sulfate 4mg/ml Inj IVP PRN ×4 (03:04→21:57)
[2017-10-04 04:00] VITALS: BP 96/55
[2017-10-04] MEDS: D5 1/2NS 1,000 ML IV SCH ×4 (05:23→23:09)
[2017-10-04] MEDS: valACYclovir HCL 500mg tab ORAL SCH ×3 (06:54→21:40)
[2017-10-04] MEDS: Sucralfate 1gm tab ORAL SCH ×2 (06:59→17:09)
[2017-10-04 08:00] VITALS: BP_SYST 103; BP_SYST 143; BP_DIAS 59; BP_DIAS 83
[2017-10-04] MEDS: Heparin 5000 units/ml inj SUBQ SCH ×2 (09:00→21:00)
[2017-10-04] MEDS: Metoprolol 25mg tab ORAL SCH ×2 (09:03→17:10)
[2017-10-04] MEDS: Lisinopril 20mg tab ORAL SCH (09:04)
[2017-10-04] MEDS ORDERED: Morphine Sulfate 4mg/ml Inj IVP PRN (09:30)
[2017-10-04 10:36] LABS: BASOPHILS % (AUTO) 0.6 % (0.0-2.0); EOSINOPHILS % (AUTO) 6.4 % (0.0-3.0); HEMATOCRIT 33.7 % (37.0-47.0); HEMOGLOBIN 10.6 G/DL (12.0-16.0); LYMPHOCYTES % (AUTO) 35.7 % (20.0-45.0); MEAN CORPUSCULAR VOLUME 91 FL (80-99); MONOCYTES % (AUTO) 10.7 % (1.0-10.0); NEUTROPHILS % (AUTO) 46.6 % (45.0-75.0); PLATELET COUNT 142 K/UL (150-450); RED BLOOD COUNT 3.69 M/UL (4.20-5.40); RED CELL DISTRIBUTION WIDTH 13.4 % (11.6-14.8); WHITE BLOOD COUNT 6.2 K/UL (4.8-10.8)
[2017-10-04 10:57] LABS: PHOSPHORUS 3.5 MG/DL (2.5-4.9)
[2017-10-04] MEDS ORDERED: Nitroglycerin Subl 0.4mg tab SL PRN (11:15)
--- NOTE | 2017-10-04 11:46 | GI Progress Note ---
Assessment/Plan Problems: (1) Acute pancreatitis ICD Codes: K85.90 - Acute pancreatitis without necrosis or infection, unspecified SNOMED: 881263750 (2) Pain ICD Codes: R52 - Pain, unspecified SNOMED: 81255781 (3) Abdominal pain ICD Codes: R10.9 - Unspecified abdominal pain SNOMED: 72492890 Status: unchanged Status Narrative Discussed with Dr. Fuentes. Assessment/Plan EGD/colonoscopy done 6 months ago at [facility], will obtain records. CT AP reviewed >> acute pancreatitis abdominal U/S reviewed >> s/p cholecystomy with 10mm CBD dilation lipid panel reviewed unremarkable utox unremarkable pancreatitis resolving >> normal lipase levels conservative pancreatitis management >> unknown etiology adv diet as tolerated pain mgmt IV hydration dc ppi which can cause pancreatitis trend lipase fu labs, NATALIE & IgG4 r/o autoimmune Subjective Subjective abdominal pain improved now complains of chest pain with radiation denies diarrhea Objective Last 24 Hour Vital Signs Date Time Temp Pulse Resp B/P (MAP) Pulse Ox O2 Delivery O2 Flow Rate FiO2 10/04/17 09:04 143/83 10/04/17 09:03 93 143/83 10/04/17 08:25 98.3 10/04/17 08:00 97.7 93 20 143/83 100 Room Air 97.7 10/04/17 07:55 98.3 10/04/17 04:00 98.3 69 20 96/55 96 Room Air 98.3 10/04/17 00:00 98.4 63 20 113/66 96 Room Air 98.4 10/03/17 20:00 99.0 83 20 112/53 98 Room Air 99.0 10/03/17 17:33 91 101/64 10/03/17 16:00 97.7 70 20 149/73 100 97.7 10/03/17 12:00 97.9 101/64 97.9 Intake and Output 10/03/17 10/04/17 19:00 07:00 Intake Total 335 ml 1075 ml Balance 335 ml 1075 ml Intake Oral 260 ml IV Total 75 ml 825 ml Tube Feeding 250 ml # Voids 5 2 # Bowel Movements 1 Laboratory Tests Test 10/04/17 10:00 White Blood Count 6.2 K/UL (4.8-10.8) Red Blood Count 3.69 M/UL (4.20-5.40) L Hemoglobin 10.6 G/DL (12.0-16.0) L Hematocrit 33.7 % (37.0-47.0) L Mean Corpuscular Volume 91 FL (80-99) Mean Corpuscular Hemoglobin 28.7 PG (27.0-31.0) Mean Corpuscular Hemoglobin Concent 31.5 G/DL (32.0-36.0) L Red Cell Distribution Width 13.4 % (11.6-14.8) Platelet Count 142 K/UL (150-450) L Mean Platelet Volume 9.8 FL (6.5-10.1) Neutrophils (%) (Auto) 46.6 % (45.0-75.0) Lymphocytes (%) (Auto) 35.7 % (20.0-45.0) Monocytes (%) (Auto) 10.7 % (1.0-10.0) H Eosinophils (%) (Auto) 6.4 % (0.0-3.0) H Basophils (%) (Auto) 0.6 % (0.0-2.0) Erythrocyte Sedimentation Rate 60 MM/HR (0-30) H Sodium Level Pending Potassium Level Pending Chloride Level Pending Carbon Dioxide Level Pending Blood Urea Nitrogen Pending Creatinine Pending Estimat Glomerular Filtration Rate Pending Glucose Level Pending Calcium Level Pending Phosphorus Level 3.5 MG/DL (2.5-4.9) Magnesium Level 1.9 MG/DL (1.8-2.4) Total Bilirubin Pending Aspartate Amino Transf (AST/SGOT) Pending Alanine Aminotransferase (ALT/SGPT) Pending Alkaline Phosphatase Pending Troponin I 0.027 ng/mL (0.000-0.056) C-Reactive Protein, Quantitative 8.1 mg/dL (0.00-0.90) H Total Protein Pending Albumin Pending Globulin Pending Amylase Level 81 U/L (25-115) Lipase 239 U/L (73-393) Immunoglobulin G Pending Immunoglobulin G1 Pending Immunoglobulin G2 Pending Immunoglobulin G3 Pending Immunoglobulin G4 Pending Anti-Nuclear Antibody Screen Pending Height (Feet): 5 Height (Inches): 1.00 Weight (Pounds): 265 General Appearance: WD/WN, no apparent distress, alert, morbidly obese Cardiovascular: normal rate Respiratory/Chest: normal breath sounds, no respiratory distress Abdominal Exam: normal bowel sounds, non tender, soft Extremities: normal range of motion, non-tender Cami Huertas N.P. Oct 04, 2017 11:46
[2017-10-04 11:56] LABS: ALANINE AMINOTRANSFERASE 21 U/L (12-78); ALBUMIN 2.5 G/DL (3.4-5.0); ALBUMIN/GLOBULIN RATIO 0.7 (1.0-2.7); ALKALINE PHOSPHATASE 51 U/L (46-116); ANION GAP 6 mmol/L (5-15); ASPARTATE AMINO TRANSFERASE 18 U/L (15-37); BILIRUBIN,TOTAL 0.5 MG/DL (0.2-1.0); BLOOD UREA NITROGEN 7 mg/dL (7-18); CALCIUM 8.7 MG/DL (8.5-10.1); CARBON DIOXIDE 30 MMOL/L (21-32); CHLORIDE 106 MMOL/L (98-107); CREATININE 0.9 MG/DL (0.55-1.30); POTASSIUM 3.5 MMOL/L (3.5-5.1); SODIUM 142 MMOL/L (136-145)
[2017-10-04 12:00] VITALS: BP_SYST 112; BP_SYST 149; BP_DIAS 57; BP_DIAS 81
[2017-10-04] MEDS ORDERED: Metoclopramide 10mg/2ml Inj IVP PRN (12:00)
--- NOTE | 2017-10-04 12:00 | Pulmonology Progress Note ---
Assessment/Plan Problems: (1) ACS (acute coronary syndrome) (2) Acute pancreatitis (3) Abdominal pain (4) CHF (congestive heart failure) (5) COPD (chronic obstructive pulmonary disease) (6) Morbid obesity Assessment/Plan ekg and troponin cardiology to see f/u GI recommendations advance diet as tolerated iv fluids check electroltyes check amylase and lipase. Subjective ROS Limited/Unobtainable: No Constitutional: Reports: no symptoms HEENT: Repors: no symptoms Allergies: Coded Allergies: NO KNOWN ALLERGIES (Verified Allergy, Unknown, 08/04/17) Objective Last 24 Hour Vital Signs Date Time Temp Pulse Resp B/P (MAP) Pulse Ox O2 Delivery O2 Flow Rate FiO2 10/04/17 09:04 143/83 10/04/17 09:03 93 143/83 10/04/17 08:25 98.3 10/04/17 08:00 97.7 93 20 143/83 100 Room Air 97.7 10/04/17 07:55 98.3 10/04/17 04:00 98.3 69 20 96/55 96 Room Air 98.3 10/04/17 00:00 98.4 63 20 113/66 96 Room Air 98.4 10/03/17 20:00 99.0 83 20 112/53 98 Room Air 99.0 10/03/17 17:33 91 101/64 10/03/17 16:00 97.7 70 20 149/73 100 97.7 10/03/17 12:00 97.9 101/64 97.9 Intake and Output 10/03/17 10/04/17 19:00 07:00 Intake Total 335 ml 1075 ml Balance 335 ml 1075 ml Intake Oral 260 ml IV Total 75 ml 825 ml Tube Feeding 250 ml # Voids 5 2 # Bowel Movements 1 Objective transferred to telemetry b/o episode of chest pain. General Appearance: WD/WN HEENT: normocephalic, atraumatic Respiratory/Chest: chest wall non-tender, lungs clear Breasts: no masses Cardiovascular: normal peripheral pulses Abdomen: normal bowel sounds, no organomegaly Microbiology Date/Time Source Procedure Growth Status 10/02/17 00:50 Nasal Nares MRSA Culture - Final NO METHICILLIN RESISTANT STAPH AUREUS... Complete 10/02/17 00:50 Rectum VRE Culture - Final NO VANCOMYCIN RESISTANT ENTEROCOCCUS ... Complete Laboratory Tests 10/04/17 10:00: White Blood Count 6.2, Red Blood Count 3.69L, Hemoglobin 10.6L, Hematocrit 33.7L , Mean Corpuscular Volume 91, Mean Corpuscular Hemoglobin 28.7, Mean Corpuscular Hemoglobin Concent 31.5L, Red Cell Distribution Width 13.4, Platelet Count 142L, Mean Platelet Volume 9.8, Neutrophils (%) (Auto) 46.6, Lymphocytes (%) (Auto) 35.7, Monocytes (%) (Auto) 10.7H, Eosinophils (%) (Auto) 6.4H, Basophils (%) (Auto) 0.6, Erythrocyte Sedimentation Rate 60H, Sodium Level 142, Potassium Level 3.5, Chloride Level 106, Carbon Dioxide Level 30, Anion Gap 6, Blood Urea Nitrogen 7, Creatinine 0.9, Estimat Glomerular Filtration Rate > 60, Glucose Level 159H, Calcium Level 8.7, Phosphorus Level 3.5, Magnesium Level 1.9, Total Bilirubin 0.5, Aspartate Amino Transf (AST/SGOT ) 18, Alanine Aminotransferase (ALT/SGPT) 21, Alkaline Phosphatase 51, Troponin I 0.027, C-Reactive Protein, Quantitative 8.1H, Total Protein 6.0L, Albumin 2.5L , Globulin 3.5, Albumin/Globulin Ratio 0.7L, Amylase Level 81, Lipase 239, Immunoglobulin G [Pending], Immunoglobulin G1 [Pending], Immunoglobulin G2 [ Pending], Immunoglobulin G3 [Pending], Immunoglobulin G4 [Pending], Anti- Nuclear Antibody Screen [Pending] Current Medications Medications (Trade) Dose Ordered Sig/Gus Route PRN Reason Start Time Stop Time Status Last Admin Dose Admin Acetaminophen (Tylenol) 650 mg Q4H PRN ORAL fever 10/04/17 12:15 11/01/17 00:14 Al Hydroxide/Mg Hydroxide (Mylanta II) 30 ml Q6H PRN ORAL dyspepsia 10/04/17 12:15 11/01/17 00:14 Dextrose (Dextrose 50%) STAT PRN IV Hypoglycemia 10/05/17 00:15 11/01/17 00:14 Dextrose/Sodium Chloride 1,000 ml @ 75 mls/hr [id number] IV 10/04/17 11:15 11/01/17 00:05 Diphenhydramine HCl (Benadryl) 25 mg Q6H PRN ORAL Itching/Pruritis 10/04/17 12:15 11/01/17 00:14 Famotidine (Pepcid I.v.) 20 mg Q12HR IVP 10/04/17 21:00 11/02/17 20:59 Fluoxetine HCl (PROzac) 20 mg DAILY ORAL 10/05/17 09:00 11/02/17 08:59 Gabapentin (Neurontin) 300 mg BEDTIME ORAL 10/04/17 21:00 11/01/17 20:59 Heparin Sodium (Porcine) (Heparin 5000 units/ml) 5,000 units EVERY 12 HOURS SUBQ 10/04/17 21:00 11/01/17 08:59 Lisinopril (Prinivil) 10 mg DAILY ORAL 10/05/17 09:00 11/01/17 08:59 Lorazepam (Ativan 2mg/ml 1ml) 1 mg EVERY 4 HOURS PRN IV agitation 10/04/17 13:00 10/09/17 00:14 Metoclopramide HCl (Reglan) 10 mg EVERY 6 HOURS PRN IVP servere nauasea 10/04/17 12:00 11/01/17 00:14 Metoprolol Tartrate (Lopressor) 25 mg BID ORAL 10/04/17 18:00 11/01/17 08:59 Morphine Sulfate (Morphine Sulfate) 2 mg Q4H PRN IVP severe pain scale 7-10 10/04/17 12:30 10/09/17 00:29 Morphine Sulfate (Morphine Sulfate) 3 mg Q4H PRN IVP BREAKTHRU PAIN 10/04/17 13:30 10/11/17 09:29 Nitroglycerin (Ntg) 0.4 mg Q5M X 3 DOSES PRN SL Prn Chest Pain 10/04/17 11:15 11/01/17 00:14 Ondansetron HCl (Zofran) 4 mg Q6H PRN IVP Nausea & Vomiting 10/04/17 12:15 11/01/17 00:14 Polyethylene Glycol (Miralax) 17 gm HSPRN PRN ORAL Constipation 10/05/17 00:15 11/01/17 00:14 Promethazine HCl 25 mg/Dextrose 56 ml @ 110 mls/hr Q6H PRN IV Refractory N/V 10/04/17 12:15 11/01/17 00:14 Sucralfate (Carafate) 1 gm BID ORAL 10/04/17 18:00 11/02/17 17:59 Temazepam (Restoril) 15 mg HSPRN PRN ORAL Insomnia 10/05/17 00:15 10/09/17 00:14 Valacyclovir HCl (Valtrex) 1,000 mg EVERY 8 HOURS ORAL 10/04/17 14:00 11/01/17 17:14 Merari Boateng MD Oct 04, 2017 12:00
[2017-10-04] MEDS ORDERED: Mylanta II UD 30ml ORAL PRN (12:15)
[2017-10-04] MEDS ORDERED: Promethazine HCl 25 MG in D5W 55 ML IV PRN (12:15)
[2017-10-04] MEDS ORDERED: Promethazine HCl 12.5 MG in NS 55 ML IV PRN (12:15)
[2017-10-04] MEDS ORDERED: LORazepam Inj 2mg/ml 1ml IV PRN (13:00)
--- NOTE | 2017-10-04 15:16 | General Progress Note ---
Assessment/Plan Assessment/Plan MDD Anxiety -decrease prozac 20mg qam -provide the pt with ro/st Subjective Date patient seen: Oct 04, 2017 Neurologic/Psychiatric: Reports: anxiety, depressed, emotional problems Allergies: Coded Allergies: NO KNOWN ALLERGIES (Verified Allergy, Unknown, 08/04/17) Subjective the pt is stable. No si/hi. Objective Last 24 Hour Vital Signs Date Time Temp Pulse Resp B/P (MAP) Pulse Ox O2 Delivery O2 Flow Rate FiO2 10/04/17 12:00 10/04/17 09:04 143/83 10/04/17 09:03 93 143/83 10/04/17 08:25 98.3 10/04/17 08:00 97.7 93 20 143/83 100 Room Air 97.7 10/04/17 07:55 98.3 10/04/17 04:00 98.3 69 20 96/55 96 Room Air 98.3 10/04/17 00:00 98.4 63 20 113/66 96 Room Air 98.4 10/03/17 20:00 99.0 83 20 112/53 98 Room Air 99.0 10/03/17 17:33 91 101/64 10/03/17 16:00 97.7 70 20 149/73 100 97.7 Intake and Output 10/03/17 10/04/17 19:00 07:00 Intake Total 335 ml 1075 ml Balance 335 ml 1075 ml Intake Oral 260 ml IV Total 75 ml 825 ml Tube Feeding 250 ml # Voids 5 2 # Bowel Movements 1 Laboratory Tests 10/04/17 10:00: White Blood Count 6.2, Red Blood Count 3.69L, Hemoglobin 10.6L, Hematocrit 33.7L , Mean Corpuscular Volume 91, Mean Corpuscular Hemoglobin 28.7, Mean Corpuscular Hemoglobin Concent 31.5L, Red Cell Distribution Width 13.4, Platelet Count 142L, Mean Platelet Volume 9.8, Neutrophils (%) (Auto) 46.6, Lymphocytes (%) (Auto) 35.7, Monocytes (%) (Auto) 10.7H, Eosinophils (%) (Auto) 6.4H, Basophils (%) (Auto) 0.6, Erythrocyte Sedimentation Rate 60H, Sodium Level 142, Potassium Level 3.5, Chloride Level 106, Carbon Dioxide Level 30, Anion Gap 6, Blood Urea Nitrogen 7, Creatinine 0.9, Estimat Glomerular Filtration Rate > 60, Glucose Level 159H, Calcium Level 8.7, Phosphorus Level 3.5, Magnesium Level 1.9, Total Bilirubin 0.5, Aspartate Amino Transf (AST/SGOT ) 18, Alanine Aminotransferase (ALT/SGPT) 21, Alkaline Phosphatase 51, Troponin I 0.027, C-Reactive Protein, Quantitative 8.1H, Total Protein 6.0L, Albumin 2.5L , Globulin 3.5, Albumin/Globulin Ratio 0.7L, Amylase Level 81, Lipase 239, Immunoglobulin G [Pending], Immunoglobulin G1 [Pending], Immunoglobulin G2 [ Pending], Immunoglobulin G3 [Pending], Immunoglobulin G4 [Pending], Anti- Nuclear Antibody Screen [Pending] Height (Feet): 5 Height (Inches): 1.00 Weight (Pounds): 265 General Appearance: WD/WN, no apparent distress, alert Neurologic: oriented x 3, responsive, depressed affect Jose Miguel Andino M.D. Oct 04, 2017 15:16
--- NOTE | 2017-10-04 15:41 | Infectious Diseases Prog Note ---
Assessment/Plan Assessment/Plan Assessment: Vesicular rash buttocks- likely 2ry to Shingles. HSV-2 is also DDx. Pancreatitis- ?etiology -CT abd/p: Findings suggestive of pancreatitis. No peripancreatic fluid collection. Pancreatic enhancement is symmetric. Status post cholecystectomy and hysterectomy. A few scattered colonic diverticula. No evidence suggest acute diverticulitis.Trace nonspecific fluid in the right cul-de- sac.Cardiomegaly -Abd US: Slight heterogeneity of the pancreatic head likely related to inflammatory peripancreatic findings seen on concurrent CT suggesting acute pancreatitis. Status post cholecystectomy. Dilatation of the common bile duct may be postoperative in etiology. No discrete choledocholithiasis seen. No intrahepatic biliary ductal dilatation appreciated. Mild leukocytosis- likely reactive to above-resolved -afebrile -u/a WBC 2-4 -CXR: Persistent but slightly decreased linear atelectasis or scarring in the left midlung. Stable cardiomegaly. Hx of recurrent shingles hx of MSSA in sputum CHF. Hyperlipidemia. Hypertension. COPD. Hysterectomy. Cholecystectomy. Obesity. GERD. Osteoarthritis. Hypothyroidism. Plan: -Continue PO Valacyclovir 1g q8hrs #3/ -upon discharge will give prescriptions of Valacyclovir to patient take as needed at onset of early symptoms of shingles (she is able to recognized when) as this is her 3rd episode of shingles. Alternative she can be placed on suppressive daily PO valtrex dose. Discussed with patient, she prefers the former -10/01 SP azithromycin #5 09/27 SP IV Zosyn d # 2 -f/u cx -Monitor CBC/BMP, temperatures -Contact precautions Thank you for this consultation. Will continue to follow along with you. Discussed with RN. Subjective Allergies: Coded Allergies: NO KNOWN ALLERGIES (Verified Allergy, Unknown, 08/04/17) Subjective afebrile no leukocytosis lipase improving Objective Vital Signs Last 24 Hour Vital Signs Date Time Temp Pulse Resp B/P (MAP) Pulse Ox O2 Delivery O2 Flow Rate FiO2 10/04/17 12:00 10/04/17 09:04 143/83 10/04/17 09:03 93 143/83 10/04/17 08:25 98.3 10/04/17 08:00 97.7 93 20 143/83 100 Room Air 97.7 10/04/17 07:55 98.3 10/04/17 04:00 98.3 69 20 96/55 96 Room Air 98.3 10/04/17 00:00 98.4 63 20 113/66 96 Room Air 98.4 10/03/17 20:00 99.0 83 20 112/53 98 Room Air 99.0 10/03/17 17:33 91 101/64 10/03/17 16:00 97.7 70 20 149/73 100 97.7 Height (Feet): 5 Height (Inches): 1.00 Weight (Pounds): 265 Objective General Appearance: WD/WN, mild distress Lines, tubes and drains: peripheral HEENT: normocephalic, atraumatic Neck: non-tender, normal alignment Respiratory/Chest: chest wall non-tender, lungs clear Breasts: no masses Cardiovascular/Chest: normal peripheral pulses Abdomen: normal bowel sounds, non tender Extremities: normal range of motion Skin Exam: Vesicular rash in gluteal cleft Microbiology Date/Time Source Procedure Growth Status 10/02/17 00:50 Nasal Nares MRSA Culture - Final NO METHICILLIN RESISTANT STAPH AUREUS... Complete 10/02/17 00:50 Rectum VRE Culture - Final NO VANCOMYCIN RESISTANT ENTEROCOCCUS ... Complete Laboratory Tests Test 10/04/17 10:00 White Blood Count 6.2 K/UL (4.8-10.8) Red Blood Count 3.69 M/UL (4.20-5.40) L Hemoglobin 10.6 G/DL (12.0-16.0) L Hematocrit 33.7 % (37.0-47.0) L Mean Corpuscular Volume 91 FL (80-99) Mean Corpuscular Hemoglobin 28.7 PG (27.0-31.0) Mean Corpuscular Hemoglobin Concent 31.5 G/DL (32.0-36.0) L Red Cell Distribution Width 13.4 % (11.6-14.8) Platelet Count 142 K/UL (150-450) L Mean Platelet Volume 9.8 FL (6.5-10.1) Neutrophils (%) (Auto) 46.6 % (45.0-75.0) Lymphocytes (%) (Auto) 35.7 % (20.0-45.0) Monocytes (%) (Auto) 10.7 % (1.0-10.0) H Eosinophils (%) (Auto) 6.4 % (0.0-3.0) H Basophils (%) (Auto) 0.6 % (0.0-2.0) Erythrocyte Sedimentation Rate 60 MM/HR (0-30) H Sodium Level 142 MMOL/L (136-145) Potassium Level 3.5 MMOL/L (3.5-5.1) Chloride Level 106 MMOL/L (98-107) Carbon Dioxide Level 30 MMOL/L (21-32) Anion Gap 6 mmol/L (5-15) Blood Urea Nitrogen 7 mg/dL (7-18) Creatinine 0.9 MG/DL (0.55-1.30) Estimat Glomerular Filtration Rate > 60 mL/min (>60) Glucose Level 159 MG/DL (74-106) H Calcium Level 8.7 MG/DL (8.5-10.1) Phosphorus Level 3.5 MG/DL (2.5-4.9) Magnesium Level 1.9 MG/DL (1.8-2.4) Total Bilirubin 0.5 MG/DL (0.2-1.0) Aspartate Amino Transf (AST/SGOT) 18 U/L (15-37) Alanine Aminotransferase (ALT/SGPT) 21 U/L (12-78) Alkaline Phosphatase 51 U/L (46-116) Troponin I 0.027 ng/mL (0.000-0.056) C-Reactive Protein, Quantitative 8.1 mg/dL (0.00-0.90) H Total Protein 6.0 G/DL (6.4-8.2) L Albumin 2.5 G/DL (3.4-5.0) L Globulin 3.5 g/dL Albumin/Globulin Ratio 0.7 (1.0-2.7) L Amylase Level 81 U/L (25-115) Lipase 239 U/L (73-393) Immunoglobulin G Pending Immunoglobulin G1 Pending Immunoglobulin G2 Pending Immunoglobulin G3 Pending Immunoglobulin G4 Pending Anti-Nuclear Antibody Screen Pending Current Medications Medications (Trade) Dose Ordered Sig/Gus Route PRN Reason Start Time Stop Time Status Last Admin Dose Admin Acetaminophen (Tylenol) 650 mg Q4H PRN ORAL fever 10/04/17 12:15 11/01/17 00:14 Al Hydroxide/Mg Hydroxide (Mylanta II) 30 ml Q6H PRN ORAL dyspepsia 10/04/17 12:15 11/01/17 00:14 Dextrose (Dextrose 50%) STAT PRN IV Hypoglycemia 10/05/17 00:15 11/01/17 00:14 Dextrose/Sodium Chloride 1,000 ml @ 75 mls/hr [id number] IV 10/04/17 11:15 11/01/17 00:05 10/04/17 11:15 Diphenhydramine HCl (Benadryl) 25 mg Q6H PRN ORAL Itching/Pruritis 10/04/17 12:15 11/01/17 00:14 Famotidine (Pepcid I.v.) 20 mg Q12HR IVP 10/04/17 21:00 11/02/17 20:59 Fluoxetine HCl (PROzac) 20 mg DAILY ORAL 10/05/17 09:00 11/02/17 08:59 Gabapentin (Neurontin) 300 mg BEDTIME ORAL 10/04/17 21:00 11/01/17 20:59 Heparin Sodium (Porcine) (Heparin 5000 units/ml) 5,000 units EVERY 12 HOURS SUBQ 10/04/17 21:00 11/01/17 08:59 Lisinopril (Prinivil) 10 mg DAILY ORAL 10/05/17 09:00 11/01/17 08:59 Lorazepam (Ativan 2mg/ml 1ml) 1 mg EVERY 4 HOURS PRN IV agitation 10/04/17 13:00 10/09/17 00:14 Metoclopramide HCl (Reglan) 10 mg EVERY 6 HOURS PRN IVP servere nauasea 10/04/17 12:00 11/01/17 00:14 Metoprolol Tartrate (Lopressor) 25 mg BID ORAL 10/04/17 18:00 11/01/17 08:59 Morphine Sulfate (Morphine Sulfate) 2 mg Q4H PRN IVP severe pain scale 7-10 10/04/17 12:30 10/09/17 00:29 Morphine Sulfate (Morphine Sulfate) 3 mg Q4H PRN IVP BREAKTHRU PAIN 10/04/17 13:30 10/11/17 09:29 Nitroglycerin (Ntg) 0.4 mg Q5M X 3 DOSES PRN SL Prn Chest Pain 10/04/17 11:15 11/01/17 00:14 Ondansetron HCl (Zofran) 4 mg Q6H PRN IVP Nausea & Vomiting 10/04/17 12:15 11/01/17 00:14 Polyethylene Glycol (Miralax) 17 gm HSPRN PRN ORAL Constipation 10/05/17 00:15 11/01/17 00:14 Promethazine HCl 25 mg/Dextrose 56 ml @ 110 mls/hr Q6H PRN IV Refractory N/V 10/04/17 12:15 11/01/17 00:14 Sucralfate (Carafate) 1 gm BID ORAL 10/04/17 18:00 11/02/17 17:59 Temazepam (Restoril) 15 mg HSPRN PRN ORAL Insomnia 10/05/17 00:15 10/09/17 00:14 Valacyclovir HCl (Valtrex) 1,000 mg EVERY 8 HOURS ORAL 10/04/17 14:00 11/01/17 17:14 10/04/17 13:11 Vidya Land M.D. Oct 04, 2017 15:41
[2017-10-04 16:00] VITALS: BP 110/66
--- NOTE | 2017-10-04 16:03 | Internal Med Progress Note ---
Subjective Physician Name Zev Persaud Attending Physician Zev Persaud MD Current Medications Medications (Trade) Dose Ordered Sig/Gus Route PRN Reason Start Time Stop Time Status Last Admin Dose Admin Acetaminophen (Tylenol) 650 mg Q4H PRN ORAL fever 10/04/17 12:15 11/01/17 00:14 Al Hydroxide/Mg Hydroxide (Mylanta II) 30 ml Q6H PRN ORAL dyspepsia 10/04/17 12:15 11/01/17 00:14 Dextrose (Dextrose 50%) STAT PRN IV Hypoglycemia 10/05/17 00:15 11/01/17 00:14 Dextrose/Sodium Chloride 1,000 ml @ 75 mls/hr [id number] IV 10/04/17 11:15 11/01/17 00:05 10/04/17 11:15 Diphenhydramine HCl (Benadryl) 25 mg Q6H PRN ORAL Itching/Pruritis 10/04/17 12:15 11/01/17 00:14 Famotidine (Pepcid I.v.) 20 mg Q12HR IVP 10/04/17 21:00 11/02/17 20:59 Fluoxetine HCl (PROzac) 20 mg DAILY ORAL 10/05/17 09:00 11/02/17 08:59 Gabapentin (Neurontin) 300 mg BEDTIME ORAL 10/04/17 21:00 11/01/17 20:59 Heparin Sodium (Porcine) (Heparin 5000 units/ml) 5,000 units EVERY 12 HOURS SUBQ 10/04/17 21:00 11/01/17 08:59 Lisinopril (Prinivil) 10 mg DAILY ORAL 10/05/17 09:00 11/01/17 08:59 Lorazepam (Ativan 2mg/ml 1ml) 1 mg EVERY 4 HOURS PRN IV agitation 10/04/17 13:00 10/09/17 00:14 Metoclopramide HCl (Reglan) 10 mg EVERY 6 HOURS PRN IVP servere nauasea 10/04/17 12:00 11/01/17 00:14 Metoprolol Tartrate (Lopressor) 25 mg BID ORAL 10/04/17 18:00 11/01/17 08:59 Morphine Sulfate (Morphine Sulfate) 2 mg Q4H PRN IVP severe pain scale 7-10 10/04/17 12:30 5/2/18 00:29 Morphine Sulfate (Morphine Sulfate) 3 mg Q4H PRN IVP BREAKTHRU PAIN 10/04/17 13:30 10/11/17 09:29 Nitroglycerin (Ntg) 0.4 mg Q5M X 3 DOSES PRN SL Prn Chest Pain 10/04/17 11:15 11/01/17 00:14 Ondansetron HCl (Zofran) 4 mg Q6H PRN IVP Nausea & Vomiting 10/04/17 12:15 11/01/17 00:14 Polyethylene Glycol (Miralax) 17 gm HSPRN PRN ORAL Constipation 10/05/17 00:15 11/01/17 00:14 Promethazine HCl 25 mg/Dextrose 56 ml @ 110 mls/hr Q6H PRN IV Refractory N/V 10/04/17 12:15 11/01/17 00:14 Sucralfate (Carafate) 1 gm BID ORAL 10/04/17 18:00 11/02/17 17:59 Temazepam (Restoril) 15 mg HSPRN PRN ORAL Insomnia 10/05/17 00:15 10/09/17 00:14 Valacyclovir HCl (Valtrex) 1,000 mg EVERY 8 HOURS ORAL 10/04/17 14:00 11/01/17 17:14 10/04/17 13:11 Allergies: Coded Allergies: NO KNOWN ALLERGIES (Verified Allergy, Unknown, 08/04/17) Subjective awake, responsive, no SOB or Abdominal pain, C/O Chest wall pain Objective Last Vital Signs Date Time Temp Pulse Resp B/P (MAP) Pulse Ox O2 Delivery O2 Flow Rate FiO2 10/04/17 12:00 97.5 64 20 112/57 99 Room Air 97.5 Laboratory Tests Test 10/04/17 10:00 White Blood Count 6.2 K/UL (4.8-10.8) Red Blood Count 3.69 M/UL (4.20-5.40) L Hemoglobin 10.6 G/DL (12.0-16.0) L Hematocrit 33.7 % (37.0-47.0) L Mean Corpuscular Volume 91 FL (80-99) Mean Corpuscular Hemoglobin 28.7 PG (27.0-31.0) Mean Corpuscular Hemoglobin Concent 31.5 G/DL (32.0-36.0) L Red Cell Distribution Width 13.4 % (11.6-14.8) Platelet Count 142 K/UL (150-450) L Mean Platelet Volume 9.8 FL (6.5-10.1) Neutrophils (%) (Auto) 46.6 % (45.0-75.0) Lymphocytes (%) (Auto) 35.7 % (20.0-45.0) Monocytes (%) (Auto) 10.7 % (1.0-10.0) H Eosinophils (%) (Auto) 6.4 % (0.0-3.0) H Basophils (%) (Auto) 0.6 % (0.0-2.0) Erythrocyte Sedimentation Rate 60 MM/HR (0-30) H Sodium Level 142 MMOL/L (136-145) Potassium Level 3.5 MMOL/L (3.5-5.1) Chloride Level 106 MMOL/L (98-107) Carbon Dioxide Level 30 MMOL/L (21-32) Anion Gap 6 mmol/L (5-15) Blood Urea Nitrogen 7 mg/dL (7-18) Creatinine 0.9 MG/DL (0.55-1.30) Estimat Glomerular Filtration Rate > 60 mL/min (>60) Glucose Level 159 MG/DL (74-106) H Calcium Level 8.7 MG/DL (8.5-10.1) Phosphorus Level 3.5 MG/DL (2.5-4.9) Magnesium Level 1.9 MG/DL (1.8-2.4) Total Bilirubin 0.5 MG/DL (0.2-1.0) Aspartate Amino Transf (AST/SGOT) 18 U/L (15-37) Alanine Aminotransferase (ALT/SGPT) 21 U/L (12-78) Alkaline Phosphatase 51 U/L (46-116) Troponin I 0.027 ng/mL (0.000-0.056) C-Reactive Protein, Quantitative 8.1 mg/dL (0.00-0.90) H Total Protein 6.0 G/DL (6.4-8.2) L Albumin 2.5 G/DL (3.4-5.0) L Globulin 3.5 g/dL Albumin/Globulin Ratio 0.7 (1.0-2.7) L Amylase Level 81 U/L (25-115) Lipase 239 U/L (73-393) Immunoglobulin G Pending Immunoglobulin G1 Pending Immunoglobulin G2 Pending Immunoglobulin G3 Pending Immunoglobulin G4 Pending Anti-Nuclear Antibody Screen Pending Microbiology Date/Time Source Procedure Growth Status 10/02/17 00:50 Nasal Nares MRSA Culture - Final NO METHICILLIN RESISTANT STAPH AUREUS... Complete 10/02/17 00:50 Rectum VRE Culture - Final NO VANCOMYCIN RESISTANT ENTEROCOCCUS ... Complete Intake and Output 10/03/17 10/04/17 19:00 07:00 Intake Total 335 ml 1075 ml Balance 335 ml 1075 ml Intake Oral 260 ml IV Total 75 ml 825 ml Tube Feeding 250 ml # Voids 5 2 # Bowel Movements 1 Objective General: No acute distress, awake and alert HEENT: NCAT, sclera anicteric, PERRL, EOMI. Neck: Supple, no significant jugular venous distention, Lungs: Good inspiratory effort, clear to auscultation bilaterally, no Wheeze or Rales. Heart: Regular rate and rhythm, normal S1/S2, no murmurs Abdomen: soft, nontender, nondistended. Normoactive bowel sounds. morbid obesity. / Rectal: Refused and deferred. Extremities: No Cyanosis , clubbing or edema. Neuro: A&O x 3, Able to move all extremities Skin: warm, no rashes or lesions Psych: Normal mood and affect Assessment/Plan Assessment/Plan (1) Chest pain R/O ACS (acute coronary syndrome) (2) Acute pancreatitis (3) Abdominal pain (4) CHF (congestive heart failure) (5) COPD (chronic obstructive pulmonary disease) (6) Morbid obesity Assessment/Plan Monitor EKG and troponin cardiology consult Liquid diet. f/u GI recommendations advance diet as tolerated iv fluids monitor labs Zev Persaud MD Oct 04, 2017 16:03
[2017-10-04] MEDS ORDERED: GI Cocktail 50ml ORAL PRN ×2 (16:09→16:15)
--- NOTE | 2017-10-04 18:11 | Cardiology Progress Note ---
Assessment/Plan Assessment/Plan atypical chest pain for year pancreatitis ? Chronic ongestive heart failure. Mitral regurgitation. Pulmonary hypertension. Morbid obesity. Chronic obstructive pulmonary disease. History of gastroesophageal reflux disease. full note to be dictated pt wioth multipl different types of cp seem soem change with food some change with movment in bed or chair has ahd evlaution before including stress tesst supposedly neg per pt but there were plans for an angiogram apparently due to disagreement among dr all torp have been chaecked are neg on multiple multiple admsision here !!!! ekg not seem to be changed she realy shouel have a ctca or cardiac catha to rule underlying cad once and for all agree with rxn for gi issues repeat echo to make suer no swma Objective Last 24 Hour Vital Signs Date Time Temp Pulse Resp B/P (MAP) Pulse Ox O2 Delivery O2 Flow Rate FiO2 10/04/17 17:10 68 110/72 10/04/17 16:00 97.9 72 20 110/66 99 Room Air 97.9 10/04/17 16:00 81 10/04/17 12:00 97.5 64 20 112/57 99 Room Air 97.5 10/04/17 12:00 10/04/17 09:04 143/83 10/04/17 09:03 93 143/83 10/04/17 08:25 98.3 10/04/17 08:00 97.7 93 20 143/83 100 Room Air 97.7 10/04/17 07:55 98.3 10/04/17 04:00 98.3 69 20 96/55 96 Room Air 98.3 10/04/17 00:00 98.4 63 20 113/66 96 Room Air 98.4 10/03/17 20:00 99.0 83 20 112/53 98 Room Air 99.0 Intake and Output 10/03/17 10/04/17 19:00 07:00 Intake Total 335 ml 1075 ml Balance 335 ml 1075 ml Intake Oral 260 ml IV Total 75 ml 825 ml Tube Feeding 250 ml # Voids 5 2 # Bowel Movements 1 Laboratory Tests Test 10/04/17 10:00 White Blood Count 6.2 K/UL (4.8-10.8) Red Blood Count 3.69 M/UL (4.20-5.40) L Hemoglobin 10.6 G/DL (12.0-16.0) L Hematocrit 33.7 % (37.0-47.0) L Mean Corpuscular Volume 91 FL (80-99) Mean Corpuscular Hemoglobin 28.7 PG (27.0-31.0) Mean Corpuscular Hemoglobin Concent 31.5 G/DL (32.0-36.0) L Red Cell Distribution Width 13.4 % (11.6-14.8) Platelet Count 142 K/UL (150-450) L Mean Platelet Volume 9.8 FL (6.5-10.1) Neutrophils (%) (Auto) 46.6 % (45.0-75.0) Lymphocytes (%) (Auto) 35.7 % (20.0-45.0) Monocytes (%) (Auto) 10.7 % (1.0-10.0) H Eosinophils (%) (Auto) 6.4 % (0.0-3.0) H Basophils (%) (Auto) 0.6 % (0.0-2.0) Erythrocyte Sedimentation Rate 60 MM/HR (0-30) H Sodium Level 142 MMOL/L (136-145) Potassium Level 3.5 MMOL/L (3.5-5.1) Chloride Level 106 MMOL/L (98-107) Carbon Dioxide Level 30 MMOL/L (21-32) Anion Gap 6 mmol/L (5-15) Blood Urea Nitrogen 7 mg/dL (7-18) Creatinine 0.9 MG/DL (0.55-1.30) Estimat Glomerular Filtration Rate > 60 mL/min (>60) Glucose Level 159 MG/DL (74-106) H Calcium Level 8.7 MG/DL (8.5-10.1) Phosphorus Level 3.5 MG/DL (2.5-4.9) Magnesium Level 1.9 MG/DL (1.8-2.4) Total Bilirubin 0.5 MG/DL (0.2-1.0) Aspartate Amino Transf (AST/SGOT) 18 U/L (15-37) Alanine Aminotransferase (ALT/SGPT) 21 U/L (12-78) Alkaline Phosphatase 51 U/L (46-116) Troponin I 0.027 ng/mL (0.000-0.056) C-Reactive Protein, Quantitative 8.1 mg/dL (0.00-0.90) H Total Protein 6.0 G/DL (6.4-8.2) L Albumin 2.5 G/DL (3.4-5.0) L Globulin 3.5 g/dL Albumin/Globulin Ratio 0.7 (1.0-2.7) L Amylase Level 81 U/L (25-115) Lipase 239 U/L (73-393) Immunoglobulin G Pending Immunoglobulin G1 Pending Immunoglobulin G2 Pending Immunoglobulin G3 Pending Immunoglobulin G4 Pending Anti-Nuclear Antibody Screen Pending Microbiology Date/Time Source Procedure Growth Status 10/02/17 00:50 Nasal Nares MRSA Culture - Final NO METHICILLIN RESISTANT STAPH AUREUS... Complete 10/02/17 00:50 Rectum VRE Culture - Final NO VANCOMYCIN RESISTANT ENTEROCOCCUS ... Complete NURIS PAULINO Oct 04, 2017 18:11
[2017-10-04 20:00] VITALS: BP 124/69
[2017-10-05] VITALS: BP 103/57
[2017-10-05] MEDS ORDERED: Miralax 17gm pkt ORAL PRN (00:15)
[2017-10-05 04:00] VITALS: BP 98/61
[2017-10-05] MEDS: valACYclovir HCL 500mg tab ORAL SCH (05:37)
[2017-10-05] MEDS: Morphine Sulfate 4mg/ml Inj IVP PRN ×5 (05:38→20:36)
[2017-10-05] MEDS: Sucralfate 1gm tab ORAL SCH ×2 (07:12→19:43)
[2017-10-05 08:00] VITALS: BP 121/73
--- NOTE | 2017-10-05 08:06 | General Progress Note ---
Assessment/Plan Problem List: (1) Acute pancreatitis ICD Codes: K85.90 - Acute pancreatitis without necrosis or infection, unspecified SNOMED: 219769481 (2) COPD (chronic obstructive pulmonary disease) ICD Codes: J44.9 - Chronic obstructive pulmonary disease, unspecified SNOMED: 13395956 (3) Morbid obesity ICD Codes: E66.01 - Morbid (severe) obesity due to excess calories SNOMED: 483483892, [id number] (4) Abdominal pain ICD Codes: R10.9 - Unspecified abdominal pain SNOMED: 45790257 (5) Shingles ICD Codes: B02.9 - Zoster without complications SNOMED: 8328048 Assessment/Plan EGD/colonoscopy done 6 months ago at [facility], will obtain records. CT AP reviewed >> acute pancreatitis abdominal U/S reviewed >> s/p cholecystomy with 10mm CBD dilation lipid panel reviewed unremarkable utox unremarkable pancreatitis resolving >> normal lipase levels conservative pancreatitis management >> unknown etiology, protonix DC ? cause for pancreatitis adv diet as tolerated pain mgmt IV hydration dc ppi which can cause pancreatitis trend lipase fu labs, NATALIE & IgG4 r/o autoimmune Subjective ROS Limited/Unobtainable: Yes Allergies: Coded Allergies: NO KNOWN ALLERGIES (Verified Allergy, Unknown, 08/04/17) Subjective c/o rash on her buttock Objective Last 24 Hour Vital Signs Date Time Temp Pulse Resp B/P (MAP) Pulse Ox O2 Delivery O2 Flow Rate FiO2 10/05/17 00:00 66 10/05/17 00:00 98.1 66 20 103/57 100 Room Air 98.1 10/04/17 20:00 57 10/04/17 20:00 98.6 57 20 124/69 100 Room Air 98.6 10/04/17 17:10 68 110/72 10/04/17 16:00 97.9 72 20 110/66 99 Room Air 97.9 10/04/17 16:00 81 10/04/17 12:00 97.5 64 20 112/57 99 Room Air 97.5 10/04/17 12:00 10/04/17 09:04 143/83 10/04/17 09:03 93 143/83 10/04/17 08:25 98.3 Intake and Output 10/04/17 10/05/17 19:00 07:00 Intake Total 500 ml 300 ml Balance 500 ml 300 ml Intake Oral 500 ml 300 ml # Voids 3 Laboratory Tests 10/04/17 10:00: White Blood Count 6.2, Red Blood Count 3.69L, Hemoglobin 10.6L, Hematocrit 33.7L , Mean Corpuscular Volume 91, Mean Corpuscular Hemoglobin 28.7, Mean Corpuscular Hemoglobin Concent 31.5L, Red Cell Distribution Width 13.4, Platelet Count 142L, Mean Platelet Volume 9.8, Neutrophils (%) (Auto) 46.6, Lymphocytes (%) (Auto) 35.7, Monocytes (%) (Auto) 10.7H, Eosinophils (%) (Auto) 6.4H, Basophils (%) (Auto) 0.6, Erythrocyte Sedimentation Rate 60H, Sodium Level 142, Potassium Level 3.5, Chloride Level 106, Carbon Dioxide Level 30, Anion Gap 6, Blood Urea Nitrogen 7, Creatinine 0.9, Estimat Glomerular Filtration Rate > 60, Glucose Level 159H, Calcium Level 8.7, Phosphorus Level 3.5, Magnesium Level 1.9, Total Bilirubin 0.5, Aspartate Amino Transf (AST/SGOT ) 18, Alanine Aminotransferase (ALT/SGPT) 21, Alkaline Phosphatase 51, Troponin I 0.027, C-Reactive Protein, Quantitative 8.1H, Total Protein 6.0L, Albumin 2.5L , Globulin 3.5, Albumin/Globulin Ratio 0.7L, Amylase Level 81, Lipase 239, Immunoglobulin G [Pending], Immunoglobulin G1 [Pending], Immunoglobulin G2 [ Pending], Immunoglobulin G3 [Pending], Immunoglobulin G4 [Pending], Anti- Nuclear Antibody Screen [Pending] 10/05/17 07:40: White Blood Count [Pending], Red Blood Count [Pending], Hemoglobin [Pending], Hematocrit [Pending], Mean Corpuscular Volume [Pending], Mean Corpuscular Hemoglobin [Pending], Mean Corpuscular Hemoglobin Concent [Pending], Red Cell Distribution Width [Pending], Platelet Count [Pending], Mean Platelet Volume [ Pending], Neutrophils (%) (Auto) [Pending], Lymphocytes (%) (Auto) [Pending], Monocytes (%) (Auto) [Pending], Eosinophils (%) (Auto) [Pending], Basophils (%) (Auto) [Pending], Sodium Level [Pending], Potassium Level [Pending], Chloride Level [Pending], Carbon Dioxide Level [Pending], Blood Urea Nitrogen [Pending], Creatinine [Pending], Estimat Glomerular Filtration Rate [Pending], Glucose Level [Pending], Calcium Level [Pending], Total Bilirubin [Pending], Aspartate Amino Transf (AST/SGOT) [Pending], Alanine Aminotransferase (ALT/SGPT) [Pending] , Alkaline Phosphatase [Pending], Troponin I [Pending], Total Protein [Pending] , Albumin [Pending], Globulin [Pending] Height (Feet): 5 Height (Inches): 1.00 Weight (Pounds): 265 General Appearance: alert EENT: normal ENT inspection Neck: supple Cardiovascular: normal rate Respiratory/Chest: decreased breath sounds Abdomen: normal bowel sounds, non tender, soft Extremities: non-tender DONYA IRAHETA Oct 05, 2017 08:06
[2017-10-05 08:09] LABS: EOSINOPHILS % (AUTO) 5.5 % (0.0-3.0); HEMATOCRIT 31.3 % (37.0-47.0); HEMOGLOBIN 9.9 G/DL (12.0-16.0); LYMPHOCYTES % (AUTO) 30.8 % (20.0-45.0); MEAN CORPUSCULAR VOLUME 93 FL (80-99); MONOCYTES % (AUTO) 12.5 % (1.0-10.0); NEUTROPHILS % (AUTO) 50.3 % (45.0-75.0); PLATELET COUNT 135 K/UL (150-450); RED BLOOD COUNT 3.38 M/UL (4.20-5.40); RED CELL DISTRIBUTION WIDTH 13.5 % (11.6-14.8); WHITE BLOOD COUNT 6.6 K/UL (4.8-10.8)
[2017-10-05 08:33] LABS: ALANINE AMINOTRANSFERASE 19 U/L (12-78); ALBUMIN 2.5 G/DL (3.4-5.0); ALBUMIN/GLOBULIN RATIO 0.7 (1.0-2.7); ALKALINE PHOSPHATASE 53 U/L (46-116); ANION GAP 4 mmol/L (5-15); ASPARTATE AMINO TRANSFERASE 16 U/L (15-37); BILIRUBIN,TOTAL 0.7 MG/DL (0.2-1.0); BLOOD UREA NITROGEN 5 mg/dL (7-18); CARBON DIOXIDE 31 MMOL/L (21-32); CHLORIDE 105 MMOL/L (98-107); POTASSIUM 4.4 MMOL/L (3.5-5.1); SODIUM 139 MMOL/L (136-145)
[2017-10-05] MEDS: Heparin 5000 units/ml inj SUBQ SCH ×2 (09:00→20:36)
[2017-10-05] MEDS: Metoprolol 25mg tab ORAL SCH ×2 (09:06→18:00)
[2017-10-05] MEDS: Lisinopril 20mg tab ORAL SCH (09:08)
[2017-10-05 12:00] VITALS: BP 149/71
--- NOTE | 2017-10-05 12:55 | Infectious Diseases Prog Note ---
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 No peripancreatic fluid collection. Pancreatic enhancement is symmetric. Status post cholecystectomy and hysterectomy. A few scattered colonic diverticula. No evidence suggest acute diverticulitis.Trace nonspecific fluid in the right cul-de- sac.Cardiomegaly -Abd US: Slight heterogeneity of the pancreatic head likely related to inflammatory peripancreatic findings seen on concurrent CT suggesting acute pancreatitis. Status post cholecystectomy. Dilatation of the common bile duct may be postoperative in etiology. No discrete choledocholithiasis seen. No intrahepatic biliary ductal dilatation appreciated. Mild leukocytosis- likely reactive to above-resolved -afebrile -u/a WBC 2-4 -CXR: Persistent but slightly decreased linear atelectasis or scarring in the left midlung. Stable cardiomegaly. Hx of recurrent rash ( most likely HSV ) hx of MSSA in sputum CHF. Hyperlipidemia. Hypertension. COPD. Hysterectomy. Cholecystectomy. Obesity. GERD. Osteoarthritis. Hypothyroidism. Plan: -Continue PO Valacyclovir # / -upon discharge will give prescriptions of Valacyclovir to patient take as needed at onset of early symptoms of rash . Alternative she can be placed on suppressive daily PO valtrex dose. she prefers the former -10/01 SP azithromycin #5 09/27 SP IV Zosyn d # 2 -f/u cx -Monitor CBC/BMP, temperatures -Contact precautions Subjective Constitutional: Denies: no symptoms, fever, chills, fatigue, anorexia, drenching sweats, other Allergies: Coded Allergies: NO KNOWN ALLERGIES (Verified Allergy, Unknown, 08/04/17) Objective Vital Signs Last 24 Hour Vital Signs Date Time Temp Pulse Resp B/P (MAP) Pulse Ox O2 Delivery O2 Flow Rate FiO2 10/05/17 09:08 121/73 10/05/17 09:06 79 121/73 10/05/17 08:00 98.9 79 21 121/73 97 Nasal Cannula 2.0 98.9 10/05/17 08:00 69 10/05/17 04:00 65 10/05/17 04:00 98.4 66 12 98/61 100 Room Air 98.4 10/05/17 00:00 66 10/05/17 00:00 98.1 66 20 103/57 100 Room Air 98.1 10/04/17 20:00 57 10/04/17 20:00 98.6 57 20 124/69 100 Room Air 98.6 10/04/17 17:10 68 110/72 10/04/17 16:00 97.9 72 20 110/66 99 Room Air 97.9 10/04/17 16:00 81 Height (Feet): 5 Height (Inches): 1.00 Weight (Pounds): 265 HEENT: atraumatic Respiratory/Chest: no respiratory distress Cardiovascular: regular rhythm Abdomen: soft, non tender Laboratory Tests Test 10/05/17 07:40 White Blood Count 6.6 K/UL (4.8-10.8) Red Blood Count 3.38 M/UL (4.20-5.40) L Hemoglobin 9.9 G/DL (12.0-16.0) L Hematocrit 31.3 % (37.0-47.0) L Mean Corpuscular Volume 93 FL (80-99) Mean Corpuscular Hemoglobin 29.5 PG (27.0-31.0) Mean Corpuscular Hemoglobin Concent 31.7 G/DL (32.0-36.0) L Red Cell Distribution Width 13.5 % (11.6-14.8) Platelet Count 135 K/UL (150-450) L Mean Platelet Volume 11.0 FL (6.5-10.1) H Neutrophils (%) (Auto) 50.3 % (45.0-75.0) Lymphocytes (%) (Auto) 30.8 % (20.0-45.0) Monocytes (%) (Auto) 12.5 % (1.0-10.0) H Eosinophils (%) (Auto) 5.5 % (0.0-3.0) H Basophils (%) (Auto) 1.0 % (0.0-2.0) Sodium Level 139 MMOL/L (136-145) Potassium Level 4.4 MMOL/L (3.5-5.1) Chloride Level 105 MMOL/L (98-107) Carbon Dioxide Level 31 MMOL/L (21-32) Anion Gap 4 mmol/L (5-15) L Blood Urea Nitrogen 5 mg/dL (7-18) L Creatinine 1.0 MG/DL (0.55-1.30) Estimat Glomerular Filtration Rate > 60 mL/min (>60) Glucose Level 106 MG/DL (74-106) Calcium Level 9.0 MG/DL (8.5-10.1) Total Bilirubin 0.7 MG/DL (0.2-1.0) Aspartate Amino Transf (AST/SGOT) 16 U/L (15-37) Alanine Aminotransferase (ALT/SGPT) 19 U/L (12-78) Alkaline Phosphatase 53 U/L (46-116) Troponin I 0.037 ng/mL (0.000-0.056) Total Protein 6.2 G/DL (6.4-8.2) L Albumin 2.5 G/DL (3.4-5.0) L Globulin 3.7 g/dL Albumin/Globulin Ratio 0.7 (1.0-2.7) L Current Medications Medications (Trade) Dose Ordered Sig/Gus Route PRN Reason Start Time Stop Time Status Last Admin Dose Admin Acetaminophen (Tylenol) 650 mg Q4H PRN ORAL fever 10/04/17 12:15 11/01/17 00:14 Al Hydroxide/Mg Hydroxide (Mylanta II) 30 ml Q6H PRN ORAL dyspepsia 10/04/17 12:15 11/01/17 00:14 Dextrose (Dextrose 50%) STAT PRN IV Hypoglycemia 10/05/17 00:15 11/01/17 00:14 Dextrose/Sodium Chloride 1,000 ml @ 75 mls/hr [id number] IV 10/04/17 11:15 11/01/17 00:05 10/04/17 23:09 Diphenhydramine HCl (Benadryl) 25 mg Q6H PRN ORAL Itching/Pruritis 10/04/17 12:15 11/01/17 00:14 Famotidine (Pepcid) 20 mg BID ORAL 10/04/17 21:00 11/03/17 20:59 10/05/17 09:06 Fluoxetine HCl (PROzac) 20 mg DAILY ORAL 10/05/17 09:00 11/02/17 08:59 10/05/17 09:24 Gabapentin (Neurontin) 300 mg BEDTIME ORAL 10/04/17 21:00 11/01/17 20:59 Heparin Sodium (Porcine) (Heparin 5000 units/ml) 5,000 units EVERY 12 HOURS SUBQ 10/04/17 21:00 11/01/17 08:59 Lisinopril (Prinivil) 10 mg DAILY ORAL 10/05/17 09:00 11/01/17 08:59 10/05/17 09:08 Lorazepam (Ativan 2mg/ml 1ml) 1 mg EVERY 4 HOURS PRN IV agitation 10/04/17 13:00 10/09/17 00:14 10/04/17 22:57 Metoclopramide HCl (Reglan) 10 mg EVERY 6 HOURS PRN IVP servere nauasea 10/04/17 12:00 11/01/17 00:14 Metoprolol Tartrate (Lopressor) 25 mg BID ORAL 10/04/17 18:00 11/01/17 08:59 10/05/17 09:06 Morphine Sulfate (Morphine Sulfate) 2 mg Q4H PRN IVP severe pain scale 7-10 10/04/17 12:30 10/09/17 00:29 10/05/17 10:48 Morphine Sulfate (Morphine Sulfate) 3 mg Q4H PRN IVP BREAKTHRU PAIN 10/04/17 13:30 10/11/17 09:29 10/05/17 05:38 Nitroglycerin (Ntg) 0.4 mg Q5M X 3 DOSES PRN SL Prn Chest Pain 10/04/17 11:15 11/01/17 00:14 Ondansetron HCl (Zofran) 4 mg Q6H PRN IVP Nausea & Vomiting 10/04/17 12:15 11/01/17 00:14 10/04/17 23:08 Polyethylene Glycol (Miralax) 17 gm HSPRN PRN ORAL Constipation 10/05/17 00:15 11/01/17 00:14 Promethazine HCl 25 mg/Dextrose 56 ml @ 110 mls/hr Q6H PRN IV Refractory N/V 10/04/17 12:15 11/01/17 00:14 Sucralfate (Carafate) 1 gm BID ORAL 10/04/17 18:00 11/02/17 17:59 10/05/17 07:12 Temazepam (Restoril) 15 mg HSPRN PRN ORAL Insomnia 10/05/17 00:15 5/2/18 00:14 Valacyclovir HCl (Valtrex) 1,000 mg EVERY 8 HOURS ORAL 10/04/17 14:00 11/01/17 17:14 10/05/17 05:37 Axel Stanford MD Oct 05, 2017 12:55
[2017-10-05] MEDS: D5 1/2NS 1,000 ML IV SCH (14:43)
[2017-10-05 16:00] VITALS: BP 99/55
[2017-10-05] MEDS ORDERED: Lexiscan 0.4mg/5ml syringe IV SCH (16:00)
--- NOTE | 2017-10-05 19:20 | Internal Med Progress Note ---
Subjective Physician Name Zev Persaud Attending Physician Zev Persaud MD Current Medications Medications (Trade) Dose Ordered Sig/Gus Route PRN Reason Start Time Stop Time Status Last Admin Dose Admin Acetaminophen (Tylenol) 650 mg Q4H PRN ORAL fever 10/04/17 12:15 11/01/17 00:14 Al Hydroxide/Mg Hydroxide (Mylanta II) 30 ml Q6H PRN ORAL dyspepsia 10/04/17 12:15 11/01/17 00:14 Dextrose (Dextrose 50%) STAT PRN IV Hypoglycemia 10/05/17 00:15 11/01/17 00:14 Dextrose/Sodium Chloride 1,000 ml @ 75 mls/hr [id number] IV 10/04/17 11:15 11/01/17 00:05 10/05/17 14:43 Diphenhydramine HCl (Benadryl) 25 mg Q6H PRN ORAL Itching/Pruritis 10/04/17 12:15 11/01/17 00:14 Famotidine (Pepcid) 20 mg BID ORAL 10/04/17 21:00 11/03/17 20:59 10/05/17 09:06 Fluoxetine HCl (PROzac) 20 mg DAILY ORAL 10/05/17 09:00 11/02/17 08:59 10/05/17 09:24 Gabapentin (Neurontin) 300 mg BEDTIME ORAL 10/04/17 21:00 11/01/17 20:59 Heparin Sodium (Porcine) (Heparin 5000 units/ml) 5,000 units EVERY 12 HOURS SUBQ 10/04/17 21:00 11/01/17 08:59 Lisinopril (Prinivil) 10 mg DAILY ORAL 10/05/17 09:00 11/01/17 08:59 10/05/17 09:08 Lorazepam (Ativan 2mg/ml 1ml) 1 mg EVERY 4 HOURS PRN IV agitation 10/04/17 13:00 10/09/17 00:14 10/04/17 22:57 Metoclopramide HCl (Reglan) 10 mg EVERY 6 HOURS PRN IVP servere nauasea 10/04/17 12:00 11/01/17 00:14 Metoprolol Tartrate (Lopressor) 25 mg BID ORAL 10/04/17 18:00 11/01/17 08:59 10/05/17 09:06 Morphine Sulfate (Morphine Sulfate) 2 mg Q4H PRN IVP severe pain scale 7-10 10/04/17 12:30 10/09/17 00:29 10/05/17 10:48 Morphine Sulfate (Morphine Sulfate) 3 mg Q4H PRN IVP BREAKTHRU PAIN 10/04/17 13:30 10/11/17 09:29 10/05/17 05:38 Nitroglycerin (Ntg) 0.4 mg Q5M X 3 DOSES PRN SL Prn Chest Pain 10/04/17 11:15 11/01/17 00:14 Ondansetron HCl (Zofran) 4 mg Q6H PRN IVP Nausea & Vomiting 10/04/17 12:15 11/01/17 00:14 10/04/17 23:08 Polyethylene Glycol (Miralax) 17 gm HSPRN PRN ORAL Constipation 10/05/17 00:15 11/01/17 00:14 Promethazine HCl 25 mg/Dextrose 56 ml @ 110 mls/hr Q6H PRN IV Refractory N/V 10/04/17 12:15 11/01/17 00:14 Regadenoson (Lexiscan) 0.4 mg ONCE IV 10/05/17 16:00 10/07/17 15:00 Sucralfate (Carafate) 1 gm BID ORAL 10/04/17 18:00 11/02/17 17:59 10/05/17 07:12 Temazepam (Restoril) 15 mg HSPRN PRN ORAL Insomnia 10/05/17 00:15 10/09/17 00:14 Valacyclovir HCl (Valtrex) 1,000 mg Q12H ORAL 10/06/17 06:00 11/05/17 05:59 Allergies: Coded Allergies: NO KNOWN ALLERGIES (Verified Allergy, Unknown, 08/04/17) Subjective awake, responsive, no SOB or Abdominal pain, C/O less Chest wall pain Objective Last Vital Signs Date Time Temp Pulse Resp B/P (MAP) Pulse Ox O2 Delivery O2 Flow Rate FiO2 10/05/17 16:00 99.4 74 18 99/55 93 Room Air 99.4 10/05/17 08:00 2.0 Laboratory Tests Test 10/05/17 07:40 White Blood Count 6.6 K/UL (4.8-10.8) Red Blood Count 3.38 M/UL (4.20-5.40) L Hemoglobin 9.9 G/DL (12.0-16.0) L Hematocrit 31.3 % (37.0-47.0) L Mean Corpuscular Volume 93 FL (80-99) Mean Corpuscular Hemoglobin 29.5 PG (27.0-31.0) Mean Corpuscular Hemoglobin Concent 31.7 G/DL (32.0-36.0) L Red Cell Distribution Width 13.5 % (11.6-14.8) Platelet Count 135 K/UL (150-450) L Mean Platelet Volume 11.0 FL (6.5-10.1) H Neutrophils (%) (Auto) 50.3 % (45.0-75.0) Lymphocytes (%) (Auto) 30.8 % (20.0-45.0) Monocytes (%) (Auto) 12.5 % (1.0-10.0) H Eosinophils (%) (Auto) 5.5 % (0.0-3.0) H Basophils (%) (Auto) 1.0 % (0.0-2.0) Sodium Level 139 MMOL/L (136-145) Potassium Level 4.4 MMOL/L (3.5-5.1) Chloride Level 105 MMOL/L (98-107) Carbon Dioxide Level 31 MMOL/L (21-32) Anion Gap 4 mmol/L (5-15) L Blood Urea Nitrogen 5 mg/dL (7-18) L Creatinine 1.0 MG/DL (0.55-1.30) Estimat Glomerular Filtration Rate > 60 mL/min (>60) Glucose Level 106 MG/DL (74-106) Calcium Level 9.0 MG/DL (8.5-10.1) Total Bilirubin 0.7 MG/DL (0.2-1.0) Aspartate Amino Transf (AST/SGOT) 16 U/L (15-37) Alanine Aminotransferase (ALT/SGPT) 19 U/L (12-78) Alkaline Phosphatase 53 U/L (46-116) Troponin I 0.037 ng/mL (0.000-0.056) Total Protein 6.2 G/DL (6.4-8.2) L Albumin 2.5 G/DL (3.4-5.0) L Globulin 3.7 g/dL Albumin/Globulin Ratio 0.7 (1.0-2.7) L Intake and Output 10/04/17 10/05/17 19:00 07:00 Intake Total 500 ml 300 ml Balance 500 ml 300 ml Intake Oral 500 ml 300 ml # Voids 3 Objective General: No acute distress, awake and alert HEENT: NCAT, sclera anicteric, PERRL, EOMI. Neck: Supple, no significant jugular venous distention, Lungs: Good inspiratory effort, clear to auscultation bilaterally, no Wheeze or Rales. Heart: Regular rate and rhythm, normal S1/S2, no murmurs Abdomen: soft, nontender, nondistended. Normoactive bowel sounds. morbid obesity. / Rectal: Refused and deferred. Extremities: No Cyanosis , clubbing or edema. Neuro: A&O x 3, Able to move all extremities Skin: warm, Vesicular rash at buttock. 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 f/u GI recommendations advance diet as tolerated iv fluids monitor labs on Valtrex Zev Persaud MD Oct 05, 2017 19:20
[2017-10-05 20:00] VITALS: BP 134/69
[2017-10-05] MEDS ORDERED: D5 1/2NS 1000ml IV ONE ×2 (20:25→20:53)
--- NOTE | 2017-10-05 22:27 | Pulmonology Progress Note ---
Assessment/Plan Problems: (1) ACS (acute coronary syndrome) (2) Acute pancreatitis (3) Abdominal pain (4) CHF (congestive heart failure) (5) COPD (chronic obstructive pulmonary disease) (6) Morbid obesity Assessment/Plan f/u lipase and amylase f/u GI recommendations advance diet as tolerated iv fluids check electroltyes Subjective ROS Limited/Unobtainable: No Constitutional: Reports: no symptoms HEENT: Repors: no symptoms Respiratory: Reports: no symptoms Allergies: Coded Allergies: NO KNOWN ALLERGIES (Verified Allergy, Unknown, 08/04/17) Objective Last 24 Hour Vital Signs Date Time Temp Pulse Resp B/P (MAP) Pulse Ox O2 Delivery O2 Flow Rate FiO2 10/05/17 18:00 68 99/55 10/05/17 16:00 99.4 74 18 99/55 93 Room Air 99.4 10/05/17 16:00 68 10/05/17 12:00 97.1 82 19 149/71 93 Room Air 97.1 10/05/17 12:00 61 10/05/17 09:08 121/73 10/05/17 09:06 79 121/73 10/05/17 08:00 98.9 79 21 121/73 97 Nasal Cannula 2.0 98.9 10/05/17 08:00 69 10/05/17 04:00 65 10/05/17 04:00 98.4 66 12 98/61 100 Room Air 98.4 10/05/17 00:00 66 10/05/17 00:00 98.1 66 20 103/57 100 Room Air 98.1 Intake and Output 10/04/17 10/05/17 19:00 07:00 Intake Total 500 ml 300 ml Balance 500 ml 300 ml Intake Oral 500 ml 300 ml # Voids 3 Objective General Appearance: WD/WN HEENT: normocephalic, atraumatic Respiratory/Chest: chest wall non-tender, lungs clear Cardiovascular: normal peripheral pulses, normal rate, regular rhythm Abdomen: normal bowel sounds, soft, non tender, no organomegaly, non distended Extremities: no cyanosis, no clubbing, no edema Skin: no rash, no lesions 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 normal Laboratory Tests 10/05/17 07:40: White Blood Count 6.6, Red Blood Count 3.38L, Hemoglobin 9.9L, Hematocrit 31.3L , Mean Corpuscular Volume 93, Mean Corpuscular Hemoglobin 29.5, Mean Corpuscular Hemoglobin Concent 31.7L, Red Cell Distribution Width 13.5, Platelet Count 135L, Mean Platelet Volume 11.0H, Neutrophils (%) (Auto) 50.3, Lymphocytes (%) (Auto) 30.8, Monocytes (%) (Auto) 12.5H, Eosinophils (%) (Auto) 5.5H, Basophils (%) (Auto) 1.0, Sodium Level 139, Potassium Level 4.4, Chloride Level 105, Carbon Dioxide Level 31, Anion Gap 4L, Blood Urea Nitrogen 5L, Creatinine 1.0, Estimat Glomerular Filtration Rate > 60, Glucose Level 106, Calcium Level 9.0, Total Bilirubin 0.7, Aspartate Amino Transf (AST/SGOT) 16, Alanine Aminotransferase (ALT/SGPT) 19, Alkaline Phosphatase 53, Troponin I 0.037, Total Protein 6.2L, Albumin 2.5L, Globulin 3.7, Albumin/Globulin Ratio 0.7L Current Medications Medications (Trade) Dose Ordered Sig/Gus Route PRN Reason Start Time Stop Time Status Last Admin Dose Admin Acetaminophen (Tylenol) 650 mg Q4H PRN ORAL fever 10/04/17 12:15 11/01/17 00:14 Al Hydroxide/Mg Hydroxide (Mylanta II) 30 ml Q6H PRN ORAL dyspepsia 10/04/17 12:15 11/01/17 00:14 Dextrose (Dextrose 50%) STAT PRN IV Hypoglycemia 10/05/17 00:15 11/01/17 00:14 Dextrose/Sodium Chloride 1,000 ml @ 75 mls/hr [id number] IV 10/04/17 11:15 11/01/17 00:05 10/05/17 14:43 Diphenhydramine HCl (Benadryl) 25 mg Q6H PRN ORAL Itching/Pruritis 10/04/17 12:15 11/01/17 00:14 Famotidine (Pepcid) 20 mg BID ORAL 10/04/17 21:00 11/03/17 20:59 10/05/17 19:42 Fluoxetine HCl (PROzac) 20 mg DAILY ORAL 10/05/17 09:00 11/02/17 08:59 10/05/17 09:24 Gabapentin (Neurontin) 300 mg BEDTIME ORAL 10/04/17 21:00 11/01/17 20:59 10/05/17 20:34 Heparin Sodium (Porcine) (Heparin 5000 units/ml) 5,000 units EVERY 12 HOURS SUBQ 10/04/17 21:00 11/01/17 08:59 Lisinopril (Prinivil) 10 mg DAILY ORAL 10/05/17 09:00 11/01/17 08:59 10/05/17 09:08 Lorazepam (Ativan 2mg/ml 1ml) 1 mg EVERY 4 HOURS PRN IV agitation 10/04/17 13:00 10/09/17 00:14 10/04/17 22:57 Metoclopramide HCl (Reglan) 10 mg EVERY 6 HOURS PRN IVP servere nauasea 10/04/17 12:00 11/01/17 00:14 Metoprolol Tartrate (Lopressor) 25 mg BID ORAL 10/04/17 18:00 11/01/17 08:59 10/05/17 09:06 Morphine Sulfate (Morphine Sulfate) 2 mg Q4H PRN IVP severe pain scale 7-10 10/04/17 12:30 10/09/17 00:29 10/05/17 10:48 Morphine Sulfate (Morphine Sulfate) 3 mg Q4H PRN IVP BREAKTHRU PAIN 10/04/17 13:30 10/11/17 09:29 10/05/17 20:36 Nitroglycerin (Ntg) 0.4 mg Q5M X 3 DOSES PRN SL Prn Chest Pain 10/04/17 11:15 11/01/17 00:14 Ondansetron HCl (Zofran) 4 mg Q6H PRN IVP Nausea & Vomiting 10/04/17 12:15 11/01/17 00:14 10/05/17 20:34 Polyethylene Glycol (Miralax) 17 gm HSPRN PRN ORAL Constipation 10/05/17 00:15 11/01/17 00:14 Promethazine HCl 25 mg/Dextrose 56 ml @ 110 mls/hr Q6H PRN IV Refractory N/V 10/04/17 12:15 11/01/17 00:14 Regadenoson (Lexiscan) 0.4 mg ONCE IV 10/05/17 16:00 10/07/17 15:00 Sucralfate (Carafate) 1 gm BID ORAL 10/04/17 18:00 11/02/17 17:59 10/05/17 19:43 Temazepam (Restoril) 15 mg HSPRN PRN ORAL Insomnia 10/05/17 00:15 10/09/17 00:14 Valacyclovir HCl (Valtrex) 1,000 mg Q12H ORAL 10/06/17 06:00 11/05/17 05:59 Merari Boateng MD Oct 05, 2017 22:27
--- NOTE | 2017-10-05 22:33 | Cardiology Progress Note ---
Assessment/Plan Assessment/Plan chest pain atypical d//w Dr Rosario, will order Dobutamine echo Subjective Subjective The patient had episode of chest pain yesterday, very severe today she had vague chest pain she cannot sleep flat in her bed for several years and at home she sleeps in the chair Objective Last 24 Hour Vital Signs Date Time Temp Pulse Resp B/P (MAP) Pulse Ox O2 Delivery O2 Flow Rate FiO2 10/05/17 18:00 68 99/55 10/05/17 16:00 99.4 74 18 99/55 93 Room Air 99.4 10/05/17 16:00 68 10/05/17 12:00 97.1 82 19 149/71 93 Room Air 97.1 10/05/17 12:00 61 10/05/17 09:08 121/73 10/05/17 09:06 79 121/73 10/05/17 08:00 98.9 79 21 121/73 97 Nasal Cannula 2.0 98.9 10/05/17 08:00 69 10/05/17 04:00 65 10/05/17 04:00 98.4 66 12 98/61 100 Room Air 98.4 10/05/17 00:00 66 10/05/17 00:00 98.1 66 20 103/57 100 Room Air 98.1 General Appearance: WD/WN, no apparent distress, other - morbildy obese, EENT: PERRL/EOMI Neck: supple, no JVD Rhythm: NSR Cardiovascular: normal rate Respiratory/Chest: lungs clear Abdomen: soft, distended Extremities: normal range of motion Intake and Output 10/04/17 10/05/17 19:00 07:00 Intake Total 500 ml 300 ml Balance 500 ml 300 ml Intake Oral 500 ml 300 ml # Voids 3 Laboratory Tests Test 10/05/17 07:40 White Blood Count 6.6 K/UL (4.8-10.8) Red Blood Count 3.38 M/UL (4.20-5.40) L Hemoglobin 9.9 G/DL (12.0-16.0) L Hematocrit 31.3 % (37.0-47.0) L Mean Corpuscular Volume 93 FL (80-99) Mean Corpuscular Hemoglobin 29.5 PG (27.0-31.0) Mean Corpuscular Hemoglobin Concent 31.7 G/DL (32.0-36.0) L Red Cell Distribution Width 13.5 % (11.6-14.8) Platelet Count 135 K/UL (150-450) L Mean Platelet Volume 11.0 FL (6.5-10.1) H Neutrophils (%) (Auto) 50.3 % (45.0-75.0) Lymphocytes (%) (Auto) 30.8 % (20.0-45.0) Monocytes (%) (Auto) 12.5 % (1.0-10.0) H Eosinophils (%) (Auto) 5.5 % (0.0-3.0) H Basophils (%) (Auto) 1.0 % (0.0-2.0) Sodium Level 139 MMOL/L (136-145) Potassium Level 4.4 MMOL/L (3.5-5.1) Chloride Level 105 MMOL/L (98-107) Carbon Dioxide Level 31 MMOL/L (21-32) Anion Gap 4 mmol/L (5-15) L Blood Urea Nitrogen 5 mg/dL (7-18) L Creatinine 1.0 MG/DL (0.55-1.30) Estimat Glomerular Filtration Rate > 60 mL/min (>60) Glucose Level 106 MG/DL (74-106) Calcium Level 9.0 MG/DL (8.5-10.1) Total Bilirubin 0.7 MG/DL (0.2-1.0) Aspartate Amino Transf (AST/SGOT) 16 U/L (15-37) Alanine Aminotransferase (ALT/SGPT) 19 U/L (12-78) Alkaline Phosphatase 53 U/L (46-116) Troponin I 0.037 ng/mL (0.000-0.056) Total Protein 6.2 G/DL (6.4-8.2) L Albumin 2.5 G/DL (3.4-5.0) L Globulin 3.7 g/dL Albumin/Globulin Ratio 0.7 (1.0-2.7) L Rima Morris MD Oct 05, 2017 22:33
[2017-10-06] VITALS: BP 108/57
[2017-10-06] MEDS: D5 1/2NS 1,000 ML IV SCH ×3 (03:41→20:22)
[2017-10-06 04:00] VITALS: BP 122/69
[2017-10-06] MEDS: valACYclovir HCL 500mg tab ORAL SCH ×2 (06:08→18:13)
--- NOTE | 2017-10-06 07:48 | General Progress Note ---
Assessment/Plan Problem List: (1) Acute pancreatitis ICD Codes: K85.90 - Acute pancreatitis without necrosis or infection, unspecified SNOMED: 375760052 (2) COPD (chronic obstructive pulmonary disease) ICD Codes: J44.9 - Chronic obstructive pulmonary disease, unspecified SNOMED: 19106403 (3) Morbid obesity ICD Codes: E66.01 - Morbid (severe) obesity due to excess calories SNOMED: 005696104, [id number] (4) Abdominal pain ICD Codes: R10.9 - Unspecified abdominal pain SNOMED: 53126680 (5) Shingles ICD Codes: B02.9 - Zoster without complications SNOMED: 8230285 Assessment/Plan EGD/colonoscopy done 6 months ago at [facility], will obtain records. CT AP reviewed >> acute pancreatitis abdominal U/S reviewed >> s/p cholecystomy with 10mm CBD dilation lipid panel reviewed unremarkable utox unremarkable pancreatitis resolving >> normal lipase levels conservative pancreatitis management >> unknown etiology, protonix DC ? cause for pancreatitis adv diet to full liquid pain mgmt IV hydration dc ppi which can cause pancreatitis trend lipase fu labs, NATALIE & IgG4 r/o autoimmune Subjective ROS Limited/Unobtainable: Yes Allergies: Coded Allergies: NO KNOWN ALLERGIES (Verified Allergy, Unknown, 08/04/17) Subjective c/o total body pain Objective Last 24 Hour Vital Signs Date Time Temp Pulse Resp B/P (MAP) Pulse Ox O2 Delivery O2 Flow Rate FiO2 10/06/17 07:07 99.8 10/06/17 06:08 100.0 10/06/17 04:00 100.0 81 16 122/69 98 Nasal Cannula 2.0 100.0 10/06/17 04:00 75 10/06/17 00:00 73 10/06/17 00:00 99.2 55 17 108/57 100 Nasal Cannula 2.0 99.2 10/05/17 20:00 99.5 78 16 134/69 100 Nasal Cannula 2.0 99.5 10/05/17 20:00 69 10/05/17 18:00 68 99/55 10/05/17 16:00 99.4 74 18 99/55 93 Room Air 99.4 10/05/17 16:00 68 10/05/17 12:00 97.1 82 19 149/71 93 Room Air 97.1 4/28/18 12:00 61 10/05/17 09:08 121/73 10/05/17 09:06 79 121/73 10/05/17 08:00 98.9 79 21 121/73 97 Nasal Cannula 2.0 98.9 10/05/17 08:00 69 Intake and Output 10/05/17 10/06/17 19:00 07:00 Intake Total 480 ml 825 ml Balance 480 ml 825 ml Intake Oral 480 ml IV Total 825 ml # Voids 3 Height (Feet): 5 Height (Inches): 1.00 Weight (Pounds): 265 General Appearance: alert EENT: normal ENT inspection Neck: supple Cardiovascular: normal rate Respiratory/Chest: lungs clear Abdomen: normal bowel sounds, non tender, soft Extremities: non-tender DONYA IRAHETA Oct 06, 2017 07:48
[2017-10-06 08:00] VITALS: BP 103/57
[2017-10-06] MEDS ORDERED: Metoprolol Tartrate 12.5mg TAB ONE (08:09)
[2017-10-06] MEDS: Sucralfate 1gm tab ORAL SCH ×2 (08:16→18:07)
[2017-10-06] MEDS: Lisinopril 20mg tab ORAL SCH (08:23)
[2017-10-06] MEDS: Metoprolol 25mg tab ORAL SCH ×2 (08:44→18:08)
[2017-10-06] MEDS: Heparin 5000 units/ml inj SUBQ SCH ×2 (08:45→20:22)
--- NOTE | 2017-10-06 10:18 | Internal Med Progress Note ---
Subjective Physician Name Zev Persaud Attending Physician Zev Persaud MD Current Medications Medications (Trade) Dose Ordered Sig/Gus Route PRN Reason Start Time Stop Time Status Last Admin Dose Admin Acetaminophen (Tylenol) 650 mg Q4H PRN ORAL fever 10/04/17 12:15 11/01/17 00:14 10/06/17 06:08 Al Hydroxide/Mg Hydroxide (Mylanta II) 30 ml Q6H PRN ORAL dyspepsia 10/04/17 12:15 11/01/17 00:14 Dextrose (Dextrose 50%) STAT PRN IV Hypoglycemia 10/05/17 00:15 11/01/17 00:14 Dextrose/Sodium Chloride 1,000 ml @ 75 mls/hr [id number] IV 10/04/17 11:15 11/01/17 00:05 10/06/17 03:41 Diphenhydramine HCl (Benadryl) 25 mg Q6H PRN ORAL Itching/Pruritis 10/04/17 12:15 11/01/17 00:14 Famotidine (Pepcid) 20 mg BID ORAL 10/04/17 21:00 11/03/17 20:59 10/06/17 08:16 Fluoxetine HCl (PROzac) 20 mg DAILY ORAL 10/05/17 09:00 11/02/17 08:59 10/06/17 08:16 Gabapentin (Neurontin) 300 mg BEDTIME ORAL 10/04/17 21:00 11/01/17 20:59 10/05/17 20:34 Heparin Sodium (Porcine) (Heparin 5000 units/ml) 5,000 units EVERY 12 HOURS SUBQ 10/04/17 21:00 11/01/17 08:59 Lisinopril (Prinivil) 10 mg DAILY ORAL 10/05/17 09:00 11/01/17 08:59 10/06/17 08:23 Lorazepam (Ativan 2mg/ml 1ml) 1 mg EVERY 4 HOURS PRN IV agitation 10/04/17 13:00 10/09/17 00:14 10/04/17 22:57 Metoclopramide HCl (Reglan) 10 mg EVERY 6 HOURS PRN IVP servere nauasea 10/04/17 12:00 11/01/17 00:14 Metoprolol Tartrate (Lopressor) 25 mg BID ORAL 10/04/17 18:00 11/01/17 08:59 10/05/17 09:06 Morphine Sulfate (Morphine Sulfate) 2 mg Q4H PRN IVP severe pain scale 7-10 10/04/17 12:30 10/09/17 00:29 10/05/17 10:48 Morphine Sulfate (Morphine Sulfate) 3 mg Q4H PRN IVP BREAKTHRU PAIN 10/04/17 13:30 10/11/17 09:29 10/05/17 20:36 Nitroglycerin (Ntg) 0.4 mg Q5M X 3 DOSES PRN SL Prn Chest Pain 10/04/17 11:15 11/01/17 00:14 Ondansetron HCl (Zofran) 4 mg Q6H PRN IVP Nausea & Vomiting 10/04/17 12:15 11/01/17 00:14 10/05/17 20:34 Polyethylene Glycol (Miralax) 17 gm HSPRN PRN ORAL Constipation 10/05/17 00:15 11/01/17 00:14 Promethazine HCl 25 mg/Dextrose 56 ml @ 110 mls/hr Q6H PRN IV Refractory N/V 10/04/17 12:15 11/01/17 00:14 Regadenoson (Lexiscan) 0.4 mg ONCE IV 10/05/17 16:00 10/07/17 15:00 Sucralfate (Carafate) 1 gm BID ORAL 10/04/17 18:00 11/02/17 17:59 10/06/17 08:16 Temazepam (Restoril) 15 mg HSPRN PRN ORAL Insomnia 10/05/17 00:15 10/09/17 00:14 Valacyclovir HCl (Valtrex) 1,000 mg Q12H ORAL 10/06/17 06:00 11/05/17 05:59 10/06/17 06:08 Allergies: Coded Allergies: NO KNOWN ALLERGIES (Verified Allergy, Unknown, 08/04/17) Subjective awake, responsive, no SOB or Abdominal pain, C/O joint pain / OA Objective Last Vital Signs Date Time Temp Pulse Resp B/P (MAP) Pulse Ox O2 Delivery O2 Flow Rate FiO2 10/06/17 08:44 74 103/57 10/06/17 07:07 99.8 10/06/17 04:00 16 98 Nasal Cannula 2.0 Intake and Output 10/05/17 10/06/17 19:00 07:00 Intake Total 480 ml 825 ml Balance 480 ml 825 ml Intake Oral 480 ml IV Total 825 ml # Voids 3 Objective General: No acute distress, awake and alert HEENT: NCAT, sclera anicteric, PERRL, EOMI. Neck: Supple, no significant jugular venous distention, Lungs: Good inspiratory effort, clear to auscultation bilaterally, no Wheeze or Rales. Heart: Regular rate and rhythm, normal S1/S2, + KAREN. Abdomen: soft, nontender, nondistended. Normoactive bowel sounds. morbid obesity. / Rectal: Refused and deferred. Extremities: No Cyanosis , clubbing or edema. Neuro: A&O x 3, Able to move all extremities Skin: warm, Vesicular rash at buttock. 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 f/u GI recommendations advance diet as tolerated iv fluids monitor labs on Valtrex Zev Persadu MD Oct 06, 2017 10:18
[2017-10-06 12:00] VITALS: BP 117/66
[2017-10-06 16:00] VITALS: BP 118/71
--- NOTE | 2017-10-06 17:13 | Pulmonology Progress Note ---
Assessment/Plan Problems: (1) ACS (acute coronary syndrome) (2) Acute pancreatitis (3) Abdominal pain (4) CHF (congestive heart failure) (5) COPD (chronic obstructive pulmonary disease) (6) Morbid obesity Assessment/Plan f/u lipase and amylase f/u GI recommendations advance diet as tolerated iv fluids check electroltyes Subjective ROS Limited/Unobtainable: No Constitutional: Reports: no symptoms HEENT: Repors: no symptoms Respiratory: Reports: no symptoms Allergies: Coded Allergies: NO KNOWN ALLERGIES (Verified Allergy, Unknown, 08/04/17) Objective Last 24 Hour Vital Signs Date Time Temp Pulse Resp B/P (MAP) Pulse Ox O2 Delivery O2 Flow Rate FiO2 10/06/17 08:44 74 103/57 10/06/17 08:23 103/57 10/06/17 08:00 99.0 74 17 103/57 98 Nasal Cannula 2.0 99.0 10/06/17 08:00 76 10/06/17 07:07 99.8 10/06/17 06:08 100.0 10/06/17 04:00 100.0 81 16 122/69 98 Nasal Cannula 2.0 100.0 10/06/17 04:00 75 10/06/17 00:00 73 10/06/17 00:00 99.2 55 17 108/57 100 Nasal Cannula 2.0 99.2 10/05/17 20:00 99.5 78 16 134/69 100 Nasal Cannula 2.0 99.5 10/05/17 20:00 69 10/05/17 18:00 68 99/55 Intake and Output 10/05/17 10/06/17 19:00 07:00 Intake Total 480 ml 825 ml Balance 480 ml 825 ml Intake Oral 480 ml IV Total 825 ml # Voids 3 Objective General Appearance: WD/WN HEENT: normocephalic, atraumatic Respiratory/Chest: chest wall non-tender, lungs clear Cardiovascular: normal peripheral pulses, normal rate, regular rhythm Abdomen: normal bowel sounds, soft, non tender, no organomegaly, non distended Extremities: no cyanosis, no clubbing, no edema Skin: no rash, no lesions 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 Current Medications Medications (Trade) Dose Ordered Sig/Gus Route PRN Reason Start Time Stop Time Status Last Admin Dose Admin Acetaminophen (Tylenol) 650 mg Q4H PRN ORAL fever 10/04/17 12:15 11/01/17 00:14 10/06/17 06:08 Al Hydroxide/Mg Hydroxide (Mylanta II) 30 ml Q6H PRN ORAL dyspepsia 10/04/17 12:15 11/01/17 00:14 Dextrose (Dextrose 50%) STAT PRN IV Hypoglycemia 10/05/17 00:15 11/01/17 00:14 Dextrose/Sodium Chloride 1,000 ml @ 75 mls/hr [id number] IV 10/04/17 11:15 11/01/17 00:05 10/06/17 03:41 Diphenhydramine HCl (Benadryl) 25 mg Q6H PRN ORAL Itching/Pruritis 10/04/17 12:15 11/01/17 00:14 Famotidine (Pepcid) 20 mg BID ORAL 10/04/17 21:00 11/03/17 20:59 10/06/17 08:16 Fluoxetine HCl (PROzac) 20 mg DAILY ORAL 10/05/17 09:00 11/02/17 08:59 10/06/17 08:16 Gabapentin (Neurontin) 300 mg BEDTIME ORAL 10/04/17 21:00 11/01/17 20:59 10/05/17 20:34 Heparin Sodium (Porcine) (Heparin 5000 units/ml) 5,000 units EVERY 12 HOURS SUBQ 10/04/17 21:00 11/01/17 08:59 Lisinopril (Prinivil) 10 mg DAILY ORAL 10/05/17 09:00 11/01/17 08:59 10/06/17 08:23 Lorazepam (Ativan 2mg/ml 1ml) 1 mg EVERY 4 HOURS PRN IV agitation 10/04/17 13:00 10/09/17 00:14 10/04/17 22:57 Metoclopramide HCl (Reglan) 10 mg EVERY 6 HOURS PRN IVP servere [place] 10/04/17 12:00 11/01/17 00:14 Metoprolol Tartrate (Lopressor) 25 mg BID ORAL 10/04/17 18:00 11/01/17 08:59 10/05/17 09:06 Morphine Sulfate (Morphine Sulfate) 2 mg Q4H PRN IVP severe pain scale 7-10 10/04/17 12:30 10/09/17 00:29 10/05/17 10:48 Morphine Sulfate (Morphine Sulfate) 3 mg Q4H PRN IVP BREAKTHRU PAIN 10/04/17 13:30 10/11/17 09:29 10/05/17 20:36 Nitroglycerin (Ntg) 0.4 mg Q5M X 3 DOSES PRN SL Prn Chest Pain 10/04/17 11:15 11/01/17 00:14 Ondansetron HCl (Zofran) 4 mg Q6H PRN IVP Nausea & Vomiting 10/04/17 12:15 11/01/17 00:14 10/05/17 20:34 Polyethylene Glycol (Miralax) 17 gm HSPRN PRN ORAL Constipation 10/05/17 00:15 11/01/17 00:14 Promethazine HCl 25 mg/Dextrose 56 ml @ 110 mls/hr Q6H PRN IV Refractory N/V 10/04/17 12:15 11/01/17 00:14 Regadenoson (Lexiscan) 0.4 mg ONCE IV 10/05/17 16:00 10/07/17 15:00 Sucralfate (Carafate) 1 gm BID ORAL 10/04/17 18:00 11/02/17 17:59 10/06/17 08:16 Temazepam (Restoril) 15 mg HSPRN PRN ORAL Insomnia 10/05/17 00:15 10/09/17 00:14 Valacyclovir HCl (Valtrex) 1,000 mg Q12H ORAL 10/06/17 06:00 11/05/17 05:59 10/06/17 06:08 Merari Boateng MD Oct 06, 2017 17:13
--- NOTE | 2017-10-06 17:46 | Cardiology Report ---
APPROVED REPORT EKG Measurement Heart [id number] ME 152P38 [id number] Normal sinus rhythm Left ventricular hypertrophy with repolarization abnormality Abnormal ECG
[2017-10-06] MEDS ORDERED: Lexiscan 0.4mg/5ml syringe IV PRN (18:15)
[2017-10-06] MEDS ORDERED: Mylanta II UD 30ml ORAL PRN (18:30)
[2017-10-06] MEDS ORDERED: Promethazine HCl 25 MG in D5W 55 ML IV PRN (18:30)
[2017-10-06] MEDS ORDERED: Morphine Sulfate 4mg/ml Inj IVP PRN ×2 (19:00)
[2017-10-06] MEDS ORDERED: Metoclopramide 10mg/2ml Inj IVP PRN (19:00)
[2017-10-06] MEDS ORDERED: GI Cocktail 50ml ORAL PRN (19:00)
[2017-10-06] MEDS ORDERED: Nitroglycerin Subl 0.4mg tab SL PRN (19:00)
[2017-10-06 20:00] VITALS: BP 132/68
[2017-10-06] MEDS ORDERED: LORazepam Inj 2mg/ml 1ml IV PRN (21:00)
[2017-10-06] MEDS ORDERED: Miralax 17gm pkt ORAL PRN (21:00)
--- NOTE | 2017-10-06 21:35 | Cardiology Progress Note ---
Assessment/Plan Assessment/Plan chest pain atypical d//w Dr Rosario, will order Dobutamine echo Subjective Subjective doing better, no chest pain, family is at the bedside, Objective Last 24 Hour Vital Signs Date Time Temp Pulse Resp B/P (MAP) Pulse Ox O2 Delivery O2 Flow Rate FiO2 10/06/17 20:00 99.7 78 20 132/68 98 99.7 10/06/17 18:08 78 118/71 10/06/17 16:00 69 10/06/17 16:00 98.9 78 19 118/71 98 Room Air 98.9 10/06/17 12:00 97.4 75 18 117/66 96 Room Air 97.4 10/06/17 12:00 70 10/06/17 08:44 74 103/57 10/06/17 08:23 103/57 10/06/17 08:00 99.0 74 17 103/57 98 Nasal Cannula 2.0 99.0 10/06/17 08:00 76 10/06/17 07:07 99.8 10/06/17 06:08 100.0 10/06/17 04:00 100.0 81 16 122/69 98 Nasal Cannula 2.0 100.0 10/06/17 04:00 75 10/06/17 00:00 73 10/06/17 00:00 99.2 55 17 108/57 100 Nasal Cannula 2.0 99.2 General Appearance: no apparent distress EENT: PERRL/EOMI Neck: non-tender Rhythm: NSR Cardiovascular: normal rate Respiratory/Chest: lungs clear Abdomen: distended Extremities: normal capillary refill Intake and Output 10/05/17 10/06/17 19:00 07:00 Intake Total 480 ml 825 ml Balance 480 ml 825 ml Intake Oral 480 ml IV Total 825 ml # Voids 3 Rima Morris MD Oct 06, 2017 21:35
[2017-10-07] VITALS: BP 125/64
[2017-10-07 04:00] VITALS: BP 113/58
[2017-10-07] MEDS: valACYclovir HCL 500mg tab ORAL SCH ×2 (06:08→16:59)
[2017-10-07] MEDS: D5 1/2NS 1,000 ML IV SCH ×3 (07:50→17:00)
[2017-10-07 08:00] VITALS: BP 122/66
[2017-10-07] MEDS: Metoprolol 25mg tab ORAL SCH ×2 (09:00→21:00)
[2017-10-07] MEDS: Lisinopril 10mg tab ORAL SCH (09:00)
[2017-10-07] MEDS: Heparin 5000 units/ml inj SUBQ SCH ×2 (09:00→21:00)
[2017-10-07 09:09] LABS: BASOPHILS % (AUTO) 0.8 % (0.0-2.0); HEMATOCRIT 27.5 % (37.0-47.0); HEMOGLOBIN 8.8 G/DL (12.0-16.0); LYMPHOCYTES % (AUTO) 25.1 % (20.0-45.0); MEAN CORPUSCULAR VOLUME 90 FL (80-99); MONOCYTES % (AUTO) 12.4 % (1.0-10.0); NEUTROPHILS % (AUTO) 56.7 % (45.0-75.0); PLATELET COUNT 122 K/UL (150-450); RED BLOOD COUNT 3.04 M/UL (4.20-5.40); RED CELL DISTRIBUTION WIDTH 13.5 % (11.6-14.8); WHITE BLOOD COUNT 5.7 K/UL (4.8-10.8)
[2017-10-07] MEDS: Sucralfate 1gm tab ORAL SCH ×2 (09:23→18:20)
[2017-10-07 09:48] LABS: ALANINE AMINOTRANSFERASE 24 U/L (12-78); ALBUMIN 2.3 G/DL (3.4-5.0); ALBUMIN/GLOBULIN RATIO 0.7 (1.0-2.7); ALKALINE PHOSPHATASE 50 U/L (46-116); ANION GAP 3 mmol/L (5-15); ASPARTATE AMINO TRANSFERASE 18 U/L (15-37); BILIRUBIN,TOTAL 0.9 MG/DL (0.2-1.0); BLOOD UREA NITROGEN 3 mg/dL (7-18); CALCIUM 8.6 MG/DL (8.5-10.1); CARBON DIOXIDE 32 MMOL/L (21-32); CHLORIDE 108 MMOL/L (98-107); POTASSIUM 3.8 MMOL/L (3.5-5.1); SODIUM 142 MMOL/L (136-145)
--- NOTE | 2017-10-07 10:26 | GI Progress Note ---
Assessment/Plan Problems: (1) Acute pancreatitis ICD Codes: K85.90 - Acute pancreatitis without necrosis or infection, unspecified SNOMED: 651459983 (2) Pain ICD Codes: R52 - Pain, unspecified SNOMED: 59734041 (3) Abdominal pain ICD Codes: R10.9 - Unspecified abdominal pain SNOMED: 22192785 Status: progressing Status Narrative Discussed with Dr. Fuentes. Assessment/Plan EGD/colonoscopy done 6 months ago at [facility], will obtain records. CT AP reviewed >> acute pancreatitis abdominal U/S reviewed >> s/p cholecystomy with 10mm CBD dilation lipid panel reviewed unremarkable utox unremarkable pancreatitis resolving >> normal lipase levels NATALIE negative conservative pancreatitis management >> unknown etiology, protonix DC ? cause for pancreatitis adv diet to full liquid pain mgmt IV hydration trend lipase fu labs, IgG4 r/o autoimmune Subjective Subjective abdominal pain improved denies chest pain denies diarrhea Objective Last 24 Hour Vital Signs Date Time Temp Pulse Resp B/P (MAP) Pulse Ox O2 Delivery O2 Flow Rate FiO2 10/07/17 09:00 75 122/66 10/07/17 08:00 97.4 75 20 122/66 98 97.4 10/07/17 04:00 98.5 70 20 113/58 100 Nasal Cannula 98.5 10/07/17 00:00 99.2 68 20 125/64 98 99.2 10/06/17 20:00 99.7 78 20 132/68 98 99.7 10/06/17 18:08 78 118/71 10/06/17 16:00 69 10/06/17 16:00 98.9 78 19 118/71 98 Room Air 98.9 10/06/17 12:00 97.4 75 18 117/66 96 Room Air 97.4 10/06/17 12:00 70 Intake and Output 10/06/17 10/07/17 19:00 07:00 Intake Total 450 ml 750 ml Balance 450 ml 750 ml IV Total 750 ml Other 450 ml # Voids 4 1 # Bowel Movements 1 Laboratory Tests Test 10/07/17 08:26 White Blood Count 5.7 K/UL (4.8-10.8) Red Blood Count 3.04 M/UL (4.20-5.40) L Hemoglobin 8.8 G/DL (12.0-16.0) L Hematocrit 27.5 % (37.0-47.0) L Mean Corpuscular Volume 90 FL (80-99) Mean Corpuscular Hemoglobin 28.9 PG (27.0-31.0) Mean Corpuscular Hemoglobin Concent 32.0 G/DL (32.0-36.0) Red Cell Distribution Width 13.5 % (11.6-14.8) Platelet Count 122 K/UL (150-450) L Mean Platelet Volume 8.0 FL (6.5-10.1) Neutrophils (%) (Auto) 56.7 % (45.0-75.0) Lymphocytes (%) (Auto) 25.1 % (20.0-45.0) Monocytes (%) (Auto) 12.4 % (1.0-10.0) H Eosinophils (%) (Auto) 5.0 % (0.0-3.0) H Basophils (%) (Auto) 0.8 % (0.0-2.0) Erythrocyte Sedimentation Rate 64 MM/HR (0-30) H Sodium Level 142 MMOL/L (136-145) Potassium Level 3.8 MMOL/L (3.5-5.1) Chloride Level 108 MMOL/L (98-107) H Carbon Dioxide Level 32 MMOL/L (21-32) Anion Gap 3 mmol/L (5-15) L Blood Urea Nitrogen 3 mg/dL (7-18) L Creatinine 1.0 MG/DL (0.55-1.30) Estimat Glomerular Filtration Rate > 60 mL/min (>60) Glucose Level 103 MG/DL (74-106) Calcium Level 8.6 MG/DL (8.5-10.1) Phosphorus Level 4.0 MG/DL (2.5-4.9) Magnesium Level 1.7 MG/DL (1.8-2.4) L Total Bilirubin 0.9 MG/DL (0.2-1.0) Aspartate Amino Transf (AST/SGOT) 18 U/L (15-37) Alanine Aminotransferase (ALT/SGPT) 24 U/L (12-78) Alkaline Phosphatase 50 U/L (46-116) C-Reactive Protein, Quantitative Pending Total Protein 5.6 G/DL (6.4-8.2) L Albumin 2.3 G/DL (3.4-5.0) L Globulin 3.3 g/dL Albumin/Globulin Ratio 0.7 (1.0-2.7) L Amylase Level Pending Lipase Pending Height (Feet): 5 Height (Inches): 1.00 Weight (Pounds): 265 General Appearance: WD/WN, no apparent distress, alert Cardiovascular: normal rate Respiratory/Chest: normal breath sounds, no respiratory distress Abdominal Exam: normal bowel sounds, non tender, soft Extremities: normal range of motion, non-tender Cami Huertas N.P. Oct 07, 2017 10:26
--- NOTE | 2017-10-07 10:59 | Cardiology Report ---
APPROVED REPORT EXAM: Two-dimensional and M-mode echocardiogram with Doppler and color Doppler. INDICATION Chest Pain M-Mode DIMENSIONS IVSd1.9 (0.7-1.1cm)Left Atrium (MM)5.0 (1.6-4.0cm) LVDd4.2 (3.5-5.6cm)Aortic Root2.8 (2.0-3.7cm) PWd1.4 (0.7-1.1cm)Aortic Cusp Exc.1.6 (1.5-2.0cm) LVDs1.8 (2.5-4.0cm) PWs2.3 cm Normal left ventricular chamber size, systolic function and wall motion. Left ventricular ejection fraction estimated to be 60-65 %. Moderate left ventricular hypertrophy. Anterior Echo-free space, may be due to pericardial fat or effusion. Mild left atrial enlargement. Right cardiac chamber sizes are within normal limits. Focal aortic valve sclerosis with adequate cusp excursion. Thickened mitral valve leaflets with normal excursion. Mild mitral annulus and aortic root calcification. Normal pulmonic valve structure. Normal tricuspid valve structure. IVC dilated at 2.3 cm with physiological collapse. A color flow and spectral Doppler study was performed and revealed: No aortic insufficiency. Moderate mitral regurgitation. Mitral diastolic velocities suggest mild left ventricular diastolic dysfunction (Grade I). Moderate tricuspid regurgitation. Tricuspid systolic velocities suggests peak right ventricular systolic pressure of 121 mmHg, consistent with severe pulmonary hypertension. No pulmonic regurgitation present.
--- NOTE | 2017-10-07 11:37 | Internal Med Progress Note ---
Subjective Date of Service: Oct 07, 2017 Physician Name Steven,Valerie Attending Physician Zev Persaud MD Current Medications Medications (Trade) Dose Ordered Sig/Gus Route PRN Reason Start Time Stop Time Status Last Admin Dose Admin Acetaminophen (Tylenol) 650 mg Q4H PRN ORAL T>100.5 10/06/17 20:15 11/01/17 00:14 10/07/17 06:16 Al Hydroxide/Mg Hydroxide (Mylanta II) 30 ml Q6H PRN ORAL dyspepsia 10/06/17 18:30 11/05/17 18:29 Dextrose (Dextrose 50%) 25 ml PRN IV Hypoglycemia 10/06/17 18:45 11/05/17 18:44 Dextrose (Dextrose 50%) 50 ml PRN IV hypoglycemia 10/06/17 18:45 11/05/17 18:44 Dextrose/Sodium Chloride 1,000 ml @ 75 mls/hr [id number] IV 10/06/17 18:30 11/01/17 18:29 10/06/17 20:22 Diphenhydramine HCl (Benadryl) 25 mg Q6H PRN ORAL Itching/Pruritis 10/06/17 18:30 11/05/17 18:29 Famotidine (Pepcid) 20 mg BID ORAL 10/07/17 09:00 11/03/17 20:59 10/07/17 09:23 Fluoxetine HCl (PROzac) 20 mg DAILY ORAL 10/07/17 09:00 11/02/17 08:59 10/07/17 09:23 Gabapentin (Neurontin) 300 mg BEDTIME ORAL 10/06/17 21:00 11/01/17 20:59 10/06/17 20:22 Heparin Sodium (Porcine) (Heparin 5000 units/ml) 5,000 units EVERY 12 HOURS SUBQ 10/06/17 21:00 11/01/17 08:59 Lisinopril (Zestril) 10 mg DAILY ORAL 10/07/17 09:00 11/01/17 08:59 Lorazepam (Ativan 2mg/ml 1ml) 1 mg Q4H PRN IV agitation 10/06/17 21:00 10/13/17 20:59 Magnesium Sulfate 100 ml @ 100 mls/hr Q1H IVPB 10/07/17 11:00 10/07/17 12:59 Metoclopramide HCl (Reglan) 10 mg Q6H PRN IVP servere nauasea 10/06/17 19:00 11/05/17 18:59 Metoprolol Tartrate (Lopressor) 25 mg Q12HR ORAL 10/07/17 09:00 11/06/17 08:59 Morphine Sulfate (Morphine Sulfate) 2 mg Q4H PRN IVP Severe Pain (Pain Scale 7-10) 10/06/17 19:00 10/09/17 18:59 Morphine Sulfate (Morphine Sulfate) 3 mg Q4H PRN IVP BREAKTHRU PAIN 10/06/17 19:00 10/11/17 18:59 Nitroglycerin (Ntg) 0.4 mg Q5M X 3 DOSES PRN SL Prn Chest Pain 10/06/17 19:00 11/01/17 18:59 Ondansetron HCl (Zofran) 4 mg Q6H PRN IVP Nausea & Vomiting 10/06/17 19:00 11/05/17 18:59 Polyethylene Glycol (Miralax) 17 gm HSPRN PRN ORAL Constipation 10/06/17 21:00 11/05/17 20:59 Regadenoson (Lexiscan) 0.4 mg ONCE PRN IV STRESS TEST 10/06/17 18:15 10/07/17 23:59 Sucralfate (Carafate) 1 gm BID ORAL 10/07/17 09:00 11/02/17 17:59 10/07/17 09:23 Temazepam (Restoril) 15 mg HSPRN PRN ORAL Insomnia 10/06/17 21:00 10/13/17 20:59 Valacyclovir HCl (Valtrex) 1,000 mg Q12H ORAL 10/07/17 06:00 11/05/17 05:59 10/07/17 06:08 Allergies: Coded Allergies: NO KNOWN ALLERGIES (Verified Allergy, Unknown, 08/04/17) ROS Limited/Unobtainable: No Constitutional: Reports: no symptoms HEENT: Reports: no symptoms Cardiovascular: Reports: no symptoms Respiratory: Reports: no symptoms Gastrointestinal/Abdominal: Reports: abdominal pain Genitourinary: Reports: no symptoms Neurologic/Psychiatric: Reports: no symptoms Subjective 61 YO F admitted with chest pain. Now acute pancreatitis Objective Last Vital Signs Date Time Temp Pulse Resp B/P (MAP) Pulse Ox O2 Delivery O2 Flow Rate FiO2 10/07/17 09:00 75 122/66 10/07/17 08:00 97.4 20 98 97.4 10/07/17 04:00 Nasal Cannula 10/06/17 08:00 2.0 General Appearance: no apparent distress, alert, obese EENT: PERRL/EOMI, normal ENT inspection, TMs normal Neck: non-tender, normal alignment, supple Cardiovascular: normal peripheral pulses, normal rate, regular rhythm, no gallop/murmur, no JVD Respiratory/Chest: chest wall non-tender, lungs clear, normal breath sounds, no respiratory distress, no accessory muscle use Abdomen: no organomegaly, no mass, decreased bowel sounds, guarding, tender Extremities: normal range of motion, non-tender 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, no motor/sensory deficits Skin: normal pigmentation, warm/dry Laboratory Tests Test 10/07/17 08:26 White Blood Count 5.7 K/UL (4.8-10.8) Red Blood Count 3.04 M/UL (4.20-5.40) L Hemoglobin 8.8 G/DL (12.0-16.0) L Hematocrit 27.5 % (37.0-47.0) L Mean Corpuscular Volume 90 FL (80-99) Mean Corpuscular Hemoglobin 28.9 PG (27.0-31.0) Mean Corpuscular Hemoglobin Concent 32.0 G/DL (32.0-36.0) Red Cell Distribution Width 13.5 % (11.6-14.8) Platelet Count 122 K/UL (150-450) L Mean Platelet Volume 8.0 FL (6.5-10.1) Neutrophils (%) (Auto) 56.7 % (45.0-75.0) Lymphocytes (%) (Auto) 25.1 % (20.0-45.0) Monocytes (%) (Auto) 12.4 % (1.0-10.0) H Eosinophils (%) (Auto) 5.0 % (0.0-3.0) H Basophils (%) (Auto) 0.8 % (0.0-2.0) Erythrocyte Sedimentation Rate 64 MM/HR (0-30) H Sodium Level 142 MMOL/L (136-145) Potassium Level 3.8 MMOL/L (3.5-5.1) Chloride Level 108 MMOL/L (98-107) H Carbon Dioxide Level 32 MMOL/L (21-32) Anion Gap 3 mmol/L (5-15) L Blood Urea Nitrogen 3 mg/dL (7-18) L Creatinine 1.0 MG/DL (0.55-1.30) Estimat Glomerular Filtration Rate > 60 mL/min (>60) Glucose Level 103 MG/DL (74-106) Calcium Level 8.6 MG/DL (8.5-10.1) Phosphorus Level 4.0 MG/DL (2.5-4.9) Magnesium Level 1.7 MG/DL (1.8-2.4) L Total Bilirubin 0.9 MG/DL (0.2-1.0) Aspartate Amino Transf (AST/SGOT) 18 U/L (15-37) Alanine Aminotransferase (ALT/SGPT) 24 U/L (12-78) Alkaline Phosphatase 50 U/L (46-116) C-Reactive Protein, Quantitative 6.4 mg/dL (0.00-0.90) H Total Protein 5.6 G/DL (6.4-8.2) L Albumin 2.3 G/DL (3.4-5.0) L Globulin 3.3 g/dL Albumin/Globulin Ratio 0.7 (1.0-2.7) L Amylase Level 62 U/L (25-115) Lipase 87 U/L (73-393) Intake and Output 10/06/17 10/07/17 19:00 07:00 Intake Total 450 ml 750 ml Balance 450 ml 750 ml IV Total 750 ml Other 450 ml # Voids 4 1 # Bowel Movements 1 Assessment/Plan Problem List: (1) Epigastric abdominal pain Assessment & Plan: Due to pancreatitis - see GI note. (2) Obesity, morbid, BMI 50 or higher (3) Vesicular rash Assessment & Plan: Continue valtrex (4) COPD exacerbation (5) Acute pancreatitis Assessment & Plan: Tolerating full liquid diet Status: progressing VALERIE STEVEN Oct 07, 2017 11:37
[2017-10-07 11:57] VITALS: BP 122/72
--- NOTE | 2017-10-07 13:07 | Pulmonology Progress Note ---
Assessment/Plan Problems: (1) ACS (acute coronary syndrome) (2) Acute pancreatitis (3) Abdominal pain (4) CHF (congestive heart failure) (5) COPD (chronic obstructive pulmonary disease) (6) Morbid obesity Assessment/Plan f/u lipase and amylase On Acyclovir f/u GI recommendations advance diet as tolerated iv fluids check electroltyes dc planning soon Subjective ROS Limited/Unobtainable: No Constitutional: Reports: no symptoms HEENT: Repors: no symptoms Respiratory: Reports: no symptoms Allergies: Coded Allergies: NO KNOWN ALLERGIES (Verified Allergy, Unknown, 08/04/17) Objective Last 24 Hour Vital Signs Date Time Temp Pulse Resp B/P (MAP) Pulse Ox O2 Delivery O2 Flow Rate FiO2 10/07/17 11:57 97.4 71 20 122/72 98 97.4 10/07/17 09:00 75 122/66 10/07/17 09:00 122/66 10/07/17 08:00 97.4 75 20 122/66 98 97.4 10/07/17 04:00 98.5 70 20 113/58 100 Nasal Cannula 98.5 10/07/17 00:00 99.2 68 20 125/64 98 99.2 10/06/17 20:00 99.7 78 20 132/68 98 99.7 10/06/17 18:08 78 118/71 10/06/17 16:00 69 10/06/17 16:00 98.9 78 19 118/71 98 Room Air 98.9 Intake and Output 10/06/17 10/07/17 19:00 07:00 Intake Total 450 ml 750 ml Balance 450 ml 750 ml IV Total 750 ml Other 450 ml # Voids 4 1 # Bowel Movements 1 Objective General Appearance: WD/WN HEENT: normocephalic, atraumatic Respiratory/Chest: chest wall non-tender, lungs clear Cardiovascular: normal peripheral pulses, normal rate, regular rhythm Abdomen: normal bowel sounds, soft, non tender, no organomegaly, non distended Extremities: no cyanosis, no clubbing, no edema Skin: no rash, no lesions 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 Laboratory Tests 10/07/17 08:26: White Blood Count 5.7, Red Blood Count 3.04L, Hemoglobin 8.8L, Hematocrit 27.5L , Mean Corpuscular Volume 90, Mean Corpuscular Hemoglobin 28.9, Mean Corpuscular Hemoglobin Concent 32.0, Red Cell Distribution Width 13.5, Platelet Count 122L, Mean Platelet Volume 8.0, Neutrophils (%) (Auto) 56.7, Lymphocytes ( %) (Auto) 25.1, Monocytes (%) (Auto) 12.4H, Eosinophils (%) (Auto) 5.0H, Basophils (%) (Auto) 0.8, Erythrocyte Sedimentation Rate 64H, Sodium Level 142, Potassium Level 3.8, Chloride Level 108H, Carbon Dioxide Level 32, Anion Gap 3L , Blood Urea Nitrogen 3L, Creatinine 1.0, Estimat Glomerular Filtration Rate > 60, Glucose Level 103, Calcium Level 8.6, Phosphorus Level 4.0, Magnesium Level 1.7L, Total Bilirubin 0.9, Aspartate Amino Transf (AST/SGOT) 18, Alanine Aminotransferase (ALT/SGPT) 24, Alkaline Phosphatase 50, C-Reactive Protein, Quantitative 6.4H, Total Protein 5.6L, Albumin 2.3L, Globulin 3.3, Albumin/ Globulin Ratio 0.7L, Amylase Level 62, Lipase 87 Current Medications Medications (Trade) Dose Ordered Sig/Gus Route PRN Reason Start Time Stop Time Status Last Admin Dose Admin Acetaminophen (Tylenol) 650 mg Q4H PRN ORAL T>100.5 10/06/17 20:15 11/01/17 00:14 10/07/17 06:16 Al Hydroxide/Mg Hydroxide (Mylanta II) 30 ml Q6H PRN ORAL dyspepsia 10/06/17 18:30 11/05/17 18:29 Dextrose (Dextrose 50%) 25 ml PRN IV Hypoglycemia 10/06/17 18:45 11/05/17 18:44 Dextrose (Dextrose 50%) 50 ml PRN IV hypoglycemia 10/06/17 18:45 11/05/17 18:44 Dextrose/Sodium Chloride 1,000 ml @ 75 mls/hr [id number] IV 10/06/17 18:30 11/01/17 18:29 10/07/17 12:25 Diphenhydramine HCl (Benadryl) 25 mg Q6H PRN ORAL Itching/Pruritis 10/06/17 18:30 11/05/17 18:29 Famotidine (Pepcid) 20 mg BID ORAL 4/30/18 09:00 11/03/17 20:59 10/07/17 09:23 Fluoxetine HCl (PROzac) 20 mg DAILY ORAL 10/07/17 09:00 11/02/17 08:59 10/07/17 09:23 Gabapentin (Neurontin) 300 mg BEDTIME ORAL 10/06/17 21:00 11/01/17 20:59 10/06/17 20:22 Heparin Sodium (Porcine) (Heparin 5000 units/ml) 5,000 units EVERY 12 HOURS SUBQ 10/06/17 21:00 11/01/17 08:59 Lisinopril (Zestril) 10 mg DAILY ORAL 10/07/17 09:00 11/01/17 08:59 Lorazepam (Ativan 2mg/ml 1ml) 1 mg Q4H PRN IV agitation 10/06/17 21:00 10/13/17 20:59 Metoclopramide HCl (Reglan) 10 mg Q6H PRN IVP servere nauasea 10/06/17 19:00 11/05/17 18:59 Metoprolol Tartrate (Lopressor) 25 mg Q12HR ORAL 10/07/17 09:00 11/06/17 08:59 Morphine Sulfate (Morphine Sulfate) 2 mg Q4H PRN IVP Severe Pain (Pain Scale 7-10) 10/06/17 19:00 10/09/17 18:59 Morphine Sulfate (Morphine Sulfate) 3 mg Q4H PRN IVP BREAKTHRU PAIN 10/06/17 19:00 10/11/17 18:59 Nitroglycerin (Ntg) 0.4 mg Q5M X 3 DOSES PRN SL Prn Chest Pain 10/06/17 19:00 11/01/17 18:59 Ondansetron HCl (Zofran) 4 mg Q6H PRN IVP Nausea & Vomiting 10/06/17 19:00 11/05/17 18:59 Polyethylene Glycol (Miralax) 17 gm HSPRN PRN ORAL Constipation 10/06/17 21:00 11/05/17 20:59 Regadenoson (Lexiscan) 0.4 mg ONCE PRN IV STRESS TEST 10/06/17 18:15 10/07/17 23:59 Sucralfate (Carafate) 1 gm BID ORAL 10/07/17 09:00 11/02/17 17:59 10/07/17 09:23 Temazepam (Restoril) 15 mg HSPRN PRN ORAL Insomnia 10/06/17 21:00 10/13/17 20:59 Valacyclovir HCl (Valtrex) 1,000 mg Q12H ORAL 10/07/17 06:00 11/05/17 05:59 10/07/17 06:08 Merari Boateng MD Oct 07, 2017 13:07
--- NOTE | 2017-10-07 15:32 | General Progress Note ---
Assessment/Plan Status: stable, progressing Assessment/Plan MDD Anxiety -decrease prozac 20mg qam -provide the pt with ro/st Subjective Date patient seen: Oct 07, 2017 Neurologic/Psychiatric: Reports: anxiety, depressed, emotional problems Allergies: Coded Allergies: NO KNOWN ALLERGIES (Verified Allergy, Unknown, 08/04/17) Subjective the pt is stable. Objective Last 24 Hour Vital Signs Date Time Temp Pulse Resp B/P (MAP) Pulse Ox O2 Delivery O2 Flow Rate FiO2 10/07/17 11:57 97.4 71 20 122/72 98 97.4 10/07/17 09:00 75 122/66 10/07/17 09:00 122/66 10/07/17 08:00 97.4 75 20 122/66 98 97.4 10/07/17 04:00 98.5 70 20 113/58 100 Nasal Cannula 98.5 10/07/17 00:00 99.2 68 20 125/64 98 99.2 10/06/17 20:00 99.7 78 20 132/68 98 99.7 10/06/17 18:08 78 118/71 10/06/17 16:00 69 10/06/17 16:00 98.9 78 19 118/71 98 Room Air 98.9 Intake and Output 10/06/17 10/07/17 19:00 07:00 Intake Total 450 ml 750 ml Balance 450 ml 750 ml IV Total 750 ml Other 450 ml # Voids 4 1 # Bowel Movements 1 Laboratory Tests 10/07/17 08:26: White Blood Count 5.7, Red Blood Count 3.04L, Hemoglobin 8.8L, Hematocrit 27.5L , Mean Corpuscular Volume 90, Mean Corpuscular Hemoglobin 28.9, Mean Corpuscular Hemoglobin Concent 32.0, Red Cell Distribution Width 13.5, Platelet Count 122L, Mean Platelet Volume 8.0, Neutrophils (%) (Auto) 56.7, Lymphocytes ( %) (Auto) 25.1, Monocytes (%) (Auto) 12.4H, Eosinophils (%) (Auto) 5.0H, Basophils (%) (Auto) 0.8, Erythrocyte Sedimentation Rate 64H, Sodium Level 142, Potassium Level 3.8, Chloride Level 108H, Carbon Dioxide Level 32, Anion Gap 3L , Blood Urea Nitrogen 3L, Creatinine 1.0, Estimat Glomerular Filtration Rate > 60, Glucose Level 103, Calcium Level 8.6, Phosphorus Level 4.0, Magnesium Level 1.7L, Total Bilirubin 0.9, Aspartate Amino Transf (AST/SGOT) 18, Alanine Aminotransferase (ALT/SGPT) 24, Alkaline Phosphatase 50, C-Reactive Protein, Quantitative 6.4H, Total Protein 5.6L, Albumin 2.3L, Globulin 3.3, Albumin/ Globulin Ratio 0.7L, Amylase Level 62, Lipase 87 Height (Feet): 5 Height (Inches): 1.00 Weight (Pounds): 265 General Appearance: no apparent distress, alert Neurologic: oriented x 3, responsive, normal mood/affect Jose Miguel Andino M.D. Oct 07, 2017 15:32
[2017-10-07 16:00] VITALS: BP_SYST 127; BP_SYST 138; BP_DIAS 73; BP_DIAS 77
--- NOTE | 2017-10-07 17:16 | Infectious Diseases Prog Note ---
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 No peripancreatic fluid collection. Pancreatic enhancement is symmetric. Status post cholecystectomy and hysterectomy. A few scattered colonic diverticula. No evidence suggest acute diverticulitis.Trace nonspecific fluid in the right cul-de- sac.Cardiomegaly -Abd US: Slight heterogeneity of the pancreatic head likely related to inflammatory peripancreatic findings seen on concurrent CT suggesting acute pancreatitis. Status post cholecystectomy. Dilatation of the common bile duct may be postoperative in etiology. No discrete choledocholithiasis seen. No intrahepatic biliary ductal dilatation appreciated. Mild leukocytosis- likely reactive to above-resolved -afebrile -u/a WBC 2-4 -CXR: Persistent but slightly decreased linear atelectasis or scarring in the left midlung. Stable cardiomegaly. Hx of recurrent rash ( most likely HSV ) hx of MSSA in sputum CHF. Hyperlipidemia. Hypertension. COPD. Hysterectomy. Cholecystectomy. Obesity. GERD. Osteoarthritis. Hypothyroidism. Plan: -Continue PO Valacyclovir # 6 /7 -upon discharge will give prescriptions of Valacyclovir to patient take as needed at onset of early symptoms of rash . Alternative she can be placed on suppressive daily PO valtrex dose. she prefers the former -10/01 SP azithromycin #5 09/27 SP IV Zosyn d # 2 -f/u cx -Monitor CBC/BMP, temperatures -Contact precautions Subjective Allergies: Coded Allergies: NO KNOWN ALLERGIES (Verified Allergy, Unknown, 08/04/17) Subjective afebrile no leukocytosis Objective Vital Signs Last 24 Hour Vital Signs Date Time Temp Pulse Resp B/P (MAP) Pulse Ox O2 Delivery O2 Flow Rate FiO2 10/07/17 16:00 97.8 77 20 138/73 98 Room Air 97.8 10/07/17 11:57 97.4 71 20 122/72 98 97.4 10/07/17 09:00 75 122/66 10/07/17 09:00 122/66 10/07/17 08:00 97.4 75 20 122/66 98 97.4 10/07/17 04:00 98.5 70 20 113/58 100 Nasal Cannula 98.5 10/07/17 00:00 99.2 68 20 125/64 98 99.2 10/06/17 20:00 99.7 78 20 132/68 98 99.7 10/06/17 18:08 78 118/71 Height (Feet): 5 Height (Inches): 1.00 Weight (Pounds): 265 Objective General Appearance: WD/WN, mild distress Lines, tubes and drains: peripheral HEENT: normocephalic, atraumatic Neck: non-tender, normal alignment Respiratory/Chest: chest wall non-tender, lungs clear Breasts: no masses Cardiovascular/Chest: normal peripheral pulses Abdomen: normal bowel sounds, non tender Extremities: normal range of motion Skin Exam: Vesicular rash in gluteal cleft Laboratory Tests Test 10/07/17 08:26 White Blood Count 5.7 K/UL (4.8-10.8) Red Blood Count 3.04 M/UL (4.20-5.40) L Hemoglobin 8.8 G/DL (12.0-16.0) L Hematocrit 27.5 % (37.0-47.0) L Mean Corpuscular Volume 90 FL (80-99) Mean Corpuscular Hemoglobin 28.9 PG (27.0-31.0) Mean Corpuscular Hemoglobin Concent 32.0 G/DL (32.0-36.0) Red Cell Distribution Width 13.5 % (11.6-14.8) Platelet Count 122 K/UL (150-450) L Mean Platelet Volume 8.0 FL (6.5-10.1) Neutrophils (%) (Auto) 56.7 % (45.0-75.0) Lymphocytes (%) (Auto) 25.1 % (20.0-45.0) Monocytes (%) (Auto) 12.4 % (1.0-10.0) H Eosinophils (%) (Auto) 5.0 % (0.0-3.0) H Basophils (%) (Auto) 0.8 % (0.0-2.0) Erythrocyte Sedimentation Rate 64 MM/HR (0-30) H Sodium Level 142 MMOL/L (136-145) Potassium Level 3.8 MMOL/L (3.5-5.1) Chloride Level 108 MMOL/L (98-107) H Carbon Dioxide Level 32 MMOL/L (21-32) Anion Gap 3 mmol/L (5-15) L Blood Urea Nitrogen 3 mg/dL (7-18) L Creatinine 1.0 MG/DL (0.55-1.30) Estimat Glomerular Filtration Rate > 60 mL/min (>60) Glucose Level 103 MG/DL (74-106) Calcium Level 8.6 MG/DL (8.5-10.1) Phosphorus Level 4.0 MG/DL (2.5-4.9) Magnesium Level 1.7 MG/DL (1.8-2.4) L Total Bilirubin 0.9 MG/DL (0.2-1.0) Aspartate Amino Transf (AST/SGOT) 18 U/L (15-37) Alanine Aminotransferase (ALT/SGPT) 24 U/L (12-78) Alkaline Phosphatase 50 U/L (46-116) C-Reactive Protein, Quantitative 6.4 mg/dL (0.00-0.90) H Total Protein 5.6 G/DL (6.4-8.2) L Albumin 2.3 G/DL (3.4-5.0) L Globulin 3.3 g/dL Albumin/Globulin Ratio 0.7 (1.0-2.7) L Amylase Level 62 U/L (25-115) Lipase 87 U/L (73-393) Current Medications Medications (Trade) Dose Ordered Sig/Gus Route PRN Reason Start Time Stop Time Status Last Admin Dose Admin Acetaminophen (Tylenol) 650 mg Q4H PRN ORAL T>100.5 10/06/17 20:15 11/01/17 00:14 10/07/17 06:16 Al Hydroxide/Mg Hydroxide (Mylanta II) 30 ml Q6H PRN ORAL dyspepsia 10/06/17 18:30 11/05/17 18:29 Dextrose (Dextrose 50%) 25 ml PRN IV Hypoglycemia 10/06/17 18:45 11/05/17 18:44 Dextrose (Dextrose 50%) 50 ml PRN IV hypoglycemia 10/06/17 18:45 11/05/17 18:44 Dextrose/Sodium Chloride 1,000 ml @ 50 mls/hr Q20H IV 10/07/17 18:30 11/01/17 18:29 10/07/17 17:00 Diphenhydramine HCl (Benadryl) 25 mg Q6H PRN ORAL Itching/Pruritis 10/06/17 18:30 11/05/17 18:29 Famotidine (Pepcid) 20 mg BID ORAL 10/07/17 09:00 11/03/17 20:59 10/07/17 16:59 Fluoxetine HCl (PROzac) 20 mg DAILY ORAL 10/07/17 09:00 11/02/17 08:59 10/07/17 09:23 Gabapentin (Neurontin) 300 mg BEDTIME ORAL 10/06/17 21:00 11/01/17 20:59 10/06/17 20:22 Heparin Sodium (Porcine) (Heparin 5000 units/ml) 5,000 units EVERY 12 HOURS SUBQ 10/06/17 21:00 11/01/17 08:59 Lisinopril (Zestril) 10 mg DAILY ORAL 10/07/17 09:00 11/01/17 08:59 Lorazepam (Ativan 2mg/ml 1ml) 1 mg Q4H PRN IV agitation 10/06/17 21:00 10/13/17 20:59 Metoclopramide HCl (Reglan) 10 mg Q6H PRN IVP servere nauasea 10/06/17 19:00 11/05/17 18:59 Metoprolol Tartrate (Lopressor) 25 mg Q12HR ORAL 10/07/17 09:00 11/06/17 08:59 Morphine Sulfate (Morphine Sulfate) 2 mg Q4H PRN IVP Severe Pain (Pain Scale 7-10) 10/06/17 19:00 10/09/17 18:59 Nitroglycerin (Ntg) 0.4 mg Q5M X 3 DOSES PRN SL Prn Chest Pain 10/06/17 19:00 11/01/17 18:59 Ondansetron HCl (Zofran) 4 mg Q6H PRN IVP Nausea & Vomiting 10/06/17 19:00 11/05/17 18:59 Polyethylene Glycol (Miralax) 17 gm HSPRN PRN ORAL Constipation 10/06/17 21:00 11/05/17 20:59 Regadenoson (Lexiscan) 0.4 mg ONCE PRN IV STRESS TEST 10/06/17 18:15 10/07/17 23:59 Sucralfate (Carafate) 1 gm BID ORAL 10/07/17 09:00 11/02/17 17:59 10/07/17 09:23 Temazepam (Restoril) 15 mg HSPRN PRN ORAL Insomnia 10/06/17 21:00 10/13/17 20:59 Valacyclovir HCl (Valtrex) 1,000 mg Q12H ORAL 10/07/17 06:00 11/05/17 05:59 10/07/17 16:59 Vidya Land M.D. Oct 07, 2017 17:16
--- NOTE | 2017-10-07 19:45 | Progress Note ---
DATE: 10/06/2017 SUBJECTIVE: The patient is doing well. Still depressed. No behavior issues. She does not want to take more antidepressants. The patient is pleasant. No behavior issues. Compliant with care. MENTAL STATUS EXAMINATION: The patient is alert and oriented times self, place, and situation she is in. Mood is dysphoric. Affect is constricted, congruent with mood. Thought process is concrete. Thought content, no suicidal or homicidal ideations. ASSESSMENT: Depression. PLAN: 1. The patient will be continued on current medication. 2. Provide the patient with supportive therapy and reality orientation. Jose Miguel Andino M.D. DR: JAZZY JOB#: [id number] CC:
[2017-10-07 20:00] VITALS: BP 117/57
[2017-10-08] VITALS: BP 140/66
[2017-10-08 04:00] VITALS: BP 128/74
[2017-10-08] MEDS: valACYclovir HCL 500mg tab ORAL SCH (05:47)
[2017-10-08 08:00] VITALS: BP 144/71
[2017-10-08 08:27] LABS: BASOPHILS % (AUTO) 0.5 % (0.0-2.0); EOSINOPHILS % (AUTO) 5.5 % (0.0-3.0); HEMATOCRIT 28.2 % (37.0-47.0); HEMOGLOBIN 9.1 G/DL (12.0-16.0); MEAN CORPUSCULAR VOLUME 91 FL (80-99); MONOCYTES % (AUTO) 11.3 % (1.0-10.0); NEUTROPHILS % (AUTO) 47.7 % (45.0-75.0); PLATELET COUNT 157 K/UL (150-450); RED BLOOD COUNT 3.09 M/UL (4.20-5.40); RED CELL DISTRIBUTION WIDTH 12.9 % (11.6-14.8)
[2017-10-08 08:44] LABS: ANION GAP 4 mmol/L (5-15); BLOOD UREA NITROGEN 2 mg/dL (7-18); CALCIUM 8.7 MG/DL (8.5-10.1); CARBON DIOXIDE 33 MMOL/L (21-32); CHLORIDE 107 MMOL/L (98-107); POTASSIUM 3.8 MMOL/L (3.5-5.1); SODIUM 143 MMOL/L (136-145)
[2017-10-08] MEDS: Heparin 5000 units/ml inj SUBQ SCH (09:00)
[2017-10-08] MEDS: Lisinopril 10mg tab ORAL SCH (09:00)
[2017-10-08] MEDS: Sucralfate 1gm tab ORAL SCH (09:16)
[2017-10-08] MEDS: Metoprolol 25mg tab ORAL SCH (09:17)
[2017-10-08] MEDS ORDERED: D5 1/2NS 1000ml IV ONE (09:18)
[2017-10-08 12:00] VITALS: BP 135/76
--- NOTE | 2017-10-08 13:30 | Pulmonology Progress Note ---
Assessment/Plan Problems: (1) ACS (acute coronary syndrome) (2) Acute pancreatitis (3) Abdominal pain (4) CHF (congestive heart failure) (5) COPD (chronic obstructive pulmonary disease) (6) Morbid obesity Assessment/Plan f/u GI recommendations advance diet as tolerated iv fluids check electroltyes dc planning soon Subjective ROS Limited/Unobtainable: No Constitutional: Reports: no symptoms HEENT: Repors: no symptoms Respiratory: Reports: no symptoms Allergies: Coded Allergies: NO KNOWN ALLERGIES (Verified Allergy, Unknown, 08/04/17) Objective Last 24 Hour Vital Signs Date Time Temp Pulse Resp B/P (MAP) Pulse Ox O2 Delivery O2 Flow Rate FiO2 10/08/17 09:17 70 144/71 10/08/17 08:00 98.0 70 16 144/71 99 98.0 10/08/17 05:23 97.3 10/08/17 04:24 97.3 10/08/17 04:00 98.5 71 20 128/74 99 98.5 10/08/17 00:00 97.3 72 19 140/66 100 97.3 10/07/17 21:00 70 117/57 10/07/17 20:00 99.4 92 19 117/57 96 99.4 10/07/17 16:00 97.8 77 20 138/73 98 Room Air 97.8 Intake and Output 10/07/17 10/08/17 19:00 07:00 Intake Total 675 ml 600 ml Balance 675 ml 600 ml Intake Oral 300 ml IV Total 375 ml 600 ml # Voids 2 4 # Bowel Movements 1 Objective General Appearance: WD/WN HEENT: normocephalic, atraumatic Respiratory/Chest: chest wall non-tender, lungs clear Cardiovascular: normal peripheral pulses, normal rate, regular rhythm Abdomen: normal bowel sounds, soft, non tender, no organomegaly, non distended Extremities: no cyanosis, no clubbing, no edema Skin: no rash, no lesions Neurologic/Psychiatric: game moderator II-XII grossly normal Laboratory Tests 10/08/17 07:30: White Blood Count 5.0, Red Blood Count 3.09L, Hemoglobin 9.1L, Hematocrit 28.2L , Mean Corpuscular Volume 91, Mean Corpuscular Hemoglobin 29.3, Mean Corpuscular Hemoglobin Concent 32.1, Red Cell Distribution Width 12.9, Platelet Count 157, Mean Platelet Volume 8.4, Neutrophils (%) (Auto) 47.7, Lymphocytes (% ) (Auto) 35.0, Monocytes (%) (Auto) 11.3H, Eosinophils (%) (Auto) 5.5H, Basophils (%) (Auto) 0.5, Sodium Level 143, Potassium Level 3.8, Chloride Level 107, Carbon Dioxide Level 33H, Anion Gap 4L, Blood Urea Nitrogen 2L, Creatinine 1.0, Estimat Glomerular Filtration Rate > 60, Glucose Level 93, Calcium Level 8.7 Current Medications Medications (Trade) Dose Ordered Sig/Gus Route PRN Reason Start Time Stop Time Status Last Admin Dose Admin Acetaminophen (Tylenol) 650 mg Q4H PRN ORAL T>100.5 10/06/17 20:15 11/01/17 00:14 10/08/17 04:24 Al Hydroxide/Mg Hydroxide (Mylanta II) 30 ml Q6H PRN ORAL dyspepsia 10/06/17 18:30 11/05/17 18:29 Dextrose (Dextrose 50%) 25 ml PRN IV Hypoglycemia 10/06/17 18:45 11/05/17 18:44 Dextrose (Dextrose 50%) 50 ml PRN IV hypoglycemia 10/06/17 18:45 11/05/17 18:44 Dextrose/Sodium Chloride 1,000 ml @ 50 mls/hr Q20H IV 10/07/17 18:30 11/01/17 18:29 10/07/17 17:00 Diphenhydramine HCl (Benadryl) 25 mg Q6H PRN ORAL Itching/Pruritis 10/06/17 18:30 11/05/17 18:29 Famotidine (Pepcid) 20 mg BID ORAL 10/07/17 09:00 11/03/17 20:59 10/08/17 09:16 Fluoxetine HCl (PROzac) 20 mg DAILY ORAL 10/07/17 09:00 11/02/17 08:59 10/08/17 09:16 Furosemide (Lasix) 20 mg ONCE@1000 IV 10/08/17 10:00 10/08/17 14:00 10/08/17 10:21 Gabapentin (Neurontin) 300 mg BEDTIME ORAL 10/06/17 21:00 11/01/17 20:59 10/07/17 21:11 Heparin Sodium (Porcine) (Heparin 5000 units/ml) 5,000 units EVERY 12 HOURS SUBQ 10/06/17 21:00 11/01/17 08:59 Lisinopril (Zestril) 10 mg DAILY ORAL 10/07/17 09:00 11/01/17 08:59 Lorazepam (Ativan 2mg/ml 1ml) 1 mg Q4H PRN IV agitation 10/06/17 21:00 10/13/17 20:59 Metoclopramide HCl (Reglan) 10 mg Q6H PRN IVP servere nauasea 10/06/17 19:00 11/05/17 18:59 Metoprolol Tartrate (Lopressor) 25 mg Q12HR ORAL 10/07/17 09:00 11/06/17 08:59 10/08/17 09:17 Morphine Sulfate (Morphine Sulfate) 2 mg Q4H PRN IVP Severe Pain (Pain Scale 7-10) 10/06/17 19:00 10/09/17 18:59 Nitroglycerin (Ntg) 0.4 mg Q5M X 3 DOSES PRN SL Prn Chest Pain 10/06/17 19:00 11/01/17 18:59 Ondansetron HCl (Zofran) 4 mg Q6H PRN IVP Nausea & Vomiting 10/06/17 19:00 11/05/17 18:59 Polyethylene Glycol (Miralax) 17 gm HSPRN PRN ORAL Constipation 10/06/17 21:00 11/05/17 20:59 Sucralfate (Carafate) 1 gm BID ORAL 10/08/17 18:00 11/02/17 17:59 Temazepam (Restoril) 15 mg HSPRN PRN ORAL Insomnia 10/06/17 21:00 10/13/17 20:59 Valacyclovir HCl (Valtrex) 1,000 mg Q12H ORAL 10/07/17 06:00 11/05/17 05:59 10/08/17 05:47 Merari Boateng MD October 08, 2017 13:30
--- NOTE | 2017-10-08 14:21 | Cardiology Progress Note ---
Assessment/Plan Assessment/Plan atypical chest pain for year pancreatitis ? Chronic ongestive heart failure. Mitral regurgitation. Pulmonary hypertension. Morbid obesity. Chronic obstructive pulmonary disease. History of gastroesophageal reflux disease. dse neg echo neg diuretic given onle time to day home soon Subjective Cardiovascular: Denies: chest pain, lightheadedness, palpitations Respiratory: Reports: shortness of breath Gastrointestinal/Abdominal: Denies: abdominal pain Genitourinary: Denies: burning Objective Last 24 Hour Vital Signs Date Time Temp Pulse Resp B/P (MAP) Pulse Ox O2 Delivery O2 Flow Rate FiO2 10/08/17 09:17 70 144/71 10/08/17 08:00 98.0 70 16 144/71 99 98.0 10/08/17 05:23 97.3 10/08/17 04:24 97.3 10/08/17 04:00 98.5 71 20 128/74 99 98.5 10/08/17 00:00 97.3 72 19 140/66 100 97.3 10/07/17 21:00 70 117/57 10/07/17 20:00 99.4 92 19 117/57 96 99.4 10/07/17 16:00 97.8 77 20 138/73 98 Room Air 97.8 General Appearance: no apparent distress, alert, obese Cardiovascular: normal rate, regular rhythm Respiratory/Chest: lungs clear Abdomen: normal bowel sounds, non tender, soft Extremities: no swelling Intake and Output 10/07/17 10/08/17 19:00 07:00 Intake Total 675 ml 600 ml Balance 675 ml 600 ml Intake Oral 300 ml IV Total 375 ml 600 ml # Voids 2 4 # Bowel Movements 1 Laboratory Tests Test 10/08/17 07:30 White Blood Count 5.0 K/UL (4.8-10.8) Red Blood Count 3.09 M/UL (4.20-5.40) L Hemoglobin 9.1 G/DL (12.0-16.0) L Hematocrit 28.2 % (37.0-47.0) L Mean Corpuscular Volume 91 FL (80-99) Mean Corpuscular Hemoglobin 29.3 PG (27.0-31.0) Mean Corpuscular Hemoglobin Concent 32.1 G/DL (32.0-36.0) Red Cell Distribution Width 12.9 % (11.6-14.8) Platelet Count 157 K/UL (150-450) Mean Platelet Volume 8.4 FL (6.5-10.1) Neutrophils (%) (Auto) 47.7 % (45.0-75.0) Lymphocytes (%) (Auto) 35.0 % (20.0-45.0) Monocytes (%) (Auto) 11.3 % (1.0-10.0) H Eosinophils (%) (Auto) 5.5 % (0.0-3.0) H Basophils (%) (Auto) 0.5 % (0.0-2.0) Sodium Level 143 MMOL/L (136-145) Potassium Level 3.8 MMOL/L (3.5-5.1) Chloride Level 107 MMOL/L (98-107) Carbon Dioxide Level 33 MMOL/L (21-32) H Anion Gap 4 mmol/L (5-15) L Blood Urea Nitrogen 2 mg/dL (7-18) L Creatinine 1.0 MG/DL (0.55-1.30) Estimat Glomerular Filtration Rate > 60 mL/min (>60) Glucose Level 93 MG/DL (74-106) Calcium Level 8.7 MG/DL (8.5-10.1) NURIS PAULINO October 08, 2017 14:21
[2017-10-08] MEDS: D5 1/2NS 1,000 ML IV SCH (14:30)
--- NOTE | 2017-10-08 15:14 | GI Progress Note ---
Assessment/Plan Problems: (1) Acute pancreatitis ICD Codes: K85.90 - Acute pancreatitis without necrosis or infection, unspecified SNOMED: 660043700 (2) Pain ICD Codes: R52 - Pain, unspecified SNOMED: 02281181 (3) Abdominal pain ICD Codes: R10.9 - Unspecified abdominal pain SNOMED: 58472679 Status: stable Status Narrative Discussed with Dr. Fuentes. Assessment/Plan EGD/colonoscopy done 6 months ago at [facility], will obtain records. CT AP reviewed >> acute pancreatitis abdominal U/S reviewed >> s/p cholecystomy with 10mm CBD dilation lipid panel reviewed unremarkable utox unremarkable pancreatitis resolving >> normal lipase levels NATALIE negative IgG4 r/o autoimmune negative conservative pancreatitis management >> unknown etiology, protonix DC ? cause for pancreatitis adv to low fat diet pain mgmt IV hydration trend lipase fu labs okay for DC per GI standpoint Subjective Subjective abdominal pain resolved denies chest pain denies diarrhea Objective Last 24 Hour Vital Signs Date Time Temp Pulse Resp B/P (MAP) Pulse Ox O2 Delivery O2 Flow Rate FiO2 10/08/17 09:17 70 144/71 10/08/17 08:00 98.0 70 16 144/71 99 98.0 10/08/17 05:23 97.3 10/08/17 04:24 97.3 10/08/17 04:00 98.5 71 20 128/74 99 98.5 10/08/17 00:00 97.3 72 19 140/66 100 97.3 10/07/17 21:00 70 117/57 10/07/17 20:00 99.4 92 19 117/57 96 99.4 10/07/17 16:00 97.8 77 20 138/73 98 Room Air 97.8 Intake and Output 10/07/17 10/08/17 19:00 07:00 Intake Total 675 ml 600 ml Balance 675 ml 600 ml Intake Oral 300 ml IV Total 375 ml 600 ml # Voids 2 4 # Bowel Movements 1 Laboratory Tests Test 10/08/17 07:30 White Blood Count 5.0 K/UL (4.8-10.8) Red Blood Count 3.09 M/UL (4.20-5.40) L Hemoglobin 9.1 G/DL (12.0-16.0) L Hematocrit 28.2 % (37.0-47.0) L Mean Corpuscular Volume 91 FL (80-99) Mean Corpuscular Hemoglobin 29.3 PG (27.0-31.0) Mean Corpuscular Hemoglobin Concent 32.1 G/DL (32.0-36.0) Red Cell Distribution Width 12.9 % (11.6-14.8) Platelet Count 157 K/UL (150-450) Mean Platelet Volume 8.4 FL (6.5-10.1) Neutrophils (%) (Auto) 47.7 % (45.0-75.0) Lymphocytes (%) (Auto) 35.0 % (20.0-45.0) Monocytes (%) (Auto) 11.3 % (1.0-10.0) H Eosinophils (%) (Auto) 5.5 % (0.0-3.0) H Basophils (%) (Auto) 0.5 % (0.0-2.0) Sodium Level 143 MMOL/L (136-145) Potassium Level 3.8 MMOL/L (3.5-5.1) Chloride Level 107 MMOL/L (98-107) Carbon Dioxide Level 33 MMOL/L (21-32) H Anion Gap 4 mmol/L (5-15) L Blood Urea Nitrogen 2 mg/dL (7-18) L Creatinine 1.0 MG/DL (0.55-1.30) Estimat Glomerular Filtration Rate > 60 mL/min (>60) Glucose Level 93 MG/DL (74-106) Calcium Level 8.7 MG/DL (8.5-10.1) Height (Feet): 5 Height (Inches): 1.00 Weight (Pounds): 265 General Appearance: WD/WN, no apparent distress, alert, obese Cardiovascular: normal rate Respiratory/Chest: normal breath sounds, no respiratory distress Abdominal Exam: normal bowel sounds, non tender, soft Extremities: normal range of motion, non-tender Cami Huertas N.German October 08, 2017 15:14
--- NOTE | 2017-10-08 15:14 | Infectious Diseases Prog Note ---
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 No peripancreatic fluid collection. Pancreatic enhancement is symmetric. Status post cholecystectomy and hysterectomy. A few scattered colonic diverticula. No evidence suggest acute diverticulitis.Trace nonspecific fluid in the right cul-de- sac.Cardiomegaly -Abd US: Slight heterogeneity of the pancreatic head likely related to inflammatory peripancreatic findings seen on concurrent CT suggesting acute pancreatitis. Status post cholecystectomy. Dilatation of the common bile duct may be postoperative in etiology. No discrete choledocholithiasis seen. No intrahepatic biliary ductal dilatation appreciated. Mild leukocytosis- likely reactive to above-resolved -afebrile -u/a WBC 2-4 -CXR: Persistent but slightly decreased linear atelectasis or scarring in the left midlung. Stable cardiomegaly. Hx of recurrent rash ( most likely HSV ) hx of MSSA in sputum CHF. Hyperlipidemia. Hypertension. COPD. Hysterectomy. Cholecystectomy. Obesity. GERD. Osteoarthritis. Hypothyroidism. Plan: -Continue PO Valacyclovir # 7 / -upon discharge will give prescriptions of Valacyclovir to patient take as needed at onset of early symptoms of rash . Alternative she can be placed on suppressive daily PO valtrex dose. she prefers the former -10/01 SP azithromycin #5 09/27 SP IV Zosyn d # 2 -f/u cx -Monitor CBC/BMP, temperatures -Contact precautions Subjective Allergies: Coded Allergies: NO KNOWN ALLERGIES (Verified Allergy, Unknown, 08/04/17) Subjective afebrile >48hrs no leukocytosis for discharge Objective Vital Signs Last 24 Hour Vital Signs Date Time Temp Pulse Resp B/P (MAP) Pulse Ox O2 Delivery O2 Flow Rate FiO2 10/08/17 09:17 70 144/71 10/08/17 08:00 98.0 70 16 144/71 99 98.0 10/08/17 05:23 97.3 10/08/17 04:24 97.3 10/08/17 04:00 98.5 71 20 128/74 99 98.5 10/08/17 00:00 97.3 72 19 140/66 100 97.3 10/07/17 21:00 70 117/57 10/07/17 20:00 99.4 92 19 117/57 96 99.4 10/07/17 16:00 97.8 77 20 138/73 98 Room Air 97.8 Height (Feet): 5 Height (Inches): 1.00 Weight (Pounds): 265 Objective General Appearance: WD/WN, mild distress Lines, tubes and drains: peripheral HEENT: normocephalic, atraumatic Neck: non-tender, normal alignment Respiratory/Chest: chest wall non-tender, lungs clear Cardiovascular/Chest: normal peripheral pulses Abdomen: normal bowel sounds, non tender Extremities: normal range of motion Skin Exam: Vesicular rash in gluteal cleft; healing Laboratory Tests Test 10/08/17 07:30 White Blood Count 5.0 K/UL (4.8-10.8) Red Blood Count 3.09 M/UL (4.20-5.40) L Hemoglobin 9.1 G/DL (12.0-16.0) L Hematocrit 28.2 % (37.0-47.0) L Mean Corpuscular Volume 91 FL (80-99) Mean Corpuscular Hemoglobin 29.3 PG (27.0-31.0) Mean Corpuscular Hemoglobin Concent 32.1 G/DL (32.0-36.0) Red Cell Distribution Width 12.9 % (11.6-14.8) Platelet Count 157 K/UL (150-450) Mean Platelet Volume 8.4 FL (6.5-10.1) Neutrophils (%) (Auto) 47.7 % (45.0-75.0) Lymphocytes (%) (Auto) 35.0 % (20.0-45.0) Monocytes (%) (Auto) 11.3 % (1.0-10.0) H Eosinophils (%) (Auto) 5.5 % (0.0-3.0) H Basophils (%) (Auto) 0.5 % (0.0-2.0) Sodium Level 143 MMOL/L (136-145) Potassium Level 3.8 MMOL/L (3.5-5.1) Chloride Level 107 MMOL/L (98-107) Carbon Dioxide Level 33 MMOL/L (21-32) H Anion Gap 4 mmol/L (5-15) L Blood Urea Nitrogen 2 mg/dL (7-18) L Creatinine 1.0 MG/DL (0.55-1.30) Estimat Glomerular Filtration Rate > 60 mL/min (>60) Glucose Level 93 MG/DL (74-106) Calcium Level 8.7 MG/DL (8.5-10.1) Current Medications Medications (Trade) Dose Ordered Sig/Gus Route PRN Reason Start Time Stop Time Status Last Admin Dose Admin Acetaminophen (Tylenol) 650 mg Q4H PRN ORAL T>100.5 10/06/17 20:15 11/01/17 00:14 10/08/17 04:24 Al Hydroxide/Mg Hydroxide (Mylanta II) 30 ml Q6H PRN ORAL dyspepsia 10/06/17 18:30 11/05/17 18:29 Dextrose (Dextrose 50%) 25 ml PRN IV Hypoglycemia 10/06/17 18:45 11/05/17 18:44 Dextrose (Dextrose 50%) 50 ml PRN IV hypoglycemia 10/06/17 18:45 11/05/17 18:44 Dextrose/Sodium Chloride 1,000 ml @ 50 mls/hr Q20H IV 10/07/17 18:30 11/01/17 18:29 10/07/17 17:00 Diphenhydramine HCl (Benadryl) 25 mg Q6H PRN ORAL Itching/Pruritis 10/06/17 18:30 11/05/17 18:29 Famotidine (Pepcid) 20 mg BID ORAL 10/07/17 09:00 11/03/17 20:59 10/08/17 09:16 Fluoxetine HCl (PROzac) 20 mg DAILY ORAL 10/07/17 09:00 11/02/17 08:59 10/08/17 09:16 Gabapentin (Neurontin) 300 mg BEDTIME ORAL 10/06/17 21:00 11/01/17 20:59 10/07/17 21:11 Heparin Sodium (Porcine) (Heparin 5000 units/ml) 5,000 units EVERY 12 HOURS SUBQ 10/06/17 21:00 11/01/17 08:59 Lisinopril (Zestril) 10 mg DAILY ORAL 10/07/17 09:00 11/01/17 08:59 Lorazepam (Ativan 2mg/ml 1ml) 1 mg Q4H PRN IV agitation 10/06/17 21:00 10/13/17 20:59 Metoclopramide HCl (Reglan) 10 mg Q6H PRN IVP servere nauasea 10/06/17 19:00 11/05/17 18:59 Metoprolol Tartrate (Lopressor) 25 mg Q12HR ORAL 10/07/17 09:00 11/06/17 08:59 10/08/17 09:17 Morphine Sulfate (Morphine Sulfate) 2 mg Q4H PRN IVP Severe Pain (Pain Scale 7-10) 10/06/17 19:00 10/09/17 18:59 Nitroglycerin (Ntg) 0.4 mg Q5M X 3 DOSES PRN SL Prn Chest Pain 10/06/17 19:00 11/01/17 18:59 Ondansetron HCl (Zofran) 4 mg Q6H PRN IVP Nausea & Vomiting 10/06/17 19:00 11/05/17 18:59 Polyethylene Glycol (Miralax) 17 gm HSPRN PRN ORAL Constipation 10/06/17 21:00 11/05/17 20:59 Sucralfate (Carafate) 1 gm BID ORAL 10/08/17 18:00 11/02/17 17:59 Temazepam (Restoril) 15 mg HSPRN PRN ORAL Insomnia 10/06/17 21:00 10/13/17 20:59 Valacyclovir HCl (Valtrex) 1,000 mg Q12H ORAL 10/07/17 06:00 11/05/17 05:59 10/08/17 05:47 Vidya Land M.D. October 08, 2017 15:14
[2017-10-08] MEDS ORDERED: VALACYCLOVIR500 MG ORAL (15:31)
--- NOTE | 2017-10-08 16:53 | Internal Med Progress Note ---
Subjective Date of Service: October 08, 2017 Physician Name Juan Steven Attending Physician Zev Persaud MD Allergies: Coded Allergies: NO KNOWN ALLERGIES (Verified Allergy, Unknown, 08/04/17) ROS Limited/Unobtainable: No Constitutional: Reports: no symptoms HEENT: Reports: no symptoms Cardiovascular: Reports: no symptoms Respiratory: Reports: no symptoms Gastrointestinal/Abdominal: Reports: no symptoms Genitourinary: Reports: no symptoms Neurologic/Psychiatric: Reports: no symptoms Subjective 61 YO F admitted with chest pain. Cover for Int Med-Dr Persaud. Await discharge home Objective Last Vital Signs Date Time Temp Pulse Resp B/P (MAP) Pulse Ox O2 Delivery O2 Flow Rate FiO2 10/08/17 12:00 98.7 76 21 135/76 99 98.7 10/07/17 16:00 Room Air 10/06/17 08:00 2.0 Laboratory Tests Test 10/08/17 07:30 White Blood Count 5.0 K/UL (4.8-10.8) Red Blood Count 3.09 M/UL (4.20-5.40) L Hemoglobin 9.1 G/DL (12.0-16.0) L Hematocrit 28.2 % (37.0-47.0) L Mean Corpuscular Volume 91 FL (80-99) Mean Corpuscular Hemoglobin 29.3 PG (27.0-31.0) Mean Corpuscular Hemoglobin Concent 32.1 G/DL (32.0-36.0) Red Cell Distribution Width 12.9 % (11.6-14.8) Platelet Count 157 K/UL (150-450) Mean Platelet Volume 8.4 FL (6.5-10.1) Neutrophils (%) (Auto) 47.7 % (45.0-75.0) Lymphocytes (%) (Auto) 35.0 % (20.0-45.0) Monocytes (%) (Auto) 11.3 % (1.0-10.0) H Eosinophils (%) (Auto) 5.5 % (0.0-3.0) H Basophils (%) (Auto) 0.5 % (0.0-2.0) Sodium Level 143 MMOL/L (136-145) Potassium Level 3.8 MMOL/L (3.5-5.1) Chloride Level 107 MMOL/L (98-107) Carbon Dioxide Level 33 MMOL/L (21-32) H Anion Gap 4 mmol/L (5-15) L Blood Urea Nitrogen 2 mg/dL (7-18) L Creatinine 1.0 MG/DL (0.55-1.30) Estimat Glomerular Filtration Rate > 60 mL/min (>60) Glucose Level 93 MG/DL (74-106) Calcium Level 8.7 MG/DL (8.5-10.1) Intake and Output 10/07/17 10/08/17 19:00 07:00 Intake Total 675 ml 600 ml Balance 675 ml 600 ml Intake Oral 300 ml IV Total 375 ml 600 ml # Voids 2 4 # Bowel Movements 1 Objective General Appearance: no apparent distress, alert, obese EENT: PERRL/EOMI, normal ENT inspection, TMs normal Neck: non-tender, normal alignment, supple Cardiovascular: normal peripheral pulses, normal rate, regular rhythm, no gallop/murmur, no JVD Respiratory/Chest: chest wall non-tender, lungs clear, normal breath sounds, no respiratory distress, no accessory muscle use Abdomen: no organomegaly, no mass, decreased bowel sounds, guarding, tender Extremities: normal range of motion, non-tender Neurologic: accountant budget II-XII grossly normal, no motor/sensory deficits Skin: normal pigmentation, warm/dry Assessment/Plan Problem List: (1) Epigastric abdominal pain Assessment & Plan: Due to pancreatitis - see GI note. (2) Obesity, morbid, BMI 50 or higher (3) Vesicular rash Assessment & Plan: Continue valtrex (4) COPD exacerbation (5) Acute pancreatitis Assessment & Plan: Tolerating regular diet Status: stable Assessment/Plan Discharge home today JUAN STEVEN October 08, 2017 16:53
[2017-10-08] MEDS ORDERED: Sucralfate 1gm tab ORAL SCH (18:00)
--- NOTE | 2017-10-08 22:36 | General Progress Note ---
Assessment/Plan Assessment/Plan MDD Anxiety -decrease prozac 20mg qam -provide the pt with ro/st Subjective Date patient seen: October 08, 2017 Neurologic/Psychiatric: Reports: anxiety, depressed, emotional problems Allergies: Coded Allergies: NO KNOWN ALLERGIES (Verified Allergy, Unknown, 08/04/17) Subjective the pt is stable. Objective Last 24 Hour Vital Signs Date Time Temp Pulse Resp B/P (MAP) Pulse Ox O2 Delivery O2 Flow Rate FiO2 10/08/17 12:00 98.7 76 21 135/76 99 98.7 10/08/17 09:17 70 144/71 10/08/17 08:00 98.0 70 16 144/71 99 98.0 10/08/17 05:23 97.3 10/08/17 04:24 97.3 10/08/17 04:00 98.5 71 20 128/74 99 98.5 10/08/17 00:00 97.3 72 19 140/66 100 97.3 Intake and Output 10/07/17 10/08/17 19:00 07:00 Intake Total 675 ml 600 ml Balance 675 ml 600 ml Intake Oral 300 ml IV Total 375 ml 600 ml # Voids 2 4 # Bowel Movements 1 Laboratory Tests 10/08/17 07:30: White Blood Count 5.0, Red Blood Count 3.09L, Hemoglobin 9.1L, Hematocrit 28.2L , Mean Corpuscular Volume 91, Mean Corpuscular Hemoglobin 29.3, Mean Corpuscular Hemoglobin Concent 32.1, Red Cell Distribution Width 12.9, Platelet Count 157, Mean Platelet Volume 8.4, Neutrophils (%) (Auto) 47.7, Lymphocytes (% ) (Auto) 35.0, Monocytes (%) (Auto) 11.3H, Eosinophils (%) (Auto) 5.5H, Basophils (%) (Auto) 0.5, Sodium Level 143, Potassium Level 3.8, Chloride Level 107, Carbon Dioxide Level 33H, Anion Gap 4L, Blood Urea Nitrogen 2L, Creatinine 1.0, Estimat Glomerular Filtration Rate > 60, Glucose Level 93, Calcium Level 8.7 Height (Feet): 5 Height (Inches): 1.00 Weight (Pounds): 265 General Appearance: WD/WN, no apparent distress, alert Jose Miguel Andino M.D. October 08, 2017 22:36
--- NOTE | 2017-10-10 16:12 | Discharge Summary ---
Discharge Summary Discharge Summary Discharge Summary DATE OF ADMISSION: 10/03/2017 DATE OF DISCHARGE: 10/08/2017 CONSULTANTS: Dr. Merari Land [facility] HOSPITAL COURSE: Patient is a 61-year-old female with history of morbid obesity, hypertension, COPD, CHF, noncompliance, was just recently discharged from [facility] for acute exacerbation of CHF presented to ER for complaints of abdominal pain, nausea and vomiting. On evaluation at ED, abdominal CT showed inflammation around the pancreas, lipase was 947, BNP was 4729. She was admitted for acute pancreatitis. He was initially placed on nothing by mouth, he was given IV hydration and pain management. He was placed on proton pump inhibitors and lipase was monitored. Abdominal ultrasound with slight heterogenicity on the pancreatic head likely related to inflammatory peripancreatic findings. Etiology of pancreatitis unknown. Proton pump inhibitor was eventually discontinued. She was given Pepcid and Carafate. Amylase and lipase down trended. Diet was eventually advanced. 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 She was given by mouth valacyclovir. She had depressed mood and anxiety. She was was on Prozac 20 mg twice a day. Prozac was decreased to every morning. She complained of chest pain. Troponins negative. Patient has atypical chest pain for a year. Echocardiogram with ejection fraction of 60-65%. She was given metoprolol and lisinopril. She was tolerating diet. Fevers eventually defervesced. Amylase and lipase normal. She was eventually discharged home. FINAL DIAGNOSES: Acute pancreatitis Morbid obesity Vesicular rash Acute COPD exacerbation Atypical chest pain Mitral regurgitation Chronic diastolic congestive heart failure GERD Pulmonary hypertension Anxiety disorder Major depressive disorder Hyperlipidemia Hypertension Osteoarthritis Hypothyroidism DISPOSITION: Patient was discharged home DISCHARGE MEDICATIONS: Refer to Discharge Medication List. DISCHARGE INSTRUCTIONS: Follow up in a week. I have been assigned to dictate discharge summary on this account, and I was not involved in the patient's management. Joy Gaines NP October 10, 2017 16:12
--- NOTE | 2017-10-11 15:30 | Cardiology Report ---
APPROVED REPORT EKG Measurement Heart [id number] Normal sinus rhythm Left ventricular hypertrophy with repolarization abnormality Abnormal ECG
== END 2017-10-08 16:41 | disposition home or self-care (01) | DRG 282 ==
LOC: EMR 19:57 → 4E 23:08 → EDBEDREQ 23:57 → 2E 10-04 11:08 → 4E 10-06 18:50
DX: K85.90 Acute pancreatitis without necrosis or infection, unspecified (principal); I27.20 Pulmonary hypertension, unspecified; I11.0 Hypertensive heart disease with heart failure; Z68.43 Body mass index [BMI] 50.0-59.9, adult; B02.9 Zoster without complications; I50.32 Chronic diastolic (congestive) heart failure; E66.01 Morbid (severe) obesity due to excess calories; R10.9 Unspecified abdominal pain; F32.9 Major depressive disorder, single episode, unspecified; F41.9 Anxiety disorder, unspecified; J44.9 Chronic obstructive pulmonary disease, unspecified; E78.5 Hyperlipidemia, unspecified; Z90.49 Acquired absence of other specified parts of digestive tract; K21.9 Gastro-esophageal reflux disease without esophagitis; M19.90 Unspecified osteoarthritis, unspecified site; E03.9 Hypothyroidism, unspecified; I34.0 Nonrheumatic mitral (valve) insufficiency; R07.89 Other chest pain
CPT/HCPCS: 36415; 71045; 74177; 76700; 80048; 80053; 80061; 80307; 81003; 82150; 82784; 82787; 83690; 83735; 83880; 84100; 84484; 85025; 85651; 85730; 86039; 86140; 87081; 93005; 93017; 93306; 93350; 99285; J2405; J2785

== ENCOUNTER 2018-01-12 23:41 | Emergency (ER) | payer MEDICAID ==
[~2018-01-12] VITALS: Ht 154.9 cm; Wt 124.7 kg
[~2018-01-12 23:41] MED LIST changes: +PROZAC20 MG ORAL; +VALACYCLOVIR500 MG ORAL
[2018-01-12 23:50] VITALS: BP 105/62
[2018-01-12] MEDS ORDERED: WELLBUTRIN SR100 MG ORAL (23:58)
[2018-01-13] MEDS ORDERED: LORazepam 1mg tab ORAL ONE (00:15)
[2018-01-13 01:23] VITALS: BP 133/88
[2018-01-13] MEDS ORDERED: ATIVAN1 MG ORAL (01:35)
[2018-01-13 01:40] VITALS: BP 133/88
--- NOTE | 2018-01-13 02:15 | Emergency Room Report ---
History of Present Illness General Chief Complaint: General Complaint Source: Patient Present Illness HPI 62-year-old female presents ED for evaluation. Patient states that for the last week she's been feeling very anxious. History of depression and anxiety. States she takes Prozac and Wellbutrin prescribed by her psychiatrist. 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 Patient denies any suicidal or homicidal ideation. Denies hearing voices. Denies drug use. No other aggravating relieving factors. Denies any other associated symptoms Allergies: Coded Allergies: NO KNOWN ALLERGIES (Verified Allergy, Unknown, 08/04/17) Patient History Past Medical History: HTN, CHF, asthma, COPD, GERD, psych hx Past Surgical History: rudy Pertinent Family History: none Social History: Denies: smoking, alcohol use, drug use Now: No Immunizations: UTD Reviewed Nursing Documentation: PMH: Agreed; PSxH: Agreed Nursing Documentation-PMH Hx Cardiac Problems: Yes - Enlarged heart, CHF, High Chlosterol Hx Hypertension: Yes Hx Asthma: Yes Hx COPD: Yes Hx Cancer: No Hx Gastrointestinal Problems: Yes - Cholecystectomy, GERD History Of Psychiatric Problem: Yes - ANXIETY,DEPRESSION Hx Neurological Problems: Yes Hx Peripheral Neuropathy: Yes Hx Headaches: Yes Hx Weakness: Yes Review of Systems All Other Systems: negative except mentioned in HPI Physical Exam Vital Signs Date Time Temp Pulse Resp B/P (MAP) Pulse Ox O2 Delivery O2 Flow Rate FiO2 01/12/18 23:44 98.2 72 16 105/62 99 Room Air 98.2 Sp02 EP Interpretation: reviewed, normal General Appearance: no apparent distress, alert, GCS 15, non-toxic, obese Head: normocephalic, atraumatic Eyes: bilateral eye normal inspection, bilateral eye PERRL ENT: hearing grossly normal, normal pharynx, no angioedema, normal voice Neck: full range of motion, supple/symm/no masses Respiratory: chest non-tender, lungs clear, normal breath sounds, speaking full sentences Cardiovascular #1: regular rate, rhythm, no edema Cardiovascular #2: 2+ carotid (R), 2+ carotid (L), 2+ radial (R), 2+ radial (L) , 2+ dorsalis pedis (R), 2+ dorsalis pedis (L) Gastrointestinal: normal bowel sounds, non tender, soft, non-distended, no guarding, no rebound Rectal: deferred Genitourinary: normal inspection, no CVA tenderness Musculoskeletal: back normal, gait/station normal, normal range of motion, non- tender Neurologic: alert, oriented x3, responsive, motor strength/tone normal, sensory intact, speech normal Psychiatric: judgement/insight normal, memory normal, no suicidal/homicidal ideation, no delusions, depressed affect, anxious Reflexes: 3+ bicep (R), 3+ bicep (L), 3+ tricep (R), 3+ tricep (L), 3+ knee (R) , 3+ knee (L) Skin: normal color, no rash, warm/dry, well hydrated Lymphatic: no adenopathy Medical Decision Making Diagnostic Impression: Primary Impression: Anxiety ER Course Hospital Course 62-year-old female presents ED feeling anxious Differential diagnoses include: anxiety, depression, ETOH Clinical course Patient placed on stretcher. on patient monitor. After initial history, physical exam reveals female in no acute distress. Patient does appear anxious. Maintains good eye contact. No signs of suicidal or homicidal ideation. No delusions Patient states she is to take Ativan in the past occasionally. We gave her 1 mg of Ativan here. Upon reassessment patient is observed feeling better. Patient is requesting discharge. We'll prescribe her a short course of Ativan. Patient states she has an appointment with her psychiatrist this week I. I feel this is a highly complex case requiring extensive working including EKG/Rhythm strip, Xray/CT/US, Blood/urine lab work, repeat exams while in ED, and administration of strong opiates/narcotics for pain control, admission to hospital or close patient follow up. Diagnosis - anxiety Stable and discharged to home with Rx ativan. Followup with PMD/psychiatry. Return to ED if symptoms recur or worse Last Vital Signs Date Time Temp Pulse Resp B/P (MAP) Pulse Ox O2 Delivery O2 Flow Rate FiO2 01/13/18 01:40 98.1 81 20 133/88 98 Room Air 98.1 Status: improved Disposition: HOME, SELF-CARE Condition: Stable Scripts Lorazepam* (ATIVAN*) 1 Mg Tablet 1 MG ORAL THREE TIMES A DAY, #10 TAB Prov: Henrry Perez MD 01/13/18 Patient Instructions: Panic Attacks, [id number] Henrry Perez MD Jan 13, 2018 02:14
== END 2018-01-13 01:50 | disposition home or self-care (01) ==
LOC: EMR 01-13 00:27
DX: F41.9 Anxiety disorder, unspecified (principal); F32.9 Major depressive disorder, single episode, unspecified; I11.0 Hypertensive heart disease with heart failure; I50.9 Heart failure, unspecified; J44.9 Chronic obstructive pulmonary disease, unspecified; K21.9 Gastro-esophageal reflux disease without esophagitis
CPT/HCPCS: 99283

== ENCOUNTER 2018-06-25 14:49 | Emergency (ER) | payer MEDICAID ==
[~2018-06-25] VITALS: Ht 157.5 cm; Wt 119.3 kg
[~2018-06-25 14:49] MED LIST changes: +WELLBUTRIN SR100 MG ORAL
--- NOTE | 2018-06-25 15:00 | NUR ---
ED Nurse Note: patient came in from home, grandson dropped her into ED, patient lives at home by herself. pt c/o shortness of reath and chest pain.
[2018-06-25 15:08] VITALS: BP 139/67
[2018-06-25] MEDS ORDERED: Ipratropium 0.02% Inh Soln 2.5ml UD HHN ONE (15:30)
[2018-06-25] MEDS ORDERED: Levalbuterol Inh UD 1.25mg/0.5ml HHN ONE (15:30)
[2018-06-25 16:44] LABS: ANION GAP 7 mmol/L (5-15); BLOOD UREA NITROGEN 11 mg/dL (7-18); CALCIUM 9.6 MG/DL (8.5-10.1); CARBON DIOXIDE 30 MMOL/L (21-32); CHLORIDE 106 MMOL/L (98-107); POTASSIUM 3.9 MMOL/L (3.5-5.1); SODIUM 143 MMOL/L (136-145)
[2018-06-25 16:52] LABS: EOSINOPHILS % (AUTO) 8.4 % (0.0-3.0); HEMATOCRIT 37.6 % (37.0-47.0); HEMOGLOBIN 11.5 G/DL (12.0-16.0); LYMPHOCYTES % (AUTO) 37.4 % (20.0-45.0); MEAN CORPUSCULAR VOLUME 92 FL (80-99); MONOCYTES % (AUTO) 9.9 % (1.0-10.0); NEUTROPHILS % (AUTO) 43.4 % (45.0-75.0); PLATELET COUNT 190 K/UL (150-450); RED CELL DISTRIBUTION WIDTH 14.3 % (11.6-14.8); WHITE BLOOD COUNT 5.3 K/UL (4.8-10.8)
[2018-06-25 16:54] LABS: ALANINE AMINOTRANSFERASE 25 U/L (12-78); ALBUMIN 3.6 G/DL (3.4-5.0); ALBUMIN/GLOBULIN RATIO 0.9 (1.0-2.7); ALKALINE PHOSPHATASE 108 U/L (46-116); ASPARTATE AMINO TRANSFERASE 16 U/L (15-37); BILIRUBIN,TOTAL 0.5 MG/DL (0.2-1.0); CREATINE KINASE 110 U/L (26-308)
[2018-06-25 16:58] LABS: INR 0.9 (0.9-1.1)
[2018-06-25 17:51] LABS: APPEARANCE,URINE CLEAR; BILIRUBIN, URINE NEGATIVE (NEGATIVE); GLUCOSE, URINE (UA) NEGATIVE (NEGATIVE); KETONES,URINE NEGATIVE (NEGATIVE); LEUKOCYTE ESTERASE ,URINE NEGATIVE (NEGATIVE); NITRITE,URINE NEGATIVE (NEGATIVE); PH,URINE 8 (4.5-8.0); PROTEIN,URINE NEGATIVE (NEGATIVE); UROBILINOGEN,URINE NORMAL MG/DL (0.0-1.0)
[2018-06-25 17:54] LABS: COLOR,URINE YELLOW
--- NOTE | 2018-06-25 18:09 | Emergency Room Report ---
History of Present Illness General Chief Complaint: Dyspnea/Respdistress Source: Patient Present Illness HPI Patient presents with dyspnea and chest pain. She was diagnosed with pneumonia recently. [place]. She was given a prescription for Levaquin on . She was unable to fill it for several days. She took a week's course. She's been using her inhaler and also her rescue inhaler frequently. She hears herself wheezing. She also is treated with prednisone with a taper. She is off of that now. She also has chest pain. It's worse when she is laying down and also the shortness of breath is worse. She supposed be taking a water pill and complains about edema. She also complains about some tightness behind her left knee. The chest pain is rated 6/10 somewhat pleuritic but also pressure. No fevers, chills, palpitations, nausea, vomiting, diarrhea, dysuria, abdominal pain, depression, visual changes, headache. Allergies: Coded Allergies: NO KNOWN ALLERGIES (Verified Allergy, Unknown, 08/04/17) Patient History Past Medical History: see triage record Social History: Denies: smoking Social History Narrative with grandson Reviewed Nursing Documentation: PMH: Agreed; PSxH: Agreed Nursing Documentation-PMH Hx Cardiac Problems: Yes - Enlarged heart, CHF, High Chlosterol Hx Hypertension: Yes Hx Asthma: Yes Hx COPD: Yes Hx Cancer: No Hx Gastrointestinal Problems: Yes - Cholecystectomy, GERD Hx Neurological Problems: Yes Hx Peripheral Neuropathy: Yes Hx Headaches: Yes Hx Weakness: Yes Review of Systems All Other Systems: negative except mentioned in HPI Physical Exam Vital Signs Date Time Temp Pulse Resp B/P (MAP) Pulse Ox O2 Delivery O2 Flow Rate FiO2 06/25/18 14:52 98.2 89 22 139/67 97 Room Air Sp02 EP Interpretation: reviewed, normal General Appearance: well appearing, no apparent distress, GCS 15 Head: normocephalic Eyes: bilateral eye normal inspection, bilateral eye PERRL ENT: moist mucus membranes Neck: supple Respiratory: no respiratory distress, wheezing, expiration Cardiovascular #1: regular rate, rhythm, edema Cardiovascular #2: 2+ radial (R) Gastrointestinal: normal inspection, overweight Musculoskeletal: back normal, digits/nails normal, normal range of motion, no calf tenderness, Jenae's Sign negative Neurologic: alert, grossly normal Psychiatric: mood/affect normal Skin: normal inspection, warm/dry Medical Decision Making Diagnostic Impression: Primary Impression: COPD exacerbation Additional Impressions: Chest pain Qualified Codes: R07.9 - Chest pain, unspecified Congestive heart failure Qualified Codes: I50.9 - Heart failure, unspecified ER Course Patient presents with shortness of breath, chest pain and recent diagnosis of pneumonia. Differential includes partially treated pneumonia, atypical pneumonia, exacerbation of COPD, CHF, acute myocardial infarction amongst others. Evaluation will be with EKG, chest x-ray and labs. The patient will be treated with Solu-Medrol, breathing treatments. She has edema and this may be CHF hydration will be withheld. EKG no injury. Chest x-ray with mild increased benitez but no infiltrates and no obvious congestive heart failure. Labs significant for normal white count with eosinophilia. BNP is elevated. Initial troponin is negative. Patient is improved with a breathing treatment and also with analgesia. She however still is weak. Also because of the CHF, Lasix is given and a Jean catheter is started. Patient needs to have continued observation and treatment in telemetry to exclude cardiac injury. The patient was discussed with Dr. Morel who accepted the patient at [facility] at [place]. Patient refuses to go to [facility] as sister there. Discussed risk of . She understands and still insists on signing AMA. Improved and told to return if not doing well. Laboratory Tests Test 06/25/18 16:15 06/25/18 17:30 White Blood Count 5.3 K/UL (4.8-10.8) Red Blood Count 4.10 M/UL (4.20-5.40) L Hemoglobin 11.5 G/DL (12.0-16.0) L Hematocrit 37.6 % (37.0-47.0) Mean Corpuscular Volume 92 FL (80-99) Mean Corpuscular Hemoglobin 28.1 PG (27.0-31.0) Mean Corpuscular Hemoglobin Concent 30.6 G/DL (32.0-36.0) L Red Cell Distribution Width 14.3 % (11.6-14.8) Platelet Count 190 K/UL (150-450) Mean Platelet Volume 9.3 FL (6.5-10.1) Neutrophils (%) (Auto) 43.4 % (45.0-75.0) L Lymphocytes (%) (Auto) 37.4 % (20.0-45.0) Monocytes (%) (Auto) 9.9 % (1.0-10.0) Eosinophils (%) (Auto) 8.4 % (0.0-3.0) H Basophils (%) (Auto) 1.0 % (0.0-2.0) Prothrombin Time 10.0 SEC (9.30-11.50) Prothrombin Time INR 0.9 (0.9-1.1) PTT 30 SEC (23-33) Sodium Level 143 MMOL/L (136-145) Potassium Level 3.9 MMOL/L (3.5-5.1) Chloride Level 106 MMOL/L (98-107) Carbon Dioxide Level 30 MMOL/L (21-32) Anion Gap 7 mmol/L (5-15) Blood Urea Nitrogen 11 mg/dL (7-18) Creatinine 1.0 MG/DL (0.55-1.30) Estimate Glomerular Filtration Rate > 60 mL/min (>60) Glucose Level 149 MG/DL (74-106) H Calcium Level 9.6 MG/DL (8.5-10.1) Total Bilirubin 0.5 MG/DL (0.2-1.0) Aspartate Amino Transferase (AST) 16 U/L (15-37) Alanine Aminotransferase (ALT) 25 U/L (12-78) Alkaline Phosphatase 108 U/L (46-116) Total Creatine Kinase 110 U/L (26-308) Troponin I 0.009 ng/mL (0.000-0.056) Pro-B-Type Natriuretic Peptide 1343 pg/mL (0-125) H Total Protein 7.7 G/DL (6.4-8.2) Albumin 3.6 G/DL (3.4-5.0) Globulin 4.1 g/dL Albumin/Globulin Ratio 0.9 (1.0-2.7) L Urine Color Yellow Urine Appearance Clear Urine pH 8 (4.5-8.0) Urine Specific [place] 1.015 (1.005-1.035) Urine Protein Negative (NEGATIVE) Urine Glucose (UA) Negative (NEGATIVE) Urine Ketones Negative (NEGATIVE) Urine Blood Negative (NEGATIVE) Urine Nitrite Negative (NEGATIVE) Urine Bilirubin Negative (NEGATIVE) Urine Urobilinogen Normal MG/DL (0.0-1.0) Urine Leukocyte Esterase Negative (NEGATIVE) Microbiology Date/Time Source Procedure Growth Status 06/25/18 16:15 Nasal Nares Influenza Types A,B Antigen (CHEL) - Final Complete EKG Diagnostic Results Rate: normal Rhythm: NSR ST Segments: no acute changes - LVH Rhythm Strip Diag. Results EP Interpretation: yes Rhythm: NSR, no PVC's, no ectopy Chest X-Ray Diagnostic Results Chest X-Ray Diagnostic Results : Chest X-Ray Ordered: Yes # of Views/Limited/Complete: 1 View Indication: Other EP Interpretation: Yes Interpretation: no effusion, no pneumothorax, other - increased benitez Impression: Other Electronically Signed by: Electronically signed by Neto Diana MD Last Vital Signs Date Time Temp Pulse Resp B/P (MAP) Pulse Ox O2 Delivery O2 Flow Rate FiO2 06/25/18 21:39 84 19 121/61 98 Room Air 06/25/18 21:30 98.2 Status: improved Disposition: AGAINST MEDICAL ADVICE Condition: Improved Scripts Guaifenesin/Codeine Phos* (ROBITUSSIN AC*) 118 Ml Liquid 5 ML ORAL Q6H PRN for For Cough, #90 ML 0 Refills Prov: Neto Diana MD 06/25/18 Prednisone* (PREDNISONE*) 20 Mg Tablet 40 MG ORAL DAILY, #10 TAB Prov: Neto Diana MD 06/25/18 Referrals: Juan Bray MD (PCP) Neto Diana MD Jun 25, 2018 18:09
--- NOTE | 2018-06-25 19:18 | NUR ---
ED Nurse Note: patient's belonging list done, by the bedside, endorsed to holly pino as pt states her grandson may take her valuables home.
--- NOTE | 2018-06-25 19:21 | NUR ---
HAND-OFF: Report given to Jaki pino.
--- NOTE | 2018-06-25 19:23 | NUR ---
ED Nurse Note: Received report from Rosalie Camarillo RN. Pt awake and resting, no distress noted. Pt states she s feeling better after Lasix and breathing treatment. Awaiting bed for admission to floor. Will continue to montitor.
[2018-06-25 19:30] VITALS: BP 120/59
[2018-06-25 20:30] VITALS: BP 125/49
--- NOTE | 2018-06-25 21:11 | NUR ---
ED Nurse Note: Made aware that pt will be transferred to [facility]. ETA 2130 for pickup. Will call and give report.
--- NOTE | 2018-06-25 21:19 | NUR ---
ED Nurse Note: Called and gave report to April GILBERT at [facility] and gave ETA; awaiting pickup.
[2018-06-25 21:30] VITALS: BP 121/61
[2018-06-25] MEDS ORDERED: PREDNISONE20 MG ORAL (21:31)
[2018-06-25] MEDS ORDERED: GUAIFENESIN-CO118 M1 ORAL (21:31)
[2018-06-25 21:39] VITALS: BP 121/61
--- NOTE | 2018-06-25 22:01 | NUR ---
ED Nurse Note: Pt cleared for discharge per ERMD. AAOx4. NAD VSS. Pt given prescriptions and discharge instructions. Verbalized understanding. IV and ID band removed. Pt given belongings and stated grandson coming to pick her up in private vehicle.
--- NOTE | 2018-06-26 12:07 | Diagnostic Imaging Report ---
Indication: Dyspnea Comparison: 10/01/2017 A single view chest radiograph was obtained. Findings: Pulmonary vascularity is mildly prominent. Heart is enlarged. No interstitial edema or airspace disease identified at this time. IMPRESSION: No acute disease
== END 2018-06-25 22:04 | disposition left against medical advice (07) ==
LOC: EMR 15:54
DX: J44.1 Chronic obstructive pulmonary disease with (acute) exacerbation (principal); R07.89 Other chest pain; I11.0 Hypertensive heart disease with heart failure; I50.9 Heart failure, unspecified; K21.9 Gastro-esophageal reflux disease without esophagitis; Z90.49 Acquired absence of other specified parts of digestive tract; Z87.01 Personal history of pneumonia (recurrent)
CPT/HCPCS: 36415; 71045; 80053; 81003; 82550; 83880; 84484; 85025; 85610; 85730; 86710; 93005; 94640; 96374; 99284; J1940; J7644

== ENCOUNTER 2018-07-16 10:39 | Emergency (ER) | payer MEDICAID ==
[~2018-07-16] VITALS: Ht 154.9 cm; Wt 113.4 kg
[~2018-07-16 10:39] MED LIST changes: +GUAIFENESIN-CO118 M1 ORAL
[2018-07-16 10:44] VITALS: BP 124/86
--- NOTE | 2018-07-16 11:37 | NUR ---
ED Nurse Note: pt arrives from home with c/o abd pain and nausea x 3 days. states has been admitted to the hospital in past for pancreatitis. does relate last bm yest that was liquid in nature. denies vomiting. indicates LUQ abd as painful. pain increases with palpation to area. no cough or cold s/s. lungs cta. pt placed on court recording monitor. awaits eval. pt aware to remain NPO
--- NOTE | 2018-07-16 11:40 | NUR ---
ED Nurse Note: pt toelrates iv start and lab draw well.
[2018-07-16] MEDS ORDERED: Metoclopramide 10mg/2ml Inj IVP ONE (12:15)
[2018-07-16 12:33] LABS: BASOPHILS % (AUTO) 1.3 % (0.0-2.0); EOSINOPHILS % (AUTO) 5.4 % (0.0-3.0); HEMATOCRIT 35.4 % (37.0-47.0); HEMOGLOBIN 10.8 G/DL (12.0-16.0); LYMPHOCYTES % (AUTO) 36.8 % (20.0-45.0); MEAN CORPUSCULAR VOLUME 91 FL (80-99); MONOCYTES % (AUTO) 12.6 % (1.0-10.0); NEUTROPHILS % (AUTO) 43.9 % (45.0-75.0); PLATELET COUNT 172 K/UL (150-450); RED CELL DISTRIBUTION WIDTH 14.3 % (11.6-14.8); WHITE BLOOD COUNT 4.3 K/UL (4.8-10.8)
--- NOTE | 2018-07-16 12:36 | Emergency Room Report ---
History of Present Illness General Chief Complaint: Abdominal Pain Source: Patient (JACK MACKAY M.D.) Present Illness HPI 62-year-old female presents with about one week of left-sided and middle epigastric pain associated with nausea without vomiting. No diarrhea. No fevers or chills. Patient has had hysterectomy and cholecystectomy in the past. No other surgeries. No sick contacts or foreign travel. (JACK MACKAY M.D.) Allergies: Coded Allergies: ALBUTEROL (Verified Allergy, Unknown, 07/16/18) Patient History Past Medical History: none Past Surgical History: rudy, hysterectomy Pertinent Family History: none Social History: Denies: smoking, alcohol use, drug use Now: No Immunizations: UTD Reviewed Nursing Documentation: PMH: Agreed; PSxH: Agreed (JACK MACKAY M.D.) Nursing Documentation-PMH Hx Cardiac Problems: Yes - Enlarged heart, CHF, High Chlosterol Hx Hypertension: Yes Hx Asthma: Yes Hx COPD: Yes Hx Cancer: No Hx Gastrointestinal Problems: Yes - Cholecystectomy, GERD Hx Neurological Problems: Yes Hx Peripheral Neuropathy: Yes Hx Headaches: Yes Hx Weakness: Yes (JACK MACKAY M.D.) Review of Systems All Other Systems: negative except mentioned in HPI (JACK MACKAY M.D.) Physical Exam Vital Signs Date Time Temp Pulse Resp B/P (MAP) Pulse Ox O2 Delivery O2 Flow Rate FiO2 07/16/18 10:44 98.1 104 18 124/86 98 Room Air Sp02 EP Interpretation: reviewed, normal General Appearance: normal inspection, well appearing, no apparent distress, alert, GCS 15, non-toxic Head: normocephalic, atraumatic Eyes: bilateral eye PERRL, bilateral eye EOMI ENT: normal ENT inspection, hearing grossly normal, normal pharynx, no angioedema, normal voice, TMs + canals normal, uvula midline, moist mucus membranes Neck: normal inspection, full range of motion, supple, thyroid normal, no meningismus, no bony tend Respiratory: normal inspection, lungs clear, normal breath sounds, no rhonchi, no respiratory distress, no retraction, no accessory muscle use, no wheezing, speaking full sentences Cardiovascular #1: regular rate, rhythm, no edema, no JVD, normal capillary refill Gastrointestinal: normal inspection, normal bowel sounds, non tender, soft, no mass, no peritonitis, non-distended, no guarding, no hernia, no pulsatile mass, other - morbidly obee Genitourinary: no CVA tenderness Musculoskeletal: normal inspection, back normal, normal range of motion, no calf tenderness, pelvis stable, Jenae's Sign negative Neurologic: normal inspection, alert, oriented x3, responsive, hand assembler for puller over III-XII nml as tested, motor strength/tone normal, cerebellar normal, normal gait, speech normal Psychiatric: normal inspection, judgement/insight normal, mood/affect normal, no suicidal/homicidal ideation, no delusions Skin: normal inspection, normal color, no rash Lymphatic: normal inspection, no adenopathy (JACK MACKAY M.D.) Medical Decision Making Diagnostic Impression: Primary Impression: Abdominal pain Qualified Codes: R10.9 - Unspecified abdominal pain ER Course Generalized abdominal pain VSS, afebrile History of multiple surgeries, concerning for SBO however she is having normal bowel movements Patient states she had bad salivated a few days ago prior to symptoms arrival suffered also be viral gastroenteritis Will do labs and CT to evaluate for etiology 201pm - Labs unremarkable - CT pending - Patient feels better, likely viral gastroenteritis from foodborne illness (JACK MACKAY M.D.) ER Course Patient was seen by Dr. Jack Mackay and signed out to me for final position. Patient presented with normal pain. Patient's CAT scan was noted negative laboratory workup was normal. Patient was reexamined and felt much better. Given patient essentially had negative workup. She'll Dr. symptoms are consistent gastroenteritis will recommend outpatient follow-up return if worse and as needed. Patient voiced understanding. I did also offer to admit the patient if she did not feel well for observation but patient declined.Patient is advised to follow up with primary doctor in 2-3 days and return the emergency room for any worsening symptoms and as needed. Labs Test 07/16/18 11:25 White Blood Count 4.3 K/UL (4.8-10.8) Red Blood Count 3.90 M/UL (4.20-5.40) Hemoglobin 10.8 G/DL (12.0-16.0) Hematocrit 35.4 % (37.0-47.0) Mean Corpuscular Volume 91 FL (80-99) Mean Corpuscular Hemoglobin 27.8 PG (27.0-31.0) Mean Corpuscular Hemoglobin Concent 30.6 G/DL (32.0-36.0) Red Cell Distribution Width 14.3 % (11.6-14.8) Platelet Count 172 K/UL (150-450) Mean Platelet Volume 9.4 FL (6.5-10.1) Neutrophils (%) (Auto) 43.9 % (45.0-75.0) Lymphocytes (%) (Auto) 36.8 % (20.0-45.0) Monocytes (%) (Auto) 12.6 % (1.0-10.0) Eosinophils (%) (Auto) 5.4 % (0.0-3.0) Basophils (%) (Auto) 1.3 % (0.0-2.0) Sodium Level 142 MMOL/L (136-145) Potassium Level 4.0 MMOL/L (3.5-5.1) Chloride Level 107 MMOL/L (98-107) Carbon Dioxide Level 27 MMOL/L (21-32) Anion Gap 8 mmol/L (5-15) Blood Urea Nitrogen 11 mg/dL (7-18) Creatinine 1.1 MG/DL (0.55-1.30) Estimat Glomerular Filtration Rate > 60 mL/min (>60) Glucose Level 95 MG/DL (74-106) Calcium Level 8.6 MG/DL (8.5-10.1) Total Bilirubin 0.7 MG/DL (0.2-1.0) Aspartate Amino Transf (AST/SGOT) 21 U/L (15-37) Alanine Aminotransferase (ALT/SGPT) 20 U/L (12-78) Alkaline Phosphatase 89 U/L (46-116) Total Protein 6.9 G/DL (6.4-8.2) Albumin 3.2 G/DL (3.4-5.0) Globulin 3.7 g/dL Albumin/Globulin Ratio 0.9 (1.0-2.7) Lipase 73 U/L (73-393) (Jeronimo Hill MD) Last Vital Signs Date Time Temp Pulse Resp B/P (MAP) Pulse Ox O2 Delivery O2 Flow Rate FiO2 07/16/18 11:41 86 20 Room Air 07/16/18 10:44 98.1 124/86 98 Status: improved (JACK MACKAY M.D.) Status: improved (Jeronimo Hill MD) Disposition: HOME, SELF-CARE Condition: Stable Scripts Ondansetron (Zofran) 4 Mg Tablet 4 MG ORAL Q6H PRN for Nausea & Vomiting, #15 TAB 0 Refills Prov: Jeronimo Hill MD 07/16/18 Referrals: Juan Bray MD (PCP) JACK MACKAY M.D. Jul 16, 2018 12:36 Jeronimo Hill MD Jul 16, 2018 18:09
[2018-07-16 12:45] LABS: ANION GAP 8 mmol/L (5-15); BLOOD UREA NITROGEN 11 mg/dL (7-18); CALCIUM 8.6 MG/DL (8.5-10.1); CARBON DIOXIDE 27 MMOL/L (21-32); CHLORIDE 107 MMOL/L (98-107); CREATININE 1.1 MG/DL (0.55-1.30); SODIUM 142 MMOL/L (136-145)
[2018-07-16 12:50] LABS: ALANINE AMINOTRANSFERASE 20 U/L (12-78); ALBUMIN 3.2 G/DL (3.4-5.0); ALBUMIN/GLOBULIN RATIO 0.9 (1.0-2.7); ALKALINE PHOSPHATASE 89 U/L (46-116); ASPARTATE AMINO TRANSFERASE 21 U/L (15-37); BILIRUBIN,TOTAL 0.7 MG/DL (0.2-1.0)
[2018-07-16 13:42] VITALS: BP 130/75
--- NOTE | 2018-07-16 13:48 | NUR ---
ED Nurse Note: pt to ct scan via diana. van. pt states no pain unless she palpates abd and then at that point has 5/10 pain to luq.
--- NOTE | 2018-07-16 14:30 | NUR ---
ED Nurse Note: pt returned from ct scan. pt denies increased abd pain and has no n/v. awaiting lab results.
--- NOTE | 2018-07-16 14:53 | Diagnostic Imaging Report ---
Indication: Abdominal pain Technique: Continuous helical transaxial imaging of the abdomen and pelvis was obtained from the lung bases to the pubic symphysis during intravenous contrast administration. Coronal 2-D reformats were also obtained. Study obtained in a Siemens sensation [address] Automatic Exposure Control was utilized. Total Dose length Product (DLP): 1045.[address] Dose Index Volume (CTDIvol): 19.51 mGy Comparison: 10/01/2017 Findings: The lung bases are clear. Previous exam had shown is a very mild peripancreatic inflammation which is no longer visualized are appreciated currently. Cholecystectomy clips are noted. There is no biliary ductal dilatation, abscess, free fluid or free air identified there is no evidence of bowel obstruction. Few diverticula noted in the sigmoid colon. No evidence of diverticulitis. No hydronephrosis demonstrated. Kidneys enhance normally. No adrenal mass identified. Spleen is unremarkable in appearance. Bladder is unremarkable. Uterus is absent. IMPRESSION: No acute findings appreciated. Status post cholecystectomy. Mild diverticulosis of the colon. No evidence of acute diverticulitis. Status post hysterectomy The CT scanner at [facility] is accredited by the [employer] and the scans are performed using dose optimization techniques as appropriate to a performed exam including Automatic Exposure control.
[2018-07-16] MEDS ORDERED: ZOFRAN4 MG ORAL (15:50)
[2018-07-16 16:00] VITALS: BP 126/72
--- NOTE | 2018-07-16 16:00 | NUR ---
ED Nurse Note: pt remains without pain awaiting fruther dispo. vss. no n/v
[2018-07-16 17:30] VITALS: BP 142/69
--- NOTE | 2018-07-16 17:30 | NUR ---
ED Nurse Note: pt given dc aci and script aware and agrees to plan of care for follow up with her pmd. pt amb steady gait with her walker assistance states she has ride home. a/ox3 upon dc. angio out intactly
[2018-07-16 18:19] VITALS: BP 142/69
== END 2018-07-16 17:30 | disposition home or self-care (01) ==
LOC: EMR 11:30
DX: R10.13 Epigastric pain (principal); K21.9 Gastro-esophageal reflux disease without esophagitis; Z90.49 Acquired absence of other specified parts of digestive tract; I11.0 Hypertensive heart disease with heart failure; I50.9 Heart failure, unspecified; J44.9 Chronic obstructive pulmonary disease, unspecified; K57.30 Diverticulosis of large intestine without perforation or abscess without bleeding; Z90.710 Acquired absence of both cervix and uterus
CPT/HCPCS: 36415; 74177; 80053; 83690; 85025; 96374; 96375; 99284; J2765; Q9967; S0028

== ENCOUNTER 2018-12-23 20:35 | Emergency (ER) | payer MEDICAID ==
[~2018-12-23] VITALS: Ht 154.9 cm; Wt 115.2 kg
[~2018-12-23 20:35] MED LIST changes: +ZOFRAN4 MG ORAL
--- NOTE | 2018-12-23 20:50 | NUR ---
ED Nurse Note: Patient walked in to ER c/o right upper abdominal pain /. reports nausea; denies vomitting and diarrhea. ao4. nad. family at bed side. vss.
--- NOTE | 2018-12-23 21:00 | NUR ---
ED Nurse Note: iv access established. blood collected; sent down to lab.
--- NOTE | 2018-12-23 21:00 | Emergency Room Report ---
History of Present Illness General Chief Complaint: Abdominal Pain Source: Patient Present Illness HPI 63-year-old female p/w right upper abdominal pain for just a few hours. Patient states pain started suddenly, localized to right upper quadrant, non radiating, sharp in nature, intermittent. No relieving or exacerbating factors. Severity is 10 out of 10. + Nausea but no vomiting or diarrhea Denies fever, chills. She has a history of cholecystectomy and total abdominal hysterectomy Allergies: Coded Allergies: ALBUTEROL (Verified Allergy, Unknown, 07/16/18) Patient History Past Medical History: see triage record Past Surgical History: none Pertinent Family History: none Now: No Reviewed Nursing Documentation: PMH: Agreed; PSxH: Agreed Nursing Documentation-PMH Hx Cardiac Problems: Yes Hx Hypertension: Yes Hx Asthma: Yes Hx COPD: Yes Hx Cancer: No Hx Gastrointestinal Problems: Yes - Cholecystectomy, GERD Hx Neurological Problems: Yes Hx Peripheral Neuropathy: Yes Hx Headaches: Yes Hx Weakness: Yes Review of Systems All Other Systems: negative except mentioned in HPI Physical Exam Vital Signs Date Time Temp Pulse Resp B/P (MAP) Pulse Ox O2 Delivery O2 Flow Rate FiO2 12/23/18 20:39 97.7 67 24 134/76 (95) 96 Room Air Sp02 EP Interpretation: reviewed, normal General Appearance: alert, GCS 15, non-toxic, moderate distress Head: normocephalic, atraumatic Eyes: bilateral eye normal inspection, bilateral eye PERRL, bilateral eye EOMI ENT: normal ENT inspection, normal pharynx, normal voice, moist mucus membranes Neck: normal inspection, full range of motion, supple Respiratory: normal inspection, lungs clear, normal breath sounds, no respiratory distress, no retraction, no wheezing, speaking full sentences, chest symmetrical Cardiovascular #1: normal inspection, regular rate, rhythm, no edema, normal capillary refill Cardiovascular #2: 2+ radial (R), 2+ radial (L) Gastrointestinal: other - +ruq TTP. all others normal Musculoskeletal: normal inspection, back normal, normal range of motion, non- tender Neurologic: normal inspection, alert, oriented x3, responsive, motor strength/ tone normal, sensory intact, normal gait, speech normal Psychiatric: normal inspection, judgement/insight normal, memory normal Medical Decision Making Diagnostic Impression: Primary Impression: Epigastric pain ER Course 63-year-old female with right upper abdominal pain Differential Diagnosis: Gastritis, gastroenteritis, choledocholithiasis, UTI, pyelonephritis At this time I doubt appendicitis, diverticulitis she does not have any lower abdominal tenderness Plan: Basic labs, ua, ekg Pepcid, maalox, pain control, IVF Right upper quadrant ultrasound ER course: Patient has remained stable during ED stay. She is actually feeling much better US negative CBD 7mm (normal post cholecystectomy) never having any tenderness to lower quadrants stable to dc home Dc home with zofran/pepcid fu with PCP given return precautions such as severe/worsening pain inability to tolerate PO Please note that this Emergency Department Report was dictated using [employer] supervisor technology software, occasionally this can lead to erroneous entry secondary to interpretation by the dictation equipment EKG Diagnostic Results EP Interpretation: Yes Rate: normal Rhythm: NSR ST Segments: TWI, I and aVL, V5-V6 : these changes were present on previous EKG 06/25/18 ASA given to patient: No Chest xray: 1 view Indication: Pain EP Interpretation: Yes Interpretation: Cardiomegaly, appears very similar compared to prior Impression: Cardiomegaly Electronically signed by Rebecca Bishop MD Laboratory Tests Test 12/23/18 21:00 12/23/18 21:05 White Blood Count 6.2 K/UL (4.8-10.8) Red Blood Count 3.97 M/UL (4.20-5.40) L Hemoglobin 10.5 G/DL (12.0-16.0) L Hematocrit 33.9 % (37.0-47.0) L Mean Corpuscular Volume 85 FL (80-99) Mean Corpuscular Hemoglobin 26.4 PG (27.0-31.0) L Mean Corpuscular Hemoglobin Concent 30.9 G/DL (32.0-36.0) L Red Cell Distribution Width 14.7 % (11.6-14.8) Platelet Count 245 K/UL (150-450) Mean Platelet Volume 8.6 FL (6.5-10.1) Neutrophils (%) (Auto) 41.5 % (45.0-75.0) L Lymphocytes (%) (Auto) 41.5 % (20.0-45.0) Monocytes (%) (Auto) 8.7 % (1.0-10.0) Eosinophils (%) (Auto) 6.6 % (0.0-3.0) H Basophils (%) (Auto) 1.6 % (0.0-2.0) Sodium Level 141 MMOL/L (136-145) Potassium Level 4.8 MMOL/L (3.5-5.1) Chloride Level 105 MMOL/L (98-107) Carbon Dioxide Level 27 MMOL/L (21-32) Anion Gap 9 mmol/L (5-15) Blood Urea Nitrogen 12 mg/dL (7-18) Creatinine 1.1 MG/DL (0.55-1.30) Estimate Glomerular Filtration Rate > 60 mL/min (>60) Glucose Level 102 MG/DL (74-106) Calcium Level 9.6 MG/DL (8.5-10.1) Total Bilirubin 0.6 MG/DL (0.2-1.0) Aspartate Amino Transferase (AST) 52 U/L (15-37) H Alanine Aminotransferase (ALT) 31 U/L (12-78) Alkaline Phosphatase 110 U/L (46-116) Troponin I 0.000 ng/mL (0.000-0.056) Total Protein 7.5 G/DL (6.4-8.2) Albumin 3.8 G/DL (3.4-5.0) Globulin 3.7 g/dL Albumin/Globulin Ratio 1.0 (1.0-2.7) Lipase 97 U/L (73-393) Urine Color Pale yellow Urine Appearance Cloudy Urine pH 6.5 (4.5-8.0) Urine Specific [place] 1.010 (1.005-1.035) Urine Protein 1+ (NEGATIVE) H Urine Glucose (UA) Negative (NEGATIVE) Urine Ketones Negative (NEGATIVE) Urine Blood 5+ (NEGATIVE) H Urine Nitrite Negative (NEGATIVE) Urine Bilirubin Negative (NEGATIVE) Urine Urobilinogen Normal MG/DL (0.0-1.0) Urine Leukocyte Esterase 1+ (NEGATIVE) H Urine RBC Tntc /HPF (0 - 2) H Urine WBC 0 /HPF (0 - 2) Urine Squamous Epithelial Cells Occasional /LPF Urine Bacteria Occasional /HPF (NONE) Last Vital Signs Date Time Temp Pulse Resp B/P (MAP) Pulse Ox O2 Delivery O2 Flow Rate FiO2 12/23/18 20:39 97.7 67 24 134/76 (95) 96 Room Air Disposition: HOME, SELF-CARE Condition: Stable Scripts Ondansetron (Zofran) 4 Mg Tablet 4 MG ORAL Q8H PRN for Nausea & Vomiting, #10 TAB 0 Refills Prov: Rebecca Bishop M.D. 12/23/18 Famotidine (PEPCID AC) 20 Mg Tablet 20 MG PO QHS for 10 Days, #10 TAB Prov: Rebecca Bishop M.D. 12/23/18 Referrals: [facility],REFERRING (PCP) Rebecca Bishop M.D. Dec 23, 2018 21:00
[2018-12-23 21:11] LABS: BASOPHILS % (AUTO) 1.6 % (0.0-2.0); EOSINOPHILS % (AUTO) 6.6 % (0.0-3.0); HEMATOCRIT 33.9 % (37.0-47.0); HEMOGLOBIN 10.5 G/DL (12.0-16.0); LYMPHOCYTES % (AUTO) 41.5 % (20.0-45.0); MEAN CORPUSCULAR VOLUME 85 FL (80-99); MONOCYTES % (AUTO) 8.7 % (1.0-10.0); NEUTROPHILS % (AUTO) 41.5 % (45.0-75.0); PLATELET COUNT 245 K/UL (150-450); RED BLOOD COUNT 3.97 M/UL (4.20-5.40); RED CELL DISTRIBUTION WIDTH 14.7 % (11.6-14.8); WHITE BLOOD COUNT 6.2 K/UL (4.8-10.8)
[2018-12-23 21:13] VITALS: BP 123/65
[2018-12-23] MEDS ORDERED: Morphine Sulfate 4mg/ml Inj (IV USE ONLY) IVP ONE (21:15)
[2018-12-23 21:23] LABS: ANION GAP 9 mmol/L (5-15); BLOOD UREA NITROGEN 12 mg/dL (7-18); CALCIUM 9.6 MG/DL (8.5-10.1); CARBON DIOXIDE 27 MMOL/L (21-32); CHLORIDE 105 MMOL/L (98-107); CREATININE 1.1 MG/DL (0.55-1.30); POTASSIUM 4.8 MMOL/L (3.5-5.1); SODIUM 141 MMOL/L (136-145)
[2018-12-23 21:27] LABS: ALANINE AMINOTRANSFERASE 31 U/L (12-78); ALBUMIN 3.8 G/DL (3.4-5.0); ALKALINE PHOSPHATASE 110 U/L (46-116); ASPARTATE AMINO TRANSFERASE 52 U/L (15-37); BILIRUBIN,TOTAL 0.6 MG/DL (0.2-1.0)
[2018-12-23] MEDS ORDERED: ZOFRAN4 MG ORAL (21:32)
[2018-12-23] MEDS ORDERED: PEPCID AC20 M2 PO (21:32)
[2018-12-23 21:50] VITALS: BP 123/65
--- NOTE | 2018-12-23 21:50 | NUR ---
ER DISCHARGE NOTE: Patient is cleared to be discharged per ERMD, pt is aox4, on room air, with stable vital signs. pt was given dc and prescription instructions, pt was able to verbalize understanding, pt id band and iv site removed without complications. pt is able to ambulate with steady gait. pt took all belongings.
--- NOTE | 2018-12-24 11:32 | Diagnostic Imaging Report ---
Indication: Abdominal pain Technique: Grayscale and duplex Doppler imaging of the abdomen performed. Comparison: None Findings: The liver is unremarkable. Doppler interrogation of the main portal vein shows patency with hepatopedal, monophasic flow. There is no biliary ductal dilatation identified. Gallbladder is absent. Sonographic Starr's sign was negative per technologist. There demonstrated part of the pancreas, aorta and IVC show no definite abnormalities. Both kidneys appear unremarkable. There is no hydronephrosis. IMPRESSION: No acute findings identified. Status post cholecystectomy
--- NOTE | 2018-12-24 14:06 | Diagnostic Imaging Report ---
Indication: Chest pain Comparison: 06/25/2018 A single view chest radiograph was obtained. Findings: Cardiomegaly is present. Pulmonary vascularity is mildly prominent but stable. Bones are osteopenic. IMPRESSION: No acute findings
--- NOTE | 2018-12-24 17:05 | Cardiology Report ---
APPROVED REPORT EKG Measurement Heart [id number] Normal sinus rhythm Left ventricular hypertrophy with repolarization abnormality Abnormal ECG
== END 2018-12-23 21:50 | disposition home or self-care (01) ==
LOC: EMR 20:55 → CANBEDREQ 21:51
DX: R10.13 Epigastric pain (principal); R11.0 Nausea; Z90.49 Acquired absence of other specified parts of digestive tract; Z90.710 Acquired absence of both cervix and uterus; Z88.8 Allergy status to other drugs, medicaments and biological substances; I10 Essential (primary) hypertension; J44.9 Chronic obstructive pulmonary disease, unspecified; K21.9 Gastro-esophageal reflux disease without esophagitis; G62.9 Polyneuropathy, unspecified; I51.7 Cardiomegaly; M85.80 Other specified disorders of bone density and structure, unspecified site
CPT/HCPCS: 36415; 71045; 76700; 80053; 83690; 84484; 85025; 93005; 96374; 96375; 99284; J2270; J2405; S0028

== ENCOUNTER 2020-04-12 16:44 | Inpatient (IN) | payer MEDICAID ==
[~2020-04-12] VITALS: Ht 154.9 cm; Wt 120.2 kg
[~2020-04-12 16:44] MED LIST changes: +PEPCID AC20 M2 PO
--- NOTE | 2020-04-12 16:59 | NUR ---
ED Nurse Note: 12 lead EKG performed at 1653 and 1654[address] Given to Dr. Parks.
[2020-04-12 17:00] VITALS: BP 154/60
--- NOTE | 2020-04-12 17:12 | NUR ---
ED Nurse Note: Patient walked in to ER c/o CP x 1 week, and SOB. Patient presented calm,cooperative, AAO x4, VSS at this time, skin is warm to touch, has even unlabored breathing, ER MD at bed side
--- NOTE | 2020-04-12 17:20 | NUR ---
ED Nurse Note: IV line was established on right AC 20 ga, blood sent to lab
[2020-04-12 17:28] LABS: BASOPHILS % (AUTO) 1.3 % (0.0-2.0); EOSINOPHILS % (AUTO) 4.6 % (0.0-3.0); HEMATOCRIT 36.5 % (37.0-47.0); HEMOGLOBIN 11.2 G/DL (12.0-16.0); LYMPHOCYTES % (AUTO) 28.9 % (20.0-45.0); MEAN CORPUSCULAR VOLUME 90 FL (80-99); MONOCYTES % (AUTO) 9.3 % (1.0-10.0); NEUTROPHILS % (AUTO) 55.9 % (45.0-75.0); PLATELET COUNT 214 K/UL (150-450); RED BLOOD COUNT 4.05 M/UL (4.20-5.40); RED CELL DISTRIBUTION WIDTH 15.2 % (11.6-14.8); WHITE BLOOD COUNT 6.9 K/UL (4.8-10.8)
[2020-04-12 17:29] LABS: ANION GAP 8 mmol/L (5-15); BLOOD UREA NITROGEN 12 mg/dL (7-18); CALCIUM 8.8 MG/DL (8.5-10.1); CARBON DIOXIDE 28 MMOL/L (21-32); CHLORIDE 105 MMOL/L (98-107); CREATININE 1.1 MG/DL (0.55-1.30); POTASSIUM 4.2 MMOL/L (3.5-5.1); SODIUM 141 MMOL/L (136-145)
[2020-04-12 17:45] LABS: ALANINE AMINOTRANSFERASE 8 U/L (12-78); ALBUMIN 3.7 G/DL (3.4-5.0); ALBUMIN/GLOBULIN RATIO 0.9 (1.0-2.7); ALKALINE PHOSPHATASE 89 U/L (46-116); ASPARTATE AMINO TRANSFERASE 14 U/L (15-37); BILIRUBIN,TOTAL 0.7 MG/DL (0.2-1.0); FERRITIN 28 NG/ML (8-388); LACTATE DEHYDROGENASE 186 U/L (81-234)
[2020-04-12] MEDS ORDERED: Levalbuterol Inh UD 1.25mg/0.5ml HHN ONE (18:00)
[2020-04-12] MEDS ORDERED: Ipratropium 0.02% Inh Soln 2.5ml UD HHN ONE (18:00)
[2020-04-12 18:23] VITALS: BP 155/76
[2020-04-12] MEDS ORDERED: Lidocaine 2% Visc 15ml soln ORAL ONE (18:45)
--- NOTE | 2020-04-12 19:06 | Emergency Room Report ---
History of Present Illness General Chief Complaint: Chest Pain Present Illness HPI Pt. presents to the ED c/o shortness of breath and chest pain x 2 weeks, exacerbated when she has physical exertion. She reports hx of COPD, CHF, and Gastritis. Pt. reports she was evaluated at an urgent care on and told to go to the ER. Pt. reports being non-compliant. Pt. reports slight swelling in her LE's which she states is always there and is usually worse. Pt. denies sputum production. She denies fevers or chills. She denies nausea or vomiting. She does feel her symptoms are made worse with eating. She reports changing her eating habits to frequent small meals/snacks. 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: No (Mary Ashraf) Patient History Past Medical History: see triage record Past Surgical History: none Pertinent Family History: none Now: No Reviewed Nursing Documentation: PMH: Agreed; PSxH: Agreed (Mary Ashraf) Nursing Documentation-PMH Hx Cardiac Problems: Yes Hx Hypertension: Yes Hx Asthma: Yes Hx COPD: Yes Hx Cancer: No Hx Gastrointestinal Problems: Yes - Cholecystectomy, GERD Hx Neurological Problems: Yes Hx Peripheral Neuropathy: Yes Hx Headaches: Yes Hx Weakness: Yes (Mary Ashraf) Review of Systems All Other Systems: negative except mentioned in HPI (Mary Ashraf) Physical Exam Vital Signs Date Time Temp Pulse Resp B/P (MAP) Pulse Ox O2 Delivery O2 Flow Rate FiO2 04/12/20 16:54 97.9 92 18 154/60 (91) 99 Room Air Sp02 EP Interpretation: reviewed, normal General Appearance: no apparent distress, alert, GCS 15, non-toxic, mild distress, Chronically Ill Head: normocephalic, atraumatic Eyes: bilateral eye normal inspection, bilateral eye PERRL ENT: hearing grossly normal, normal voice Neck: full range of motion Respiratory: chest non-tender, no rhonchi, no respiratory distress, no retraction, no accessory muscle use, wheezing - distant breathsounds with scant wheeze at the very end of exhalation in upper lobes. , other - PT. with some SOB with speaking full sentences. Cardiovascular #1: regular rate, rhythm, edema - 1+ edema bilaterally- non- pitting Gastrointestinal: normal bowel sounds, non tender, soft, non-distended, no guarding, overweight Musculoskeletal: back normal, normal range of motion, gait/station normal, non- tender Neurologic: alert, motor strength/tone normal, oriented x3, sensory intact, responsive, speech normal Psychiatric: judgement/insight normal Skin: no rash, normal color (Mary Ashraf) Medical Decision Making PA Attestation Dr. Marie Is my supervising Physician whom patient management has been discussed with. (Mary Ashraf) Diagnostic Impression: Primary Impression: CHF (congestive heart failure) Qualified Codes: I50.9 - Heart failure, unspecified Additional Impressions: COPD (chronic obstructive pulmonary disease) Qualified Codes: J42 - Unspecified chronic bronchitis Morbid obesity ER Course Pt. presents to the ED c/o shortness of breath and chest pain x 2 weeks, exacerbated when she has physical exertion. She reports hx of COPD, CHF, and Gastritis. Pt. reports she was evaluated at an urgent care on and told to go to the ER. Pt. reports being non-compliant. Pt. reports slight swelling in her LE's which she states is always there and is usually worse. Pt. denies sputum production. She denies fevers or chills. She denies nausea or vomiting. She does feel her symptoms are made worse with eating. She reports changing her eating habits to frequent small meals/snacks. Ddx considered but are not limited to gastritis, [place], PE, atelectasis, CHF, asthma, anxiety, COPD,hyper-ventilation syndrome, pneumonia, costochondritis, chest wall pain, just to name a few. No acute pulmonary or cardiac causes at this time patient is in no acute distress her oxygen saturation is within normal limits, patient is not in any respiratory distress at this time Vital signs: are WNL, pt. is afebrile H&PE are most consistent with COPD vs CHF exacerbation ORDERS: -EK NSR - CBC: WNL -CMP: glucose 123 -Lactic Acid: 0.80 -Troponin: 0.003 -BNP: 1609 -COVID-19: Negative -CXR: poor inspiration on film some congestion noted increase from previous x-ra ys in the right lung thompson. ED INTERVENTIONS: -Xopenex HHN -Atrovent HHN -Lasix 40mg IV DISPOSITION: at this time pt. will be admitted for CHF exacerbation. Pt. signed out to Attending physician awaiting full admission of pt. and transfer of care. Labs Test 04/12/20 16:55 04/12/20 18:00 White Blood Count 6.9 K/UL (4.8-10.8) Red Blood Count 4.05 M/UL (4.20-5.40) Hemoglobin 11.2 G/DL (12.0-16.0) Hematocrit 36.5 % (37.0-47.0) Mean Corpuscular Volume 90 FL (80-99) Mean Corpuscular Hemoglobin 27.6 PG (27.0-31.0) Mean Corpuscular Hemoglobin Concent 30.7 G/DL (32.0-36.0) Red Cell Distribution Width 15.2 % (11.6-14.8) Platelet Count 214 K/UL (150-450) Mean Platelet Volume 9.7 FL (6.5-10.1) Neutrophils (%) (Auto) 55.9 % (45.0-75.0) Lymphocytes (%) (Auto) 28.9 % (20.0-45.0) Monocytes (%) (Auto) 9.3 % (1.0-10.0) Eosinophils (%) (Auto) 4.6 % (0.0-3.0) Basophils (%) (Auto) 1.3 % (0.0-2.0) Sodium Level 141 MMOL/L (136-145) Potassium Level 4.2 MMOL/L (3.5-5.1) Chloride Level 105 MMOL/L (98-107) Carbon Dioxide Level 28 MMOL/L (21-32) Anion Gap 8 mmol/L (5-15) Blood Urea Nitrogen 12 mg/dL (7-18) Creatinine 1.1 MG/DL (0.55-1.30) Estimat Glomerular Filtration Rate > 60 mL/min (>60) Glucose Level 123 MG/DL (74-106) Calcium Level 8.8 MG/DL (8.5-10.1) Ferritin 28 NG/ML (8-388) Total Bilirubin 0.7 MG/DL (0.2-1.0) Aspartate Amino Transf (AST/SGOT) 14 U/L (15-37) Alanine Aminotransferase (ALT/SGPT) 8 U/L (12-78) Alkaline Phosphatase 89 U/L (46-116) Lactate Dehydrogenase 186 U/L (81-234) Troponin I 0.003 ng/mL (0.000-0.056) Pro-B-Type Natriuretic Peptide 1609 pg/mL (0-125) Total Protein 7.6 G/DL (6.4-8.2) Albumin 3.7 G/DL (3.4-5.0) Globulin 3.9 g/dL Albumin/Globulin Ratio 0.9 (1.0-2.7) Lactic Acid Level 0.80 mmol/L (0.4-2.0) (Mary Ashraf) ER Course I saw and evaluated this patient. This patient has a combination of congestive heart failure and COPD. Patient had significant relief of symptoms with Xopenex, Atrovent and prednisone. She is also given Lasix IV given the findings of an elevated BNP and a chest x-ray that was consistent with mild CHF. Overall, the patient did well and responded to treatment. She is admitted for further evaluation and treatment of her CHF and COPD. This patient was evaluated in the context of the global COVID-19 pandemic, which necessitated consideration that the patient might be at risk for infection with the [id number] virus that causes COVID-19. Institutional protocols and algorithms that pertain to the evaluation of patients at risk for COVID-19 and the state of rapid change based on information released by multiple regulatory bodies including the CDC and federal and state organizations. These policies and algorithms were followed during the patient's care in the ED. (Liv Marie DO) EKG Diagnostic Results Troponin ordered: Yes When was troponin ordered?: Apr 12, 2020 EKG Time: 16:53 Rate: normal - 71 Rhythm: NSR ST Segments: no acute changes Other Impression Left ventricular hypertrophy with repolarization abnormality. ASA given to the pt in ED: No PA Scribe Text This Interpretation was scribed by JESSICA Ashraf. (Mary Ashraf) Chest X-Ray Diagnostic Results Chest X-Ray Diagnostic Results : Chest X-Ray Ordered: Yes # of Views/Limited/Complete: 1 View Indication: Shortness of Breath EP Interpretation: Yes JESSICA Xray: Interpretation reviewed, by supervising MD, and agrees with findings. Interpretation: no consolidation, no effusion, no pneumothorax, other - cardiomegaly interstitial infiltrates bilaterally in lower lobes Impression: Other Electronically Signed by: Mary Ashraf PA-C (Mary Ashraf) Last Vital Signs Date Time Temp Pulse Resp B/P (MAP) Pulse Ox O2 Delivery O2 Flow Rate FiO2 04/12/20 18:23 97.9 76 18 155/76 99 Room Air (Mary Ashraf) Disposition: ADMITTED INPATIENT Condition: Serious Referrals: [facility],REFERRING (PCP) Mary Ashraf Apr 12, 2020 19:06 Liv Marie DO Apr 12, 2020 20:15
--- NOTE | 2020-04-12 19:08 | NUR ---
ED Nurse Note: RT at bed side
--- NOTE | 2020-04-12 19:19 | NUR ---
HAND-OFF: Report given to VLADIMIR Talamantes.
--- NOTE | 2020-04-12 19:20 | NUR ---
ED Nurse Note: Report received from LEANDRA GILBERT
--- NOTE | 2020-04-12 19:40 | NUR ---
ED Nurse Note: Patient assisted to the restroom
--- NOTE | 2020-04-12 20:32 | NUR ---
NURSE NOTES: Received report from VLADIMIR Talamantes.
--- NOTE | 2020-04-12 21:10 | NUR ---
ED Nurse Note: Report given to LSELY GILBERT
--- NOTE | 2020-04-12 21:20 | NUR ---
TRANSFER TO FLOOR: Patient transferred to TELE at rm 210 via gurney, accompanied by RN and neurology tech with environmental monitoring specialist. Belongings checked and given to RN. Patient transferred safely to bed and endorsed to RN
[2020-04-12 22:00] VITALS: BP 143/72
--- NOTE | 2020-04-12 22:21 | NUR ---
NURSE NOTES: Received patient on the floor from 2 ED personnel. Admission assessment initiated. Pt AAOx4, able to verbalize needs. On room air, saturating well. Breathing unlabored and even. No shortness of breath at rest and not in acute distress. Able to ambulate with assistance of a walker to the restroom. IV site on RAC #20g, saline lock. IV site patent and flushed. Cardiac monitoring initiated. Skin is intact upon inspection. Lung sounds clear. Left a message with primary MD for admission orders. Awaiting call back. Oriented to hospital room and policies, safety precautions in place. Bed in lowest position, brakes engaged and bed alarm on. Bed rails raised x2. Call light placed within reach. Will continue to monitor.
--- NOTE | 2020-04-12 22:48 | NUR ---
NURSE NOTES: Clarified with Dr. Smith for his duoneb order because patient has recorded allergies to albuterol. Awaiting callback.
[2020-04-13] VITALS: BP 137/52
[2020-04-13] MEDS: Ipratropium 0.02% Inh Soln 2.5ml UD HHN SCH ×4 (01:47→19:45)
[2020-04-13 04:00] VITALS: BP 134/65
--- NOTE | 2020-04-13 07:38 | NUR ---
NURSE HAND-OFF REPORT: Important Events on Shift: Patient Status: [New admit. Complaining of pressure after eating, but relieved by sitting upright. On breathing tx q6 for SOB.] Diet: Pending Orders: Pending Results/Labs:[] Pending MD notification:[] Latest Vital Signs: Temperature 97.9 , Pulse 69 , B/P 134 /65 , Respiratory Rate 22 , O2 SAT 98 , Room Air, O2 Flow Rate 1.0 . Vital Sign Comment: [] EKG Rhythm: Sinus Rhythm Rhythm change?: N MD Notified?: - MD Response: Latest Monte Fall Score: 50 Fall Risk: High Risk Safety Measures: Call light Within Reach, Bed Alarm Zone 1, Side Rails Side Rails x2, Bed position Low and Locked. Fall Precautions: Yellow Socks Yellow Gown Door Sign Patient Fall Education Report given to [KOBI Nieto].
--- NOTE | 2020-04-13 07:40 | NUR ---
NURSE NOTES: Received pt AAOx4, able to make needs known. On O2 2L via NC. Breathing unlabored and even. HOB elevated to alleviate breathing. Able to ambulate with assistance. PIV site on RAC #20g, saline lock patent and intact. deck officer inplaced. Skin is intact. denies pain or discomfort noted. bed is in the lowest position. safety precautions implemented. Bed in lowest position, brakes engaged and bed alarm on. Siderails are upx2. Call light placed within reach. Will continue to monitor.
[2020-04-13 08:00] VITALS: BP 141/72
[2020-04-13] MEDS: Heparin 5000 units/ml inj SUBQ SCH ×2 (08:19→20:22)
[2020-04-13] MEDS: BuPROPion SR 100mg tab ORAL SCH ×2 (08:19→17:16)
[2020-04-13] MEDS: Furosemide 40mg tab ORAL SCH (08:20)
[2020-04-13] MEDS: Lisinopril 20mg tab ORAL SCH (08:21)
[2020-04-13 08:40] LABS: BASOPHILS % (AUTO) 0.3 % (0.0-2.0); EOSINOPHILS % (AUTO) 0.1 % (0.0-3.0); HEMOGLOBIN 10.9 G/DL (12.0-16.0); LYMPHOCYTES % (AUTO) 20.4 % (20.0-45.0); MEAN CORPUSCULAR VOLUME 95 FL (80-99); MONOCYTES % (AUTO) 4.2 % (1.0-10.0); NEUTROPHILS % (AUTO) 75.1 % (45.0-75.0); PLATELET COUNT 215 K/UL (150-450); RED CELL DISTRIBUTION WIDTH 14.8 % (11.6-14.8); WHITE BLOOD COUNT 6.3 K/UL (4.8-10.8)
--- NOTE | 2020-04-13 10:15 | Consultation ---
DATE OF CONSULTATION: 04/13/2020 PULMONARY CONSULTATION CONSULTING PHYSICIAN: Omid Wagner MD. REFERRING PHYSICIAN: HISTORY OF PRESENT ILLNESS: This is a very pleasant 64-year-old female who presents to the hospital with chest pain. The patient is unable to provide a clear history. However, I was able to review old records and note that she has a history of moderate to severe pulmonary hypertension based on an echo done several years ago. The patient has also evidence of diastolic dysfunction. The patient reports a history of COPD. At this time, she states that she is feeling a little bit better. PAST MEDICAL HISTORY: Notable for pulmonary hypertension, obesity, probable underlying COPD. PREVIOUS SURGERIES: None reported. HOME MEDICATIONS: Reviewed and reconciled in the chart. CURRENT MEDICATIONS: Include Wellbutrin, Lasix, Atrovent, albuterol, lisinopril, metoprolol, nifedipine, and prednisone. REVIEW OF SYSTEMS: Denies any headaches, hematemesis, melena, hematochezia, night sweats, or weight loss. PHYSICAL EXAMINATION: GENERAL: An obese female. VITAL SIGNS: Blood pressure is 130/60, heart rate 74, respirations 16. She is afebrile. O2 saturation 98% on room air. HEENT: Unremarkable. LUNGS: Clear breath sounds bilaterally. ABDOMEN: Soft. EXTREMITIES: There is no edema. NEUROLOGIC: Nonfocal. LABORATORY DATA: Lab testing shows hemoglobin 10.9, otherwise normal CBC and BMP. Troponin negative x2. IMAGING STUDIES: X-ray chest was obtained yesterday and per ER report shows evidence of poor inspiration. IMPRESSION: 1. Pulmonary hypertension. 2. Diastolic dysfunction. 3. History of COPD. DISCUSSION: Agree with breathing treatments. Agree with prednisone. She will need diuresis. Recommend cardiac evaluation. We will follow carefully. Omid Wagner M.D. DR: TERRA JOB#: [id number] CC:
--- NOTE | 2020-04-13 11:18 | NUR ---
NURSE NOTES: patient seen by PT and sitting on a chair as we speak. No acute resp distress noted. will cont to monitor.
[2020-04-13 11:49] VITALS: BP 109/59
--- NOTE | 2020-04-13 12:31 | NUR ---
P.T Note: P.T evaluation completed and tx initiated. Please refer to P.T evaluation for full report.
--- NOTE | 2020-04-13 14:00 | NUR ---
CASE MANAGEMENT:REVIEW 64 YR OLD FEMALE WALKED INTO ER CC: CHEST PAIN AND SOB SI: CHF. COPD 97.9 92 18 154/60 99% ON RA BNP+1609 IS: ASA PO PREDNISONE PO DUONEB HHN IV LASIX : TO TELEMETRY IS: LASIX PO QD
--- NOTE | 2020-04-13 14:43 | Cardiac Electrophysiology PN ---
Subjective Subjective [id number] Objective Last 24 Hour Vital Signs Date Time Temp Pulse Resp B/P (MAP) Pulse Ox O2 Delivery O2 Flow Rate FiO2 04/13/20 12:53 72 18 100 Nasal Cannula 2.0 28 78 18 99 04/13/20 12:40 69 04/13/20 11:49 97.7 78 20 109/59 (76) 99 04/13/20 09:21 Room Air 04/13/20 08:21 70 135/63 04/13/20 08:21 135/63 04/13/20 08:20 70 135/63 04/13/20 08:00 96.3 68 21 141/72 (95) 97 04/13/20 08:00 72 04/13/20 06:58 98 Nasal Cannula 2.0 28 04/13/20 06:58 74 18 100 Nasal Cannula 2.0 28 69 18 98 04/13/20 04:00 70 04/13/20 04:00 97.9 69 22 134/65 (88) 98 04/13/20 03:15 94 Nasal Cannula 1.0 24 04/13/20 01:50 90 17 97 Nasal Cannula 1.0 24 87 17 95 04/13/20 00:00 82 04/13/20 00:00 97.7 75 22 137/52 (80) 96 04/12/20 22:00 97.7 71 22 143/72 (95) 96 04/12/20 21:56 Room Air 04/12/20 21:20 97.9 76 16 145/85 100 Room Air 04/12/20 18:55 59 14 100 Room Air 21 57 13 97 04/12/20 18:23 97.9 76 18 155/76 99 Room Air 04/12/20 17:00 92 18 Room Air 04/12/20 17:00 97.9 18 154/60 99 Room Air 04/12/20 16:54 97.9 92 18 154/60 (91) 99 Room Air Intake and Output 04/12/20 04/13/20 19:00 07:00 Intake Total 800 ml Output Total 300 ml Balance 500 ml Intake Oral 800 ml Output Urine Total 300 ml # Voids 1 # Bowel Movements 1 Laboratory Tests Test 04/12/20 16:55 04/12/20 18:00 04/13/20 00:15 04/13/20 08:15 White Blood Count 6.9 K/UL (4.8-10.8) 6.3 K/UL (4.8-10.8) Red Blood Count 4.05 M/UL (4.20-5.40) L 3.90 M/UL (4.20-5.40) L Hemoglobin 11.2 G/DL (12.0-16.0) L 10.9 G/DL (12.0-16.0) L Hematocrit 36.5 % (37.0-47.0) L 37.0 % (37.0-47.0) Mean Corpuscular Volume 90 FL (80-99) 95 FL (80-99) Mean Corpuscular Hemoglobin 27.6 PG (27.0-31.0) 28.0 PG (27.0-31.0) Mean Corpuscular Hemoglobin Concent 30.7 G/DL (32.0-36.0) L 29.6 G/DL (32.0-36.0) L Red Cell Distribution Width 15.2 % (11.6-14.8) H 14.8 % (11.6-14.8) Platelet Count 214 K/UL (150-450) 215 K/UL (150-450) Mean Platelet Volume 9.7 FL (6.5-10.1) 10.1 FL (6.5-10.1) Neutrophils (%) (Auto) 55.9 % (45.0-75.0) 75.1 % (45.0-75.0) H Lymphocytes (%) (Auto) 28.9 % (20.0-45.0) 20.4 % (20.0-45.0) Monocytes (%) (Auto) 9.3 % (1.0-10.0) 4.2 % (1.0-10.0) Eosinophils (%) (Auto) 4.6 % (0.0-3.0) H 0.1 % (0.0-3.0) Basophils (%) (Auto) 1.3 % (0.0-2.0) 0.3 % (0.0-2.0) Sodium Level 141 MMOL/L (136-145) Potassium Level 4.2 MMOL/L (3.5-5.1) Chloride Level 105 MMOL/L (98-107) Carbon Dioxide Level 28 MMOL/L (21-32) Anion Gap 8 mmol/L (5-15) Blood Urea Nitrogen 12 mg/dL (7-18) Creatinine 1.1 MG/DL (0.55-1.30) Estimat Glomerular Filtration Rate > 60 mL/min (>60) Glucose Level 123 MG/DL (74-106) H Calcium Level 8.8 MG/DL (8.5-10.1) Ferritin 28 NG/ML (8-388) Total Bilirubin 0.7 MG/DL (0.2-1.0) Aspartate Amino Transf (AST/SGOT) 14 U/L (15-37) L Alanine Aminotransferase (ALT/SGPT) 8 U/L (12-78) L Alkaline Phosphatase 89 U/L (46-116) Lactate Dehydrogenase 186 U/L (81-234) Troponin I 0.003 ng/mL (0.000-0.056) 0.008 ng/mL (0.000-0.056) 0.005 ng/mL (0.000-0.056) Pro-B-Type Natriuretic Peptide 1609 pg/mL (0-125) H Total Protein 7.6 G/DL (6.4-8.2) Albumin 3.7 G/DL (3.4-5.0) Globulin 3.9 g/dL Albumin/Globulin Ratio 0.9 (1.0-2.7) L Lactic Acid Level 0.80 mmol/L (0.4-2.0) Microbiology Date/Time Source Procedure Growth Status 04/12/20 18:02 Nasopharynx SARS-CoV-2 RdRp Gene Assay - Final Complete Tommy Harrison MD Apr 13, 2020 14:43
[2020-04-13] MEDS ORDERED: Lexiscan 0.4mg/5ml syringe IV PRN (14:48)
--- NOTE | 2020-04-13 14:54 | Cardiology Report ---
APPROVED REPORT EKG Measurement Heart [id number] <Conclusion> Normal sinus rhythm with sinus arrhythmia Left ventricular hypertrophy with repolarization abnormality Abnormal ECG
--- NOTE | 2020-04-13 15:09 | Cardiology Report ---
APPROVED REPORT EKG Measurement Heart [id number] <Conclusion> Normal sinus rhythm Left ventricular hypertrophy with repolarization abnormality Abnormal ECG
[2020-04-13 16:00] VITALS: BP 135/67
--- NOTE | 2020-04-13 16:30 | History and Physical Report ---
DATE OF ADMISSION: 04/12/2020 TIME SEEN: 9 a.m. CONSULTANTS: 1. Omid Wagner M.D. 2. Tommy Harrison M.D. CHIEF COMPLAINT: Shortness of breath, CHF, COPD. BRIEF HISTORY: This is a 64-year-old female who lives at home, presented with increased shortness of breath for about a week, came into [place], diagnosed with exacerbation of CHF and COPD, admitted to [facility]. Currently calm in bed, slight short of breath. No complaint. REVIEW OF SYSTEMS: No chest pain. Slight short of breath. No nausea, vomiting, or diarrhea. PAST MEDICAL HISTORY: Hypertension, asthma, COPD, CHF. PAST SURGICAL HISTORY: Abdominal hysterectomy, gallbladder, laparoscopy. MEDICATIONS: Nifedipine, metoprolol, lisinopril, furosemide, bupropion, heparin, ipratropium, morphine. ALLERGIES: Albuterol. SOCIAL HISTORY: No smoking. No alcohol. No intravenous drug abuse. FAMILY HISTORY: Noncontributory. PHYSICAL EXAMINATION: GENERAL: Calm in bed, slight short of breath, oriented x3, no acute distress. VITAL SIGNS: Temperature 96, pulse 68, respirations 21, blood pressure 141/72. CARDIOVASCULAR: No murmur. LUNGS: Poor exchange. ABDOMEN: Bowel sounds distant. EXTREMITIES: 1+ edema. NEUROLOGIC: The patient moves all extremities, slightly weak. LABORATORY AND DIAGNOSTIC DATA: Labs at this time show H and H 10.9 and 37; otherwise, CBC is normal. BMP shows glucose 129. Troponin 0.003 and 0.008. AST 14, ALT 8. BNP is 1609. ASSESSMENT: 1. CHF exacerbation. 2. COPD exacerbation and shortness of breath. 3. Anemia. 4. Bilateral edema. 5. Pulmonary hypertension. 6. Hypertension. 7. Asthma. PLAN: 1. O2 and pulmonary treatment. 2. Antibiotics. 3. Blood pressure, blood sugar, pain control. 4. Diurese. 5. Cardiology and pulmonary followup. 6. CBC and BMP in the morning. Nadeem Smith D.O. DR: Francie JOB#: [id number] CC:
--- NOTE | 2020-04-13 17:42 | NUR ---
NURSE NOTES: PATIENT ON A CHAIR PER MEALTIME. ABLE TO TRANSFER FROM BED TO CHAIR WITH MINIMAL ASSIST. NO ACUTE RESP DISTRESS NOTED. WILL CONT TO MONITOR.
--- NOTE | 2020-04-13 18:00 | Consultation ---
DATE OF CONSULTATION: 04/13/2020 CARDIOLOGY CONSULTATION CONSULTING PHYSICIAN: Tommy Harrison MD REFERRING PHYSICIAN: Nadeem Smith DO REASON FOR CONSULTATION: Shortness of breath and chest pain. HISTORY OF PRESENT ILLNESS: Patient is a 64-year-old lady with history of COPD, pulmonary hypertension, obesity who presented to the hospital complaining of chest pain. Patient has history of moderate to severe pulmonary hypertension based on the echo that was done several years ago. Patient also has diastolic dysfunction. Patient stated that about 2 weeks ago, she also went to an urgent care with chest pain and they told her to go to the hospital, but she postponed it until now. Her troponins were negative. Patient denies any prior myocardial infarction or coronary artery disease or congestive heart failure. REVIEW OF SYSTEMS: Negative other than what was mentioned in the history of present illness. PAST MEDICAL HISTORY: As mentioned above. FAMILY HISTORY: Noncontributory. SOCIAL HISTORY: She lives at home. Does not smoke or use any drugs. PHYSICAL EXAMINATION: VITAL SIGNS: Show blood pressure of 109/59, pulse is 72, respirations 18, temperature 97.7. HEAD AND NECK: Shows no JVD. LUNGS: Clear. CARDIOVASCULAR: Shows regular S1 and S2 with no gallop or murmur. ABDOMEN: Soft. EXTREMITIES: No pitting edema. LABORATORY DATA: Her labs show white count of 6.3, hemoglobin of 11, hematocrit 37, and platelet count is 215,000. Sodium is 141, potassium 4.2, BUN of 12, creatinine 1.1, and glucose of 123. Troponin negative x3. ASSESSMENT AND PLAN: 1. Chest pain. Patient was ruled out for myocardial infarction by serial cardiac enzymes. EKG is nonischemic. We will get an echocardiogram to evaluate for ejection fraction and wall motion abnormality. 2. Shortness of breath, likely due to COPD and pulmonary hypertension and diastolic dysfunction. 3. Hypertension. Continue metoprolol 25 b.i.d., Procardia XL 90 mg daily, lisinopril 20 mg daily as well as Lasix 40 mg daily. Thank very much for allowing me to participate in the care of this patient. Please do not hesitate to contact me for any questions regarding my evaluation. Tommy Harrison M.D. DR: JAQUAN JOB#: [id number] CC:
--- NOTE | 2020-04-13 18:51 | Diagnostic Imaging Report ---
Indication: Chest Technique: One view of the chest Comparison: 12/23/2018 Findings: Lungs and pleural spaces are clear. The heart is mildly enlarged. Findings are unchanged. Impression: Cardiomegaly. No acute process
--- NOTE | 2020-04-13 19:11 | NUR ---
NURSE HAND-OFF REPORT: Important Events on Shift:SAFETY, ASSIST WITH BRP, NPO AFTER MN FOR LEXISCAN] Patient Status: [IMPROVING] Diet: [LOW NA] Pending Orders: [EKG, LEXISCAN, LABS] Pending Results/Labs:[IN AM] Pending MD notification:[] Latest Vital Signs: Temperature 97.9 , Pulse 74 , B/P 135 /67 , Respiratory Rate 20 , O2 SAT 98 , Room Air, O2 Flow Rate 2.0 . Vital Sign Comment: [] EKG Rhythm: Sinus Rhythm Rhythm change?: N MD Notified?: - MD Response: Latest Monte Fall Score: 50 Fall Risk: High Risk Safety Measures: Call light Within Reach, Bed Alarm Zone 1, Side Rails Side Rails x2, Bed position Low and Locked. Fall Precautions: Yellow Socks Yellow Gown Door Sign Patient Fall Education Report given to [CARRI].
--- NOTE | 2020-04-13 19:30 | NUR ---
NURSE NOTES: Received pt and report from VLADIMIR Nieto. Observed pt sitting in chair and bedside. Pt is A/Ox4. flask pusher is in placed; pt is NSR. IV site intact, asymptomatic and patent. Pt is on 2L NC; sating at 97%. No respiratory distress noted. Bed is in the lowest position and locked. Call light and bedside table is within reach. No signs/symptoms of acute distress noted. Will continue plan of care.
[2020-04-13 20:00] VITALS: BP 119/54
[2020-04-13] MEDS: Zolpidem 5mg tab ORAL PRN (21:42)
[2020-04-14] VITALS: BP 108/56
[2020-04-14] MEDS: Ipratropium 0.02% Inh Soln 2.5ml UD HHN SCH ×4 (01:33→19:12)
[2020-04-14 04:00] VITALS: BP 120/58
--- NOTE | 2020-04-14 07:25 | NUR ---
NURSE HAND-OFF REPORT: Important Events on Shift: Pt has been NPO since midnight. Pt has stress test scheduled for today. Pt has Asthma listed in medical history. Asked pt if she has history of asthma, pt responded that she was not diagnosed for asthma but has "asthma like" symptoms. Endorsed to dayshift nurse. Patient Status: Stable Diet: NPO Pending Orders: Stress test Pending Results/Labs: AM Labs Pending MD notification: N Latest Vital Signs: Temperature 97.7 , Pulse 71 , B/P 120 /58 , Respiratory Rate 20 , O2 SAT 96 , Room Air, O2 Flow Rate 2.0 . EKG Rhythm: Sinus Rhythm Rhythm change?: N Latest Monte Fall Score: 50 Fall Risk: High Risk Safety Measures: Call light Within Reach, Bed Alarm Zone 1, Side Rails Side Rails x2, Bed position Low and Locked. Fall Precautions: Yellow Socks Yellow Gown Door Sign Patient Fall Education Report given to VLADIMIR Land.
[2020-04-14 07:34] LABS: EOSINOPHILS % (AUTO) 2.8 % (0.0-3.0); HEMATOCRIT 35.6 % (37.0-47.0); HEMOGLOBIN 10.4 G/DL (12.0-16.0); LYMPHOCYTES % (AUTO) 44.9 % (20.0-45.0); MEAN CORPUSCULAR VOLUME 96 FL (80-99); MONOCYTES % (AUTO) 10.1 % (1.0-10.0); NEUTROPHILS % (AUTO) 41.2 % (45.0-75.0); PLATELET COUNT 184 K/UL (150-450); RED BLOOD COUNT 3.72 M/UL (4.20-5.40); RED CELL DISTRIBUTION WIDTH 14.8 % (11.6-14.8)
[2020-04-14 07:45] LABS: ANION GAP 6 mmol/L (5-15); BLOOD UREA NITROGEN 17 mg/dL (7-18); CALCIUM 8.9 MG/DL (8.5-10.1); CARBON DIOXIDE 31 MMOL/L (21-32); CHLORIDE 105 MMOL/L (98-107); CREATININE 1.1 MG/DL (0.55-1.30); POTASSIUM 4.2 MMOL/L (3.5-5.1); SODIUM 142 MMOL/L (136-145)
[2020-04-14 08:00] VITALS: BP 123/61
--- NOTE | 2020-04-14 08:02 | NUR ---
NURSE NOTES: Received pt and report from Tawny RN. Pt is sleeping in bed and is on NC @ 2L with no sob or resp distress noted. Wheezing is noted bilat. Pt is on scheduled BT. Pt is on co founder & ceo with SR noted. Pt has right AC 20g noted to be c/d/i. Bed is in the lowest position and locked. Call light and bedside table is within reach. Will continue plan of care.
[2020-04-14] MEDS: BuPROPion SR 100mg tab ORAL SCH ×2 (09:14→17:04)
[2020-04-14] MEDS: Lisinopril 20mg tab ORAL SCH (09:15)
[2020-04-14] MEDS: Furosemide 40mg tab ORAL SCH (09:15)
[2020-04-14] MEDS: Heparin 5000 units/ml inj SUBQ SCH ×2 (09:18→20:53)
--- NOTE | 2020-04-14 10:57 | Pulmonology Progress Note ---
Subjective Interval Events: None new Constitutional: Reports: no symptoms HEENT: Repors: no symptoms Respiratory: Reports: no symptoms Cardiovascular: Reports: no symptoms Gastrointestinal/Abdominal: Reports: no symptoms Genitourinary: Reports: no symptoms Neurologic: Reports: no symptoms Allergies: Coded Allergies: ALBUTEROL (Verified Allergy, Unknown, 07/16/18) Objective Last 24 Hour Vital Signs Date Time Temp Pulse Resp B/P (MAP) Pulse Ox O2 Delivery O2 Flow Rate FiO2 04/14/20 09:15 66 123/61 04/14/20 09:15 123/61 04/14/20 08:03 60 18 99 Nasal Cannula 2.0 28 69 18 98 04/14/20 08:00 96.9 66 18 123/61 (81) 95 04/14/20 08:00 72 04/14/20 07:53 98 Room Air 2.0 28 04/14/20 07:40 71 120/58 04/14/20 04:00 97.7 70 20 120/58 (78) 96 04/14/20 04:00 71 04/14/20 01:43 65 18 99 Nasal Cannula 2.0 28 04/14/20 01:33 67 18 99 Nasal Cannula 2.0 28 04/14/20 00:00 65 04/14/20 00:00 97.7 67 20 108/56 (73) 97 04/13/20 21:00 Room Air 04/13/20 20:00 63 04/13/20 20:00 97.9 63 21 119/54 (75) 99 04/13/20 19:56 60 18 99 Nasal Cannula 2.0 28 04/13/20 19:46 61 18 97 Nasal Cannula 2.0 28 04/13/20 19:46 97 Nasal Cannula 2.0 28 04/13/20 17:16 74 135/67 04/13/20 16:00 97.9 74 20 135/67 (89) 98 04/13/20 16:00 68 04/13/20 12:53 72 18 100 Nasal Cannula 2.0 28 78 18 99 04/13/20 12:40 69 04/13/20 11:49 97.7 78 20 109/59 (76) 99 Intake and Output 04/13/20 04/14/20 19:00 07:00 Intake Total 360 ml 260 ml Output Total 1000 ml 1100 ml Balance -640 ml -840 ml Intake Oral 360 ml 260 ml Output Urine Total 1000 ml 1100 ml # Bowel Movements 1 General Appearance: no acute distress HEENT: normocephalic Respiratory: chest wall non-tender, lungs clear Cardiovascular: normal peripheral pulses, normal rate Abdomen: normal bowel sounds Microbiology Date/Time Source Procedure Growth Status 04/12/20 18:02 Nasopharynx SARS-CoV-2 RdRp Gene Assay - Final Complete Laboratory Tests 04/13/20 16:15: Troponin I 0.007 04/14/20 06:34: White Blood Count 6.0, Red Blood Count 3.72L, Hemoglobin 10.4L, Hematocrit 35.6L , Mean Corpuscular Volume 96, Mean Corpuscular Hemoglobin 27.8, Mean Corpuscular Hemoglobin Concent 29.1L, Red Cell Distribution Width 14.8, Platelet Count 184, Mean Platelet Volume 9.6, Neutrophils (%) (Auto) 41.2L, Lymphocytes (%) (Auto) 44.9, Monocytes (%) (Auto) 10.1H, Eosinophils (%) (Auto) 2.8, Basophils (%) (Auto) 1.0, Sodium Level 142, Potassium Level 4.2, Chloride Level 105, Carbon Dioxide Level 31, Anion Gap 6, Blood Urea Nitrogen 17, Creatinine 1.1, Estimat Glomerular Filtration Rate > 60, Glucose Level 87, Calcium Level 8.9, Pro-B-Type Natriuretic Peptide 1098H Current Medications Medications (Trade) Dose Ordered Sig/Gus Route PRN Reason Start Time Stop Time Status Last Admin Dose Admin Bupropion HCl (Wellbutrin SR) 100 mg TWICE A DAY ORAL 04/13/20 09:00 05/13/20 08:59 04/14/20 09:14 Furosemide (Lasix) 40 mg DAILY ORAL 04/13/20 09:00 05/13/20 08:59 04/14/20 09:15 Heparin Sodium (Porcine) (Heparin 5000 units/ml) 5,000 units EVERY 12 HOURS SUBQ 04/13/20 09:00 05/28/20 08:59 04/14/20 09:18 Ipratropium [place] (Atrovent) 500 mcg Q6HRT HHN 04/13/20 01:00 04/18/20 00:59 04/14/20 07:53 Lisinopril (PriniviL) 10 mg DAILY ORAL 04/13/20 09:00 05/13/20 08:59 04/14/20 09:15 Metoprolol Tartrate (Lopressor) 25 mg BID ORAL 04/13/20 09:00 07/12/20 08:59 04/13/20 17:16 Morphine Sulfate (Morphine Sulfate) 2 mg Q4H PRN IVP For Pain 04/12/20 23:00 04/19/20 22:59 Nifedipine (Procardia XL) 90 mg DAILY ORAL 04/13/20 09:00 05/13/20 08:59 04/14/20 09:15 Regadenoson (Lexiscan) 0.4 mg ONCE PRN IV CARDIOLOGY 04/13/20 14:48 04/15/20 23:59 Zolpidem Tartrate (Ambien) 5 mg HSPRN PRN ORAL Insomnia 04/13/20 21:15 04/20/20 21:14 04/13/20 21:42 Assessment/Plan Assessment/Plan IMPRESSION: 1. Pulmonary hypertension. 2. Diastolic dysfunction. 3. History of COPD. DISCUSSION: Continue with breathing treatments. Low dose steroids Stress test today Carmen Olmedo Omar Syed MD Apr 14, 2020 10:57
--- NOTE | 2020-04-14 11:08 | General Progress Note ---
Subjective Allergies: Coded Allergies: ALBUTEROL (Verified Allergy, Unknown, 07/16/18) Subjective Patient states she is SOB, and required a breathing treatment earlier. Exam revealed few expiratory wheezes. Will defer stress testing until pulmonary status more stable. Objective Last 24 Hour Vital Signs Date Time Temp Pulse Resp B/P (MAP) Pulse Ox O2 Delivery O2 Flow Rate FiO2 04/14/20 09:15 66 123/61 04/14/20 09:15 123/61 04/14/20 08:03 60 18 99 Nasal Cannula 2.0 28 69 18 98 04/14/20 08:00 96.9 66 18 123/61 (81) 95 04/14/20 08:00 72 04/14/20 07:53 98 Room Air 2.0 28 04/14/20 07:40 71 120/58 04/14/20 04:00 97.7 70 20 120/58 (78) 96 04/14/20 04:00 71 04/14/20 01:43 65 18 99 Nasal Cannula 2.0 28 04/14/20 01:33 67 18 99 Nasal Cannula 2.0 28 04/14/20 00:00 65 04/14/20 00:00 97.7 67 20 108/56 (73) 97 04/13/20 21:00 Room Air 04/13/20 20:00 63 04/13/20 20:00 97.9 63 21 119/54 (75) 99 04/13/20 19:56 60 18 99 Nasal Cannula 2.0 28 04/13/20 19:46 61 18 97 Nasal Cannula 2.0 28 04/13/20 19:46 97 Nasal Cannula 2.0 28 04/13/20 17:16 74 135/67 04/13/20 16:00 97.9 74 20 135/67 (89) 98 04/13/20 16:00 68 04/13/20 12:53 72 18 100 Nasal Cannula 2.0 28 78 18 99 04/13/20 12:40 69 04/13/20 11:49 97.7 78 20 109/59 (76) 99 Intake and Output 04/13/20 04/14/20 19:00 07:00 Intake Total 360 ml 260 ml Output Total 1000 ml 1100 ml Balance -640 ml -840 ml Intake Oral 360 ml 260 ml Output Urine Total 1000 ml 1100 ml # Bowel Movements 1 Laboratory Tests 04/13/20 16:15: Troponin I 0.007 04/14/20 06:34: White Blood Count 6.0, Red Blood Count 3.72L, Hemoglobin 10.4L, Hematocrit 35.6L , Mean Corpuscular Volume 96, Mean Corpuscular Hemoglobin 27.8, Mean Corpuscular Hemoglobin Concent 29.1L, Red Cell Distribution Width 14.8, Platelet Count 184, Mean Platelet Volume 9.6, Neutrophils (%) (Auto) 41.2L, Lymphocytes (%) (Auto) 44.9, Monocytes (%) (Auto) 10.1H, Eosinophils (%) (Auto) 2.8, Basophils (%) (Auto) 1.0, Sodium Level 142, Potassium Level 4.2, Chloride Level 105, Carbon Dioxide Level 31, Anion Gap 6, Blood Urea Nitrogen 17, Creatinine 1.1, Estimat Glomerular Filtration Rate > 60, Glucose Level 87, Calcium Level 8.9, Pro-B-Type Natriuretic Peptide 1098H Height (Feet): 5 Height (Inches): 1.00 Weight (Pounds): 265 Neto Staley MD Apr 14, 2020 11:08
[2020-04-14 12:00] VITALS: BP 141/96
--- NOTE | 2020-04-14 12:00 | NUR ---
NURSE NOTES: Stress test cancelled. Dr Harrison aware
--- NOTE | 2020-04-14 14:08 | General Progress Note ---
Subjective Constitutional: Reports: weakness Respiratory: Reports: shortness of breath Allergies: Coded Allergies: ALBUTEROL (Verified Allergy, Unknown, 07/16/18) All Systems: reviewed and negative except above Subjective o2nc calm Objective Last 24 Hour Vital Signs Date Time Temp Pulse Resp B/P (MAP) Pulse Ox O2 Delivery O2 Flow Rate FiO2 04/14/20 12:00 96.7 80 21 141/96 (111) 95 04/14/20 12:00 72 04/14/20 09:15 66 123/61 04/14/20 09:15 123/61 04/14/20 09:00 Room Air 04/14/20 08:03 60 18 99 Nasal Cannula 2.0 28 69 18 98 04/14/20 08:00 96.9 66 18 123/61 (81) 95 04/14/20 08:00 72 04/14/20 07:53 98 Room Air 2.0 28 04/14/20 07:40 71 120/58 04/14/20 04:00 97.7 70 20 120/58 (78) 96 04/14/20 04:00 71 04/14/20 01:43 65 18 99 Nasal Cannula 2.0 28 04/14/20 01:33 67 18 99 Nasal Cannula 2.0 28 04/14/20 00:00 65 04/14/20 00:00 97.7 67 20 108/56 (73) 97 04/13/20 21:00 Room Air 04/13/20 20:00 63 04/13/20 20:00 97.9 63 21 119/54 (75) 99 04/13/20 19:56 60 18 99 Nasal Cannula 2.0 28 04/13/20 19:46 61 18 97 Nasal Cannula 2.0 28 04/13/20 19:46 97 Nasal Cannula 2.0 28 04/13/20 17:16 74 135/67 04/13/20 16:00 97.9 74 20 135/67 (89) 98 04/13/20 16:00 68 Intake and Output 04/13/20 04/14/20 19:00 07:00 Intake Total 360 ml 260 ml Output Total 1000 ml 1100 ml Balance -640 ml -840 ml Intake Oral 360 ml 260 ml Output Urine Total 1000 ml 1100 ml # Bowel Movements 1 Laboratory Tests 04/13/20 16:15: Troponin I 0.007 04/14/20 06:34: White Blood Count 6.0, Red Blood Count 3.72L, Hemoglobin 10.4L, Hematocrit 35.6L , Mean Corpuscular Volume 96, Mean Corpuscular Hemoglobin 27.8, Mean Corpuscular Hemoglobin Concent 29.1L, Red Cell Distribution Width 14.8, Platelet Count 184, Mean Platelet Volume 9.6, Neutrophils (%) (Auto) 41.2L, Lymphocytes (%) (Auto) 44.9, Monocytes (%) (Auto) 10.1H, Eosinophils (%) (Auto) 2.8, Basophils (%) (Auto) 1.0, Sodium Level 142, Potassium Level 4.2, Chloride Level 105, Carbon Dioxide Level 31, Anion Gap 6, Blood Urea Nitrogen 17, Creatinine 1.1, Estimat Glomerular Filtration Rate > 60, Glucose Level 87, Calcium Level 8.9, Pro-B-Type Natriuretic Peptide 1098H Height (Feet): 5 Height (Inches): 1.00 Weight (Pounds): 265 General Appearance: lethargic EENT: normal ENT inspection Neck: normal alignment Cardiovascular: normal peripheral pulses, normal rate, regular rhythm Respiratory/Chest: chest wall non-tender, lungs clear, normal breath sounds Abdomen: normal bowel sounds, non tender, soft Extremities: normal inspection Edema: 1+ Arm (L), 1+ Arm (R), 1+ Leg (L), 1+ Leg (R), 1+ Pedal (L), 1+ Pedal (R), 1+ Generalized Edema: trace edema Neurologic: responsive, motor weakness Skin: normal pigmentation, warm/dry Assessment/Plan Problem List: (1) HTN (hypertension) ICD Codes: I10 - Essential (primary) hypertension SNOMED: 42590858 (2) Congestive heart failure ICD Codes: I50.9 - Heart failure, unspecified SNOMED: 19278190 (3) COPD exacerbation ICD Codes: J44.1 - Chronic obstructive pulmonary disease with (acute) exacerbation SNOMED: 343635678, 473733404 Status: unchanged Assessment/Plan: o2 pulm tx diurse cbc bmp am Nadeem Smith DO Apr 14, 2020 14:07
--- NOTE | 2020-04-14 15:31 | NUR ---
CASE MANAGEMENT:REVIEW 04/14/20 SI: CHF. COPD SOB. CHEST PAIN 96.7 72 21 141/96 95% ON 2L/NC H/H-10.4/35.6 BNP+1098 IS: PREDNISONE PO QD PROCARDIA PO QD LOPRESSOR PO BID LISINOPRIL PO QD LASIX PO QD HEPARIN SQ Q12 ATROVENT HHN Q6HRS RTC : TELEMETRY STATUS DCP: FROM HOME PLAN: STRESS TEST FOR TODAY CANCELLED D/T SOB AND WHEEZING
[2020-04-14 16:00] VITALS: BP 112/52
--- NOTE | 2020-04-14 18:14 | Cardiac Electrophysiology PN ---
Assessment/Plan Assessment/Plan 1. Chest pain. Patient was ruled out for myocardial infarction by serial cardiac enzymes. EKG is nonischemic. Echocardiogram Nl EF 60% Stress test rescheduled for tomorrow( By Dr. Staley). 2. Shortness of breath due to COPD and pulmonary hypertension and diastolic dysfunction. 3. Hypertension. Continue metoprolol 25 b.i.d., Procardia XL 90 mg daily, lisinopril 20 mg daily as well as Lasix 40 mg daily. DICKSON RN Subjective Subjective Stress test was postponed to tomorrow by Dr Staley. No CP or SOB Objective Last 24 Hour Vital Signs Date Time Temp Pulse Resp B/P (MAP) Pulse Ox O2 Delivery O2 Flow Rate FiO2 04/14/20 17:04 72 112/52 04/14/20 16:00 72 04/14/20 16:00 97.7 73 18 112/52 (72) 98 04/14/20 12:00 96.7 80 21 141/96 (111) 95 04/14/20 12:00 72 04/14/20 09:15 66 123/61 04/14/20 09:15 123/61 04/14/20 09:00 Room Air 04/14/20 08:03 60 18 99 Nasal Cannula 2.0 28 69 18 98 04/14/20 08:00 96.9 66 18 123/61 (81) 95 04/14/20 08:00 72 04/14/20 07:53 98 Room Air 2.0 28 04/14/20 07:40 71 120/58 04/14/20 04:00 97.7 70 20 120/58 (78) 96 04/14/20 04:00 71 04/14/20 01:43 65 18 99 Nasal Cannula 2.0 28 04/14/20 01:33 67 18 99 Nasal Cannula 2.0 28 04/14/20 00:00 65 04/14/20 00:00 97.7 67 20 108/56 (73) 97 04/13/20 21:00 Room Air 04/13/20 20:00 63 04/13/20 20:00 97.9 63 21 119/54 (75) 99 04/13/20 19:56 60 18 99 Nasal Cannula 2.0 28 04/13/20 19:46 61 18 97 Nasal Cannula 2.0 28 04/13/20 19:46 97 Nasal Cannula 2.0 28 Intake and Output 04/13/20 04/14/20 19:00 07:00 Intake Total 360 ml 260 ml Output Total 1000 ml 1100 ml Balance -640 ml -840 ml Intake Oral 360 ml 260 ml Output Urine Total 1000 ml 1100 ml # Bowel Movements 1 Laboratory Tests Test 04/14/20 06:34 White Blood Count 6.0 K/UL (4.8-10.8) Red Blood Count 3.72 M/UL (4.20-5.40) L Hemoglobin 10.4 G/DL (12.0-16.0) L Hematocrit 35.6 % (37.0-47.0) L Mean Corpuscular Volume 96 FL (80-99) Mean Corpuscular Hemoglobin 27.8 PG (27.0-31.0) Mean Corpuscular Hemoglobin Concent 29.1 G/DL (32.0-36.0) L Red Cell Distribution Width 14.8 % (11.6-14.8) Platelet Count 184 K/UL (150-450) Mean Platelet Volume 9.6 FL (6.5-10.1) Neutrophils (%) (Auto) 41.2 % (45.0-75.0) L Lymphocytes (%) (Auto) 44.9 % (20.0-45.0) Monocytes (%) (Auto) 10.1 % (1.0-10.0) H Eosinophils (%) (Auto) 2.8 % (0.0-3.0) Basophils (%) (Auto) 1.0 % (0.0-2.0) Sodium Level 142 MMOL/L (136-145) Potassium Level 4.2 MMOL/L (3.5-5.1) Chloride Level 105 MMOL/L (98-107) Carbon Dioxide Level 31 MMOL/L (21-32) Anion Gap 6 mmol/L (5-15) Blood Urea Nitrogen 17 mg/dL (7-18) Creatinine 1.1 MG/DL (0.55-1.30) Estimat Glomerular Filtration Rate > 60 mL/min (>60) Glucose Level 87 MG/DL (74-106) Calcium Level 8.9 MG/DL (8.5-10.1) Pro-B-Type Natriuretic Peptide 1098 pg/mL (0-125) H Microbiology Date/Time Source Procedure Growth Status 04/12/20 18:02 Nasopharynx SARS-CoV-2 RdRp Gene Assay - Final Complete Objective HEAD AND NECK: Shows no JVD. LUNGS: Clear. CARDIOVASCULAR: Shows regular S1 and S2 with no gallop or murmur. ABDOMEN: Soft. EXTREMITIES: No pitting edema. Tommy Harrison MD Apr 14, 2020 18:14
--- NOTE | 2020-04-14 19:30 | NUR ---
NURSE NOTES: Received pt and report from VLADIMIR Land. Observed pt resting in bed with both eyes open and watching television. Pt is A/Ox4. personnel monitor is in placed; pt is NSR. IV site intact, asymptomatic and patent. Pt is on 2L NC; sating at 98%. No respiratory distress noted. Bed is in the lowest position and locked. Call light and bedside table is within reach. No signs/symptoms of acute distress noted. Will continue plan of care.
[2020-04-14 20:00] VITALS: BP 106/64
[2020-04-14] MEDS: Zolpidem 5mg tab ORAL PRN (20:49)
--- NOTE | 2020-04-14 23:37 | NUR ---
NURSE NOTES: Pt has voided twice since Jean catheter removal.
[2020-04-15] VITALS: BP 117/63
[2020-04-15] MEDS: Ipratropium 0.02% Inh Soln 2.5ml UD HHN SCH ×4 (00:53→18:45)
--- NOTE | 2020-04-15 01:19 | NUR ---
NURSE NOTES: Observed pt asleep in bed. No signs/symptoms of acute distress noted. Will continue plan of care.
[2020-04-15 04:00] VITALS: BP 120/64
[2020-04-15 06:06] LABS: BASOPHILS % (AUTO) 1.4 % (0.0-2.0); EOSINOPHILS % (AUTO) 2.7 % (0.0-3.0); HEMATOCRIT 37.2 % (37.0-47.0); LYMPHOCYTES % (AUTO) 39.8 % (20.0-45.0); MEAN CORPUSCULAR VOLUME 95 FL (80-99); MONOCYTES % (AUTO) 9.2 % (1.0-10.0); NEUTROPHILS % (AUTO) 46.8 % (45.0-75.0); PLATELET COUNT 199 K/UL (150-450); RED BLOOD COUNT 3.93 M/UL (4.20-5.40); RED CELL DISTRIBUTION WIDTH 14.8 % (11.6-14.8); WHITE BLOOD COUNT 6.3 K/UL (4.8-10.8)
[2020-04-15 06:26] LABS: ANION GAP 6 mmol/L (5-15); BLOOD UREA NITROGEN 19 mg/dL (7-18); CALCIUM 9.3 MG/DL (8.5-10.1); CARBON DIOXIDE 30 MMOL/L (21-32); CHLORIDE 104 MMOL/L (98-107); CREATININE 1.1 MG/DL (0.55-1.30); SODIUM 140 MMOL/L (136-145)
[2020-04-15] MEDS ORDERED: Lexiscan 0.4mg/5ml syringe IV PRN (07:45)
--- NOTE | 2020-04-15 07:50 | NUR ---
NURSE HAND-OFF REPORT: Important Events on Shift: Reordered stress test per Dr. Harrison. Pt has been NPO since midnight. Patient Status: Stable Diet: NPO Pending Orders: Stress test Pending Results/Labs: AM Labs Pending MD notification: N Latest Vital Signs: Temperature 97.9 , Pulse 62 , B/P 120 /64 , Respiratory Rate 19 , O2 SAT 100 , Nasal Cannula, O2 Flow Rate 2.0 . EKG Rhythm: Sinus Rhythm Rhythm change?: N Latest Monte Fall Score: 50 Fall Risk: High Risk Safety Measures: Call light Within Reach, Bed Alarm Zone 1, Side Rails Side Rails x2, Bed position Low and Locked. Fall Precautions: Yellow Socks Patient Fall Education Report given to VLADIMIR Bernabe.
[2020-04-15 08:00] VITALS: BP 110/59
--- NOTE | 2020-04-15 08:06 | NUR ---
NURSE NOTES: pt in bed sleeping, she is NPO, might have stress test today. AOx4, bed locked and in lowest position, call light within reach. continue court recording monitor no signs of cardiac distress at this moment. will continue to monitor pt.
[2020-04-15] MEDS: Lisinopril 20mg tab ORAL SCH (09:00)
[2020-04-15] MEDS: Furosemide 40mg tab ORAL SCH (09:56)
[2020-04-15] MEDS: BuPROPion SR 100mg tab ORAL SCH ×2 (09:57→18:40)
[2020-04-15] MEDS: Heparin 5000 units/ml inj SUBQ SCH ×2 (09:58→20:25)
--- NOTE | 2020-04-15 10:04 | NUR ---
RD ASSESSMENT & RECOMMENDATIONS SEE CARE ACTIVITY FOR COMPLETE ASSESSMENT DAILY ESTIMATED NEEDS: Needs based on Cardiac, pulmonary, morbid obesity 11-15 120kg actual kcals/kg 0886-2571 total kcals 1.8-2 IBW g protein/kg 86-95 g total protein 25-30ml/kg abw mL/kg 1490-8239 total fluid mLs NUTRITION DIAGNOSIS: 1) Obesity r/t etiology unknown as evidenced by BMI >50, pt is 257% IBW. 2) Altered nutrition related lab values R/T CHF as evidenced by elev BNP (1098), on diuretics. CURRENT DIET:LOW NA -> NPO for stress test PO DIET RECOMMENDATIONS: CARDIAC diet ADDITIONAL RECOMMENDATIONS: * Daily standing wts as able for accuracy * Monitor lytes w/ Lasix, replete as needed * Monitor BGs closely w/ Prednisone . .
--- NOTE | 2020-04-15 10:21 | Pulmonology Progress Note ---
Subjective Interval Events: None new Constitutional: Reports: no symptoms HEENT: Repors: no symptoms Respiratory: Reports: no symptoms Cardiovascular: Reports: no symptoms Gastrointestinal/Abdominal: Reports: no symptoms Genitourinary: Reports: no symptoms Neurologic: Reports: no symptoms Allergies: Coded Allergies: ALBUTEROL (Verified Allergy, Unknown, 07/16/18) All Systems: reviewed and negative except above Objective Last 24 Hour Vital Signs Date Time Temp Pulse Resp B/P (MAP) Pulse Ox O2 Delivery O2 Flow Rate FiO2 04/15/20 09:56 69 110/59 04/15/20 09:00 69 110/59 04/15/20 08:32 100 Nasal Cannula 2.0 28 04/15/20 08:28 69 18 99 Nasal Cannula 2.0 28 71 18 100 04/15/20 08:00 97.7 68 20 110/59 (76) 100 04/15/20 08:00 61 04/15/20 04:00 62 04/15/20 04:00 97.9 68 19 120/64 (82) 100 04/15/20 00:55 65 20 99 Nasal Cannula 2.0 28 60 18 97 04/15/20 00:00 64 04/15/20 00:00 97.9 71 20 117/63 (81) 98 04/14/20 21:00 Nasal Cannula 2.0 04/14/20 20:00 86 04/14/20 20:00 97.7 70 20 106/64 (78) 98 04/14/20 19:13 70 20 99 Room Air 21 68 18 96 04/14/20 19:12 96 Room Air 21 04/14/20 17:04 72 112/52 04/14/20 16:00 72 04/14/20 16:00 97.7 73 18 112/52 (72) 98 04/14/20 12:00 96.7 80 21 141/96 (111) 95 04/14/20 12:00 72 Intake and Output 04/14/20 04/15/20 19:00 07:00 Intake Total 240 ml 220 ml Output Total 1500 ml Balance -1260 ml 220 ml Intake Oral 240 ml 220 ml Output Urine Total 1500 ml # Voids 2 # Bowel Movements 1 2 General Appearance: no acute distress HEENT: normocephalic Respiratory: chest wall non-tender, lungs clear Cardiovascular: normal peripheral pulses, normal rate Abdomen: normal bowel sounds Microbiology Date/Time Source Procedure Growth Status 04/12/20 18:02 Nasopharynx SARS-CoV-2 RdRp Gene Assay - Final Complete Laboratory Tests 04/15/20 05:40: White Blood Count 6.3, Red Blood Count 3.93L, Hemoglobin 11.0L, Hematocrit 37.2, Mean Corpuscular Volume 95, Mean Corpuscular Hemoglobin 27.9, Mean Corpuscular Hemoglobin Concent 29.5L, Red Cell Distribution Width 14.8, Platelet Count 199, Mean Platelet Volume 9.4, Neutrophils (%) (Auto) 46.8, Lymphocytes (%) (Auto) 39.8, Monocytes (%) (Auto) 9.2, Eosinophils (%) (Auto) 2.7, Basophils (%) (Auto) 1.4, Sodium Level 140, Potassium Level 4.0, Chloride Level 104, Carbon Dioxide Level 30, Anion Gap 6, Blood Urea Nitrogen 19H, Creatinine 1.1, Estimat Glomerular Filtration Rate > 60, Glucose Level 89, Calcium Level 9.3 Current Medications Medications (Trade) Dose Ordered Sig/Gus Route PRN Reason Start Time Stop Time Status Last Admin Dose Admin Bupropion HCl (Wellbutrin SR) 100 mg TWICE A DAY ORAL 04/13/20 09:00 05/13/20 08:59 04/15/20 09:57 Furosemide (Lasix) 40 mg DAILY ORAL 04/13/20 09:00 05/13/20 08:59 04/15/20 09:56 Heparin Sodium (Porcine) (Heparin 5000 units/ml) 5,000 units EVERY 12 HOURS SUBQ 04/13/20 09:00 05/28/20 08:59 04/15/20 09:58 Ipratropium [place] (Atrovent) 500 mcg Q6HRT HHN 04/13/20 01:00 04/18/20 00:59 04/15/20 08:25 Lisinopril (PriniviL) 10 mg DAILY ORAL 04/13/20 09:00 05/13/20 08:59 04/14/20 09:15 Metoprolol Tartrate (Lopressor) 25 mg BID ORAL 04/13/20 09:00 07/12/20 08:59 04/14/20 17:04 Morphine Sulfate (Morphine Sulfate) 2 mg Q4H PRN IVP For Pain 04/12/20 23:00 04/19/20 22:59 Nifedipine (Procardia XL) 90 mg DAILY ORAL 04/13/20 09:00 05/13/20 08:59 04/15/20 09:56 Prednisone (predniSONE) 5 mg DAILY ORAL 04/14/20 12:00 05/14/20 11:59 04/15/20 09:56 Regadenoson (Lexiscan) 0.4 mg ONCE PRN IV loss prevention leader to cardiology 04/15/20 07:45 04/17/20 07:44 Zolpidem Tartrate (Ambien) 5 mg HSPRN PRN ORAL Insomnia 04/13/20 21:15 04/20/20 21:14 04/14/20 20:49 Assessment/Plan Assessment/Plan IMPRESSION: 1. Pulmonary hypertension. 2. Diastolic dysfunction. 3. History of COPD. DISCUSSION: Continue with breathing treatments. Low dose steroids Stress test today as yesterday not performed due to wheezing Carmen Olmedo Omar Syed MD Apr 15, 2020 10:21
--- NOTE | 2020-04-15 10:21 | General Progress Note ---
Subjective Respiratory: Reports: shortness of breath Allergies: Coded Allergies: ALBUTEROL (Verified Allergy, Unknown, 07/16/18) All Systems: reviewed and negative except above Subjective o2nc calm Objective Last 24 Hour Vital Signs Date Time Temp Pulse Resp B/P (MAP) Pulse Ox O2 Delivery O2 Flow Rate FiO2 04/15/20 09:56 69 110/59 04/15/20 09:00 69 110/59 04/15/20 08:32 100 Nasal Cannula 2.0 28 04/15/20 08:28 69 18 99 Nasal Cannula 2.0 28 71 18 100 04/15/20 08:00 97.7 68 20 110/59 (76) 100 04/15/20 08:00 61 04/15/20 04:00 62 04/15/20 04:00 97.9 68 19 120/64 (82) 100 04/15/20 00:55 65 20 99 Nasal Cannula 2.0 28 60 18 97 04/15/20 00:00 64 04/15/20 00:00 97.9 71 20 117/63 (81) 98 04/14/20 21:00 Nasal Cannula 2.0 04/14/20 20:00 86 04/14/20 20:00 97.7 70 20 106/64 (78) 98 04/14/20 19:13 70 20 99 Room Air 21 68 18 96 04/14/20 19:12 96 Room Air 21 04/14/20 17:04 72 112/52 04/14/20 16:00 72 04/14/20 16:00 97.7 73 18 112/52 (72) 98 04/14/20 12:00 96.7 80 21 141/96 (111) 95 04/14/20 12:00 72 Intake and Output 04/14/20 04/15/20 18:59 06:59 Intake Total 240 ml 220 ml Output Total 1500 ml Balance -1260 ml 220 ml Intake Oral 240 ml 220 ml Output Urine Total 1500 ml # Voids 2 # Bowel Movements 1 2 Laboratory Tests 04/15/20 05:40: White Blood Count 6.3, Red Blood Count 3.93L, Hemoglobin 11.0L, Hematocrit 37.2, Mean Corpuscular Volume 95, Mean Corpuscular Hemoglobin 27.9, Mean Corpuscular Hemoglobin Concent 29.5L, Red Cell Distribution Width 14.8, Platelet Count 199, Mean Platelet Volume 9.4, Neutrophils (%) (Auto) 46.8, Lymphocytes (%) (Auto) 39.8, Monocytes (%) (Auto) 9.2, Eosinophils (%) (Auto) 2.7, Basophils (%) (Auto) 1.4, Sodium Level 140, Potassium Level 4.0, Chloride Level 104, Carbon Dioxide Level 30, Anion Gap 6, Blood Urea Nitrogen 19H, Creatinine 1.1, Estimat Glomerular Filtration Rate > 60, Glucose Level 89, Calcium Level 9.3 Height (Feet): 5 Height (Inches): 1.00 Weight (Pounds): 265 General Appearance: lethargic EENT: normal ENT inspection Neck: normal alignment Cardiovascular: normal peripheral pulses, normal rate, regular rhythm Respiratory/Chest: chest wall non-tender, lungs clear, normal breath sounds Abdomen: normal bowel sounds, non tender, soft Extremities: normal inspection Edema: 1+ Arm (L), 1+ Arm (R), 1+ Leg (L), 1+ Leg (R), 1+ Pedal (L), 1+ Pedal (R), 1+ Generalized Edema: trace edema Neurologic: responsive, motor weakness Skin: normal pigmentation, warm/dry Assessment/Plan Problem List: (1) HTN (hypertension) ICD Codes: I10 - Essential (primary) hypertension SNOMED: 24202616 (2) Congestive heart failure ICD Codes: I50.9 - Heart failure, unspecified SNOMED: 62042197 (3) COPD exacerbation ICD Codes: J44.1 - Chronic obstructive pulmonary disease with (acute) exacerbation SNOMED: 279501317, 469367038 Status: unchanged Assessment/Plan: o2 pulm tx diurse cbc bmp am Nadeem Smith DO Apr 15, 2020 10:21
[2020-04-15 12:00] VITALS: BP 113/65
--- NOTE | 2020-04-15 12:37 | Cardiac Electrophysiology PN ---
Assessment/Plan Assessment/Plan 1. Chest pain. Patient was ruled out for myocardial infarction by serial cardiac enzymes. EKG is nonischemic. Echocardiogram Nl EF 60% Stress test rescheduled for today ( By Dr. Staley). 2. Shortness of breath due to COPD and pulmonary hypertension and diastolic dysfunction.vNo wheezing 3. Hypertension. Continue metoprolol 25 b.i.d., Procardia XL 90 mg daily, lisinopril 20 mg daily and Lasix 40 mg daily. DICKSON RN Subjective Subjective Stress test was postponed to today by Dr Staley. No CP or SOB Objective Last 24 Hour Vital Signs Date Time Temp Pulse Resp B/P (MAP) Pulse Ox O2 Delivery O2 Flow Rate FiO2 04/15/20 09:56 69 110/59 04/15/20 09:00 69 110/59 04/15/20 08:32 100 Nasal Cannula 2.0 28 04/15/20 08:28 69 18 99 Nasal Cannula 2.0 28 71 18 100 04/15/20 08:00 97.7 68 20 110/59 (76) 100 04/15/20 08:00 61 04/15/20 04:00 62 04/15/20 04:00 97.9 68 19 120/64 (82) 100 04/15/20 00:55 65 20 99 Nasal Cannula 2.0 28 60 18 97 04/15/20 00:00 64 04/15/20 00:00 97.9 71 20 117/63 (81) 98 04/14/20 21:00 Nasal Cannula 2.0 04/14/20 20:00 86 04/14/20 20:00 97.7 70 20 106/64 (78) 98 04/14/20 19:13 70 20 99 Room Air 21 68 18 96 04/14/20 19:12 96 Room Air 21 04/14/20 17:04 72 112/52 04/14/20 16:00 72 04/14/20 16:00 97.7 73 18 112/52 (72) 98 Intake and Output 04/14/20 04/15/20 19:00 07:00 Intake Total 240 ml 220 ml Output Total 1500 ml Balance -1260 ml 220 ml Intake Oral 240 ml 220 ml Output Urine Total 1500 ml # Voids 2 # Bowel Movements 1 2 Laboratory Tests Test 04/15/20 05:40 White Blood Count 6.3 K/UL (4.8-10.8) Red Blood Count 3.93 M/UL (4.20-5.40) L Hemoglobin 11.0 G/DL (12.0-16.0) L Hematocrit 37.2 % (37.0-47.0) Mean Corpuscular Volume 95 FL (80-99) Mean Corpuscular Hemoglobin 27.9 PG (27.0-31.0) Mean Corpuscular Hemoglobin Concent 29.5 G/DL (32.0-36.0) L Red Cell Distribution Width 14.8 % (11.6-14.8) Platelet Count 199 K/UL (150-450) Mean Platelet Volume 9.4 FL (6.5-10.1) Neutrophils (%) (Auto) 46.8 % (45.0-75.0) Lymphocytes (%) (Auto) 39.8 % (20.0-45.0) Monocytes (%) (Auto) 9.2 % (1.0-10.0) Eosinophils (%) (Auto) 2.7 % (0.0-3.0) Basophils (%) (Auto) 1.4 % (0.0-2.0) Sodium Level 140 MMOL/L (136-145) Potassium Level 4.0 MMOL/L (3.5-5.1) Chloride Level 104 MMOL/L (98-107) Carbon Dioxide Level 30 MMOL/L (21-32) Anion Gap 6 mmol/L (5-15) Blood Urea Nitrogen 19 mg/dL (7-18) H Creatinine 1.1 MG/DL (0.55-1.30) Estimat Glomerular Filtration Rate > 60 mL/min (>60) Glucose Level 89 MG/DL (74-106) Calcium Level 9.3 MG/DL (8.5-10.1) Microbiology Date/Time Source Procedure Growth Status 04/12/20 18:02 Nasopharynx SARS-CoV-2 RdRp Gene Assay - Final Complete Objective HEAD AND NECK: Shows no JVD. LUNGS: Clear. CARDIOVASCULAR: Shows regular S1 and S2 with no gallop or murmur. ABDOMEN: Soft. EXTREMITIES: No pitting edema. Tommy Harrison MD Apr 15, 2020 12:37
--- NOTE | 2020-04-15 14:02 | NUR ---
CASE MANAGEMENT:REVIEW 04/15/20 SI: CHF. COPD SOB. CHEST PAIN 97.7 68 20 110/59 100% ON 2L/NC HGB-11.0 IS: IV LEXISCAN X1 PREDNISONE PO QD PROCARDIA PO QD LOPRESSOR PO BID LISINOPRIL PO QD LASIX PO QD HEPARIN SQ Q12 ATROVENT HHN Q6HRS RTC : TELEMETRY STATUS DCP: FROM HOME PLAN: STRESS TEST RE-ORDERED FOR TODAY
[2020-04-15 16:00] VITALS: BP 101/60
--- NOTE | 2020-04-15 18:08 | Diagnostic Imaging Report ---
Indications: Chest pain Technique: Single day single isotope protocol utilized. Initially, resting images obtained using IV administration 10.9 millicuries 99M technetium Myoview. Subsequently, patient underwent lexiscan stress testing. See cardiology report for details. During Lexiscan infusion, IV administration 31.6 mCi 99 M technetium Myoview. SPECT and planar images obtained. SPECT images gated to 8 phases of the cardiac cycle were also obtained, and reformatted into cine images for evaluation of ejection fraction. Comparison: none Findings: Per cardiology report, patient experienced shortness of breath during the infusion. Per cardiology report, resting EKG demonstrates normal sinus rhythm with left ventricular hypertrophy and repolarization abnormalities. Presence or absence of ST changes is not reported. Imaging demonstrates normal poststress perfusion, no fixed nor reversible perfusion defects. Calculated post stress ejection fraction 61%. No focal wall motion abnormality Impression: Nonischemic clinical response to pharmacologic stress, per cardiology report Nonischemic electrocardiographic response to pharmacologic stress, per cardiology report No imaging findings to suggest ischemia, at level of stress achieved. Calculated post stress ejection fraction 61%
--- NOTE | 2020-04-15 19:22 | NUR ---
NURSE HAND-OFF REPORT: Important Events on Shift: monitor BP and pt gets short of breath, needs assistance to stand up. Pt had a stress test today experienced SOB and tachy for about 45min. pt is SR now Patient Status: full Diet: low Na Pending Orders: Pending Results/Labs: Pending MD notification: Latest Vital Signs: Temperature 98.2 , Pulse 80 , B/P 101 /60 , Respiratory Rate 20 , O2 SAT 96 , Nasal Cannula, O2 Flow Rate 2.0 . Vital Sign Comment: EKG Rhythm: Sinus Rhythm Rhythm change?: N MD Notified?: - MD Response: Latest Monte Fall Score: 50 Fall Risk: High Risk Safety Measures: Call light Within Reach, Bed Alarm Zone 1, Side Rails Side Rails x2, Bed position Low and Locked. Fall Precautions: y Yellow Socks y Patient Fall Education Report given to Josephine/RN .
--- NOTE | 2020-04-15 19:44 | NUR ---
Received patient in bed, awake, alert, oriented x4, able to make her needs known,patient is able to ambulate with assistance, IV site is clean dry and intact, no acute distress noted. Call light is within reach, bed is lowered, locked, alarm is on, will continue to monitor for comfort and safety.
[2020-04-15 20:00] VITALS: BP 110/66
[2020-04-15] MEDS: Zolpidem 5mg tab ORAL PRN (20:25)
[2020-04-16] VITALS: BP 118/74
[2020-04-16] MEDS: Ipratropium 0.02% Inh Soln 2.5ml UD HHN SCH ×3 (00:45→13:00)
[2020-04-16] MEDS: Morphine Sulfate 2mg/ml Inj(IV/IM USE ONLY) IVP PRN ×2 (01:06→09:27)
[2020-04-16 04:16] VITALS: BP 118/74
--- NOTE | 2020-04-16 07:12 | NUR ---
NURSE HAND-OFF REPORT: Important Events on Shift: no changes to pt condition Patient Status: stable Diet: low sodium regular Pending Orders: Pending Results/Labs:awaiting full report of the stress test Pending MD notification: Latest Vital Signs: Temperature 98.7 , Pulse 74 , B/P 118 /74 , Respiratory Rate 18 , O2 SAT 98 , Nasal Cannula, O2 Flow Rate 2.0 . Vital Sign Comment: EKG Rhythm: Sinus Rhythm Rhythm change?: N MD Notified?: - MD Response: Latest Monte Fall Score: 50 Fall Risk: High Risk Safety Measures: Call light Within Reach, Bed Alarm Zone 1, Side Rails Side Rails x2, Bed position Low and Locked. Fall Precautions: Yellow Socks Patient Fall Education Report given to Sky Shukla RN
--- NOTE | 2020-04-16 07:15 | NUR ---
NURSE NOTES: Received hand-off report from Nallely Burton RN. Patient in stable condition, able to verbalize needs, alert and orientedx4, breathing unlabored and regular, on 2L oxygen nasal cannula, no pain noted at this time, denies chest pain/pressure at this time. Bed in lowest and locked position, call light within reach, bed alarm on, regional economist in place.
[2020-04-16 07:36] LABS: BASOPHILS % (AUTO) 0.8 % (0.0-2.0); EOSINOPHILS % (AUTO) 2.1 % (0.0-3.0); HEMOGLOBIN 11.2 G/DL (12.0-16.0); LYMPHOCYTES % (AUTO) 41.9 % (20.0-45.0); MEAN CORPUSCULAR VOLUME 95 FL (80-99); MONOCYTES % (AUTO) 10.8 % (1.0-10.0); NEUTROPHILS % (AUTO) 44.4 % (45.0-75.0); PLATELET COUNT 190 K/UL (150-450); RED BLOOD COUNT 4.02 M/UL (4.20-5.40); RED CELL DISTRIBUTION WIDTH 14.8 % (11.6-14.8); WHITE BLOOD COUNT 6.2 K/UL (4.8-10.8)
[2020-04-16 08:00] VITALS: BP 116/61
[2020-04-16 08:05] LABS: CREATININE 1.2 MG/DL (0.55-1.30); POTASSIUM 3.7 MMOL/L (3.5-5.1)
[2020-04-16] MEDS: BuPROPion SR 100mg tab ORAL SCH (08:21)
[2020-04-16] MEDS: Furosemide 40mg tab ORAL SCH (08:21)
[2020-04-16] MEDS: Heparin 5000 units/ml inj SUBQ SCH (08:23)
--- NOTE | 2020-04-16 08:39 | NUR ---
Notified Dr. Harrison regardin new onset chest pain/pressure 09/17 and minor SOB, vitals WNL. Received order to perform stat EKG, noted and will carry out.
[2020-04-16] MEDS: Lisinopril 20mg tab ORAL SCH (09:00)
[2020-04-16 09:20] VITALS: BP 130/49
--- NOTE | 2020-04-16 09:31 | Pulmonology Progress Note ---
Subjective Interval Events: None new Constitutional: Reports: no symptoms HEENT: Repors: no symptoms Respiratory: Reports: no symptoms Cardiovascular: Reports: no symptoms Gastrointestinal/Abdominal: Reports: no symptoms Genitourinary: Reports: no symptoms Neurologic: Reports: no symptoms Allergies: Coded Allergies: ALBUTEROL (Verified Allergy, Unknown, 07/16/18) All Systems: reviewed and negative except above Objective Last 24 Hour Vital Signs Date Time Temp Pulse Resp B/P (MAP) Pulse Ox O2 Delivery O2 Flow Rate FiO2 04/16/20 09:24 78 130/49 04/16/20 09:20 16 130/49 (76) 100 04/16/20 08:21 78 116/61 04/16/20 08:00 97.0 78 18 116/61 (79) 100 04/16/20 07:28 82 18 99 Nasal Cannula 1.0 24 80 18 98 04/16/20 07:28 98 Nasal Cannula 1.0 24 04/16/20 04:16 98.7 74 18 118/74 (89) 98 04/16/20 04:00 69 04/16/20 02:37 98.7 04/16/20 00:46 63 18 99 Room Air 21 60 18 97 04/16/20 00:00 98.7 87 20 118/74 (89) 98 04/16/20 00:00 65 04/15/20 21:20 Nasal Cannula 2.0 04/15/20 21:00 79 04/15/20 20:00 97.7 87 18 110/66 (81) 98 04/15/20 18:47 95 18 99 Room Air 21 62 18 96 04/15/20 18:46 96 Room Air 21 04/15/20 18:00 80 101/60 04/15/20 16:00 80 04/15/20 16:00 98.2 91 20 101/60 (74) 99 04/15/20 12:00 98.5 102 20 113/65 (81) 98 04/15/20 12:00 72 04/15/20 09:56 69 110/59 Intake and Output 04/15/20 04/16/20 19:00 07:00 Intake Total 1320 ml Balance 1320 ml Intake Oral 1320 ml # Voids 9 2 # Bowel Movements 1 1 General Appearance: no acute distress HEENT: normocephalic Respiratory: chest wall non-tender, lungs clear Cardiovascular: normal peripheral pulses, normal rate Abdomen: normal bowel sounds Laboratory Tests 04/16/20 06:00: White Blood Count 6.2, Red Blood Count 4.02L, Hemoglobin 11.2L, Hematocrit 38.0, Mean Corpuscular Volume 95, Mean Corpuscular Hemoglobin 27.8, Mean Corpuscular Hemoglobin Concent 29.4L, Red Cell Distribution Width 14.8, Platelet Count 190, Mean Platelet Volume 9.7, Neutrophils (%) (Auto) 44.4L, Lymphocytes (%) (Auto) 41.9, Monocytes (%) (Auto) 10.8H, Eosinophils (%) (Auto) 2.1, Basophils (%) (Auto) 0.8, Sodium Level 139, Potassium Level 3.7, Chloride Level 101, Carbon Dioxide Level 32, Anion Gap 6, Blood Urea Nitrogen 15, Creatinine 1.2, Estimat Glomerular Filtration Rate 54.9, Glucose Level 95, Calcium Level 9.0 Current Medications Medications (Trade) Dose Ordered Sig/Gus Route PRN Reason Start Time Stop Time Status Last Admin Dose Admin Bupropion HCl (Wellbutrin SR) 100 mg TWICE A DAY ORAL 04/13/20 09:00 05/13/20 08:59 04/16/20 08:21 Furosemide (Lasix) 40 mg DAILY ORAL 04/13/20 09:00 05/13/20 08:59 04/16/20 08:21 Heparin Sodium (Porcine) (Heparin 5000 units/ml) 5,000 units EVERY 12 HOURS SUBQ 04/13/20 09:00 05/28/20 08:59 04/16/20 08:23 Ipratropium [place] (Atrovent) 500 mcg Q6HRT HHN 04/13/20 01:00 04/18/20 00:59 04/16/20 07:28 Lisinopril (PriniviL) 10 mg DAILY ORAL 04/13/20 09:00 05/13/20 08:59 04/14/20 09:15 Metoprolol Tartrate (Lopressor) 25 mg BID ORAL 04/13/20 09:00 07/12/20 08:59 04/16/20 09:24 Morphine Sulfate (Morphine Sulfate) 2 mg Q4H PRN IVP For Pain 04/12/20 23:00 04/19/20 22:59 04/16/20 09:27 Nifedipine (Procardia XL) 90 mg DAILY ORAL 04/13/20 09:00 05/13/20 08:59 04/16/20 08:21 Prednisone (predniSONE) 5 mg DAILY ORAL 04/14/20 12:00 05/14/20 11:59 04/16/20 08:22 Regadenoson (Lexiscan) 0.4 mg ONCE PRN IV utility person to cardiology 04/15/20 07:45 04/17/20 07:44 04/15/20 15:07 Zolpidem Tartrate (Ambien) 5 mg HSPRN PRN ORAL Insomnia 04/13/20 21:15 04/20/20 21:14 04/15/20 20:25 Assessment/Plan Assessment/Plan IMPRESSION: 1. Pulmonary hypertension. 2. Diastolic dysfunction. 3. History of COPD. DISCUSSION: Continue with breathing treatments. No need for O2 anymore Stress test negative OK to dc Carmen Olmedo Omar Syed MD Apr 16, 2020 09:31
--- NOTE | 2020-04-16 09:56 | General Progress Note ---
Subjective Constitutional: Reports: weakness Allergies: Coded Allergies: ALBUTEROL (Verified Allergy, Unknown, 07/16/18) All Systems: reviewed and negative except above Subjective o2nc calm Objective Last 24 Hour Vital Signs Date Time Temp Pulse Resp B/P (MAP) Pulse Ox O2 Delivery O2 Flow Rate FiO2 04/16/20 09:24 78 130/49 04/16/20 09:20 16 130/49 (76) 100 04/16/20 09:00 118/62 04/16/20 08:21 78 116/61 04/16/20 08:00 97.0 78 18 116/61 (79) 100 04/16/20 07:28 82 18 99 Nasal Cannula 1.0 24 80 18 98 04/16/20 07:28 98 Nasal Cannula 1.0 24 04/16/20 04:16 98.7 74 18 118/74 (89) 98 04/16/20 04:00 69 04/16/20 02:37 98.7 04/16/20 00:46 63 18 99 Room Air 21 60 18 97 04/16/20 00:00 98.7 87 20 118/74 (89) 98 04/16/20 00:00 65 04/15/20 21:20 Nasal Cannula 2.0 04/15/20 21:00 79 04/15/20 20:00 97.7 87 18 110/66 (81) 98 04/15/20 18:47 95 18 99 Room Air 21 62 18 96 04/15/20 18:46 96 Room Air 21 04/15/20 18:00 80 101/60 04/15/20 16:00 80 04/15/20 16:00 98.2 91 20 101/60 (74) 99 04/15/20 12:00 98.5 102 20 113/65 (81) 98 04/15/20 12:00 72 04/15/20 09:56 69 110/59 Intake and Output 04/15/20 04/16/20 19:00 07:00 Intake Total 1320 ml Balance 1320 ml Intake Oral 1320 ml # Voids 9 2 # Bowel Movements 1 1 Laboratory Tests 04/16/20 06:00: White Blood Count 6.2, Red Blood Count 4.02L, Hemoglobin 11.2L, Hematocrit 38.0, Mean Corpuscular Volume 95, Mean Corpuscular Hemoglobin 27.8, Mean Corpuscular Hemoglobin Concent 29.4L, Red Cell Distribution Width 14.8, Platelet Count 190, Mean Platelet Volume 9.7, Neutrophils (%) (Auto) 44.4L, Lymphocytes (%) (Auto) 41.9, Monocytes (%) (Auto) 10.8H, Eosinophils (%) (Auto) 2.1, Basophils (%) (Auto) 0.8, Sodium Level 139, Potassium Level 3.7, Chloride Level 101, Carbon Dioxide Level 32, Anion Gap 6, Blood Urea Nitrogen 15, Creatinine 1.2, Estimat Glomerular Filtration Rate 54.9, Glucose Level 95, Calcium Level 9.0 Height (Feet): 5 Height (Inches): 1.00 Weight (Pounds): 265 General Appearance: lethargic EENT: normal ENT inspection Neck: normal alignment Cardiovascular: normal peripheral pulses, normal rate, regular rhythm Respiratory/Chest: chest wall non-tender, lungs clear, normal breath sounds Abdomen: normal bowel sounds, non tender, soft Extremities: normal inspection Edema: no edema noted Arm (L), no edema noted Arm (R), no edema noted Leg (L), no edema noted Leg (R), no edema noted Pedal (L), no edema noted Pedal (R), no edema noted Generalized Neurologic: motor weakness Skin: normal pigmentation, warm/dry Assessment/Plan Problem List: (1) HTN (hypertension) ICD Codes: I10 - Essential (primary) hypertension SNOMED: 21214940 (2) Congestive heart failure ICD Codes: I50.9 - Heart failure, unspecified SNOMED: 23424995 (3) COPD exacerbation ICD Codes: J44.1 - Chronic obstructive pulmonary disease with (acute) exacerbation SNOMED: 093627374, 186852959 Status: stable, progressing Assessment/Plan: o2 pulm tx diurse dc if clear Nadeem Smith DO Apr 16, 2020 09:56
--- NOTE | 2020-04-16 11:41 | Cardiac Electrophysiology PN ---
Assessment/Plan Assessment/Plan 1. Chest pain. Patient was ruled out for myocardial infarction by serial cardiac enzymes. EKG is nonischemic. Echocardiogram Nl EF 60% Stress test was performed yesterday and showed no ischemia 2. Shortness of breath due to COPD and pulmonary hypertension and diastolic dysfunction.No wheezing 3. Hypertension. Continue metoprolol 25 b.i.d., Procardia XL 90 mg daily, lisinopril 20 mg daily and Lasix 40 mg daily. DW RN OK to DC Subjective Subjective Stress test was done yesterday and showed no ischemia . No CP or SOB Objective Last 24 Hour Vital Signs Date Time Temp Pulse Resp B/P (MAP) Pulse Ox O2 Delivery O2 Flow Rate FiO2 04/16/20 09:24 78 130/49 04/16/20 09:20 16 130/49 (76) 100 04/16/20 09:00 118/62 04/16/20 08:21 78 116/61 04/16/20 08:00 86 04/16/20 08:00 97.0 78 18 116/61 (79) 100 04/16/20 07:28 82 18 99 Nasal Cannula 1.0 24 80 18 98 04/16/20 07:28 98 Nasal Cannula 1.0 24 04/16/20 04:16 98.7 74 18 118/74 (89) 98 04/16/20 04:00 69 04/16/20 02:37 98.7 04/16/20 00:46 63 18 99 Room Air 21 60 18 97 04/16/20 00:00 98.7 87 20 118/74 (89) 98 04/16/20 00:00 65 04/15/20 21:20 Nasal Cannula 2.0 04/15/20 21:00 79 04/15/20 20:00 97.7 87 18 110/66 (81) 98 04/15/20 18:47 95 18 99 Room Air 21 62 18 96 04/15/20 18:46 96 Room Air 21 04/15/20 18:00 80 101/60 04/15/20 16:00 80 04/15/20 16:00 98.2 91 20 101/60 (74) 99 04/15/20 12:00 98.5 102 20 113/65 (81) 98 04/15/20 12:00 72 Intake and Output 04/15/20 04/16/20 19:00 07:00 Intake Total 1320 ml Balance 1320 ml Intake Oral 1320 ml # Voids 9 2 # Bowel Movements 1 1 Laboratory Tests Test 04/16/20 06:00 White Blood Count 6.2 K/UL (4.8-10.8) Red Blood Count 4.02 M/UL (4.20-5.40) L Hemoglobin 11.2 G/DL (12.0-16.0) L Hematocrit 38.0 % (37.0-47.0) Mean Corpuscular Volume 95 FL (80-99) Mean Corpuscular Hemoglobin 27.8 PG (27.0-31.0) Mean Corpuscular Hemoglobin Concent 29.4 G/DL (32.0-36.0) L Red Cell Distribution Width 14.8 % (11.6-14.8) Platelet Count 190 K/UL (150-450) Mean Platelet Volume 9.7 FL (6.5-10.1) Neutrophils (%) (Auto) 44.4 % (45.0-75.0) L Lymphocytes (%) (Auto) 41.9 % (20.0-45.0) Monocytes (%) (Auto) 10.8 % (1.0-10.0) H Eosinophils (%) (Auto) 2.1 % (0.0-3.0) Basophils (%) (Auto) 0.8 % (0.0-2.0) Sodium Level 139 MMOL/L (136-145) Potassium Level 3.7 MMOL/L (3.5-5.1) Chloride Level 101 MMOL/L (98-107) Carbon Dioxide Level 32 MMOL/L (21-32) Anion Gap 6 mmol/L (5-15) Blood Urea Nitrogen 15 mg/dL (7-18) Creatinine 1.2 MG/DL (0.55-1.30) Estimat Glomerular Filtration Rate 54.9 mL/min (>60) Glucose Level 95 MG/DL (74-106) Calcium Level 9.0 MG/DL (8.5-10.1) Objective HEAD AND NECK: Shows no JVD. LUNGS: Clear. CARDIOVASCULAR: Shows regular S1 and S2 with no gallop or murmur. ABDOMEN: Soft. EXTREMITIES: No pitting edema. Tommy Harrison MD Apr 16, 2020 11:41
[2020-04-16 12:00] VITALS: BP 108/67
--- NOTE | 2020-04-16 13:20 | NUR ---
NURSE NOTES: Patient vital signs WNL (see vital signs assessment), stable condition, breathing unlabored, alert and oriented x4, respirations 18, spO2 97% on room air, 20g IV on right antecubital removed, tape and gauze applied, no signs of bleeding or infection noted. pvc monitor removed and given to campus monitor, leads removed, patient belongings list signed and all belongings were accounted for in front of patient, medication education given and reminded patient the necessity of scheduling appointment with primary provider, patient verbalized understanding. Patient ID band removed and put into shredder. Patient was safely escorted outside at 13:00 where she said her neighbor was waiting downstairs, upon arriving downstairs via personal wheel walker (steady gait), the ride was not there. Waited with patient downstairs until neighbor driving private vehicle arrived. Patient was safely guided into car. No incidents noted, patient was not in any distress, nor was shortness of breath noted.
--- NOTE | 2020-04-17 14:59 | Cardiology Report ---
APPROVED REPORT EKG Measurement Heart [id number] <Conclusion> Sinus bradycardia Left ventricular hypertrophy with repolarization abnormality Abnormal ECG
--- NOTE | 2020-04-18 10:11 | Cardiology Report ---
APPROVED REPORT EXAM: Two-dimensional and M-mode echocardiogram with Doppler and color Doppler. INDICATION S.O.B M-Mode DIMENSIONS IVSd1.5 (0.7-1.1cm)Left Atrium (MM)4.9 (1.6-4.0cm) LVDd2.1 (3.5-5.6cm)Aortic Root2.9 (2.0-3.7cm) PWd1.5 (0.7-1.1cm)Aortic Cusp Exc.1.9 (1.5-2.0cm) IVSs1.7 cm LVDs1.1 (2.5-4.0cm) PWs1.0 cm <Conclusion> Technically difficult study due to poor acoustical windows. Normal left ventricular chamber size, systolic function and wall motion to extent visualized. Left ventricular ejection fraction estimated to be 60-65 %. Mild left ventricular hypertrophy by 2-D. No evidence of pericardial fat or effusion. All other cardiac chamber sizes are within normal limits. Calcification of aortic valve with adequate cusp excursion. Thickened mitral valve leaflets with normal excursion. Mitral annulus and aortic root calcification. Pulmonic valve not well visualized. Normal tricuspid valve structure. IVC at normal size with physiologic collapse. A color flow and spectral Doppler study was performed and revealed: Trace aortic regurgitation. Mild mitral regurgitation. Mitral inflow indicates normal left ventricular diastolic function. Mild tricuspid regurgitation. Tricuspid systolic velocities suggests peak right ventricular systolic pressure of 19 mmHg.
--- NOTE | 2020-04-18 11:59 | Discharge Summary ---
Discharge Summary Discharge Summary _ DATE OF ADMISSION: 04/12/2020 DATE OF DISCHARGE: 04/16/2020 DISCHARGED BY: Dr Smith REASON FOR ADMISSION: 64 years old female with past medical history of hypertension, CHF, COPD/asthma, gastritis, morbid obesity, presented with shortness of breath and chest pain for 2 weeks , exacerbated when she had a physical exertion. Patient apparently was evaluated at the urgent care on March 25 and was told to go to the ER. However patient decided to stay home and did not follow-up advice from the [facility]. Patient reported mild swelling in her legs. No cough or congestion. No fever or chills. No nausea or vomiting. Symptoms worse while she was eating . Upon evaluation vital signs were stable. Laboratory work-up revealed no leukocytosis , hemoglobin 11.3, hematocrit 36.5. Stable electrolytes and renal parameters. Glucose 123. Troponin 0.003, pro BNP 06/15/2008 Lactic acid 0.8 . EKG revealed sinus rhythm with left ventricular hypertrophy with repolarization abnormalities. Chest x-ray demonstrated cardiomegaly , no acute process. In emergency department patient received aspirin , prednisone, nebulizing treatment with bronchodilator, IV Lasix , viscous Lidocaine , Mylanta and admitted for further management. CONSULTANTS: curtain worker Dr. Foley pulmonary Dr. Wagner [facility] COURSE: Patient admitted to telemetry floor. Manager Site and precision honing machine operator followed. Serial troponin were negative. EKG revealed no acute ischemic changes . Patient was ruled out for acute myocardial infarction. Echocardiogram demonstrated preserved ejection fraction of 60 to 65% with no e vidence of wall motion abnormality. Prior ECHO in 2018 revealed evidence of severe pulmonary HTN. This time ECHO demonstrated no evidence of pulmonary HTN. Blood pressure was managed with beta-elba , calcium channel elba ,MARIA E inhibitor and Lasix. Patient received IV dose of Lasix in the emergency room and continued on oral Lasix while on telemetry. Volumes and cardiorenal parameters were closely monitored. Supplemental oxygen provided and titrated to keep pulse oximetry above 92% . Pulmonary toilet provided . Patient also undergone myocardial perfusion scan test , which was nonischemic with calculated post-rest ejection fraction of 61%. ProBNP trended down . DVT prophylaxis provided. Patient clinically stabilized and was ready for discharge home with home health services to follow. FINAL DIAGNOSES: Congestive heart failure, diastolic dysfunction COPD exacerbation Chest pain Shortness of breath History of pulmonary hypertension DISCHARGE MEDICATIONS: See Medication Reconciliation list. DISCHARGE INSTRUCTIONS: Patient was discharged home with home health services. Follow up with primary care provider in one week. I have been assigned to dictate discharge summary for this account. I was not involved in the patient's management. Juhi Castañeda NP Apr 18, 2020 11:59
--- NOTE | 2020-04-18 13:22 | NUR ---
*-*DISCHARGE PLANNING*-* PATIENT HAS BEEN REFERRED TO: [facility] P: [phone] S/W ROBIN, WILL CALL BACK AFTER REVIEW.
--- NOTE | 2020-04-19 11:46 | NUR ---
*-*DISCHARGE PLANNING*-* PATIENT HAS BEEN REFERRED TO: [facility] P: [phone] S/W ADRIENNE, CANNOT SERVICE PATIENT DUE TO THEIR BLUE [employer] INSURANCE, NOT COVERED.
--- NOTE | 2020-04-19 14:45 | NUR ---
INSURANCE DC SUMMARY/INSTRUCTIONS FAXED TO [facility] [phone]
--- NOTE | 2020-04-21 22:54 | Coder Physician Query ---
Clarification is required for compliance, coding accuracy, and to reflect severity of illness for this patient Dear Dr. Smith Date: 04/21/20 [employer]/CDS Name:TYRONE villeda REASON FOR ADMISSION: 64 years old female with past medical history of hypertension, CHF, COPD/asthma, gastritis, morbid obesity, presented with shortness of breath and chest pain for 2 weeks , exacerbated when she had a physical exertion. Echocardiogram demonstrated preserved ejection fraction of 60 to 65% with no evidence of wall motion abnormality. Prior ECHO in 2018 revealed evidence of severe pulmonary HTN. This time ECHO demonstrated no evidence of pulmonary HTN. Blood pressure was managed with beta-elba , calcium channel elba ,MARIA E inhibitor and Lasix. Patient received IV dose of Lasix in the emergency room and continued on oral Lasix while on telemetry. BNP: 04/12 1609 (H), 04/14 1098 (H) CHF exacerbation. FINAL DIAGNOSES: Congestive heart failure, diastolic dysfunction Please Clarify the Congestive Heart failure Acuity: [] Acute [] Chronic [] Acute on Chronic Physician signature Date Please also document in your Progress Notes and/or Discharge Summary and indicate if the condition was present on admission. MERCEDES
== END 2020-04-16 13:15 | disposition home health service (06) | DRG 194 ==
LOC: EMR 17:09 → 2E 19:35 → EDBEDREQ 20:14
DX: I11.0 Hypertensive heart disease with heart failure (principal); R07.9 Chest pain, unspecified; J44.1 Chronic obstructive pulmonary disease with (acute) exacerbation; E66.01 Morbid (severe) obesity due to excess calories; Z68.43 Body mass index [BMI] 50.0-59.9, adult; Z88.8 Allergy status to other drugs, medicaments and biological substances; K29.70 Gastritis, unspecified, without bleeding; I27.20 Pulmonary hypertension, unspecified; I50.33 Acute on chronic diastolic (congestive) heart failure
CPT/HCPCS: 36415; 71045; 78452; 80048; 80053; 82728; 83605; 83615; 83880; 84484; 85025; 93005; 93017; 93306; 94640; 96374; 99285; J2785; U0002

== ENCOUNTER 2020-05-27 08:37 | Emergency (ER) | payer MEDICAID ==
[~2020-05-27] VITALS: Ht 154.9 cm; Wt 113.4 kg
[2020-05-27 09:13] VITALS: BP 107/69
[2020-05-27 10:02] LABS: BASOPHILS % (AUTO) 1.6 % (0.0-2.0); EOSINOPHILS % (AUTO) 5.5 % (0.0-3.0); HEMATOCRIT 35.1 % (37.0-47.0); HEMOGLOBIN 11.2 G/DL (12.0-16.0); LYMPHOCYTES % (AUTO) 37.9 % (20.0-45.0); MEAN CORPUSCULAR VOLUME 86 FL (80-99); MONOCYTES % (AUTO) 12.3 % (1.0-10.0); NEUTROPHILS % (AUTO) 42.7 % (45.0-75.0); PLATELET COUNT 228 K/UL (150-450); RED BLOOD COUNT 4.06 M/UL (4.20-5.40); RED CELL DISTRIBUTION WIDTH 16.6 % (11.6-14.8); WHITE BLOOD COUNT 5.2 K/UL (4.8-10.8)
[2020-05-27 10:33] LABS: CALCIUM 9.3 MG/DL (8.5-10.1); CREATININE 1.2 MG/DL (0.55-1.30); POTASSIUM 3.8 MMOL/L (3.5-5.1)
[2020-05-27 10:46] LABS: ALBUMIN 3.8 G/DL (3.4-5.0); ALBUMIN/GLOBULIN RATIO 0.9 (1.0-2.7); BILIRUBIN,TOTAL 0.5 MG/DL (0.2-1.0)
--- NOTE | 2020-05-27 11:05 | Emergency Room Report ---
History of Present Illness General Chief Complaint: Dyspnea/Respdistress Source: Patient Present Illness HPI Patient is a 64-year-old female presents for increased difficulty breathing. Gradual onset of symptoms. Prior history of CHF. Reportedly had been having recurrent swelling episodes to the right lower extremity. Denies any cough. Reports having some increased shortness of breath as well as orthopnea. Reports having negative DVT ultrasound in the past. Patient does not take any anticoagulation. Reports having some chest discomfort. Had not been having any fever. No vomiting or diarrhea. Some increased left-sided pelvic pain. Allergies: Coded Allergies: ALBUTEROL (Verified Allergy, Unknown, 07/16/18) COVID-19 Screening Contact w/high risk pt: No Experienced COVID-19 symptoms?: Yes COVID-19 Testing performed ASSISTANT GROCERY: No Patient History Past Medical History: see triage record Reviewed Nursing Documentation: PMH: Agreed; PSxH: Agreed Nursing Documentation-PMH Hx Cardiac Problems: Yes Hx Hypertension: Yes Hx Asthma: Yes Hx COPD: Yes Hx Cancer: No Hx Gastrointestinal Problems: Yes - Gastritis Hx Neurological Problems: Yes Hx Peripheral Neuropathy: Yes Hx Headaches: Yes Hx Weakness: Yes Review of Systems All Other Systems: negative except mentioned in HPI Physical Exam Vital Signs Date Time Temp Pulse Resp B/P (MAP) Pulse Ox O2 Delivery O2 Flow Rate FiO2 05/27/20 08:45 98.4 84 18 107/69 (82) 97 Room Air Sp02 EP Interpretation: reviewed, normal General Appearance: normal inspection, GCS 15, obese, Chronically Ill Head: atraumatic ENT: normal ENT inspection, hearing grossly normal, normal voice Neck: normal inspection, full range of motion, supple, no bony tend Respiratory: normal inspection, lungs clear, normal breath sounds, no respiratory distress, no retraction, no wheezing Cardiovascular #1: regular rate, rhythm, edema - Right lower extremity edema, minimal edema to the left lower extremity Gastrointestinal: normal inspection, normal bowel sounds, non tender, soft, no guarding, no hernia Rectal: other - Small area of increased skin papules to the buttock area does not appear to be in a dermatomal pattern. 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 Differential diagnosis include was not limited to DVT, venous insufficiency, pelvic mass, cellulitis among others. Because of complexity of patient's case laboratory tests and imaging studies were ordered. EKG interpreted by me showed normal sinus rhythm with a rate of [address] or T wave changes. Patient was given Lasix. Coronavirus testing was negative. Duplex ultrasound showed no evidence of DVT. Pelvic ultrasound showed no evidence of mass. Patient was given IV Lasix. She was noted to have some improvement after diuresis. Advised to use support hose and to continue elevating her foot. Patient was given prescription for medications due to lesions near the buttocks which appear to be nonvesicular at this time and may be minimally infected. She is advised to follow-up with her primary care physician Dr. Bray in 1-2 days. Patient is advised to return if any worsening condition or if any changes in status that are concerning. This report is dictated with [employer] net maker software which may occasionally lead to discrepancies related to use of this software. Labs Test 05/27/20 09:30 White Blood Count 5.2 K/UL (4.8-10.8) Red Blood Count 4.06 M/UL (4.20-5.40) Hemoglobin 11.2 G/DL (12.0-16.0) Hematocrit 35.1 % (37.0-47.0) Mean Corpuscular Volume 86 FL (80-99) Mean Corpuscular Hemoglobin 27.6 PG (27.0-31.0) Mean Corpuscular Hemoglobin Concent 31.9 G/DL (32.0-36.0) Red Cell Distribution Width 16.6 % (11.6-14.8) Platelet Count 228 K/UL (150-450) Mean Platelet Volume 9.3 FL (6.5-10.1) Neutrophils (%) (Auto) 42.7 % (45.0-75.0) Lymphocytes (%) (Auto) 37.9 % (20.0-45.0) Monocytes (%) (Auto) 12.3 % (1.0-10.0) Eosinophils (%) (Auto) 5.5 % (0.0-3.0) Basophils (%) (Auto) 1.6 % (0.0-2.0) Prothrombin Time 11.4 SEC (9.30-11.50) Prothromb Time International Ratio 1.0 (0.9-1.1) Activated Partial Thromboplast Time 30 SEC (23-33) D-Dimer 0.23 mg/L FEU (0.00-0.49) Sodium Level 139 MMOL/L (136-145) Potassium Level 3.8 MMOL/L (3.5-5.1) Chloride Level 103 MMOL/L (98-107) Carbon Dioxide Level 31 MMOL/L (21-32) Anion Gap 6 mmol/L (5-15) Blood Urea Nitrogen 19 mg/dL (7-18) Creatinine 1.2 MG/DL (0.55-1.30) Estimat Glomerular Filtration Rate 54.9 mL/min (>60) Glucose Level 101 MG/DL (74-106) Calcium Level 9.3 MG/DL (8.5-10.1) Total Bilirubin 0.5 MG/DL (0.2-1.0) Aspartate Amino Transf (AST/SGOT) 15 U/L (15-37) Alanine Aminotransferase (ALT/SGPT) 15 U/L (12-78) Alkaline Phosphatase 94 U/L (46-116) Troponin I 0.019 ng/mL (0.000-0.056) C-Reactive Protein, Quantitative 1.8 mg/dL (0.00-0.90) Total Protein 7.8 G/DL (6.4-8.2) Albumin 3.8 G/DL (3.4-5.0) Globulin 4.0 g/dL Albumin/Globulin Ratio 0.9 (1.0-2.7) Thyroid Stimulating Hormone (TSH) 2.252 uiU/mL (0.358-3.740) EKG Diagnostic Results Rate: normal Rhythm: NSR ST Segments: no acute changes Last Vital Signs Date Time Temp Pulse Resp B/P (MAP) Pulse Ox O2 Delivery O2 Flow Rate FiO2 05/27/20 09:13 84 18 Room Air 05/27/20 09:13 98.4 107/69 97 Status: improved Disposition: HOME, SELF-CARE Condition: Stable Scripts Cephalexin* (KEFLEX*) 500 Mg Capsule 500 MG ORAL EVERY 6 HOURS, #28 CAP Prov: Aroldo Moreland MD 05/27/20 Referrals: [facility],REFERRING (PCP) Aroldo Moreland MD May 27, 2020 11:05
[2020-05-27 11:59] VITALS: BP 112/71
[2020-05-27] MEDS ORDERED: FUROSEMIDE20 M1 ORAL (12:09)
[2020-05-27] MEDS ORDERED: CEPHALEXIN500 MG ORAL (12:13)
[2020-05-27 12:30] VITALS: BP 112/71
--- NOTE | 2020-05-27 16:36 | Diagnostic Imaging Report ---
Indication: Right leg edema Technique: Grayscale and duplex images of the right lower extremity veins Comparison: None Findings: On the right, grayscale and duplex images demonstrate no evidence of intraluminal thrombus. Normal phasic Doppler waveforms, demonstrating normal augmentation response and no evidence of valvular insufficiency. Greater saphenous vein(s) and tibial veins are patent. Normal compressibility. Single image of the contralateral common femoral vein is also unremarkable Impression: Negative for evidence of lower extremity deep venous thrombosis on the right
--- NOTE | 2020-05-27 16:37 | Diagnostic Imaging Report ---
Indication: Shortness of breath Technique: One view of the chest Comparison: none Findings: Lungs and pleural spaces are clear. Heart size is normal. No significant change Impression: No acute process
--- NOTE | 2020-05-27 16:40 | Diagnostic Imaging Report ---
Indication: Pelvic pain Technique: Transabdominal images of the pelvis. No endovaginal images obtained, patient unable to tolerate Comparison: none Findings: The bladder is normal. The uterus has been removed. Neither ovary is visualized. No pelvic mass. No pelvic fluid collection demonstrated. Impression: Limited exam, as described Surgically absent uterus, nonvisualized ovaries
== END 2020-05-27 12:31 ==
LOC: EMR 09:20
DX: I11.0 Hypertensive heart disease with heart failure (principal); I50.9 Heart failure, unspecified; E66.01 Morbid (severe) obesity due to excess calories; L98.9 Disorder of the skin and subcutaneous tissue, unspecified; J44.9 Chronic obstructive pulmonary disease, unspecified; Z88.7 Allergy status to serum and vaccine; Z68.42 Body mass index [BMI] 45.0-49.9, adult
CPT/HCPCS: 71045; 76857; 80053; 84443; 84484; 85025; 85379; 85610; 85730; 86140; 93005; 93971; 96374; J1940; U0002; Z7502; 99284